=== PATIENT | male | born 1970 | race Caucasian/White ===

== ENCOUNTER → 2016-11-20 | Outpatient (CLI) | payer BC ==
--- NOTE | 2016-11-20 17:54 | CT ---
EXAMINATION TYPE: CT abdomen pelvis w con DATE OF EXAM: 11/20/2016 5:45 PM COMPARISON: 06/11/2014 HISTORY: Left sidedto Mid trauma on 11/16/16 CT DLP: 1839.3 mGycm Automated exposure control for dose reduction was used. TECHNIQUE: Helical acquisition of images was performed from the lung bases through the pelvis. CONTRAST: Performed with Oral Contrast and with IV Contrast, patient injected with 100 mL of Omnipaque 300. FINDINGS: Lung bases are clear. There is no pleural effusion. Liver spleen pancreas gallbladder appear normal. Bile ducts are not dilated. There is no adrenal mass. Kidneys show satisfactory contrast opacificatio n. There is no hydronephrosis. There is a 2 cm cortical cyst in the lower pole right kidney. There is a 4 mm calcification in the lower pole left kidney. There is no retroperitoneal adenopathy. There is no ascites. There is an umbilical hernia that contains fat. I see no intestinal wall thickening. There are no dilated loops. There are some spondylotic changes i n the lumbar spine. I see no compression fracture. IMPRESSION: UMBILICAL HERNIA. NONOBSTRUCTING LEFT RENAL CALCULUS. THERE IS CLEARING OF THE LEFT-SIDED HYDRONEPHRO SIS COMPARED TO OLD EXAM. NO SIGN OF TRAUMATIC INJURY.
== END | disposition home or self-care (01) ==
LOC: RADCTMAIN 15:51
PROVIDERS: ATTEND Physician Assistant Medical
DX: N20.0 Calculus of kidney (principal); K42.9 Umbilical hernia without obstruction or gangrene; N13.30 Unspecified hydronephrosis; S39.81XA Other specified injuries of abdomen, initial encounter; W19.XXXA Unspecified fall, initial encounter
CPT/HCPCS: 74177; Q9967

== ENCOUNTER 2019-05-06 08:47 | Emergency (ER) | payer BC, OTHER ==
[2019-05-06 09:02] VITALS: BP 147/87; PULSE 60; RESP 18; TEMP 97.9
--- NOTE | 2019-05-06 09:56 | CT ---
EXAMINATION TYPE: CT facial bones wo con DATE OF EXAM: 05/06/2019 COMPARISON: None. HISTORY: Ran into garage door, Lt sided facial pain CT DLP: 792.4 mGycm Automated exposure control for dose reduction was used. TECHNIQUE: CT scan of the sinuses is performed without contrast, axial images are obtained, coronal r eformatted images are also reviewed. FINDINGS: Soft tissues about the face are unremarkable. Visualized portions of the cranium appear normal. The zygomatic arches are intact. The pterygoid plates are intact. The orbital margins and phillips of th e maxillary sinuses are intact. The mandible is unremarkable. No nasal fracture is seen. There is janay e mucoperiosteal thickening involving the maxillary sinuses. IMPRESSION: 1. NO ACUTE FACIAL FRACTURE. 2. MILD, CHRONIC MAXILLARY SINUS MUCOSAL DISEASE.
--- NOTE | 2019-05-06 10:22 | ED ---
Skin/Abscess/FB HPI - General Chief complaint: Skin/Abscess/Foreign Body Stated complaint: facial swelling Time Seen by Provider: 05/06/19 09:05 Source: patient, RN notes reviewed, old records reviewed Mode of arrival: ambulatory Limitations: no limitations - History of Present Illness Initial comments: Patient's a 48-year-old male, who presents emergency room today with left-sided facial swelling and pain. Patient reports that yesterday evening he is trying to put stuff away in his garage, and he at the left side of the face on garage door. Patient reports that he did not lose consciousness.Patient reports he went to bed last night and awoke with worsening redness pain and swelling over the left side. Patient states is mainly over his maxilla and cheek. He reports he has history of chronically poor dentition but denies any specific dental pain at this time. - Related Data Home Medications Medication Instructions Recorded Confirmed Ciprofloxacin HCl [Cipro] 500 mg PO Q12HR 12/03/15 12/03/15 Clindamycin HCl [Cleocin] 300 mg PO QID 12/03/15 12/03/15 Previous Rx's Medication Instructions Recorded Ibuprofen [Motrin] 800 mg PO Q6HR PRN #30 tab 06/11/14 Aspirin EC [Ecotrin Low Dose] 81 mg PO DAILY #1 tablet. 12/05/15 Doxycycline [Vibramycin] 100 mg PO BID #20 cap 05/06/19 Ibuprofen [Motrin] 600 mg PO Q8HR PRN #20 tab 05/06/19 Allergies Allergy/AdvReac Type Severity Reaction Status Date / Time codeine AdvReac Swelling Verified 05/06/19 09:46 Penicillins AdvReac Swelling Verified 05/06/19 09:46 Review of Systems ROS Statement: Those systems with pertinent positive or pertinent negative responses have been documented in the HPI. ROS Other: All systems not noted in ROS Statement are negative. Past Medical History Past Medical History: Asthma History of Any Multi-Drug Resistant Organisms: None Reported Past Surgical History: Orthopedic Surgery Additional Past Surgical History / Comment(s): knee surgery and ankle surgery Past Anesthesia/Blood Transfusion Reactions: No Reported Reaction Past Psychological History: No Psychological Hx Reported, Depression Smoking Status: Never smoker Past Alcohol Use History: None Reported Past Drug Use History: None Reported - Past Family History Brother(s) Family Medical History: Chest Pain / Angina, Myocardial Infarction ([place]) Additional Family Medical History / Comment(s): brother recently had a heart attack General Exam - General Exam Comments Initial Comments: Pleasant 48-year-old male. No significant distress. Limitations: no limitations General appearance: alert, in no apparent distress Head exam: Present: atraumatic, normocephalic, normal inspection Eye exam: Present: normal appearance, PERRL, EOMI, other. Absent: scleral icterus, conjunctival injection, periorbital swelling ENT exam: Present: normal exam, mucous membranes moist, TM's normal bilaterally, other (Chest tenderness over the left side of the maxilla, some erythema and swelling. No sign of nasal hematoma.) Neck exam: Present: normal inspection. Absent: tenderness, meningismus, lymphadenopathy Respiratory exam: Present: normal lung sounds bilaterally. Absent: respiratory distress, wheezes, rales, rhonchi, stridor Cardiovascular Exam: Present: regular rate, normal rhythm, normal heart sounds. Absent: systolic murmur, diastolic murmur, rubs, gallop, clicks GI/Abdominal exam: Present: soft, normal bowel sounds. Absent: distended, tenderness, guarding, rebound, rigid Extremities exam: Present: normal inspection, full ROM, normal capillary refill. Absent: tenderness, pedal edema, joint swelling, calf tenderness Back exam: Present: normal inspection Neurological exam: Present: alert, oriented X3, CN II-XII intact Course Vital Signs 05/06/19 08:57 Temperature 97.9 F Pulse Rate 60 Respiratory 18 Rate Blood Pressure 147/87 O2 Sat by Pulse 95 Oximetry Medical Decision Making - Medical Decision Making Patient's a 48-year-old male presents to return today with erythema over the left side of face, and swelling after he hit it on a garage or yesterday. He has a significant abrasions. Patient has some tenderness over the left maxilla. He has some history of chronic poor dentition. Due to the history of trauma to complete a computed tomography scan of the facial bones. He had no loss consciousness, and has no neurological deficits. Discussed the risk and benefit of CT. Patient Patient is agreeable, computed tomography scan of the facial bones was completed and shows no evidence of fracture. Evidence of chronic maxilla sinusitis. With the erythema, and concerns doesn't discomfort we will put the Patient on antibiotics to cover for any cellulitis her typical sinusitis. Patient is agreeable treatment plan will comply. Return parameters were discussed. - Radiology Data Radiology results: report reviewed Interpreted by me: CT of the facial bones shows no acute facial fracture. Mild chronic maxillary sinus mucosal disease. Disposition Clinical Impression: Facial contusion, Sinusitis Disposition: HOME SELF-CARE Condition: Good Instructions (If sedation given, give patient instructions): Sinusitis (ED) Additional Instructions: Advised to take the antibiotic as prescribed. Aunt had temperature medication such as Motrin Tylenol for pain. Apply cool compresses over the area of swelling and irritation. Return to the emergency department if any alarming signs or symptoms occur. Prescriptions: Ibuprofen [Motrin] 600 mg PO Q8HR PRN #20 tab PRN Reason: Pain Doxycycline [Vibramycin] 100 mg PO BID #20 cap Is patient prescribed a controlled substance at d/c from ED?: No Referrals: None,Stated [Primary Care Provider] - 1-2 days Leigh Ann Mcintyre MD [STAFF PHYSICIAN] - 1-2 days Anil Allen DO [Doctor of Osteopathic Medicine] - 1-2 days Time of Disposition: 10:19
== END 2019-05-06 11:15 | disposition home or self-care (01) ==
LOC: EC 08:47
DX: S00.83XA Contusion of other part of head, initial encounter (principal); J32.0 Chronic maxillary sinusitis; Z88.0 Allergy status to penicillin; Z88.5 Allergy status to narcotic agent; W22.8XXA Striking against or struck by other objects, initial encounter; Y93.89 Activity, other specified; Y92.015 Private garage of single-family (private) house as the place of occurrence of the external cause
CPT/HCPCS: 70486; 99284

== ENCOUNTER 2020-06-05 09:10 | Inpatient (IN) | payer BC ==
[2020-06-05] MEDS ORDERED: ALBUTEROL HFA INHALER INHALATION STA (09:55)
[2020-06-05 10:58] LABS: Basophils % (A) 0 %; Eosinophils % (A) 1 %; HCT 47.7 % (39.0-53.0); HGB 16.1 gm/dL (13.0-17.5); Lymphocytes # (A) 0.9 k/uL (1.0-4.8); Lymphocytes % (A) 19 %; MCH 29.7 pg (25.0-35.0); MCHC 33.8 g/dL (31.0-37.0); MCV 87.8 fL (80.0-100.0); Mean Platelet Volume 6.6; Monocytes # (A) 0.2 k/uL (0-1.0); Monocytes % (A) 4 %; Neutrophils # (A) 3.5 k/uL (1.3-7.7); Neutrophils % (A) 75 %; Platelet Count 153 k/uL (150-450); RBC 5.43 m/uL (4.30-5.90); RDW 13.1 % (11.5-15.5); WBC 4.6 k/uL (3.8-10.6)
--- NOTE | 2020-06-05 10:59 | XR ---
EXAMINATION TYPE: XR chest 1V portable DATE OF EXAM: 06/05/2020 HISTORY: Shortness of breath. COMPARISON: 12/03/2015 TECHNIQUE: Single view of the chest is submitted. FINDINGS: Demonstrated are scattered senescent parenchymal change. Right lower lobe infiltrate compatible with pneumonia. The heart is stable. Hilar and mediastinal structures are within normal limits. Degenerative changes are seen of the dorsal spine. IMPRESSION: 1. Right lower lobe infiltrate compatible with pneumonia.
[2020-06-05 11:10] LABS: ALT 36 U/L (4-49); AST 34 U/L (17-59); African American GFR (CKD) >90 (>60 ml/min/1.73 sqM); Albumin 4.3 g/dL (3.5-5.0); Alkaline Phosphatase 93 U/L (38-126); Anion Gap 6 mmol/L; Blood Urea Nitrogen 12 mg/dL (9-20); Calcium 8.8 mg/dL (8.4-10.2); Carbon Dioxide 26 mmol/L (22-30); Chloride 103 mmol/L (98-107); Glucose 100 mg/dL (74-99); LDH 290 U/L (313-618); Magnesium 1.9 mg/dL (1.6-2.3); Non-African American GFR(CKD) >90 (>60 ml/min/1.73 sqM); Potassium 3.9 mmol/L (3.5-5.1); Sodium 135 mmol/L (137-145); Total Bilirubin 0.6 mg/dL (0.2-1.3); Total Protein 7.9 g/dL (6.3-8.2)
[2020-06-05 11:16] LABS: D-Dimer 0.5 mg/L FEU (<0.60); INR 0.9 (<1.2); Partial Thromboplastin Time 27.8 sec (22.0-30.0); Prothrombin Time 9.6 sec (9.0-12.0)
[2020-06-05] MEDS ORDERED: AZITHROMYCIN 500 MG in SODIUM CHLORIDE 0.9% 250 ML IVPB STA (12:35)
--- NOTE | 2020-06-05 12:35 | ED ---
SOB HPI - General Chief Complaint: Shortness of Breath Stated Complaint: SOB Time Seen by Provider: 06/05/20 09:26 Source: patient Mode of arrival: ambulatory Limitations: no limitations - History of Present Illness Initial Comments: Patient is a 49-year-old male with past medical history of asthma who presents emergency Department with reported fever and shortness of breath. Patient states that his symptoms started yesterday. Patient is concerned as her on this time of year he reportedly comes down with pneumonia. Patient denies any sick contacts or similar symptoms. No exposure to Covid. Patient has had a productive cough associated shortness of breath. Also reports to chest pain which is pleuritic in nature. Denies history of DVT or PE. No lower extremity edema. No history of heart failure. Patient did have a fever this morning and took some Motrin. Denies previous cardiac history. No hemoptysis. No alleviating, precipitating or modifying factors - Related Data Home Medications Medication Instructions Recorded Confirmed FLUoxetine HCL [PROzac] 40 mg PO DAILY 05/06/19 06/09/20 atenoloL [Tenormin] 50 mg PO DAILY 05/06/19 06/09/20 Ipratropium-Albuterol Nebulize 3 ml INHALATION RT-QID PRN 06/09/20 06/09/20 [Duoneb 0.5 mg-3 mg/3 ml Soln] predniSONE See Taper PO DIRECTED 06/09/20 06/09/20 Previous Rx's Medication Instructions Recorded Levofloxacin [Levaquin] 750 mg PO DAILY tab 06/07/20 Allergies Allergy/AdvReac Type Severity Reaction Status Date / Time codeine Allergy Swelling Verified 06/09/20 11:40 Penicillins Allergy Swelling Verified 06/09/20 11:40 Review of Systems ROS Statement: Those systems with pertinent positive or pertinent negative responses have been documented in the HPI. ROS Other: All systems not noted in ROS Statement are negative. Past Medical History Past Medical History: Asthma History of Any Multi-Drug Resistant Organisms: None Reported Past Surgical History: Orthopedic Surgery Additional Past Surgical History / Comment(s): knee surgery and ankle surgery Past Anesthesia/Blood Transfusion Reactions: No Reported Reaction Past Psychological History: No Psychological Hx Reported, Depression Smoking Status: Never smoker Past Alcohol Use History: Rare Past Drug Use History: None Reported - Past Family History Brother(s) Family Medical History: Chest Pain / Angina, Myocardial Infarction ([place]) Additional Family Medical History / Comment(s): brother recently had a heart attack General Exam Limitations: no limitations General appearance: alert, in no apparent distress Eye exam: Present: normal appearance, PERRL, EOMI. Absent: scleral icterus, conjunctival injection, periorbital swelling Respiratory exam: Present: other (tachypnia, coarse breath sounds on the right, conversational dyspnea). Absent: respiratory distress Cardiovascular Exam: Present: regular rate, normal rhythm, normal heart sounds. Absent: systolic murmur, diastolic murmur, rubs, gallop, clicks GI/Abdominal exam: Present: soft, normal bowel sounds. Absent: distended, tenderness, guarding, rebound, rigid Neurological exam: Present: alert, oriented X3, CN II-XII intact Psychiatric exam: Present: normal affect, normal mood Course Vital Signs 06/05/20 06/05/20 06/05/20 09:15 10:34 11:00 Temperature 98.7 F Pulse Rate 72 69 Respiratory 18 18 Rate Blood Pressure 140/91 158/85 O2 Sat by Pulse 93 L 98 96 Oximetry 06/05/20 14:00 Temperature 98.5 F Pulse Rate 62 Respiratory 18 Rate Blood Pressure 136/82 O2 Sat by Pulse 97 Oximetry Medical Decision Making - Medical Decision Making Upon arrival the patient is placed into room 9. A thorough history and physical exam was performed. Patient is saturating 93% on room air. Peripheral is established. Laboratory studies were conducted. Patient is swabbed for Covid which is negative. Chest x-ray was performed which demonstrates a right lower lobe infiltrate. Images viewed by myself and pneumonia is quite extensive. I did order antibiotics. Albuterol inhaler is also ordered. I did discuss results with the patient. He did present tachypneic and upon reevaluation continues to remain slightly tachypneic. I did recommend hospital admission. Discuss case Dr. Huizar who did accept admission the patient. He did remain in stable condition awaiting a bed on the floor - Lab Data Result diagrams: 06/07/20 07:32 06/07/20 07:32 Lab Results 06/05/20 06/05/20 06/05/20 Range/Units 10:18 10:18 10:18 WBC 4.6 (3.8-10.6) k/uL RBC 5.43 (4.30-5.90) m/uL Hgb 16.1 (13.0-17.5) gm/dL Hct 47.7 (39.0-53.0) % MCV 87.8 (80.0-100.0) fL MCH 29.7 (25.0-35.0) pg MCHC 33.8 (31.0-37.0) g/dL RDW 13.1 (11.5-15.5) % Plt Count 153 (150-450) k/uL MPV 6.6 Neutrophils % 75 % Lymphocytes % 19 % Monocytes % 4 % Eosinophils % 1 % Basophils % 0 % Neutrophils # 3.5 (1.3-7.7) k/uL Lymphocytes # 0.9 L (1.0-4.8) k/uL Monocytes # 0.2 (0-1.0) k/uL Eosinophils # 0.0 (0-0.7) k/uL Basophils # 0.0 (0-0.2) k/uL PT 9.6 (9.0-12.0) sec INR 0.9 (<1.2) APTT 27.8 (22.0-30.0) sec D-Dimer 0.50 (<0.60) mg/L FEU Sodium 135 L (137-145) mmol/L Potassium 3.9 (3.5-5.1) mmol/L Chloride 103 (98-107) mmol/L Carbon Dioxide 26 (22-30) mmol/L Anion Gap 6 mmol/L BUN 12 (9-20) mg/dL Creatinine 0.80 (0.66-1.25) mg/dL Est GFR (CKD-EPI)AfAm >90 (>60 ml/min/1.73 sqM) Est GFR (CKD-EPI)NonAf >90 (>60 ml/min/1.73 sqM) Glucose 100 H (74-99) mg/dL Plasma Lactic Acid Lazaro (0.7-2.0) mmol/L Calcium 8.8 (8.4-10.2) mg/dL Magnesium 1.9 (1.6-2.3) mg/dL Total Bilirubin 0.6 (0.2-1.3) mg/dL AST 34 (17-59) U/L ALT 36 (4-49) U/L Alkaline Phosphatase 93 (38-126) U/L Lactate Dehydrogenase 290 L (313-618) U/L C-Reactive Protein 20.0 H (<10.0) mg/L Total Protein 7.9 (6.3-8.2) g/dL Albumin 4.3 (3.5-5.0) g/dL Procalcitonin (0.02-0.09) ng/mL Coronavirus (PCR) (Not Detectd) 06/05/20 06/05/20 06/05/20 Range/Units 10:18 10:18 10:18 WBC (3.8-10.6) k/uL RBC (4.30-5.90) m/uL Hgb (13.0-17.5) gm/dL Hct (39.0-53.0) % MCV (80.0-100.0) fL MCH (25.0-35.0) pg MCHC (31.0-37.0) g/dL RDW (11.5-15.5) % Plt Count (150-450) k/uL MPV Neutrophils % % Lymphocytes % % Monocytes % % Eosinophils % % Basophils % % Neutrophils # (1.3-7.7) k/uL Lymphocytes # (1.0-4.8) k/uL Monocytes # (0-1.0) k/uL Eosinophils # (0-0.7) k/uL Basophils # (0-0.2) k/uL PT (9.0-12.0) sec INR (<1.2) APTT (22.0-30.0) sec D-Dimer (<0.60) mg/L FEU Sodium (137-145) mmol/L Potassium (3.5-5.1) mmol/L Chloride (98-107) mmol/L Carbon Dioxide (22-30) mmol/L Anion Gap mmol/L BUN (9-20) mg/dL Creatinine (0.66-1.25) mg/dL Est GFR (CKD-EPI)AfAm (>60 ml/min/1.73 sqM) Est GFR (CKD-EPI)NonAf (>60 ml/min/1.73 sqM) Glucose (74-99) mg/dL Plasma Lactic Acid Lazaro 1.0 (0.7-2.0) mmol/L Calcium (8.4-10.2) mg/dL Magnesium (1.6-2.3) mg/dL Total Bilirubin (0.2-1.3) mg/dL AST (17-59) U/L ALT (4-49) U/L Alkaline Phosphatase (38-126) U/L Lactate Dehydrogenase (313-618) U/L C-Reactive Protein (<10.0) mg/L Total Protein (6.3-8.2) g/dL Albumin (3.5-5.0) g/dL Procalcitonin 0.09 (0.02-0.09) ng/mL Coronavirus (PCR) Not Detected (Not Detectd) - EKG Data EKG Comments: EKG demonstrates normal sinus rhythm with a ventricular rate of 67. HI interval is 180. QRS 114. QTC of 412. No acute ST segment elevations or depressions concerning for ischemic changes Disposition Clinical Impression: Chest pain, Shortness of breath, CAP (community acquired pneumonia), Asthma Disposition: ADMITTED IP TO THIS [facility] Condition: Stable Is patient prescribed a controlled substance at d/c from ED?: No Decision to Admit Reason: Admit from EC Decision Date: 06/05/20 Decision Time: 12:35
[2020-06-05] MEDS ORDERED: NALOXONE 0.4 MG/ML 1 ML VIAL IV PRN (12:36)
[2020-06-05] MEDS ORDERED: ACETAMINOPHEN TAB 325 MG TAB PO PRN (12:36)
[2020-06-05] MEDS ORDERED: cefTRIAXone IN SWFI 1,000 MG/10 ML SYRINGE IVP STA (12:36)
[2020-06-05] MEDS ORDERED: SODIUM CHLORIDE 0.9% 1,000 ML IV SCH (12:45)
[2020-06-05] MEDS ORDERED: SODIUM CHLORIDE 0.9% 1,000 ML IV STA (18:05)
--- NOTE | 2020-06-05 18:14 | P.HPIM ---
History of Present Illness H&P Date: 06/05/20 Dennis Beal, is a 49-year-old male patient of Dr. Underwood who presented to [facility] emergency room with a chief complaint of cough and shortness of breath, patient stated that he had fever, his symptoms started yesterday he was evaluated in the emergency room a rapid Covid test was done and was negative chest x-ray revealed evidence of right lower lobe infiltrate suggestive of pne umonia he was started on IV Rocephin and IV Zithromax and was admitted to medical floor. Patient has a history of asthma in the past, he stated that he never smoked he denies any history of COPD he denies any history of cardiac disease no history of coronary artery disease or congestive heart failure. On review of systems patient is alert and oriented 3 there is no fever or chills no headache or dizziness no chest pain he has significant shortness of breath he is not able to lay down he has occasional cough no nausea or vomiting no abdominal pain no diarrhea no blood in the stools no burning with urination no frequency or urgency and no hematuria. Past medical history is significant for asthma otherwise patient denies any significant past medical history he had an orthopedic surgery on his right lower extremity other surgical intervention Patient denies any history of smoking alcohol use or any illicit drug use. Past Medical History Past Medical History: Asthma History of Any Multi-Drug Resistant Organisms: None Reported Past Surgical History: Orthopedic Surgery Additional Past Surgical History / Comment(s): knee surgery and ankle surgery Past Anesthesia/Blood Transfusion Reactions: No Reported Reaction Past Psychological History: No Psychological Hx Reported, Depression Smoking Status: Never smoker Past Alcohol Use History: Rare Past Drug Use History: None Reported - Past Family History Brother(s) Family Medical History: Chest Pain / Angina, Myocardial Infarction ([place]) Additional Family Medical History / Comment(s): brother recently had a heart attack Medications and Allergies Home Medications Medication Instructions Recorded Confirmed Type FLUoxetine HCL [PROzac] 40 mg PO DAILY 05/06/19 06/05/20 History atenoloL [Tenormin] 50 mg PO DAILY 05/06/19 06/05/20 History Allergies Allergy/AdvReac Type Severity Reaction Status Date / Time codeine Allergy Swelling Verified 06/05/20 11:35 Penicillins Allergy Swelling Verified 06/05/20 11:35 Physical Exam Vitals: Vital Signs Temp Pulse Pulse Resp BP BP Pulse Ox 06/05/20 18:00 98.3 F 89 24 138/66 98 06/05/20 14:00 98.5 F 62 18 136/82 97 06/05/20 11:00 69 18 158/85 96 06/05/20 10:34 98 06/05/20 09:15 98.7 F 72 18 140/91 93 L Intake and Output 06/05/20 06/05/20 06/05/20 06:59 14:59 22:59 Other: Weight 114.305 kg On physical exam patient is alert and oriented 3 in no apparent distress HEENT head normocephalic and atraumatic Neck is supple no JVD no goiter no lymphadenopathy Chest exam reveals crackles in both lung bases right worse than left no wheezing Cardiac exam reveals regular heart sounds S1 and S2 no gallops no murmurs Abdomen is soft nontender no organomegaly with normal bowel sounds Extremity exam reveals no edema no cyanosis or clubbing Results CBC & Chem 7: 06/05/20 10:18 06/05/20 10:18 Labs: Abnormal Lab Results - Last 24 Hours (Table) 06/05/20 06/05/20 Range/Units 10:18 10:18 Lymphocytes # 0.9 L (1.0-4.8) k/uL Sodium 135 L (137-145) mmol/L Glucose 100 H (74-99) mg/dL Lactate Dehydrogenase 290 L (313-618) U/L C-Reactive Protein 20.0 H (<10.0) mg/L Thrombosis Risk Factor Assmnt - Choose All That Apply Any of the Below Risk Factors Present?: Yes Each Factor Represents 1 point: Age 41-60 years, Serious lung disease incl. pneumonia (< 1month) Other Risk Factors: No Other congenital or acquired thrombophilia - If yes, enter type in comment: No Thrombosis Risk Factor Assessment Total Risk Factor Score: 2 Thrombosis Risk Factor Assessment Level: Low Risk Assessment and Plan Plan: 1. Severe shortness of breath, likely related to pneumonia, patient has known history of asthma there is no wheezing at this time, however patient will be started on oral steroids and inhaled bronchodilators, will continue with IV antibiotic that was started in the emergency room Rocephin and Zithromax will obtain sputum for culture and Gram stain 2. Underlying history of asthma 3. For DVT prophylaxis we will use Lovenox for GI prophylaxis Will use Protonix 4. Rapid Covid 19 testing in the emergency room was negative, will obtain swab for PCR testing
[2020-06-05] MEDS: IPRATROPIUM-ALBUTEROL 3 ML NEB INHALATION SCH (19:18)
[2020-06-05] MEDS: dexAMETHasone 4 MG TAB PO SCH (21:00)
[2020-06-05] MEDS: IBUPROFEN 400 MG TAB PO PRN (21:04)
[2020-06-06 08:12] LABS: Basophils % (A) 1 %; Eosinophils % (A) 0 %; HCT 50.4 % (39.0-53.0); HGB 17.5 gm/dL (13.0-17.5); Lymphocytes # (A) 0.4 k/uL (1.0-4.8); Lymphocytes % (A) 9 %; MCH 30.6 pg (25.0-35.0); MCHC 34.8 g/dL (31.0-37.0); MCV 87.8 fL (80.0-100.0); Monocytes # (A) 0.1 k/uL (0-1.0); Monocytes % (A) 3 %; Neutrophils # (A) 3.7 k/uL (1.3-7.7); Neutrophils % (A) 87 %; Platelet Count 134 k/uL (150-450); RBC 5.73 m/uL (4.30-5.90); RDW 12.6 % (11.5-15.5); WBC 4.3 k/uL (3.8-10.6)
[2020-06-06] MEDS: IPRATROPIUM-ALBUTEROL 3 ML NEB INHALATION SCH ×4 (08:39→20:47)
[2020-06-06] MEDS: IBUPROFEN 400 MG TAB PO PRN ×2 (09:01→23:35)
[2020-06-06] MEDS: dexAMETHasone 4 MG TAB PO SCH (09:02)
[2020-06-06] MEDS: ENOXAPARIN 40 MG/0.4 ML SYRINGE SQ SCH (09:02)
--- NOTE | 2020-06-06 11:50 | P.PN ---
Subjective Progress Note Date: 06/06/20 Dennis Beal, is a 49-year-old male patient of Dr. Underwood who presented to [facility] emergency room with a chief complaint of cough and shortness of breath, patient stated that he had fever, his symptoms started yesterday he was evaluated in the emergency room a rapid Covid test was done and was negative chest x-ray revealed evidence of right lower lobe infiltrate suggestive of pneumonia he was started on IV Rocephin and IV Zithromax and was admitted to medical floor. Patient has a history of asthma in the past, he stated that he never smoked he denies any history of COPD he denies any history of cardiac disease no history of coronary artery disease or congestive heart failure. On review of systems patient is alert and oriented 3 there is no fever or chills no headache or dizziness no chest pain he has significant shortness of breath he is not able to lay down he has occasional cough no nausea or vomiting no abdominal pain no diarrhea no blood in the stools no burning with urination no frequency or urgency and no hematuria. Past medical history is significant for asthma otherwise patient denies any significant past medical history he had an orthopedic surgery on his right lower extremity other surgical intervention Patient denies any history of smoking alcohol use or any illicit drug use. On 06/06/2020 patient was seen and examined on the medical floor he is alert and oriented 3 in no distress he is still complaining of cough and shortness of breath, however he reports significant improvement since yesterday, otherwise he denies any complaints there is no fever or chills no headache or dizziness no chest pain no palpitation no nausea or vomiting no abdominal pain no diarrhea no blood in the stools no burning with urination no frequency or urgency and no h ematuria Objective - Vital Signs Vital signs: Vital Signs Temp 98.7 F 06/06/20 07:22 Pulse 92 06/06/20 08:52 Resp 17 06/06/20 07:22 BP 167/82 06/06/20 07:22 Pulse Ox 99 06/06/20 07:22 Intake & Output 06/05/20 06/06/20 06/06/20 18:59 06:59 18:59 Weight 114.305 kg Other: Voiding Method Toilet - Exam On physical exam patient is alert and oriented 3 in no apparent distress HEENT head normocephalic and atraumatic Neck is supple no JVD no goiter no lymphadenopathy Chest exam reveals crackles in both lung bases right worse than left no wheezing Cardiac exam reveals regular heart sounds S1 and S2 no gallops no murmurs Abdomen is soft nontender no organomegaly with normal bowel sounds Extremity exam reveals no edema no cyanosis or clubbing - Labs CBC & Chem 7: 06/06/20 07:16 06/05/20 10:18 Labs: Abnormal Lab Results - Last 24 Hours (Table) 06/06/20 Range/Units 07:16 Plt Count 134 L (150-450) k/uL Lymphocytes # 0.4 L (1.0-4.8) k/uL Assessment and Plan Plan: 1. Severe shortness of breath, likely related to pneumonia, patient has known history of asthma there is no wheezing at this time, however patient will be started on oral steroids and inhaled bronchodilators, will continue with IV antibiotic that was started in the emergency room Rocephin and Zithromax will obtain sputum for culture and Gram stain 2. Underlying history of asthma 3. For DVT prophylaxis we will use Lovenox for GI prophylaxis Will use Protonix 4. Rapid Covid 19 testing in the emergency room was negative, repeat testing was PCR was also negative 5. For DVT prophylaxis patient is on Lovenox for GI prophylaxis patient is on Protonix Awaiting repeat chest x-ray Awaiting sputum for culture and Gram stain Awaiting input from pulmonary
[2020-06-06 11:56] LABS: African American GFR (CKD) 100.6 (60.0-200.0); Albumin 4.6 g/dL (3.80-4.90); Albumin/Globulin Ratio 1.53 (1.60-3.17); Anion Gap 7.8 mmol/L (4.00-12.00); Calcium 9.2 mg/dL (8.7-10.3); Carbon Dioxide 27.2 mmol/L (21.6-31.8); Non-African American GFR(CKD) 86.8 (60.0-200.0); Potassium 4.7 mmol/L (3.5-5.5); Total Bilirubin 0.6 mg/dL (0.3-1.2); Total Protein 7.6 g/dL (6.2-8.2)
--- NOTE | 2020-06-06 12:41 | XR ---
EXAMINATION TYPE: XR chest 2V DATE OF EXAM: 06/06/2020 COMPARISON: Chest x-ray from yesterday. CT chest March 25, 2016 HISTORY: Shortness of breath. TECHNIQUE: Frontal and lateral views of the chest are obtained. FINDINGS: There is redemonstration of right basilar opacity more masslike or rounded on the current study less well seen on lateral view. Left lung remains clear. The cardiac silhouette size is stable and within normal limits. The osseous structures are intact. IMPRESSION: Slightly worsening right basilar acute infiltrate and/or atelectasis.
[2020-06-06] MEDS ORDERED: AZITHROMYCIN 500 MG in SODIUM CHLORIDE 0.9% 250 ML IVPB SCH (14:00)
[2020-06-06] MEDS: PANTOPRAZOLE 40 MG TABLET PO SCH (14:16)
[2020-06-06] MEDS ORDERED: RX INFO: IV CONTRAST WAS GIVEN 1 EACH MISC MISCELLANE PRN (15:17)
--- NOTE | 2020-06-06 15:17 | P.CNPUL ---
History of Present Illness Consult date: 06/06/20 Requesting physician: Placido Huizar Reason for consult: dyspnea, cough, abnormal CXR/CT Chief complaint: Shortness of breath, cough, congestion History of present illness: This is a very pleasant 49-year-old gentleman who follows with Dr. Underwood as his primary care provider, with a known history of mild intermittent chronic bronchial asthma, lifelong nonsmoker hypertension, depression. He presented here to the emergency room on 06/05/2020 with complaints of increasing shortness of breath, cough and congestion. He did have a fever at home. He did have night sweats, chills, nausea and dizziness. Chest x-ray reveals evidence of a right lower lobe infiltrate compatible with pneumonia. Blood cultures pending. White count 4.3. Hemoglobin 17.5. Sodium 136. Potassium 4.7. Creatinine 1.0. D-dimer 0.50. Troponins negative 2. Pro calcitonin 0.09. Coronavirus not detected. The patient is seen today in consultation on the regular medical floor. He is currently awake and alert in no acute distress. Chest x-ray does reveal slightly worsening right basilar acute infiltrate/atelectasis somewhat of a masslike a rounded consolidation. Left lung is clear. Currently maintaining good O2 saturations in the upper 90s on 4 L/m per nasal cannula. He is currently afebrile. Hemodynamically stable. He's been initiated on ceftriaxone and azithromycin. Bronchodilators, steroids. Review of Systems REVIEW OF SYSTEMS: CONSTITUTIONAL: Fever, chills, night sweats. Dizziness. Denies any recent significant weight loss or weight gain. EYES: Denies change in vision. EARS, NOSE, MOUTH, THROAT: Denies headaches, denies sore throat. CARDIOVASCULAR: Denies chest pain, palpitations or syncopal episodes. RESPIRATORY: Positive for shortness of breath, cough, congestion no hemoptysis. GASTROINTESTINAL: Positive for nausea. Denies change in appetite, denies ab dominal pain GENITOURINARY: Denies hematuria, denies infections. MUSKULOSKELETAL: Denies pain, denies swelling. INTEGUMENTARY: Denies rash, denies eczema. NEUROLOGICAL: Denies recent memory loss, no recent seizure activity. PSYCHIATRIC: Denies anxiety, denies depression. HEMATOLOGIC/LYMPHATIC: Denies anemia, denies enlarged lymph nodes. Past Medical History Past Medical History: Asthma History of Any Multi-Drug Resistant Organisms: None Reported Past Surgical History: Orthopedic Surgery Additional Past Surgical History / Comment(s): knee surgery and ankle surgery Past Anesthesia/Blood Transfusion Reactions: No Reported Reaction Past Psychological History: No Psychological Hx Reported, Depression Smoking Status: Never smoker Past Alcohol Use History: Rare Past Drug Use History: None Reported - Past Family History Brother(s) Family Medical History: Chest Pain / Angina, Myocardial Infarction ([place]) Additional Family Medical History / Comment(s): brother recently had a heart attack Medications and Allergies Home Medications Medication Instructions Recorded Confirmed Type FLUoxetine HCL [PROzac] 40 mg PO DAILY 05/06/19 06/05/20 History atenoloL [Tenormin] 50 mg PO DAILY 05/06/19 06/05/20 History Allergies Allergy/AdvReac Type Severity Reaction Status Date / Time codeine Allergy Swelling Verified 06/05/20 11:35 Penicillins Allergy Swelling Verified 06/05/20 11:35 Physical Exam Vitals: Vital Signs Temp Pulse Pulse Resp BP Pulse Ox 06/06/20 12:04 86 06/06/20 11:54 84 06/06/20 08:52 92 06/06/20 08:39 92 06/06/20 07:22 98.7 F 73 17 167/82 99 06/06/20 00:51 98.1 F 73 17 115/72 97 06/05/20 22:30 98.2 F 06/05/20 20:59 101.2 F H 84 17 127/86 97 06/05/20 19:27 90 20 06/05/20 19:18 89 22 06/05/20 18:00 98.3 F 89 24 138/66 98 Intake and Output 06/05/20 06/06/20 06/06/20 22:59 06:59 14:59 Other: Voiding Method Toilet GENERAL EXAM: Alert, active, pleasant 49-year-old gentleman, on 4 L nasal cannula, comfortable in no apparent distress. HEAD: Normocephalic. EYES: Normal reaction of pupils, equal size. NOSE: Clear with pink turbinates. THROAT: No erythema or exudates. NECK: No masses, no JVD. CHEST: No chest wall deformity. LUNGS: Equal air entry with scattered rhonchi in the right lung base. CVS: S1 and S2 normal with no audible murmur, regular rhythm. ABDOMEN: No hepatosplenomegaly, normal bowel sounds, no guarding or rigidity. SPINE: No scoliosis or deformity SKIN: No rashes CENTRAL NERVOUS SYSTEM: No focal deficits, tone is normal in all 4 extremities. EXTREMITIES: There is no peripheral edema. No clubbing, no cyanosis. Peripheral pulses are intact. Results - Laboratory Findings CBC and BMP: 06/06/20 07:16 06/06/20 07:16 PT/INR, D-dimer PT 9.6 sec (9.0-12.0) 06/05/20 10:18 INR 0.9 (<1.2) 06/05/20 10:18 D-Dimer 0.50 mg/L FEU (<0.60) 06/05/20 10:18 Abnormal lab findings: Abnormal Labs 06/05/20 06/05/20 06/06/20 10:18 10:18 07:16 Plt Count 134 L Lymphocytes # 0.9 L 0.4 L Sodium 135 L Glucose 100 H Lactate Dehydrogenase 290 L C-Reactive Protein 20.0 H Albumin/Globulin Ratio 06/06/20 07:16 Plt Count Lymphocytes # Sodium Glucose 139 H Lactate Dehydrogenase C-Reactive Protein Albumin/Globulin Ratio 1.53 L - Diagnostic Findings Chest x-ray: image reviewed Assessment and Plan Assessment: 1 Acute hypoxic respiratory failure secondary to an acute community-acquired right lower lobe pneumonia, masslike consolidation, mitchell virus not detected 2 History of mild intermittent chronic bronchial asthma 3 History of hypertension 4 History of depression Plan: The patient was seen and evaluated by Dr. Muller Chest x-ray and labs reviewed We'll continue with antibiotics, steroids and bronchodilators for now Obtain computed tomography scan of the chest with contrast May require bronchoscopy with BAL if no significant improvement We will continue to follow and make further recommendations based on his clinical status I, the cosigning physician, performed a history & physical examination of the patient. Lungs sounds few scattered rhonchi more so on the right lung. Maintaining good O2 saturations in the 90s on or liters per minute per nasal cannula. I discussed the assessment and plan of care with my nurse practiti camryn, Karen Wiseman. I attest to the above consultation as dictated by her. Time with Patient: Greater than 30
--- NOTE | 2020-06-06 16:25 | CT ---
EXAMINATION TYPE: CT chest w con DATE OF EXAM: 06/06/2020 COMPARISON: CTA chest March 25, 2016. Chest x-ray earlier today. HISTORY: SOB CT DLP: 781.6 mGycm. Automated Exposure Control for Dose Reduction was Utilized. TECHNIQUE: CT scan of the thorax is performed following with IV Contrast, patient injected with 100 mL of Isovue 300. FINDINGS: LUNGS: Exam suboptimal as patient unable to hold breath, this limits evaluation particularly for subc entimeter nodules. There is 1.1 x 1.0 cm groundglass nodule axial image 19 left mid lung anteriorly. There is 6 mm right basilar nodule axial image 28. Corresponding to x-ray there is dense consolidati on with air bronchograms involving the superior aspect of the right lower lobe and to lesser degree p osterior aspect of the more inferior right lower lobe. There is smaller focus of nodule or more likel y nodular consolidation right middle lobe periphery 1.2 x 1.1 cm axial image 33. Mild linear scarring medially in the left lower lobe. No pleural effusion or pneumothorax seen bilaterally. MEDIASTINUM: There are no greater than 1 cm hilar or mediastinal lymph nodes. No cardiomegaly or pe ricardial effusion is seen. OTHER: Liver is low dense consistent with diffuse fatty infiltration. Mild hepatomegaly is present. M ild splenomegaly at 13.9 cm long axis coronal image 76. Spine is straightened with mild to moderate m ultilevel spurring. IMPRESSION: Right lower lobe superior aspect pneumonic consolidation, more patchy involvement through out the right lower lobe and periphery of the right middle lobe. No obvious underlying mass or suspic ious adenopathy.
[2020-06-06] MEDS: methylPREDNISolone SOD SUCCI 40 MG/ML 1 ML VIAL IV SCH ×2 (17:18→23:34)
[2020-06-06] MEDS ORDERED: MELATONIN 5 MG TABLET PO SCH (21:00)
[2020-06-06] MEDS ORDERED: MELATONIN 3 MG TABLET PO SCH (21:00)
[2020-06-07 07:11] LABS: Glucose,Whole Blood 138 mg/dL (75-99)
[2020-06-07] MEDS: IBUPROFEN 400 MG TAB PO PRN ×2 (07:37→12:56)
[2020-06-07] MEDS: PANTOPRAZOLE 40 MG TABLET PO SCH (07:37)
[2020-06-07] MEDS: methylPREDNISolone SOD SUCCI 40 MG/ML 1 ML VIAL IV SCH (07:37)
[2020-06-07] MEDS: ENOXAPARIN 40 MG/0.4 ML SYRINGE SQ SCH (07:38)
[2020-06-07 07:56] VITALS: BP 126/62; RESP 16; TEMP 98.2
[2020-06-07 07:56] LABS: Basophils % (A) 0 %; Eosinophils % (A) 0 %; HCT 48.2 % (39.0-53.0); HGB 16.1 gm/dL (13.0-17.5); Lymphocytes # (A) 0.6 k/uL (1.0-4.8); Lymphocytes % (A) 6 %; MCH 29.6 pg (25.0-35.0); MCHC 33.4 g/dL (31.0-37.0); MCV 88.5 fL (80.0-100.0); Monocytes # (A) 0.2 k/uL (0-1.0); Monocytes % (A) 2 %; Neutrophils # (A) 9.3 k/uL (1.3-7.7); Neutrophils % (A) 91 %; Platelet Count 197 k/uL (150-450); RBC 5.45 m/uL (4.30-5.90); RDW 13.1 % (11.5-15.5); WBC 10.2 k/uL (3.8-10.6)
[2020-06-07] MEDS: IPRATROPIUM-ALBUTEROL 3 ML NEB INHALATION SCH ×2 (09:12→12:50)
--- NOTE | 2020-06-07 10:43 | CONS ---
CONSULTATION DATE OF SERVICE: 06/06/2020 REASON FOR CONSULTATION: Pneumonia. HISTORY OF PRESENT ILLNESS: The patient is a 49-year-old male with a past medical history significant for asthma, presenting to the ER with chief complaints of fever and shortness of breath. The patient's symptoms started the day before he presented to the hospital. The patient is complaining of shortness of breath with minimal exertion. Also has a cough which has been moderate in intensity with occasional sputum production. Denies hemoptysis. No pleuritic chest pain. No nausea, no vomiting. No chest pain. No diarrhea or any sick contacts. On arrival to the ER, the patient was afebrile. Subsequently, spiked a fever of 101.2 degrees Fahrenheit. The patient was mildly hypoxic requiring supplemental oxygen. The patient did have a normal white count with lymphopenia, elevated LDH, CRP of 20. Procalcitonin was normal. Naidu PCR came back negative. The patient did have a chest x-ray which showed right lower lobe infiltrate compatible with pneumonia. The patient did have a CT of the chest completed this afternoon with evidence of right lower lobe pneumonia. The patient has been admitted to the hospital, currently being treated with Rocephin, Zithromax, Solu-Medrol. Infectious Disease was consulted for further management of antibiotic therapy. REVIEW OF SYSTEMS: Positive points have been mentioned in HPI. Rest of the systems are negative. PAST MEDICAL HISTORY: Asthma. PAST SURGICAL HISTORY: Knee and ankle surgery. SOCIAL HISTORY: No history of smoking. Rarely drinks. No drug use. FAMILY HISTORY: No pertinent findings noticed. ALLERGIES: PENICILLIN, CODEINE. MEDICATIONS: The patient is currently on Protonix, Narcan, Solu-Medrol, Lovenox, Rocephin, Zithromax, DuoNeb and Tylenol. PHYSICAL EXAMINATION: VITAL SIGNS: Blood pressure 140/74 with a pulse of 68, temperature 98, he is 95% on 4 L nasal cannula. GENERAL DESCRIPTION: The patient is a middle-aged male up in the bed in no distress. No tachypnea or accessory muscles of respiration use. HEENT: Examination shows no pallor or scleral icterus. Oral mucous membranes are dry. NECK: Trachea central. No thyromegaly. LUNGS: Unlabored breathing with decreased breath sounds at the bases. No wheeze or crackles. HEART: S1, S2. Regular rate and rhythm. No added sounds. ABDOMEN: Soft, no tenderness. No guarding or rigidity. EXTREMITIES: No edema of the feet. SKIN: No rash or mass palpable. NEUROLOGIC: The patient is awake, alert, oriented. Mood and affect normal. LABS: Hemoglobin 17.4, white count 4.3, BUN 14 creatinine 1.0, LDH 290, CRP 20. Liver enzymes normal. Naidu PCR was negative. DIAGNOSTIC IMPRESSION: Patient admitted to the hospital with increased shortness of breath and cough with evidence of right lower lobe pneumonia, likely community-acquired in this patient that seems to have some features of COVID even though the PCR came back negative and the CT did not show any ground-glass opacity typical for COVID-19 infection. PLAN: 1. Patient to continue with Rocephin and Zithromax with the patient clinically responding. 2. We will follow up on his blood and sputum culture and adjust antibiotic further if needed. Thank you for this consultation. Will follow this patient along with you. MMODL / IJN: [id number] /
[2020-06-07 10:44] LABS: African American GFR (CKD) 100.6 (60.0-200.0); Albumin 4.5 g/dL (3.80-4.90); Albumin/Globulin Ratio 1.5 (1.60-3.17); Anion Gap 8.8 mmol/L (4.00-12.00); Carbon Dioxide 27.2 mmol/L (21.6-31.8); Non-African American GFR(CKD) 86.8 (60.0-200.0); Potassium 4.4 mmol/L (3.5-5.5); Total Bilirubin 0.5 mg/dL (0.2-1.2); Total Protein 7.5 g/dL (6.2-8.2)
[2020-06-07 11:55] LABS: Glucose,Whole Blood 145 mg/dL (75-99)
--- NOTE | 2020-06-07 12:25 | P.DS ---
Providers Date of admission: 06/05/20 12:36 Expected date of discharge: 06/07/20 Attending physician: Placido Huizar Consults: 06/05/20 18:02 Consult Physician Routine Consulting Provider: Ghazal Muller Consult Reason/Comments: pneumonia Do you want consulting provider notified?: Yes 06/05/20 18:03 Consult Physician Routine Consulting Provider: See Palma Consult Reason/Comments: pneumonia Do you want consulting provider notified?: Yes Primary care physician: Bina Underwood Hospital Course: Diagnosis on discharge: 1. Severe shortness of breath, likely related to pneumonia, asthma and COPD exacerbation, however patient will be started on oral steroids and inhaled bronchodilators, will continue with IV antibiotic that was started in the emergency room Rocephin and Zithromax will obtain sputum for culture and Gram stain 2. Underlying history of asthma 3. For DVT prophylaxis we will use Lovenox for GI prophylaxis Will use Protonix 4. Rapid Covid 19 testing in the emergency room was negative, repeat testing was PCR was also negative 5. For DVT prophylaxis patient is on Lovenox for GI prophylaxis patient is on Protonix Hospital course: Dennis Beal, is a 49-year-old male patient of Dr. Underwood who presented to [facility] emergency room with a chief complaint of cough and shortness of breath, patient stated that he had fever, his symptoms started yesterday he was evaluated in the emergency room a rapid Covid test was done and was negative chest x-ray revealed evidence of right lower lobe infiltrate suggestive of pneumonia he was started on IV Rocephin and IV Zithromax and was admitted to medical floor. Patient has a history of asthma in the past, he stated that he never smoked he denies any history of COPD he denies any history of cardiac disease no history of coronary artery disease or congestive heart failure. On review of systems patient is alert and oriented 3 there is no fever or chills no headache or dizziness no chest pain he has significant shortness of breath he is not able to lay down he has occasional cough no nausea or vomiting no abdominal pain no diarrhea no blood in the stools no burning with urination no frequency or urgency and no hematuria. Past medical history is significant for asthma otherwise patient denies any significant past medical history he had an orthopedic surgery on his right lower extremity other surgical intervention Patient denies any history of smoking alcohol use or any illicit drug use. On 06/06/2020 patient was seen and examined on the medical floor he is alert and oriented 3 in no distress he is still complaining of cough and shortness of breath, however he reports significant improvement since yesterday, otherwise he denies any complaints there is no fever or chills no headache or dizziness no chest pain no palpitation no nausea or vomiting no abdominal pain no diarrhea no blood in the stools no burning with urination no frequency or urgency and no hematuria On 06/07/2020 patient was seen and examined on the medical floor he is alert and oriented 3 in no apparent distress he states that he is having significant improvement in his cough and shortness of breath. He was evaluated by pulmonary and was cleared for discharge, his antibiotic were switched to Levaquin recommendation is to continue with Levaquin and with prednisone taper, patient was also given a prescription for a nebulizer and DuoNeb updrafts solution he will follow-up with pulmonary Dr. Renzo mauro within a week and he will follow-up with his primary care physician within one week Patient Condition at Discharge: Stable Plan - Discharge Summary Discharge Rx Participant: Yes New Discharge Prescriptions: New Ipratropium-Albuterol Nebulize [Duoneb 0.5 mg-3 mg/3 ml Soln] 3 ml INHALATION RT-QID ml Levofloxacin [Levaquin] 750 mg PO DAILY tab predniSONE 0 mg PO DIRECTED 12 Days #30 tab Continue FLUoxetine HCL [PROzac] 40 mg PO DAILY atenoloL [Tenormin] 50 mg PO DAILY Discharge Medication List FLUoxetine HCL [PROzac] 40 mg PO DAILY 05/06/19 [History] atenoloL [Tenormin] 50 mg PO DAILY 05/06/19 [History] Ipratropium-Albuterol Nebulize [Duoneb 0.5 mg-3 mg/3 ml Soln] 3 ml INHALATION RT-QID ml 06/07/20 [Rx] Levofloxacin [Levaquin] 750 mg PO DAILY tab 06/07/20 [Rx] predniSONE 0 mg PO DIRECTED 12 Days #30 tab 06/07/20 [Rx] Follow up Appointment(s)/Referral(s): Ghazal Muller MD [STAFF PHYSICIAN] - 1 Week Bina Underwood MD [Primary Care Provider] - 1-2 days
[2020-06-07 13:01] VITALS: PULSE 84
[2020-06-08] MEDS ORDERED: LEVOFLOXACIN 750 MG TAB PO SCH (09:00)
--- NOTE | 2020-06-10 10:53 | CDI ---
Documentation Clarification Form Date: 06/10/20 From: Leigh Ann Diaz Phone: If you have a question about this query, please contact [employer] User Experience Strategist at [phone] between 8am and 5pm. Admit Date: 06/05/20 Discharge Date:06/07/20 Patient Name: Dennis Beal Visit Number: [id number] ATTENTION: The Clinical Documentation Specialists (CDI) and [facility] Coding Staff appreciate your assistance in clarifying documentation. Please respond to the clarification below the line at the bottom and electronically sign. The CDI & [facility] Coding staff will review the response and follow-up if needed. Please note: Queries are made part of the Legal Health Record. If you have any questions, please contact the author of this message via ITS. Dear Dr. Huizar The diagnosis acute hypoxic respiratory failure was documented in the pulmonology consult note, but is not noted in subsequent documentation. History/Risk Factors: Pneumonia, mild intermittent asthma, COPD exacerbation Tobacco Use: Never smoker Home Oxygen: None Clinical Indicators: Hypoxia, shortness of breath, no accessory muscle use Vital signs: T. 98.7, P. 72, R. 18, BP 140/91 Pulse Ox.: 93% on room air on admit, 97% on 4 L/min per nasal cannula Lung/Breathing assessment: Equal air entry with scattered rhonchi in the right lung base Treatment: Breathing tx: Ventolin and Duoneb inhalation O2: 3 - 4 L/min per nasal cannula Please clarify if the acute respiratory failure was Present/active this admission Treated and resolved this admission Ruled out Other, please specify Clinically unable to determine present and active this admission MTDD
== END 2020-06-07 13:30 | disposition home or self-care (01) | DRG 193 ==
LOC: EC 09:10 → 4SSUR 12:36
PROVIDERS: ADMIT Internal Medicine; ATTEND Internal Medicine
DX: J18.9 Pneumonia, unspecified organism (principal); J96.01 Acute respiratory failure with hypoxia; J44.0 Chronic obstructive pulmonary disease with (acute) lower respiratory infection; J44.1 Chronic obstructive pulmonary disease with (acute) exacerbation; D72.810 Lymphocytopenia; I10 Essential (primary) hypertension; Z20.828 Contact with and (suspected) exposure to other viral communicable diseases; F32.9 Major depressive disorder, single episode, unspecified; J45.20 Mild intermittent asthma, uncomplicated; Z79.899 Other long term (current) drug therapy; Z88.5 Allergy status to narcotic agent; Z88.0 Allergy status to penicillin; Z82.49 Family history of ischemic heart disease and other diseases of the circulatory system
CPT/HCPCS: 36415; 71045; 71046; 71260; 80053; 83605; 83615; 83735; 84145; 84484; 85025; 85379; 85610; 85730; 86140; 87040; 87070; 87205; 87635; 93005; 94640; 96361; 96365; 96375; 99285

== ENCOUNTER 2020-06-09 10:53 | Inpatient (IN) | payer BC ==
[2020-06-09] MEDS ORDERED: ALBUTEROL HFA INHALER INHALATION STA (11:18)
[2020-06-09] MEDS ORDERED: SODIUM CHLORIDE 0.9% 1,000 ML IV STA (11:19)
[2020-06-09] MEDS ORDERED: SODIUM CHLORIDE 0.9% 500 ML 500 ML IV STA (11:19)
--- NOTE | 2020-06-09 11:29 | ED ---
SOB HPI - General Chief Complaint: Shortness of Breath Stated Complaint: +Covid Time Seen by Provider: 06/09/20 10:53 Source: patient, EMS, RN notes reviewed Mode of arrival: EMS Limitations: no limitations - History of Present Illness Initial Comments: This is a 49-year-old male with a recent admission to this facility for right lower lobe and probable right middle lobe pneumonia who was discharged 2 days ago and presented today to [facility] with complaints of shortness of breath and exertional dyspnea. He is found have a fever cough pneumonia on x- ray and he was Covid- 19-positive today. He was Covid negative during his last admission. Due to the presentation and his symptoms including hypoxemia noted on the examination he was transferred here for further evaluation and treatment. He was given IV Decadron as well as IV antibiotics prior to transfer. While he was in the other facility his blood pressure was noted to be in the 200s over 100s and he was given IV labetalol. No other complaints no other modifying factors MD Complaint: shortness of breath, cough - Related Data Home Medications Medication Instructions Recorded Confirmed FLUoxetine HCL [PROzac] 40 mg PO DAILY 05/06/19 06/09/20 atenoloL [Tenormin] 50 mg PO DAILY 05/06/19 06/09/20 Ipratropium-Albuterol Nebulize 3 ml INHALATION RT-QID PRN 06/09/20 06/09/20 [Duoneb 0.5 mg-3 mg/3 ml Soln] predniSONE See Taper PO DIRECTED 06/09/20 06/09/20 Previous Rx's Medication Instructions Recorded Levofloxacin [Levaquin] 750 mg PO DAILY tab 06/07/20 Allergies Allergy/AdvReac Type Severity Reaction Status Date / Time codeine Allergy Swelling Verified 06/09/20 11:40 Penicillins Allergy Swelling Verified 06/09/20 11:40 Review of Systems ROS Statement: Those systems with pertinent positive or pertinent negative responses have been documented in the HPI. ROS Other: All systems not noted in ROS Statement are negative. Past Medical History Past Medical History: Asthma, Pneumonia History of Any Multi-Drug Resistant Organisms: None Reported Past Surgical History: Orthopedic Surgery Additional Past Surgical History / Comment(s): knee surgery and ankle surgery Past Anesthesia/Blood Transfusion Reactions: No Reported Reaction Past Psychological History: No Psychological Hx Reported, Depression Smoking Status: Never smoker Past Alcohol Use History: Rare Past Drug Use History: None Reported - Past Family History Brother(s) Family Medical History: Chest Pain / Angina, Myocardial Infarction ([place]) Additional Family Medical History / Comment(s): brother recently had a heart attack General Exam - General Exam Comments Initial Comments: This is a well-developed well-nourished awake alert oriented 3 male Limitations: no limitations General appearance: alert, anxious (Demonstrates mild distress) Head exam: Present: atraumatic, normocephalic, normal inspection Eye exam: Present: normal appearance, PERRL, EOMI. Absent: scleral icterus, conjunctival injection, periorbital swelling ENT exam: Present: mucous membranes dry Neck exam: Present: normal inspection. Absent: tenderness, meningismus, lymphadenopathy Respiratory exam: Present: rhonchi (Bilateral nasal or rhonchi), decreased breath sounds. Absent: respiratory distress, wheezes, rales, stridor Cardiovascular Exam: Present: regular rate, normal rhythm, normal heart sounds. Absent: systolic murmur, diastolic murmur, rubs, gallop, clicks GI/Abdominal exam: Present: soft, normal bowel sounds. Absent: distended, tenderness, guarding, rebound, rigid Extremities exam: Present: normal inspection, full ROM, normal capillary refill. Absent: tenderness, pedal edema, joint swelling, calf tenderness Back exam: Present: normal inspection Neurological exam: Present: alert, oriented X3, CN II-XII intact Psychiatric exam: Present: normal affect, normal mood Skin exam: Present: warm, dry, intact, normal color. Absent: rash Course Vital Signs 06/09/20 06/09/20 10:57 11:10 Temperature 101.1 F H Pulse Rate 79 Respiratory 32 H 32 H Rate Blood Pressure 115/70 O2 Sat by Pulse 90 L Oximetry - Reevaluation(s) Reevaluation #1: 06/09/20 13:12 Patient continues to rest with saturations in the low 90s on the current oxygen regimen. I did discuss the case with Dr. Huizar patient will be admitted with consultation by Dr. Muller. Patient will start on the protocol for Covid 19 Medical Decision Making - Lab Data Lab Results 06/09/20 06/09/20 06/09/20 Range/Units 11:19 11:19 11:19 PT 10.5 (9.0-12.0) sec INR 1.0 (<1.2) APTT 31.0 H (22.0-30.0) sec D-Dimer 1.78 H (<0.60) mg/L FEU Plasma Lactic Acid Lazaro 1.1 (0.7-2.0) mmol/L Magnesium 2.0 (1.6-2.3) mg/dL Lactate Dehydrogenase 1128 H (313-618) U/L C-Reactive Protein 213.8 H (<10.0) mg/L - EKG Data -: EKG Interpreted by Me EKG shows normal: sinus rhythm EKG Comments: Sinus rhythm 85. Interval 154 QRS 1 day QT since QTC 366/[address]-T wave changes - Radiology Data Radiology results: report reviewed (I did review the imaging and report no evidence of PE though was a poor study additionally there is infiltrate seen bilaterally this does appear to be worse than the previous imaging done prior to the patient's discharge.), image reviewed Disposition Clinical Impression: COVID-19, Bilateral pneumonia, Hyponatremia, Febrile illness, acute, Viral syndrome, Shortness of breath, Elevated d-dimer Disposition: ADMITTED IP TO THIS HOSP Condition: Fair Referrals: Bina Underwood MD [Primary Care Provider] - 1-2 days
[2020-06-09] MEDS ORDERED: fentaNYL (PF) 50 MCG/ML 2 ML AMP IVP STA (12:00)
--- NOTE | 2020-06-09 12:11 | CT ---
EXAMINATION TYPE: CT angio chest DATE OF EXAM: 06/09/2020 11:56 AM COMPARISON: Chest CT 3 days ago. Outside chest x-ray earlier today. HISTORY: increasing difficulty breathing CT DLP: 721.2 mGycm Automated exposure control for dose reduction was used. CONTRAST: CTA scan of the thorax is performed with IV Contrast, patient injected with 100 mL of Isovue 370, pul monary embolism protocol. MIP images are created and reviewed. FINDINGS: LUNGS: Exam suboptimal as patient unable to hold breath. There are scattered areas of groundglass opa city with more dense areas of consolidation in the mid to lower lungs bilaterally right greater than left. No pleural effusion or pneumothorax seen. MEDIASTINUM: There is suboptimal study with heterogeneity and near equal contrast in right and left h eart systems. There is no central pulmonary embolism. Smaller segmental and subsegmental PE is not e ntirely excluded on this study though is not distinctly identified. Prominent bilateral hilar lymph n odes. Mild cardiomegaly. No pericardial effusion is seen. OTHER: Visualized liver low densities consistent with diffuse fatty infiltration. IMPRESSION: Worsening right mid to lower lung opacities and consolidation and new left midlung opacit ies and consolidation consistent with covid -19 progression. Suboptimal study without central pulmona ry embolism.
[2020-06-09 12:18] LABS: C Reactive Protein 213.8 mg/L (<10.0)
[2020-06-09 12:34] LABS: Prothrombin Time 10.5 sec (9.0-12.0)
[2020-06-09 12:43] LABS: D-Dimer 1.78 mg/L FEU (<0.60)
[2020-06-09] MEDS ORDERED: dexAMETHasone 2 MG TAB PO ONE (13:00)
[2020-06-09] MEDS ORDERED: ZINC SULFATE 220 MG CAP PO ONE (13:00)
[2020-06-09] MEDS ORDERED: ASCORBIC ACID 500 MG TAB PO ONE (13:00)
[2020-06-09] MEDS ORDERED: CHOLECALCIFEROL 1,000 UNIT TAB PO ONE (13:00)
[2020-06-09] MEDS: ENOXAPARIN 40 MG/0.4 ML SYRINGE SQ SCH (13:14)
[2020-06-09] MEDS ORDERED: PNEUMONIA PROTOCOL UTILIZED 1 EACH MISC PO PRN (13:20)
[2020-06-09] MEDS: ALBUTEROL HFA INHALER INHALATION SCH ×2 (15:51→20:51)
[2020-06-09] MEDS ORDERED: fentaNYL (PF) 50 MCG/ML 2 ML AMP IVP PRN (16:25)
[2020-06-09] MEDS: ONDANSETRON 4 MG/2 ML VIAL IVP PRN (16:56)
[2020-06-09] MEDS: MORPHINE SULFATE 2 MG/ML SYRINGE IVP PRN ×2 (16:57→21:31)
--- NOTE | 2020-06-09 16:58 | US ---
EXAMINATION TYPE: US venous doppler duplex LE LT DATE OF EXAM: 06/09/2020 4:36 PM COMPARISON: NONE CLINICAL HISTORY: r/o dvt. left leg pain SIDE PERFORMED: Left TECHNIQUE: The lower extremity deep venous system is examined utilizing real time linear array sonog tracie with graded compression, doppler sonography and color-flow sonography. VESSELS IMAGED: Common Femoral Vein Deep Femoral Vein Greater Saphenous Vein * Femoral Vein Popliteal Vein Small Saphenous Vein * Proximal Calf Veins (* superficial vessels) Rouleaux flow noted throughout. All vessels are compressible and demonstrate flow. Left Leg: Negative for DVT IMPRESSION: No evidence of deep vein thrombosis in the left leg.
[2020-06-09 19:23] LABS: Ferritin 1948.5 ng/mL (22.0-322.0)
[2020-06-10] MEDS: MORPHINE SULFATE 2 MG/ML SYRINGE IVP PRN ×5 (00:39→20:12)
[2020-06-10 01:42] LABS: ABG HCO3 26 mmol/L (21-25); ABG Oxygen Saturation 98.2 % (94-97); ABG PCO2 37 mmHg (35-45); ABG PH 7.45 (7.35-7.45); ABG PO2 125 mmHg (83-108); ABG TCO2 27 mmol/L (19-24); Allen Test Performed? Yes
[2020-06-10] MEDS: ALBUTEROL HFA INHALER INHALATION SCH ×6 (01:50→21:19)
--- NOTE | 2020-06-10 01:52 | XR ---
EXAM: XR Chest, 1 View CLINICAL HISTORY: ITS.REASON XR Reason: SOB TECHNIQUE: Frontal view of the chest. COMPARISON: CTA chest from yesterday FINDINGS: Lungs: Large amount of airspace opacities in both lungs with lower lung zone predominance, similar on the prior study. Pleural space: Unremarkable. No pneumothorax. Heart: Unremarkable. No cardiomegaly. Mediastinum: Unremarkable. Bones/joints: Unremarkable. IMPRESSION: Persistent bilateral pneumonia, similar on the prior study
[2020-06-10] MEDS ORDERED: LORazepam 2 MG/ML INJ IV STA (02:22)
[2020-06-10 05:38] LABS: ABG Base Excess 2.7 mmol/L; ABG HCO3 26 mmol/L (21-25); ABG Oxygen Saturation 94.2 % (94-97); ABG PCO2 37 mmHg (35-45); ABG PH 7.47 (7.35-7.45); ABG PO2 71 mmHg (83-108); ABG TCO2 28 mmol/L (19-24); Allen Test Performed? Yes
[2020-06-10] MEDS: LORazepam 0.5 MG TAB PO PRN ×3 (06:04→20:12)
[2020-06-10] MEDS: FLUoxetine HCL 20 MG CAP PO SCH (08:42)
[2020-06-10] MEDS: dexAMETHasone 2 MG TAB PO SCH (08:42)
[2020-06-10] MEDS: ZINC SULFATE 220 MG CAP PO SCH (08:42)
[2020-06-10] MEDS: atenoloL 50 MG TAB PO SCH (08:42)
[2020-06-10] MEDS: ENOXAPARIN 40 MG/0.4 ML SYRINGE SQ SCH (08:43)
[2020-06-10] MEDS: CHOLECALCIFEROL 1,000 UNIT TAB PO SCH (08:43)
[2020-06-10] MEDS: ASCORBIC ACID 500 MG TAB PO SCH (08:43)
[2020-06-10] MEDS: ACETAMINOPHEN TAB 325 MG TAB PO PRN ×2 (10:34→23:34)
[2020-06-10 11:30] LABS: Basophils # (A) 0.1 k/uL (0-0.2); Basophils % (A) 1 %; Eosinophils # (A) 0.1 k/uL (0-0.7); Eosinophils % (A) 1 %; HCT 46.7 % (39.0-53.0); HGB 16.4 gm/dL (13.0-17.5); Lymphocytes # (A) 0.2 k/uL (1.0-4.8); Lymphocytes % (A) 2 %; MCV 85.5 fL (80.0-100.0); Mean Platelet Volume 6.9; Monocytes # (A) 0.2 k/uL (0-1.0); Monocytes % (A) 2 %; Neutrophils # (A) 10.1 k/uL (1.3-7.7); Neutrophils % (A) 93 %; Platelet Count 220 k/uL (150-450); RBC 5.46 m/uL (4.30-5.90); RDW 12.5 % (11.5-15.5); WBC 10.9 k/uL (3.8-10.6)
[2020-06-10 11:39] LABS: ALT 88 U/L (4-49); AST 110 U/L (17-59); African American GFR (CKD) >90 (>60 ml/min/1.73 sqM); Albumin 3.8 g/dL (3.5-5.0); Alkaline Phosphatase 72 U/L (38-126); Anion Gap 9 mmol/L; Blood Urea Nitrogen 20 mg/dL (9-20); Calcium 8.3 mg/dL (8.4-10.2); Carbon Dioxide 26 mmol/L (22-30); Chloride 93 mmol/L (98-107); Glucose 143 mg/dL (74-99); Non-African American GFR(CKD) >90 (>60 ml/min/1.73 sqM); Potassium 4.6 mmol/L (3.5-5.1); Sodium 128 mmol/L (137-145); Total Protein 7.2 g/dL (6.3-8.2)
[2020-06-10] MEDS ORDERED: REMDESIVIR 200 MG in SODIUM CHLORIDE 0.9% 250 ML IVPB ONE (14:00)
--- NOTE | 2020-06-10 22:48 | CONS ---
CONSULTATION PULMONARY/CRITICAL CARE CONSULTATION: DATE OF SERVICE: June 10, 2020. REASON FOR CONSULTATION: Shortness of breath. HISTORY OF PRESENT ILLNESS: A 49-year-old male with who had a recent admission to this facility for right lower lobe pneumonia and probable right middle lobe pneumonia. He was discharged a couple days ago. He re-presented back to [facility] with complaints of increasing shortness of breath and exertional dyspnea. He also had fever and cough. The patient was tested for COVID-19 and was positive. He was apparently Covid negative during his last admission. Because of his COVID-19 pneumonia status, and worsening hypoxemic respiratory failure, he was transferred to [facility]. The patient was started on IV Decadron prior to being transferred as well as IV antibiotics. In addition, he had elevated blood pressure at the other institution, and IV labetalol was used. Currently, he is resting comfortably. CURRENT MEDICATIONS: Include Prozac, Tenormin, DuoNeb and prednisone. He was also on Levaquin. ALLERGIES: CODEINE and PENICILLIN. MEDICAL HISTORY: Pneumonia and chronic bronchial asthma. SURGICAL HISTORY: Includes knee surgery, ankle surgery. SOCIAL HISTORY: Negative for tobacco use. Denies any illicit drug use. He drinks rarely. FAMILY HISTORY: Positive for a brother with an angina, myocardial infarction. REVIEW OF SYSTEMS: CONSTITUTIONAL weakness and fever. NEUROLOGIC negative. HEENT negative. CARDIOVASCULAR negative. PULMONARY shortness of breath, cough. GI negative. negative. RHEUMATOLOGIC negative. IMMUNOLOGIC negative. ENDOCRINOLOGIC negative. DERMATOLOGIC negative. PHYSICAL EXAMINATION: VITAL SIGNS: Current vital signs are reviewed. His temperature is 98.8, previous temperature is 101.2, heart rate 69, respiratory rate 36. Blood pressure is 116/71 with mean 86 and saturations on BiPAP of 96%. GENERAL: Appears mildly tachypneic and dyspneic. HEENT: Examination is grossly unremarkable. BiPAP mask in place. NECK: Supple. Full range of motion. No adenopathy. Neck veins are flat. CARDIOVASCULAR: Examination reveals regular rhythm and rate. Heart rate mid 70s. S1, S2 normal. No murmur. Heart sounds are distant. LUNGS: Reveal diffuse coarse rhonchi. No wheezes. There are a few scattered crackles. ABDOMEN: Soft. Bowel sounds are heard. EXTREMITIES are intact. No cyanosis, clubbing, or edema. SKIN: Without rash. NEUROLOGIC: Examination is nonfocal. LABS: Reviewed. White count 10.9, hemoglobin 16.4, hematocrit 46.7, platelet count 325,000. Blood gases on June 10 show a pO2 of 71, pCO2 of 37, and pH is 7.47. Sodium 128, potassium 4.6, chloride 93, CO2 26. Anion gap is 9. BUN and creatinine were 20 and 0.78. Glucose 143, AST 110, ALT 88. Microbiology is negative. Blood cultures are negative. CT scan shows bilateral mostly lower lobe right greater than left, diffuse pulmonary infiltrates with typical ground-glass appearance. A venous Doppler study was negative for DVT. Chest x-ray shows bilateral right greater than left lower lobe primarily infiltrate. Current medications reviewed. The patient is currently on Tylenol, albuterol inhaler. MMODL / IJN: [id number] /
[2020-06-11] MEDS: ALBUTEROL HFA INHALER INHALATION SCH ×6 (00:50→21:00)
[2020-06-11] MEDS: MORPHINE SULFATE 2 MG/ML SYRINGE IVP PRN ×4 (04:41→20:56)
[2020-06-11] MEDS: LORazepam 0.5 MG TAB PO PRN ×4 (04:42→23:54)
--- NOTE | 2020-06-11 07:25 | CONS ---
CONSULTATION ADDENDUM: ASSESSMENT: 1. COVID-19 pneumonitis with resultant hypoxemic respiratory failure. 2. Recent admission to the hospital for right lower lobe and right middle lobe pneumonia, community acquired. 3. History of pneumonia. 4. History of chronic bronchial asthma. 5. History of essential hypertension. PLAN: Currently, the patient is on the BiPAP. He is getting FiO2 of 100%. Saturations are 93%. The patient appears to be feeling a bit better. His laboratory data were reviewed. His white count was 10.9. His hemoglobin, hematocrit and platelet count were all normal. Sodium was a bit low at 128. The rest of the labs look okay. He had a couple of blood gases. His most recent blood gas done yesterday shows a pO2 of 71, pCO2 of 37, and a pH of 7.47. C-reactive protein was 213.8 and LDH was 1128. His current medications are reviewed and include Tylenol, Ventolin inhaler, vitamin C, Tenormin, vitamin D3, Decadron, Lovenox, Prozac, Ativan p.r.n., morphine sulfate p.r.n., Zofran, remdesivir, and zinc. We will continue to follow. Prognosis is guarded. No additional recommendations are made. The patient will need 5 days of remdesivir. MMODL / IJN: [id number] /
[2020-06-11] MEDS: ENOXAPARIN 40 MG/0.4 ML SYRINGE SQ SCH (09:21)
[2020-06-11] MEDS: dexAMETHasone 2 MG TAB PO SCH (09:21)
[2020-06-11] MEDS: atenoloL 50 MG TAB PO SCH (09:21)
[2020-06-11] MEDS: CHOLECALCIFEROL 1,000 UNIT TAB PO SCH (09:21)
[2020-06-11] MEDS: ZINC SULFATE 220 MG CAP PO SCH (09:21)
[2020-06-11] MEDS: ASCORBIC ACID 500 MG TAB PO SCH (09:21)
[2020-06-11] MEDS: FLUoxetine HCL 20 MG CAP PO SCH (09:21)
[2020-06-11] MEDS: ACETAMINOPHEN TAB 325 MG TAB PO PRN (09:37)
[2020-06-11] MEDS: methylPREDNISolone SOD SUCCI 125 MG/2 ML VIAL IV SCH ×3 (15:07→23:54)
[2020-06-11] MEDS: REMDESIVIR 100 MG in SODIUM CHLORIDE 0.9% 250 ML IVPB SCH (15:21)
--- NOTE | 2020-06-11 17:20 | P.HPIM ---
History of Present Illness H&P Date: 06/10/20 Dennis Beal, is a 49 year-old male, who presented to ER with of cough and shortness of breath, Covid 19 test was positive in ER . Patient was evaluated in the emergency room vital examination on presentation to emergency room revealed a temperature of 101.1 pulse 79 respiration 32 blood pressure 115/70 pulse ox 90% on BiPAP his white blood count on presentation was 10.9 C-reactive protein was elevated at 1128 patient was admitted to telemetry floor he was started on IV Decadron pulmonary consultation was requested. Patient was recently admitted with pneumonia at that time Covid 19 test was ne gative. He was treated with IV antibiotic he improved and he was discharged home. His past medical history is significant for history of kidney stones, history of previous episodes of pneumonia, history of asthma and COPD, and history of depression, history of hypertension. On review of system patient is alert and oriented 3 he is complaining of cough and shortness of breath with any activity otherwise he denies any complaints there is no fever or chills no headache or dizziness no chest pain no nausea or vomiting no abdominal pain no diarrhea no blood in the stools no burning with urination no frequency or urgency and no hematuria Past Medical History Past Medical History: Asthma, Pneumonia History of Any Multi-Drug Resistant Organisms: None Reported Past Surgical History: Orthopedic Surgery Additional Past Surgical History / Comment(s): knee surgery and ankle surgery Past Anesthesia/Blood Transfusion Reactions: No Reported Reaction Past Psychological History: No Psychological Hx Reported, Depression Smoking Status: Never smoker Past Alcohol Use History: Rare Past Drug Use History: None Reported - Past Family History Brother(s) Family Medical History: Chest Pain / Angina, Myocardial Infarction ([place]) Additional Family Medical History / Comment(s): brother recently had a heart attack Medications and Allergies Home Medications Medication Instructions Recorded Confirmed Type FLUoxetine HCL [PROzac] 40 mg PO DAILY 05/06/19 06/09/20 History atenoloL [Tenormin] 50 mg PO DAILY 05/06/19 06/09/20 History Levofloxacin [Levaquin] 750 mg PO DAILY tab 06/07/20 06/09/20 Rx Ipratropium-Albuterol Nebulize 3 ml INHALATION RT-QID PRN 06/09/20 06/09/20 History [Duoneb 0.5 mg-3 mg/3 ml Soln] predniSONE See Taper PO DIRECTED 06/09/20 06/09/20 History Allergies Allergy/AdvReac Type Severity Reaction Status Date / Time codeine Allergy Swelling Verified 06/09/20 11:40 Penicillins Allergy Swelling Verified 06/09/20 11:40 Physical Exam Vitals: Vital Signs Temp Pulse Pulse Resp BP BP Pulse Ox 06/10/20 08:30 101.2 F H 87 36 H 139/72 92 L 06/10/20 06:07 43 H 92 L 06/10/20 05:19 52 H 84 L 06/10/20 05:14 50 H 86 L 06/10/20 03:44 98.2 F 85 41 H 163/82 98 06/10/20 02:30 98.9 F 38 H 98 06/10/20 02:00 42 H 06/10/20 00:00 99.2 F 79 27 H 155/88 91 L 06/09/20 22:00 103 F H 76 24 140/81 94 L 06/09/20 21:45 81 20 130/72 93 L 06/09/20 21:00 93 L 06/09/20 20:00 84 24 131/74 93 L 06/09/20 16:00 98.7 F 76 26 H 125/75 94 L 06/09/20 14:30 76 26 H 131/87 93 L 06/09/20 14:00 74 35 H 128/81 95 06/09/20 13:30 70 35 H 121/76 94 L Intake and Output 06/09/20 06/10/20 06/10/20 22:59 06:59 14:59 Output Total 510 Balance -510 Output: Urine 510 Other: Voiding Method Urinal Urinal # Voids 1 Weight 116.619 kg 114.3 kg In general patient is alert and oriented 3 in no apparent distress HEENT head normocephalic and atraumatic Neck is supple no JVD no goiter no lymphadenopathy Chest exam reveals fine crackles in both lung holden no wheezing Cardiac exam reveals regular heart sounds S1 and S2 no gallops no murmurs Abdomen is soft nontender no organomegaly with normal bowel sounds Extremity exam reveals minimal edema no cyanosis or clubbing Neurological examination reveals no gross focal neurological deficit Results CBC & Chem 7: 06/10/20 11:13 06/10/20 11:13 Labs: Abnormal Lab Results - Last 24 Hours (Table) 06/09/20 06/10/20 06/10/20 Range/Units 11:19 01:40 05:37 WBC (3.8-10.6) k/uL Neutrophils # (1.3-7.7) k/uL Lymphocytes # (1.0-4.8) k/uL ABG pH 7.47 H (7.35-7.45) ABG pO2 125 H 71 L (83-108) mmHg ABG HCO3 26 H 26 H (21-25) mmol/L ABG Total CO2 27 H 28 H (19-24) mmol/L ABG O2 Saturation 98.2 H (94-97) % Sodium (137-145) mmol/L Chloride (98-107) mmol/L Glucose (74-99) mg/dL Calcium (8.4-10.2) mg/dL Ferritin 1948.5 H (22.0-322.0) ng/mL AST (17-59) U/L ALT (4-49) U/L 06/10/20 06/10/20 Range/Units 11:13 11:13 WBC 10.9 H (3.8-10.6) k/uL Neutrophils # 10.1 H (1.3-7.7) k/uL Lymphocytes # 0.2 L (1.0-4.8) k/uL ABG pH (7.35-7.45) ABG pO2 (83-108) mmHg ABG HCO3 (21-25) mmol/L ABG Total CO2 (19-24) mmol/L ABG O2 Saturation (94-97) % Sodium 128 L (137-145) mmol/L Chloride 93 L (98-107) mmol/L Glucose 143 H (74-99) mg/dL Calcium 8.3 L (8.4-10.2) mg/dL Ferritin (22.0-322.0) ng/mL AST 110 H (17-59) U/L ALT 88 H (4-49) U/L Thrombosis Risk Factor Assmnt - Choose All That Apply Any of the Below Risk Factors Present?: Yes Each Factor Represents 1 point: Age 41-60 years, Obesity (BMI >25), Serious lung disease incl. pneumonia (< 1month) Thrombosis Risk Factor Assessment Total Risk Factor Score: 3 Thrombosis Risk Factor Assessment Level: Moderate Risk Assessment and Plan Plan: 1. COVID-19, Bilateral pneumonia, started on IV Decadron and IV Remdesevir 2. Hyponatremia, on IV normal saline 3. Elevated d-dimer, started on SQ Lovenox 4. underlying history of depression At this time patient is admitted to telemetry floor he was started on IV Decadron pulmonary consultation was requested Will follow closely
--- NOTE | 2020-06-11 17:22 | P.PN ---
Subjective Progress Note Date: 06/11/20 Dennis Beal, is a 49 year-old male, who presented to ER with of cough and shortness of breath, Covid 19 test was positive in ER . Patient was evaluated in the emergency room vital examination on presentation to emergency room revealed a temperature of 101.1 pulse 79 respiration 32 blood pressure 115/70 pulse ox 90% on BiPAP his white blood count on presentation was 10.9 C-reactive protein was elevated at 1128 patient was admitted to telemetry floor he was started on IV Decadron pulmonary consultation was requested. Patient was recently admitted with pneumonia at that time Covid 19 test was negative. He was treated with IV antibiotic he improved and he was discharged home. His past medical history is significant for history of kidney stones, history of previous episodes of pneumonia, history of asthma and COPD, and history of depression, history of hypertension. On review of system patient is alert and oriented 3 he is complaining of cough and shortness of breath with any activity otherwise he denies any complaints there is no fever or chills no headache or dizziness no chest pain no nausea or vomiting no abdominal pain no diarrhea no blood in the stools no burning with urination no frequency or urgency and no hematuria On 06/11/2020 patient was seen and examined on the medical floor he is alert and oriented 3 he is still complaining of shortness of breath he still maintained on BiPAP otherwise he denies any complaints he is maintained on IV Decadron and IV Remdesevir Objective - Vital Signs Vital signs: Vital Signs Temp 98.2 F 06/11/20 15:00 Pulse 63 06/11/20 15:00 Resp 44 H 06/11/20 15:00 BP 113/72 06/11/20 15:00 Pulse Ox 94 L 06/11/20 15:00 Intake & Output 06/10/20 06/11/20 06/11/20 18:59 06:59 18:59 Intake Total 0 939 0 Output Total 600 900 650 Balance -600 39 -650 Weight 120.4 kg Intake: Intake, IV Titration 250 Amount Remdesivir (Eua) 100 mg 250 In Sodium Chloride 0.9% 250 ml @ 250 mls/hr IVPB DAILY@1400 [facility] Rx#: [id number] Oral 480 0 Blood Product 0 209 Ffp Pher Conval Covid19 0 209 Acda 3 Unit [id number] Output: Urine 600 900 650 Other: Voiding Method Urinal Urinal Urinal # Voids 0 # Bowel Movements 0 - Exam In general patient is alert and oriented 3 in no apparent distress HEENT head normocephalic and atraumatic Neck is supple no JVD no goiter no lymphadenopathy Chest exam reveals fine crackles in both lung holden no wheezing Cardiac exam reveals regular heart sounds S1 and S2 no gallops no murmurs Abdomen is soft nontender no organomegaly with normal bowel sounds Extremity exam reveals minimal edema no cyanosis or clubbing Neurological examination reveals no gross focal neurological deficit - Labs CBC & Chem 7: 06/10/20 11:13 06/10/20 11:13 Labs: Microbiology - Last 24 Hours (Table) 06/09/20 12:09 Blood Culture - Preliminary Blood No Growth after 48 hours Assessment and Plan Plan: 1. COVID-19, Bilateral pneumonia, started on IV Decadron and IV Remdesevir 2. Hyponatremia, on IV normal saline 3. Elevated d-dimer, started on SQ Lovenox 4. underlying history of depression At this time patient is admitted to telemetry floor he was started on IV Decadron pulmonary consultation was requested Medication reviewed continue current care will follow in a.m.
--- NOTE | 2020-06-11 18:07 | PN ---
PROGRESS NOTE PULMONARY/CRITICAL CARE PROGRESS NOTE: DATE OF SERVICE: 06/11/2020 49-year-old male with a history of COVID-19 pneumonitis and hypoxemic respiratory failure. The patient had a recent admission to the hospital for pneumonia involving the right lower lobe and right middle lobe. He does have a history of asthma and essential hypertension. The patient feels like he is improved. He was using BiPAP today at 14/7 and 100%. His saturations yesterday which were in the mid to high 80s are now in the low to mid 90s. He clinically feels better. Less short of breath. PHYSICAL EXAMINATION: VITAL SIGNS: Current vital signs are reviewed. Temperature 98.3, heart rate 56, respiratory rate 42, blood pressure 109/64, mean 79 and saturations are 94% on BiPAP at 100%. Appears in no acute distress. Mildly tachypneic. No conversational dyspnea. BiPAP mask in place. HEENT: Examination is grossly unremarkable. NECK: Supple. Full range of motion. No adenopathy. Neck veins are flat. CARDIOVASCULAR: Examination reveals regular rhythm and rate. Heart rate 69. S1, S2 normal. LUNGS: Reveal scattered rhonchi. No wheezes or crackles. Breath sounds equal. ABDOMEN: Soft. Bowel sounds are heard. EXTREMITIES are intact. No cyanosis, clubbing, or edema. LABS: Reviewed. Nothing new from today as yet. Microbiology is negative. No recent chest x-ray to report. MEDICATIONS: Reviewed. The patient is currently on Tylenol, albuterol inhaler, vitamin C, atenolol, vitamin D3, Lovenox, Prozac, Ativan, Solu-Medrol, morphine, Zofran, Remdesivir and zinc. We DC'd the Decadron today and added higher dose corticosteroids on him. ASSESSMENT: 1. COVID-19 pneumonitis with moderate to severe hypoxemic respiratory failure, requiring BiPAP therapy. 2. Recent admission to the hospital for right lower lobe and right middle lobe pneumonia, community acquired. 3. History of pneumonia. 4. History of chronic bronchial asthma. 5. History of essential hypertension. PLAN: Currently, the patient appears to be clinically better. Still on BiPAP, though. That is a bit of a concern. His saturations are much higher. He is much less short of breath. We will continue to follow. Today, we DC'd the Decadron in favor of IV Solu- Medrol. No additional recommendations are made. The rest of the medications are appropriate. MMODL / IJN: [id number] /
[2020-06-12] MEDS: ALBUTEROL HFA INHALER INHALATION SCH ×7 (00:47→21:05)
[2020-06-12] MEDS: MORPHINE SULFATE 2 MG/ML SYRINGE IVP PRN ×5 (01:08→23:29)
[2020-06-12] MEDS: methylPREDNISolone SOD SUCCI 125 MG/2 ML VIAL IV SCH ×3 (05:13→16:41)
[2020-06-12] MEDS: LORazepam 0.5 MG TAB PO PRN ×3 (06:28→20:18)
[2020-06-12] MEDS: ZINC SULFATE 220 MG CAP PO SCH (08:46)
[2020-06-12] MEDS: CHOLECALCIFEROL 1,000 UNIT TAB PO SCH (08:46)
[2020-06-12] MEDS: atenoloL 50 MG TAB PO SCH (08:46)
[2020-06-12] MEDS: FLUoxetine HCL 20 MG CAP PO SCH (08:46)
[2020-06-12] MEDS: ASCORBIC ACID 500 MG TAB PO SCH (08:47)
[2020-06-12] MEDS: ENOXAPARIN 40 MG/0.4 ML SYRINGE SQ SCH (08:47)
--- NOTE | 2020-06-12 14:31 | P.PN ---
Subjective Progress Note Date: 06/12/20 Principal diagnosis: COVID 19 pneumonitis 49-year-old male patient who was admitted to the hospital 06/09/2020 with the diagnoses of COVID 19 pneumonitis and acute hypoxemic respiratory failure. He came into the hospital for evaluation of worsening shortness of breath, and his pulse ox was a non-80s, he is currently on a BiPAP support, with pressures of 14/7 and FiO2 of 100%, his oxygenation slightly improved, his pulse ox is 92- 94%, hemodynamically he is stable, 1 a low-grade fever last night, he still has significant shortness of breath with any exertion and with conversation, at rest, tachypneic, but states his breathing may be slightly improved, we'll switch his steroids to high-dose IV Solu-Medrol 60 mg every 6 hours, he was started on Remdesivir today is day 3 of treatment, on anticoagulation in the form of Lovenox 40 mg daily Objective - Vital Signs Vital signs: Vital Signs Temp 97.9 F 06/12/20 03:55 Pulse 116 H 06/12/20 12:00 Resp 41 H 06/12/20 12:00 BP 128/59 06/12/20 12:00 Pulse Ox 92 L 06/12/20 12:00 Intake & Output 06/11/20 06/12/20 06/12/20 18:59 06:59 18:59 Intake Total 0 786 Output Total 650 1300 450 Balance -650 -1300 336 Weight 120 kg Intake: Intake, IV Titration 250 Amount Remdesivir (Eua) 100 mg 250 In Sodium Chloride 0.9% 250 ml @ 250 mls/hr IVPB DAILY@1400 [facility] Rx#: [id number] Oral 0 536 Output: Urine 650 1300 450 Other: Voiding Method Urinal Urinal # Voids 0 # Bowel Movements 0 0 - Exam GENERAL EXAM: Alert, very pleasant 49-year-old white male, on BiPAP with pressures of 14/7 and FiO2 of 100% comfortable in no apparent distress. HEAD: Normocephalic/atraumatic. EYES: Normal reaction of pupils, equal size. Conjunctiva pink, sclera white. NOSE: Clear with pink turbinates. THROAT: No erythema or exudates. NECK: No masses, no JVD, no thyroid enlargement, no adenopathy. CHEST: No chest wall deformity. Symmetrical expansion. LUNGS: Equal air entry with no crackles, wheeze, rhonchi or dullness. CVS: Regular rate and rhythm, normal S1 and S2, no gallops, no murmurs, no rubs ABDOMEN: Soft, nontender. No hepatosplenomegaly, normal bowel sounds, no guarding or rigidity. EXTREMITIES: No clubbing, no edema, no cyanosis, 2+ pulses and upper and lower extremities. MUSCULOSKELETAL: Muscle strength and tone normal. SPINE: No scoliosis or deformity SKIN: No rashes CENTRAL NERVOUS SYSTEM: Alert and oriented -3. No focal deficits, tone is normal in all 4 extremities. PSYCHIATRIC: Alert and oriented -3. Appropriate affect. Intact judgment and insight. - Labs CBC & Chem 7: 06/10/20 11:13 06/10/20 11:13 Labs: Microbiology - Last 24 Hours (Table) 06/09/20 12:09 Blood Culture - Preliminary Blood No Growth after 72 hours 06/11/20 15:58 Gram Stain - Preliminary Sputum Sputum Culture - Preliminary Assessment and Plan Plan: Assessment: #1. Acute hypoxemic respiratory failure related to COVID 19 pneumonitis, started on Remdesivir on 06/10/2020, and patient transfused with 1 unit of convalescent plasma on 06/10/2020 #2. Recent admission to the hospital with acute community-acquired right lower lung pneumonia #3. Hyponatremia, likely hypovolemic, continues on IV normal saline #4. Elevated d-dimer, on prophylactic dose of Lovenox #5. History of mild intermittent chronic bronchial asthma #6. History of hypertension #7. History of depression Plan: Continue current medical treatment, patient is on day 3 Remdesivir, continue high-dose IV steroids, we will obtain blood work today, inflammatory markers today, follow-up chest x-ray in the morning, we'll continue to follow I performed a history & physical examination of the patient and discussed their management with my nurse practitioner, Flor Andrade. I reviewed the nurse practitioner's note and agree with the documented findings and plan of care. Lung sounds are positive for diminished breath sounds. The findings and the impression was discussed with the patient. I attest to the documentation by the nurse practitioner. Time with Patient: Less than 30
[2020-06-12 15:29] LABS: ALT 171 U/L (4-49); AST 186 U/L (17-59); African American GFR (CKD) >90 (>60 ml/min/1.73 sqM); Albumin 3.5 g/dL (3.5-5.0); Alkaline Phosphatase 106 U/L (38-126); Anion Gap 7 mmol/L; Blood Urea Nitrogen 25 mg/dL (9-20); Calcium 8.8 mg/dL (8.4-10.2); Carbon Dioxide 32 mmol/L (22-30); Chloride 95 mmol/L (98-107); Glucose 192 mg/dL (74-99); Non-African American GFR(CKD) >90 (>60 ml/min/1.73 sqM); Potassium 4.7 mmol/L (3.5-5.1); Sodium 134 mmol/L (137-145); Total Protein 6.9 g/dL (6.3-8.2)
[2020-06-12 15:43] LABS: Basophils # (A) 0.1 k/uL (0-0.2); Basophils % (A) 0 %; Eosinophils % (A) 0 %; HCT 47.8 % (39.0-53.0); HGB 15.9 gm/dL (13.0-17.5); Lymphocytes # (A) 0.5 k/uL (1.0-4.8); Lymphocytes % (A) 3 %; MCH 29.2 pg (25.0-35.0); MCHC 33.3 g/dL (31.0-37.0); MCV 87.5 fL (80.0-100.0); Mean Platelet Volume 7.3; Monocytes # (A) 0.5 k/uL (0-1.0); Monocytes % (A) 3 %; Neutrophils # (A) 14.9 k/uL (1.3-7.7); Neutrophils % (A) 93 %; Platelet Count 294 k/uL (150-450); RBC 5.46 m/uL (4.30-5.90); RDW 13.1 % (11.5-15.5); WBC 16.1 k/uL (3.8-10.6)
[2020-06-12] MEDS: REMDESIVIR 100 MG in SODIUM CHLORIDE 0.9% 250 ML IVPB SCH (16:41)
--- NOTE | 2020-06-12 18:46 | P.PN ---
Subjective Progress Note Date: 06/12/20 Dennis Beal, is a 49 year-old male, who presented to ER with of cough and shortness of breath, Covid 19 test was positive in ER . Patient was evaluated in the emergency room vital examination on presentation to emergency room revealed a temperature of 101.1 pulse 79 respiration 32 blood pressure 115/70 pulse ox 90% on BiPAP his white blood count on presentation was 10.9 C-reactive protein was elevated at 1128 patient was admitted to telemetry floor he was started on IV Decadron pulmonary consultation was requested. Patient was recently admitted with pneumonia at that time Covid 19 test was negative. He was treated with IV antibiotic he improved and he was discharged home. His past medical history is significant for history of kidney stones, history of previous episodes of pneumonia, history of asthma and COPD, and history of depression, history of hypertension. On review of system patient is alert and oriented 3 he is complaining of cough and shortness of breath with any activity otherwise he denies any complaints there is no fever or chills no headache or dizziness no chest pain no nausea or vomiting no abdominal pain no diarrhea no blood in the stools no burning with urination no frequency or urgency and no hematuria On 06/11/2020 patient was seen and examined on the medical floor he is alert and oriented 3 he is still complaining of shortness of breath he still maintained on BiPAP otherwise he denies any complaints he is maintained on IV Decadron and IV Remdesevir On 06/12/2020 patient was seen and examined on the medical floor he is alert and oriented 3 in no apparent distress he is still complaining of shortness of breath and cough he is maintained on high flow oxygen, he is still maintained on IV Decadron and IV REMDESEVIR, otherwise he denies any complaints there is no chest pain no dizziness no nausea or vomiting no abdominal pain no diarrhea and no blood in the stools no burning with urination no frequency or urgency and no hematuria Objective - Vital Signs Vital signs: Vital Signs Temp 97.9 F 06/12/20 03:55 Pulse 54 L 06/12/20 16:00 Resp 40 H 06/12/20 16:00 BP 123/62 06/12/20 16:00 Pulse Ox 96 06/12/20 16:00 Intake & Output 12/01/20 12/02/20 12/02/20 18:59 06:59 18:59 Intake Total 0 786 Output Total 650 1300 450 Balance -650 -1300 336 Weight 120 kg Intake: Intake, IV Titration 250 Amount Remdesivir 100 mg In 250 Sodium Chloride 0.9% 250 ml @ 250 mls/hr IVPB DAILY@1400 [facility] Rx#: [id number] Oral 0 536 Output: Urine 650 1300 450 Other: Voiding Method Urinal Urinal # Voids 0 2 # Bowel Movements 0 0 1 - Exam In general patient is alert and oriented 3 in no apparent distress HEENT head normocephalic and atraumatic Neck is supple no JVD no goiter no lymphadenopathy Chest exam reveals fine crackles in both lung holden no wheezing Cardiac exam reveals regular heart sounds S1 and S2 no gallops no murmurs Abdomen is soft nontender no organomegaly with normal bowel sounds Extremity exam reveals minimal edema no cyanosis or clubbing Neurological examination reveals no gross focal neurological deficit - Labs CBC & Chem 7: 06/12/20 14:44 06/12/20 14:44 Labs: Abnormal Lab Results - Last 24 Hours (Table) 06/12/20 06/12/20 Range/Units 14:44 14:44 WBC 16.1 H (3.8-10.6) k/uL Neutrophils # 14.9 H (1.3-7.7) k/uL Lymphocytes # 0.5 L (1.0-4.8) k/uL Sodium 134 L (137-145) mmol/L Chloride 95 L (98-107) mmol/L Carbon Dioxide 32 H (22-30) mmol/L BUN 25 H (9-20) mg/dL Glucose 192 H (74-99) mg/dL AST 186 H (17-59) U/L ALT 171 H (4-49) U/L Microbiology - Last 24 Hours (Table) 06/09/20 12:09 Blood Culture - Preliminary Blood No Growth after 72 hours 06/11/20 15:58 Gram Stain - Preliminary Sputum Sputum Culture - Preliminary Assessment and Plan Plan: 1. COVID-19, Bilateral pneumonia, started on IV Decadron and IV Remdesevir 2. Hyponatremia, on IV normal saline 3. Elevated d-dimer, started on SQ Lovenox 4. underlying history of depression At this time patient is admitted to telemetry floor he was started on IV Decadron pulmonary consultation was requested Medication reviewed continue current care will follow in a.m.
[2020-06-13] MEDS: ALBUTEROL HFA INHALER INHALATION SCH ×6 (00:29→20:19)
[2020-06-13] MEDS: methylPREDNISolone SOD SUCCI 125 MG/2 ML VIAL IV SCH ×4 (01:46→17:45)
[2020-06-13] MEDS: LORazepam 0.5 MG TAB PO PRN ×2 (01:46→08:41)
[2020-06-13] MEDS: MORPHINE SULFATE 2 MG/ML SYRINGE IVP PRN ×3 (02:38→08:42)
[2020-06-13] MEDS: ACETAMINOPHEN TAB 325 MG TAB PO PRN (04:51)
[2020-06-13] MEDS ORDERED: LORazepam 2 MG/ML INJ IV STA (05:08)
[2020-06-13] MEDS: CHOLECALCIFEROL 1,000 UNIT TAB PO SCH (08:41)
[2020-06-13] MEDS: FLUoxetine HCL 20 MG CAP PO SCH (08:41)
[2020-06-13] MEDS: atenoloL 50 MG TAB PO SCH (08:41)
[2020-06-13] MEDS: ASCORBIC ACID 500 MG TAB PO SCH (08:41)
[2020-06-13] MEDS: ZINC SULFATE 220 MG CAP PO SCH (08:41)
[2020-06-13] MEDS: ENOXAPARIN 40 MG/0.4 ML SYRINGE SQ SCH (08:42)
--- NOTE | 2020-06-13 09:48 | XR ---
EXAMINATION TYPE: XR chest 1V portable DATE OF EXAM: 06/13/2020 Comparison: 06/10/2020 Clinical History: 49-year-old male COVID 19 Findings: Heart upper limits of normal in size. Patchy and confluent airspace opacities bilaterally greatest in the periphery of the mid and lower lungs. No pleural effusion. There may be minimal improvement from prior. Impression: Minimal improvement in the bilateral air space disease with a peripheral and mid and lower lung predo minance.
[2020-06-13 11:01] LABS: Basophils # (A) 0.1 k/uL (0-0.2); Basophils % (A) 1 %; Eosinophils % (A) 0 %; HCT 46.5 % (39.0-53.0); HGB 15.3 gm/dL (13.0-17.5); Lymphocytes # (A) 0.2 k/uL (1.0-4.8); Lymphocytes % (A) 2 %; MCH 28.8 pg (25.0-35.0); MCHC 32.8 g/dL (31.0-37.0); MCV 87.9 fL (80.0-100.0); Mean Platelet Volume 7.4; Monocytes # (A) 0.3 k/uL (0-1.0); Monocytes % (A) 2 %; Neutrophils # (A) 14.7 k/uL (1.3-7.7); Neutrophils % (A) 94 %; Platelet Count 189 k/uL (150-450); RBC 5.29 m/uL (4.30-5.90); RDW 13.1 % (11.5-15.5); WBC 15.6 k/uL (3.8-10.6)
[2020-06-13 11:23] LABS: ALT 215 U/L (4-49); AST 160 U/L (17-59); African American GFR (CKD) >90 (>60 ml/min/1.73 sqM); Albumin 3.3 g/dL (3.5-5.0); Alkaline Phosphatase 123 U/L (38-126); Anion Gap 5 mmol/L; Blood Urea Nitrogen 25 mg/dL (9-20); Calcium 8.2 mg/dL (8.4-10.2); Carbon Dioxide 31 mmol/L (22-30); Chloride 99 mmol/L (98-107); Glucose 176 mg/dL (74-99); Non-African American GFR(CKD) >90 (>60 ml/min/1.73 sqM); Potassium 4.6 mmol/L (3.5-5.1); Sodium 135 mmol/L (137-145); Total Bilirubin 1.4 mg/dL (0.2-1.3); Total Protein 6.5 g/dL (6.3-8.2)
[2020-06-13 11:39] LABS: LDH 2610 U/L (313-618)
[2020-06-13 12:00] LABS: C Reactive Protein 58.3 mg/L (<10.0)
[2020-06-13 12:05] LABS: Glucose,Whole Blood 164 mg/dL (75-99)
[2020-06-13] MEDS: INSULIN ASPART (NovoLOG) 100 UNIT/ML VIAL SQ SCH ×2 (12:23→17:45)
[2020-06-13 12:24] LABS: ABG Base Excess 5.6 mmol/L; ABG HCO3 29 mmol/L (21-25); ABG Oxygen Saturation 86.7 % (94-97); ABG PCO2 37 mmHg (35-45); ABG TCO2 30 mmol/L (19-24); Allen Test Performed? Yes
[2020-06-13] MEDS: REMDESIVIR 100 MG in SODIUM CHLORIDE 0.9% 250 ML IVPB SCH (12:25)
[2020-06-13 12:26] LABS: ABG PO2 52 mmHg (83-108)
[2020-06-13] MEDS ORDERED: propofoL 100 ML IV ONE ×2 (12:40→14:38)
[2020-06-13] MEDS ORDERED: NOREPINEPHRIN 4 MG-0.9% NS PMX 4 MG/250 ML ML IV ONE (12:43)
[2020-06-13 13:19] LABS: ABG Base Excess 0.9 mmol/L; ABG HCO3 30 mmol/L (21-25); ABG Oxygen Saturation 23.3 % (94-97); ABG TCO2 32 mmol/L (19-24)
[2020-06-13 13:23] LABS: Allen Test Performed? no
[2020-06-13] MEDS ORDERED: CISATRACURIUM 2 MG/ML 5 ML VIAL IV ONE (13:24)
[2020-06-13] MEDS ORDERED: ENOXAPARIN 120 MG/0.8 ML SYRINGE SQ STA (13:27)
[2020-06-13] MEDS ORDERED: HEPARIN SODIUM,PORCINE 5,000 UNIT/ML 1 ML VIAL IV PRN (13:28)
--- NOTE | 2020-06-13 13:33 | XR ---
EXAMINATION TYPE: XR chest 1V DATE OF EXAM: 06/13/2020 COMPARISON: Prior chest x-ray 06/13/2020 HISTORY: Status post intubation TECHNIQUE: Single frontal view of the chest is obtained. FINDINGS: There is been interval placement of an endotracheal tube, NG tube are overlying the approp riate positions. Bilateral airspace disease appears somewhat more dense as compared to prior exam. No evident pneumothorax or pleural effusion. Heart is stable. IMPRESSION: Interval intubation, correlate for pneumonia
[2020-06-13] MEDS ORDERED: HEPARIN SODIUM,PORCINE 10,000 UNIT/ML 1 ML VIAL IV ONE (13:45)
[2020-06-13] MEDS: CISATRACURIUM 200 MG in SODIUM CHLORIDE 0.9% 180 ML IV SCH (13:52)
[2020-06-13] MEDS: HEPARIN SOD,PORK IN 0.45% NACL 25,000 UNIT in 0.45% NACL 1 250ML.BAG IV SCH (13:52)
[2020-06-13] MEDS: CLEVIDIPINE BUTYRATE 25 MG in EMPTY BAG 1 BAG IV SCH ×2 (13:53→23:02)
--- NOTE | 2020-06-13 13:58 | XR ---
EXAMINATION TYPE: XR chest 1V portable DATE OF EXAM: 06/13/2020 COMPARISON: Prior chest x-ray 06/13/2020 and earlier time HISTORY: Status post central venous catheter placement TECHNIQUE: Single frontal view of the chest is obtained. FINDINGS: There is been interval placement of a left subclavian central venous catheter, distal tip is overlying the cavoatrial junction. No evident pneumothorax or significant interval change. IMPRESSION: No evident complication status post central venous catheter placement.
[2020-06-13 14:02] LABS: Creatine Kinase MB 1.8 ng/mL (0.0-2.4); Troponin I <0.012 ng/mL (0.000-0.034)
[2020-06-13 14:16] LABS: Basophils # (A) 0.2 k/uL (0-0.2); Basophils % (A) 1 %; Eosinophils % (A) 0 %; HCT 47.5 % (39.0-53.0); HGB 16.1 gm/dL (13.0-17.5); Lymphocytes % (A) 5 %; Mean Platelet Volume 7.2; Monocytes # (A) 0.5 k/uL (0-1.0); Monocytes % (A) 2 %; Neutrophils # (A) 20.5 k/uL (1.3-7.7); Neutrophils % (A) 90 %; Platelet Count 199 k/uL (150-450); RBC 5.22 m/uL (4.30-5.90); RDW 12.9 % (11.5-15.5); WBC 22.7 k/uL (3.8-10.6)
[2020-06-13 14:17] LABS: INR 1.1 (<1.2); Partial Thromboplastin Time 22.5 sec (22.0-30.0); Prothrombin Time 11.4 sec (9.0-12.0)
--- NOTE | 2020-06-13 14:20 | PN ---
PROGRESS NOTE ADDENDUM: CRITICAL CARE TIME: Greater than 30 minutes. MMTREYL / KYRAN: [id number] /
[2020-06-13 14:26] LABS: ABG Base Excess -0.1 mmol/L; ABG HCO3 29 mmol/L (21-25); ABG Oxygen Saturation 92.4 % (94-97); ABG PO2 87 mmHg (83-108); ABG TCO2 31 mmol/L (19-24)
[2020-06-13 14:29] LABS: ABG PCO2 79 mmHg (35-45); ABG PH 7.16 (7.35-7.45); Allen Test Performed? no
--- NOTE | 2020-06-13 14:44 | PN ---
PROGRESS NOTE PULMONARY/CRITICAL CARE PROGRESS NOTE: DATE OF SERVICE: 06/13/2020 This is a 49-year-old male who was admitted to the hospital on June 09. He came in with a diagnosis of COVID-19 pneumonitis and acute hypoxemic respiratory failure. While here in the hospital, his saturations continued to decline and over the last day or so, he had been on BiPAP at 14/7 for IPAP and EPAP settings and FiO2 of 100%. Earlier on in the week, he felt like he was improving. Today when we saw him, he was quite a bit more short of breath. We decided to move him to the ICU. Subsequent to that, a blood gas was done which showed relatively lower PO2 on 100% and he was quite tachypneic and dyspneic and hence decision was made to intubate him. CUSHION COVER INSPECTOR was called. He was intubated. The CUSHION COVER INSPECTOR was also kind enough to put an Art line in the patient at that time. Afterwards, we were called to say that the patient's saturations were only in the 20s. His head was blue and we ran over to the ICU to assist the nurses and other medical personnel. We went ahead and quickly put a left subclavian triple-lumen catheter in. In addition, I bumped the PEEP up from 10 up to 20 and we increased the rate from 20 up to 26. A repeat gas will be done shortly. We also started the patient on propofol, gave him 15 of Nimbex and started the Nimbex drip at 2 mcg/kg per minute with train of 4 monitoring. In addition, we gave him 120 mg of Lovenox and then we started a heparin drip without bolus. The patient will be prone. Will get a blood gas before that. A chest x-ray showed adequate placement of his left subclavian triple- lumen catheter. Current vital signs include a temperature which 97.5, a heart rate which is 100, respiratory rate which is 40, blood pressure 153/80 mean 104, saturations are quite low. They are in the 70s, that is on 100% and 20 of PEEP. Appears in no acute distress. Currently sedated. Paralyzed. HEENT: Examination is grossly unremarkable. There is an orally placed endotracheal tube and NG tube. NECK: Supple. CARDIOVASCULAR: Examination reveals tachycardia. S1, S2 normal. Heart sounds are distant. LUNGS: Reveal diffuse coarse rhonchi. ABDOMEN: Soft, but obese. EXTREMITIES: Intact. No cyanosis, clubbing, or edema. SKIN: Without rash. NEUROLOGIC: Examination cannot be adequately assessed. LABS: Reviewed. White count 15.6, hemoglobin 15.3, hematocrit 46.5, platelet count 189,000. Blood gases initially showed a pO2 of 52, pCO2 of 37, pH of 7.5. After intubation, PO2 was 25. The pCO2 was 81 and a pH of 7.17. That was on 100% 10 of PEEP, 450 tidal volume at a rate of 20 . The PEEP was increased to 20 and the rate was increased up to 26 breaths per minute. Sodium 135, potassium 4.6, chloride 99, CO2 is 31, anion gap is 5, BUN and creatinine were 25 and 0.61, calcium 8.2. Bilirubin 1.4, AST 160, ALT 215, LDH 2610, albumin 3.3. Microbiology is currently negative. Chest x-ray shows a properly placed left subclavian triple-lumen catheter. The patient's x-ray shows diffuse bilateral infiltrates. Endotracheal tube is about 4 cm above the tracheal anthony. CURRENT MEDICATIONS: Reviewed. Unnecessary medications will be discontinued. ASSESSMENT: 1. COVID-19 pneumonitis with profound hypoxemic respiratory failure, both acute on chronic, as well as hypercapnic respiratory failure, requiring intubation and mechanical ventilation on June 13, 2020. 2. Recent admission to the hospital for acute community-acquired right lower lobe pneumonia. 3. Hyponatremia. 4. Elevated D-dimer, rule out hypercoagulable state. 5. History of mild intermittent chronic bronchial asthma. 6. History of hypertension. 7. History of depression. PLAN: Medications are reviewed. No additional recommendations are made. The patient had a line placed. The patient will be given Lovenox 120 mg subcu. Will give the patient IV heparin. The patient will eventually need a CT angiogram. Will see if we cannot prone the patient for 16 hours today. The patient was given Nimbex 15 mg IV push. Started on a drip at 2 mcg/kg per minute with train of 4 monitoring. We will make sure we start tube feeds. Additional recommendations and suggestions are forthcoming. Prognosis is guarded. MMODL / IJN: [id number] / MTDD
[2020-06-13] MEDS ORDERED: SODIUM CHLORIDE 0.9% 1,000 ML IV ONE ×4 (14:53→14:56)
[2020-06-13 17:19] LABS: Glucose,Whole Blood 248 mg/dL (75-99)
[2020-06-13 17:38] LABS: ABG Base Excess -0.5 mmol/L; ABG HCO3 27 mmol/L (21-25); ABG Oxygen Saturation 98.1 % (94-97); ABG PCO2 68 mmHg (35-45); ABG PH 7.21 (7.35-7.45); ABG PO2 124 mmHg (83-108); ABG TCO2 30 mmol/L (19-24)
[2020-06-13 17:39] LABS: Allen Test Performed? no
--- NOTE | 2020-06-13 18:34 | P.PN ---
Subjective Progress Note Date: 06/13/20 Dennis Beal, is a 49 year-old male, who presented to ER with of cough and shortness of breath, Covid 19 test was positive in ER . Patient was evaluated in the emergency room vital examination on presentation to emergency room revealed a temperature of 101.1 pulse 79 respiration 32 blood pressure 115/70 pulse ox 90% on BiPAP his white blood count on presentation was 10.9 C-reactive protein was elevated at 1128 patient was admitted to telemetry floor he was started on IV Decadron pulmonary consultation was requested. Patient was recently admitted with pneumonia at that time Covid 19 test was negative. He was treated with IV antibiotic he improved and he was discharged home. His past medical history is significant for history of kidney stones, history of previous episodes of pneumonia, history of asthma and COPD, and history of depression, history of hypertension. On review of system patient is alert and oriented 3 he is complaining of cough and shortness of breath with any activity otherwise he denies any complaints there is no fever or chills no headache or dizziness no chest pain no nausea or vomiting no abdominal pain no diarrhea no blood in the stools no burning with urination no frequency or urgency and no hematuria On 06/11/2020 patient was seen and examined on the medical floor he is alert and oriented 3 he is still complaining of shortness of breath he still maintained on BiPAP otherwise he denies any complaints he is maintained on IV Decadron and IV Remdesevir On 06/12/2020 patient was seen and examined on the medical floor he is alert and oriented 3 in no apparent distress he is still complaining of shortness of breath and cough he is maintained on high flow oxygen, he is still maintained on IV Decadron and IV REMDESEVIR, otherwise he denies any complaints there is no chest pain no dizziness no nausea or vomiting no abdominal pain no diarrhea and no blood in the stools no burning with urination no frequency or urgency and no hematuria On 06/13/2020 patient was seen and examined in the ICU, last night he developed tachycardia, tachypnea, and worsening shortness of breath. He was transferred to intensive care unit he was intubated sedated started on mechanical ventilation, currently patient was seen and examined in the ICU he is in the prone position maintained on mechanical ventilation Objective - Vital Signs Vital signs: Vital Signs Temp 97.4 F L 06/13/20 04:00 Pulse 53 L 06/13/20 04:00 Resp 46 H 06/13/20 04:00 BP 156/81 06/13/20 04:00 Pulse Ox 92 L 06/13/20 04:00 Intake & Output 06/12/20 06/13/20 06/13/20 18:59 06:59 18:59 Intake Total 786 Output Total 450 680 Balance 336 -680 Weight 120 kg Intake: Intake, IV Titration 250 Amount Remdesivir 100 mg In 250 Sodium Chloride 0.9% 250 ml @ 250 mls/hr IVPB DAILY@1400 [facility] Rx#: [id number] Oral 536 Output: Urine 450 680 Other: Voiding Method Urinal # Voids 2 # Bowel Movements 1 - Exam In general patient is intubated sedated maintained on mechanical ventilation he is in the prone position HEENT head normocephalic and atraumatic Neck is supple no JVD no goiter no lymphadenopathy Chest exam reveals fine crackles in both lung holden no wheezing Cardiac exam reveals regular heart sounds S1 and S2 no gallops no murmurs Abdomen is soft nontender no organomegaly with normal bowel sounds Extremity exam reveals minimal edema no cyanosis or clubbing Neurological examination reveals no gross focal neurological deficit - Labs CBC & Chem 7: 06/13/20 13:55 06/13/20 09:46 Labs: Abnormal Lab Results - Last 24 Hours (Table) 06/12/20 06/12/20 Range/Units 14:44 14:44 WBC 16.1 H (3.8-10.6) k/uL Neutrophils # 14.9 H (1.3-7.7) k/uL Lymphocytes # 0.5 L (1.0-4.8) k/uL Sodium 134 L (137-145) mmol/L Chloride 95 L (98-107) mmol/L Carbon Dioxide 32 H (22-30) mmol/L BUN 25 H (9-20) mg/dL Glucose 192 H (74-99) mg/dL AST 186 H (17-59) U/L ALT 171 H (4-49) U/L Microbiology - Last 24 Hours (Table) 06/09/20 12:09 Blood Culture - Preliminary Blood No Growth after 72 hours 06/11/20 15:58 Gram Stain - Preliminary Sputum Sputum Culture - Preliminary Assessment and Plan Plan: 1. COVID-19, Bilateral pneumonia, started on IV Decadron and IV Remdesevir 2. Acute on chronic hypoxic and hypercapnic respiratory failure requiring mechanical ventilation 3. Hyponatremia, on IV normal saline 4. Elevated d-dimer, started on SQ Lovenox 5. underlying history of depression 6. Underlying history of asthma At this time patient is in ICU, pulmonary critical care following
[2020-06-13 19:10] LABS: Basophils # (A) 0.2 k/uL (0-0.2); Basophils % (A) 1 %; Eosinophils % (A) 0 %; HCT 45.1 % (39.0-53.0); HGB 14.9 gm/dL (13.0-17.5); Lymphocytes # (A) 0.3 k/uL (1.0-4.8); Lymphocytes % (A) 1 %; MCH 29.9 pg (25.0-35.0); MCV 90.7 fL (80.0-100.0); Monocytes # (A) 0.6 k/uL (0-1.0); Monocytes % (A) 3 %; Neutrophils % (A) 94 %; Platelet Count 182 k/uL (150-450); RBC 4.97 m/uL (4.30-5.90); WBC 22.5 k/uL (3.8-10.6)
[2020-06-13] MEDS: SODIUM CHLORIDE 0.9% 1,000 ML IV SCH (20:00)
[2020-06-13 22:08] LABS: Appearance,Urine Clear (Clear); Bilirubin,Urine Negative (Negative); Blood,Urine Large (Negative); Color,Urine Yellow; Glucose,Urine (UA) Negative (Negative); Ketones,Urine Negative (Negative); Leukocyte Esterase,Urine Negative (Negative); Mucus,Urine Rare /hpf; Nitrite,Urine Negative (Negative); Protein,Urine Trace (Negative); RBC,Urine >182 /hpf (0-5); Specific Gravity,Urine 1.023 (1.001-1.035); Urobilinogen,Urine <2.0 mg/dL (<2.0); WBC,Urine 4 /hpf (0-5)
[2020-06-13] MEDS ORDERED: CLEVIDIPINE BUTYRATE 25 MG/50 ML VIAL IV ONE (22:56)
[2020-06-13] MEDS: CHLORHEXIDINE GLUCONATE 15 ML CUP MUCOUS MEM SCH (23:02)
--- NOTE | 2020-06-14 00:59 | PCN ---
PROCEDURE NOTE PROCEDURE: Left subclavian triple-lumen catheter. OPERATORS: Dr. Mcconnell, Dr. Wiseman and Flor Andrade. PREOPERATIVE DIAGNOSIS: Administration of fluids and pressors. POSTOPERATIVE DIAGNOSIS: Administration of fluids and pressors. TRIPLE LUMEN CATHETER PLACEMENT: Indication: Hemodynamic monitoring/Intravenous access. A time-out was completed verifying correct patient, procedure, site, positioning, and implant(s) or special equipment if applicable. The patient was placed in a dependent position appropriate for triple lumen catheter placement based on the vein to be cannulated. The patient's left shoulder was prepped and draped in sterile fashion. 1% Lidocaine was used to anesthetize the surrounding skin area. A triple lumen 9F Cordis catheter was introduced into the left subclavian vein using Seldinger technique. The catheter was threaded smoothly over the guide wire and appropriate blood return was obtained. Each lumen of the catheter was evacuated of air and flushed with sterile saline. The catheter was then sutured in place to the skin and a sterile dressing applied. Perfusion to the extremity distal to the point of catheter insertion was checked and found to be adequate. There was no immediate complication. There was good blood return from all 3 ports. The catheter was sutured in place. The tip of catheter was seen in the area of the superior vena cava right atrial junction. Chest x-ray was ordered. A sterile dressing was applied by the nurse. There was no immediate complication. There was good blood return from all 3 ports. There was no major complication with the procedure. MMODL / IJN: [id number] /
[2020-06-14 01:14] LABS: Glucose,Whole Blood 162 mg/dL (75-99)
[2020-06-14] MEDS: methylPREDNISolone SOD SUCCI 125 MG/2 ML VIAL IV SCH ×5 (01:21→23:37)
[2020-06-14] MEDS: INSULIN ASPART (NovoLOG) 100 UNIT/ML VIAL SQ SCH ×5 (01:22→23:38)
[2020-06-14] MEDS: ALBUTEROL HFA INHALER INHALATION SCH ×7 (01:41→23:22)
--- NOTE | 2020-06-14 01:50 | XR ---
EXAM: XR Chest, 1 View CLINICAL HISTORY: Tube placement TECHNIQUE: Frontal view of the chest. COMPARISON: 06/13/20 1339 FINDINGS: Lungs: Diffuse bilateral alveolar and interstitial opacities. Pleural space: Query small bilateral pleural effusions. No pneumothorax. Heart: No significant abnormality. No cardiomegaly. Mediastinum: No significant abnormality. Bones/joints: No acute osseous abnormality. Tubes, lines and devices: Endotracheal tube terminates approximately 5. 6 cm above the anthony. Esophagogastric tube traverses the diaphragm and extends off the field of view. Left central venous catheter tip projects over the superior vena cava. IMPRESSION: 1. Endotracheal tube terminates approximately 5.6 cm above the anthony. No pneumothorax. 2. Esophagogastric tube traverses the diaphragm and extends off the field of view. 3. Left central venous catheter tip projects over the superior vena cava.
[2020-06-14] MEDS ORDERED: CLEVIDIPINE BUTYRATE 25 MG/50 ML VIAL IV ONE (03:40)
[2020-06-14] MEDS: HEPARIN SOD,PORK IN 0.45% NACL 25,000 UNIT in 0.45% NACL 1 250ML.BAG IV SCH ×2 (03:42→16:48)
[2020-06-14] MEDS: SODIUM CHLORIDE 0.9% 1,000 ML IV SCH ×3 (04:00→22:02)
[2020-06-14 05:09] LABS: ABG Base Excess 4.8 mmol/L; ABG HCO3 32 mmol/L (21-25); ABG Oxygen Saturation 97.7 % (94-97); ABG PH 7.23 (7.35-7.45); ABG PO2 102 mmHg (83-108); ABG TCO2 35 mmol/L (19-24); Allen Test Performed? Yes
[2020-06-14] MEDS: CISATRACURIUM 200 MG in SODIUM CHLORIDE 0.9% 180 ML IV SCH ×2 (05:27→16:24)
[2020-06-14 05:39] LABS: Glucose,Whole Blood 166 mg/dL (75-99)
[2020-06-14 05:44] LABS: ABG PCO2 78 mmHg (35-45)
[2020-06-14 05:57] LABS: Basophils # (A) 0.3 k/uL (0-0.2); Basophils % (A) 1 %; Eosinophils # (A) 0.1 k/uL (0-0.7); Eosinophils % (A) 0 %; HGB 15.5 gm/dL (13.0-17.5); Lymphocytes # (A) 0.3 k/uL (1.0-4.8); Lymphocytes % (A) 1 %; MCH 28.8 pg (25.0-35.0); MCHC 31.6 g/dL (31.0-37.0); MCV 91.4 fL (80.0-100.0); Mean Platelet Volume 6.9; Monocytes # (A) 0.5 k/uL (0-1.0); Monocytes % (A) 2 %; Neutrophils % (A) 94 %; Platelet Count 230 k/uL (150-450); RBC 5.36 m/uL (4.30-5.90); RDW 13.3 % (11.5-15.5); WBC 22.5 k/uL (3.8-10.6)
[2020-06-14 08:00] LABS: ALT 214 U/L (4-49); AST 113 U/L (17-59); African American GFR (CKD) >90 (>60 ml/min/1.73 sqM); Albumin 2.9 g/dL (3.5-5.0); Alkaline Phosphatase 155 U/L (38-126); Anion Gap 4 mmol/L; Blood Urea Nitrogen 21 mg/dL (9-20); Calcium 7.5 mg/dL (8.4-10.2); Carbon Dioxide 32 mmol/L (22-30); Chloride 102 mmol/L (98-107); Glucose 189 mg/dL (74-99); Non-African American GFR(CKD) >90 (>60 ml/min/1.73 sqM); Potassium 5.3 mmol/L (3.5-5.1); Sodium 138 mmol/L (137-145); Total Bilirubin 1.4 mg/dL (0.2-1.3); Total Protein 6.1 g/dL (6.3-8.2)
[2020-06-14 08:15] LABS: C Reactive Protein 160.6 mg/L (<10.0); LDH 2733 U/L (313-618)
[2020-06-14] MEDS: CHOLECALCIFEROL 1,000 UNIT TAB PO SCH (08:22)
[2020-06-14] MEDS: ASCORBIC ACID 500 MG TAB PO SCH (08:22)
[2020-06-14] MEDS: CHLORHEXIDINE GLUCONATE 15 ML CUP MUCOUS MEM SCH ×2 (08:22→20:49)
[2020-06-14] MEDS: ZINC SULFATE 220 MG CAP PO SCH (08:22)
[2020-06-14] MEDS: CLEVIDIPINE BUTYRATE 25 MG in EMPTY BAG 1 BAG IV SCH ×4 (08:22→23:36)
[2020-06-14] MEDS: FLUoxetine HCL 20 MG CAP PO SCH (08:22)
[2020-06-14] MEDS: atenoloL 50 MG TAB PO SCH (08:26)
--- NOTE | 2020-06-14 10:00 | P.PN ---
Subjective Progress Note Date: 06/14/20 Principal diagnosis: Acute hypoxic respiratory failure secondary to CoVID 19 pneumonia The patient is seen today 06/14/2020 in follow-up in the intensive care unit. He was admitted with CoVID 19 pneumonitis with acute hypoxemic respiratory failure. Yesterday when we had rounded on him he was on BiPAP 14/7 FiO2 of 100%. He continued to deteriorate and subsequently required intubation and mechanical ventilatory support in the intensive care unit. Presently, he is intubated, sedated and paralyzed. He is on assist control at a rate of 34, tidal volume 450, FiO2 80% and a PEEP of 20. Morning blood gases revealed a pO2 of 102, pCO2 78, pH 7.23. He is sedated on propofol at 75 mcg/kg/m. Paralyzed with Nimbex at 2 mcg/kg/m. Heparin drip at 13 units per kilogram per hour. He has a 0.9 normal saline at 120 ML's per hour. He is also on clevidipine at 4 mg per hour. This will be day #5 of Remdesivir. He has received convalescent plasma. He remains on IV Solu-Medrol and bronchodilators. Chest x-ray continues to show diffuse bilateral alveolar and interstitial opacities. Blood cultures reveal no growth. Sputum culture revealed no growth. He is currently afebrile. White count 22.5. Hemoglobin 15.5. Lymphocytes 0.3. D-dimer greater than 34. Sodium 138. Potassium 5.3. Creatinine 0.63. Glucose 189. AST 113. ALT 214. LDH 2733. C-reactive protein 160. Objective - Vital Signs Vital signs: Vital Signs Temp 98.1 F 06/14/20 08:00 Pulse 91 06/14/20 09:00 Resp 33 H 06/14/20 09:00 BP 177/95 06/13/20 13:00 Pulse Ox 97 06/14/20 09:00 Intake & Output 06/13/20 06/14/20 06/14/20 18:59 06:59 18:59 Intake Total 5010 2224.194 641.1 Output Total 975 2275 285 Balance 4035 -50.806 356.1 Weight 118.2 kg Intake: IV 4370 1534 369 Remdesivir 100 mg In 250 Sodium Chloride 0.9% 250 ml @ 250 mls/hr IVPB DAILY@1400 [facility] Rx#: [id number] Sodium Chloride 0.9% 1, 1320 360 000 ml @ 120 mls/hr IV . Q8H20M [facility] Rx#:[id number] Sodium Chloride 0.9% 1, 4120 120 000 ml @ 999 mls/hr IV . Q1H1M [facility] Rx#:[id number] pressure bag 94 9 Intake, IV Titration 100 690.194 212.1 Amount Cisatracurium 200 mg In 160.86 Sodium Chloride 0.9% 180 ml @ 1 MCG/KG/MIN 7.2 mls /hr IV .Q24H [facility] Rx#: [id number] Clevidipine Butyrate 25 69.234 9.2 mg In Empty Bag 1 bag @ 1 MG/HR 2 mls/hr IV .Q24H [facility] Rx#:[id number] Heparin Sod,Pork in 0.45% 237.72 102.9 NaCl 25,000 unit In 0.45 % NaCl 1 250ml.bag @ 18 UNITS/KG/HR 21.6 mls/hr IV .[id number] [facility] Rx#: [id number] propofoL 1,000 mg In 100 222.38 100 Empty Bag 1 bag @ Titrate IV .Q0M [facility] Rx#: [id number] Oral 540 Other 60 Output: Gastric Drainage 700 Urine 975 1575 285 Other: Voiding Method Indwelling Catheter Indwelling Catheter # Bowel Movements 1 ABP, PAP, CO, CI - Last Documented Arterial Blood Pressure 119/64 - Exam GENERAL EXAM: Intubated, sedated, paralyzed 49-year-old gentleman currently on mechanical ventilator with FiO2 80%. HEAD: Normocephalic. EYES: Sluggish reaction of pupils, equal size. NOSE: Clear with pink turbinates. THROAT: Oral endotracheal and gastric tube secured in place. No erythema or exudates. NECK: No masses, no JVD. CHEST: No chest wall deformity. LUNGS: Equal air entry with bilateral scattered rhonchi. CVS: S1 and S2 normal with no audible murmur, regular rhythm. ABDOMEN: No hepatosplenomegaly, normal bowel sounds, no guarding or rigidity. SPINE: No scoliosis or deformity SKIN: No rashes CENTRAL NERVOUS SYSTEM: Sedated, paralyzed. Tone is normal in all 4 extremities. EXTREMITIES: There is trace peripheral edema. No clubbing, no cyanosis. Peripheral pulses are intact. - Labs CBC & Chem 7: 06/14/20 05:05 06/14/20 05:05 Labs: Abnormal Lab Results - Last 24 Hours (Table) 06/13/20 06/13/20 06/13/20 Range/Units 09:46 09:46 09:46 WBC 15.6 H (3.8-10.6) k/uL Neutrophils # 14.7 H (1.3-7.7) k/uL Lymphocytes # 0.2 L (1.0-4.8) k/uL Basophils # (0-0.2) k/uL APTT (22.0-30.0) sec D-Dimer >34.10 H (<0.60) mg/L FEU ABG pH (7.35-7.45) ABG pCO2 (35-45) mmHg ABG pO2 (83-108) mmHg ABG HCO3 (21-25) mmol/L ABG Total CO2 (19-24) mmol/L ABG O2 Saturation (94-97) % ABG Lactic Acid (0.5-1.6) mmol/L Sodium 135 L (137-145) mmol/L Potassium (3.5-5.1) mmol/L Carbon Dioxide 31 H (22-30) mmol/L BUN 25 H (9-20) mg/dL Creatinine 0.61 L (0.66-1.25) mg/dL Glucose 176 H (74-99) mg/dL POC Glucose (mg/dL) (75-99) mg/dL Calcium 8.2 L (8.4-10.2) mg/dL Total Bilirubin 1.4 H (0.2-1.3) mg/dL AST 160 H (17-59) U/L ALT 215 H (4-49) U/L Alkaline Phosphatase (38-126) U/L Lactate Dehydrogenase 2610 H (313-618) U/L Troponin I (0.000-0.034) ng/mL C-Reactive Protein 58.3 H (<10.0) mg/L Total Protein (6.3-8.2) g/dL Albumin 3.3 L (3.5-5.0) g/dL Urine Protein (Negative) Urine Blood (Negative) Urine RBC (0-5) /hpf Urine Mucus (None) /hpf 06/13/20 06/13/20 06/13/20 Range/Units 12:03 12:22 13:15 WBC (3.8-10.6) k/uL Neutrophils # (1.3-7.7) k/uL Lymphocytes # (1.0-4.8) k/uL Basophils # (0-0.2) k/uL APTT (22.0-30.0) sec D-Dimer >34.10 H (<0.60) mg/L FEU ABG pH 7.50 H (7.35-7.45) ABG pCO2 (35-45) mmHg ABG pO2 52 L* (83-108) mmHg ABG HCO3 29 H (21-25) mmol/L ABG Total CO2 30 H (19-24) mmol/L ABG O2 Saturation 86.7 L (94-97) % ABG Lactic Acid (0.5-1.6) mmol/L Sodium (137-145) mmol/L Potassium (3.5-5.1) mmol/L Carbon Dioxide (22-30) mmol/L BUN (9-20) mg/dL Creatinine (0.66-1.25) mg/dL Glucose (74-99) mg/dL POC Glucose (mg/dL) 164 H (75-99) mg/dL Calcium (8.4-10.2) mg/dL Total Bilirubin (0.2-1.3) mg/dL AST (17-59) U/L ALT (4-49) U/L Alkaline Phosphatase (38-126) U/L Lactate Dehydrogenase (313-618) U/L Troponin I (0.000-0.034) ng/mL C-Reactive Protein (<10.0) mg/L Total Protein (6.3-8.2) g/dL Albumin (3.5-5.0) g/dL Urine Protein (Negative) Urine Blood (Negative) Urine RBC (0-5) /hpf Urine Mucus (None) /hpf 06/13/20 06/13/20 06/13/20 Range/Units 13:15 13:17 13:55 WBC 22.7 H (3.8-10.6) k/uL Neutrophils # 20.5 H (1.3-7.7) k/uL Lymphocytes # (1.0-4.8) k/uL Basophils # (0-0.2) k/uL APTT (22.0-30.0) sec D-Dimer (<0.60) mg/L FEU ABG pH 7.17 L* (7.35-7.45) ABG pCO2 81 H* (35-45) mmHg ABG pO2 25 L* (83-108) mmHg ABG HCO3 30 H (21-25) mmol/L ABG Total CO2 32 H (19-24) mmol/L ABG O2 Saturation 23.3 L (94-97) % ABG Lactic Acid 6.1 H* (0.5-1.6) mmol/L Sodium (137-145) mmol/L Potassium (3.5-5.1) mmol/L Carbon Dioxide (22-30) mmol/L BUN (9-20) mg/dL Creatinine (0.66-1.25) mg/dL Glucose (74-99) mg/dL POC Glucose (mg/dL) (75-99) mg/dL Calcium (8.4-10.2) mg/dL Total Bilirubin (0.2-1.3) mg/dL AST (17-59) U/L ALT (4-49) U/L Alkaline Phosphatase (38-126) U/L Lactate Dehydrogenase (313-618) U/L Troponin I (0.000-0.034) ng/mL C-Reactive Protein (<10.0) mg/L Total Protein (6.3-8.2) g/dL Albumin (3.5-5.0) g/dL Urine Protein (Negative) Urine Blood (Negative) Urine RBC (0-5) /hpf Urine Mucus (None) /hpf 06/13/20 06/13/20 06/13/20 Range/Units 14:25 17:18 17:36 WBC (3.8-10.6) k/uL Neutrophils # (1.3-7.7) k/uL Lymphocytes # (1.0-4.8) k/uL Basophils # (0-0.2) k/uL APTT (22.0-30.0) sec D-Dimer (<0.60) mg/L FEU ABG pH 7.16 L* 7.21 L (7.35-7.45) ABG pCO2 79 H* 68 H (35-45) mmHg ABG pO2 124 H (83-108) mmHg ABG HCO3 29 H 27 H (21-25) mmol/L ABG Total CO2 31 H 30 H (19-24) mmol/L ABG O2 Saturation 92.4 L 98.1 H (94-97) % ABG Lactic Acid (0.5-1.6) mmol/L Sodium (137-145) mmol/L Potassium (3.5-5.1) mmol/L Carbon Dioxide (22-30) mmol/L BUN (9-20) mg/dL Creatinine (0.66-1.25) mg/dL Glucose (74-99) mg/dL POC Glucose (mg/dL) 248 H (75-99) mg/dL Calcium (8.4-10.2) mg/dL Total Bilirubin (0.2-1.3) mg/dL AST (17-59) U/L ALT (4-49) U/L Alkaline Phosphatase (38-126) U/L Lactate Dehydrogenase (313-618) U/L Troponin I (0.000-0.034) ng/mL C-Reactive Protein (<10.0) mg/L Total Protein (6.3-8.2) g/dL Albumin (3.5-5.0) g/dL Urine Protein (Negative) Urine Blood (Negative) Urine RBC (0-5) /hpf Urine Mucus (None) /hpf 06/13/20 06/13/20 06/13/20 Range/Units 17:38 18:45 21:15 WBC 22.5 H (3.8-10.6) k/uL Neutrophils # 21.0 H (1.3-7.7) k/uL Lymphocytes # 0.3 L (1.0-4.8) k/uL Basophils # (0-0.2) k/uL APTT 60.7 H 110.1 H* (22.0-30.0) sec D-Dimer (<0.60) mg/L FEU ABG pH (7.35-7.45) ABG pCO2 (35-45) mmHg ABG pO2 (83-108) mmHg ABG HCO3 (21-25) mmol/L ABG Total CO2 (19-24) mmol/L ABG O2 Saturation (94-97) % ABG Lactic Acid (0.5-1.6) mmol/L Sodium (137-145) mmol/L Potassium (3.5-5.1) mmol/L Carbon Dioxide (22-30) mmol/L BUN (9-20) mg/dL Creatinine (0.66-1.25) mg/dL Glucose (74-99) mg/dL POC Glucose (mg/dL) (75-99) mg/dL Calcium (8.4-10.2) mg/dL Total Bilirubin (0.2-1.3) mg/dL AST (17-59) U/L ALT (4-49) U/L Alkaline Phosphatase (38-126) U/L Lactate Dehydrogenase (313-618) U/L Troponin I (0.000-0.034) ng/mL C-Reactive Protein (<10.0) mg/L Total Protein (6.3-8.2) g/dL Albumin (3.5-5.0) g/dL Urine Protein (Negative) Urine Blood (Negative) Urine RBC (0-5) /hpf Urine Mucus (None) /hpf 06/13/20 06/13/20 06/14/20 Range/Units 21:15 21:15 01:12 WBC (3.8-10.6) k/uL Neutrophils # (1.3-7.7) k/uL Lymphocytes # (1.0-4.8) k/uL Basophils # (0-0.2) k/uL APTT (22.0-30.0) sec D-Dimer (<0.60) mg/L FEU ABG pH (7.35-7.45) ABG pCO2 (35-45) mmHg ABG pO2 (83-108) mmHg ABG HCO3 (21-25) mmol/L ABG Total CO2 (19-24) mmol/L ABG O2 Saturation (94-97) % ABG Lactic Acid (0.5-1.6) mmol/L Sodium (137-145) mmol/L Potassium (3.5-5.1) mmol/L Carbon Dioxide (22-30) mmol/L BUN (9-20) mg/dL Creatinine (0.66-1.25) mg/dL Glucose (74-99) mg/dL POC Glucose (mg/dL) 162 H (75-99) mg/dL Calcium (8.4-10.2) mg/dL Total Bilirubin (0.2-1.3) mg/dL AST (17-59) U/L ALT (4-49) U/L Alkaline Phosphatase (38-126) U/L Lactate Dehydrogenase (313-618) U/L Troponin I 0.633 H* (0.000-0.034) ng/mL C-Reactive Protein (<10.0) mg/L Total Protein (6.3-8.2) g/dL Albumin (3.5-5.0) g/dL Urine Protein Trace H (Negative) Urine Blood Large H (Negative) Urine RBC >182 H (0-5) /hpf Urine Mucus Rare H (None) /hpf 06/14/20 06/14/20 06/14/20 Range/Units 05:05 05:05 05:05 WBC 22.5 H (3.8-10.6) k/uL Neutrophils # 21.0 H (1.3-7.7) k/uL Lymphocytes # 0.3 L (1.0-4.8) k/uL Basophils # 0.3 H (0-0.2) k/uL APTT (22.0-30.0) sec D-Dimer (<0.60) mg/L FEU ABG pH 7.23 L (7.35-7.45) ABG pCO2 78 H* (35-45) mmHg ABG pO2 (83-108) mmHg ABG HCO3 32 H (21-25) mmol/L ABG Total CO2 35 H (19-24) mmol/L ABG O2 Saturation 97.7 H (94-97) % ABG Lactic Acid (0.5-1.6) mmol/L Sodium (137-145) mmol/L Potassium 5.3 H (3.5-5.1) mmol/L Carbon Dioxide 32 H (22-30) mmol/L BUN 21 H (9-20) mg/dL Creatinine 0.63 L (0.66-1.25) mg/dL Glucose 189 H (74-99) mg/dL POC Glucose (mg/dL) (75-99) mg/dL Calcium 7.5 L (8.4-10.2) mg/dL Total Bilirubin 1.4 H (0.2-1.3) mg/dL AST 113 H (17-59) U/L ALT 214 H (4-49) U/L Alkaline Phosphatase 155 H (38-126) U/L Lactate Dehydrogenase 2733 H (313-618) U/L Troponin I (0.000-0.034) ng/mL C-Reactive Protein 160.6 H (<10.0) mg/L Total Protein 6.1 L (6.3-8.2) g/dL Albumin 2.9 L (3.5-5.0) g/dL Urine Protein (Negative) Urine Blood (Negative) Urine RBC (0-5) /hpf Urine Mucus (None) /hpf 06/14/20 06/14/20 06/14/20 Range/Units 05:05 05:38 08:30 WBC (3.8-10.6) k/uL Neutrophils # (1.3-7.7) k/uL Lymphocytes # (1.0-4.8) k/uL Basophils # (0-0.2) k/uL APTT 80.4 H (22.0-30.0) sec D-Dimer >34.10 H (<0.60) mg/L FEU ABG pH (7.35-7.45) ABG pCO2 (35-45) mmHg ABG pO2 (83-108) mmHg ABG HCO3 (21-25) mmol/L ABG Total CO2 (19-24) mmol/L ABG O2 Saturation (94-97) % ABG Lactic Acid (0.5-1.6) mmol/L Sodium (137-145) mmol/L Potassium (3.5-5.1) mmol/L Carbon Dioxide (22-30) mmol/L BUN (9-20) mg/dL Creatinine (0.66-1.25) mg/dL Glucose (74-99) mg/dL POC Glucose (mg/dL) 166 H (75-99) mg/dL Calcium (8.4-10.2) mg/dL Total Bilirubin (0.2-1.3) mg/dL AST (17-59) U/L ALT (4-49) U/L Alkaline Phosphatase (38-126) U/L Lactate Dehydrogenase (313-618) U/L Troponin I (0.000-0.034) ng/mL C-Reactive Protein (<10.0) mg/L Total Protein (6.3-8.2) g/dL Albumin (3.5-5.0) g/dL Urine Protein (Negative) Urine Blood (Negative) Urine RBC (0-5) /hpf Urine Mucus (None) /hpf Microbiology - Last 24 Hours (Table) 06/13/20 21:10 Gram Stain - Preliminary Sputum Sputum Culture - Preliminary 06/09/20 12:09 Blood Culture - Preliminary Blood No Growth after 96 hours 06/11/20 15:58 Gram Stain - Final Sputum Sputum Culture - Final Assessment and Plan Assessment: 1 Acute hypoxemic respiratory failure secondary to cope 19 pneumonia, treated with Remdesivir and convalescent plasma. Requiring intubation and mechanical ventilatory support on 06/13/2020. 2 Recent admission to the hospital with acute community-acquired right lower lobe pneumonia. 3 Elevated d-dimer, currently on a heparin drip 4 Elevated elevated inflammatory markers secondary to above 5 History of mild intermittent chronic bronchial asthma 6 History of hypertension 7 History of depression Plan: The patient was seen and evaluated by Dr. Mcconnell Chest x-ray, ABGs and labs reviewed We'll decrease the FiO2 from 80 to 70% Initiate tube feedings This is day #5 of Remdesivir He did receive convalescent plasma Continue IV Solu-Medrol Remains on a heparin drip Repeat chest x-ray, labs and ABGs in a.m. We will continue to follow and make further recommendations based on his clinical status Critical care time 38 minutes I, the cosigning physician, performed a history & physical examination of the patient. Lungs sounds with bilateral scattered rhonchi. Maintaining good O2 saturations in the 90s on a mechanical ventilator with an FiO2 of 70% and PEEP of 20. I discussed the assessment and plan of care with my nurse practitioner, Karen Wiseman. I attest to the above note as dictated by her.
[2020-06-14 10:23] LABS: Hemoglobin A1C 6.6 % (4.0-6.0)
[2020-06-14 12:02] LABS: Ferritin 3901.6 ng/mL (22.0-322.0)
[2020-06-14 12:15] LABS: Glucose,Whole Blood 162 mg/dL (75-99)
[2020-06-14] MEDS: REMDESIVIR 100 MG in SODIUM CHLORIDE 0.9% 250 ML IVPB SCH (13:48)
--- NOTE | 2020-06-14 15:00 | P.PN ---
Subjective Progress Note Date: 06/14/20 Dennis Beal, is a 49 year-old male, who presented to ER with of cough and shortness of breath, Covid 19 test was positive in ER . Patient was evaluated in the emergency room vital examination on presentation to emergency room revealed a temperature of 101.1 pulse 79 respiration 32 blood pressure 115/70 pulse ox 90% on BiPAP his white blood count on presentation was 10.9 C-reactive protein was elevated at 1128 patient was admitted to telemetry floor he was started on IV Decadron pulmonary consultation was requested. Patient was recently admitted with pneumonia at that time Covid 19 test was negative. He was treated with IV antibiotic he improved and he was discharged home. His past medical history is significant for history of kidney stones, history of previous episodes of pneumonia, history of asthma and COPD, and history of depression, history of hypertension. On review of system patient is alert and oriented 3 he is complaining of cough and shortness of breath with any activity otherwise he denies any complaints there is no fever or chills no headache or dizziness no chest pain no nausea or vomiting no abdominal pain no diarrhea no blood in the stools no burning with urination no frequency or urgency and no hematuria On 06/11/2020 patient was seen and examined on the medical floor he is alert and oriented 3 he is still complaining of shortness of breath he still maintained on BiPAP otherwise he denies any complaints he is maintained on IV Decadron and IV Remdesevir On 06/12/2020 patient was seen and examined on the medical floor he is alert and oriented 3 in no apparent distress he is still complaining of shortness of breath and cough he is maintained on high flow oxygen, he is still maintained on IV Decadron and IV REMDESEVIR, otherwise he denies any complaints there is no chest pain no dizziness no nausea or vomiting no abdominal pain no diarrhea and no blood in the stools no burning with urination no frequency or urgency and no hematuria On 06/13/2020 patient was seen and examined in the ICU, last night he developed tachycardia, tachypnea, and worsening shortness of breath. He was transferred to intensive care unit he was intubated sedated started on mechanical ventilation, currently patient was seen and examined in the ICU he is in the prone position maintained on mechanical ventilation. On 06/14/2020 patient was seen and examined in the ICU, he is intubated sedated maintained on mechanical ventilation, patient is maintained on IV heparin per pr otocol, he is receiving IV Solu-Medrol, he received Remdesevir, today is day #5, he also received convalesent plasma. His temperature is 98.1 pulse 97 respiration 24 blood pressure 133/68 white blood count 22.5 hemoglobin 15.5 platelet count 2:30 d-dimer more than 34 pH 7.23 pCO2 78 CO2 102 Objective - Vital Signs Vital signs: Vital Signs Temp 98.1 F 06/14/20 08:00 Pulse 91 06/14/20 09:00 Resp 33 H 06/14/20 09:00 BP 177/95 06/13/20 13:00 Pulse Ox 97 06/14/20 09:00 Intake & Output 06/13/20 06/14/20 06/14/20 18:59 06:59 18:59 Intake Total 5010 2224.194 641.1 Output Total 975 2275 285 Balance 4035 -50.806 356.1 Weight 118.2 kg Intake: IV 4370 1534 369 Remdesivir 100 mg In 250 Sodium Chloride 0.9% 250 ml @ 250 mls/hr IVPB DAILY@[facility] Rx#: [id number] Sodium Chloride 0.9% 1, 1320 360 000 ml @ 120 mls/hr IV . Q8H20M [facility] Rx#:[id number] Sodium Chloride 0.9% 1, 4120 120 000 ml @ 999 mls/hr IV . Q1H1M [facility] Rx#:[id number] pressure bag 94 9 Intake, IV Titration 100 690.194 212.1 Amount Cisatracurium 200 mg In 160.86 Sodium Chloride 0.9% 180 ml @ 1 MCG/KG/MIN 7.2 mls /hr IV .Q24H [facility] Rx#: [id number] Clevidipine Butyrate 25 69.234 9.2 mg In Empty Bag 1 bag @ 1 MG/HR 2 mls/hr IV .Q24H [facility] Rx#:[id number] Heparin Sod,Pork in 0.45% 237.72 102.9 NaCl 25,000 unit In 0.45 % NaCl 1 250ml.bag @ 18 UNITS/KG/HR 21.6 mls/hr IV .[id number] [facility] Rx#: [id number] propofoL 1,000 mg In 100 222.38 100 Empty Bag 1 bag @ Titrate IV .Q0M [facility] Rx#: [id number] Oral 540 Other 60 Output: Gastric Drainage 700 Urine 975 1575 285 Other: Voiding Method Indwelling Catheter Indwelling Catheter # Bowel Movements 1 ABP, PAP, CO, CI - Last Documented Arterial Blood Pressure 119/64 - Exam In general patient is intubated sedated maintained on mechanical ventilation he is in the prone position HEENT head normocephalic and atraumatic Neck is supple no JVD no goiter no lymphadenopathy Chest exam reveals fine crackles in both lung holden no wheezing Cardiac exam reveals regular heart sounds S1 and S2 no gallops no murmurs Abdomen is soft nontender no organomegaly with normal bowel sounds Extremity exam reveals minimal edema no cyanosis or clubbing Neurological examination reveals no gross focal neurological deficit - Labs CBC & Chem 7: 06/14/20 05:05 06/14/20 05:05 Labs: Abnormal Lab Results - Last 24 Hours (Table) 06/13/20 06/13/20 06/13/20 Range/Units 09:46 09:46 09:46 WBC 15.6 H (3.8-10.6) k/uL Neutrophils # 14.7 H (1.3-7.7) k/uL Lymphocytes # 0.2 L (1.0-4.8) k/uL Basophils # (0-0.2) k/uL APTT (22.0-30.0) sec D-Dimer >34.10 H (<0.60) mg/L FEU ABG pH (7.35-7.45) ABG pCO2 (35-45) mmHg ABG pO2 (83-108) mmHg ABG HCO3 (21-25) mmol/L ABG Total CO2 (19-24) mmol/L ABG O2 Saturation (94-97) % ABG Lactic Acid (0.5-1.6) mmol/L Sodium 135 L (137-145) mmol/L Potassium (3.5-5.1) mmol/L Carbon Dioxide 31 H (22-30) mmol/L BUN 25 H (9-20) mg/dL Creatinine 0.61 L (0.66-1.25) mg/dL Glucose 176 H (74-99) mg/dL POC Glucose (mg/dL) (75-99) mg/dL Hemoglobin A1c (4.0-6.0) % Calcium 8.2 L (8.4-10.2) mg/dL Total Bilirubin 1.4 H (0.2-1.3) mg/dL AST 160 H (17-59) U/L ALT 215 H (4-49) U/L Alkaline Phosphatase (38-126) U/L Lactate Dehydrogenase 2610 H (313-618) U/L Troponin I (0.000-0.034) ng/mL C-Reactive Protein 58.3 H (<10.0) mg/L Total Protein (6.3-8.2) g/dL Albumin 3.3 L (3.5-5.0) g/dL Urine Protein (Negative) Urine Blood (Negative) Urine RBC (0-5) /hpf Urine Mucus (None) /hpf 06/13/20 06/13/20 06/13/20 Range/Units 12:03 12:22 13:15 WBC (3.8-10.6) k/uL Neutrophils # (1.3-7.7) k/uL Lymphocytes # (1.0-4.8) k/uL Basophils # (0-0.2) k/uL APTT (22.0-30.0) sec D-Dimer >34.10 H (<0.60) mg/L FEU ABG pH 7.50 H (7.35-7.45) ABG pCO2 (35-45) mmHg ABG pO2 52 L* (83-108) mmHg ABG HCO3 29 H (21-25) mmol/L ABG Total CO2 30 H (19-24) mmol/L ABG O2 Saturation 86.7 L (94-97) % ABG Lactic Acid (0.5-1.6) mmol/L Sodium (137-145) mmol/L Potassium (3.5-5.1) mmol/L Carbon Dioxide (22-30) mmol/L BUN (9-20) mg/dL Creatinine (0.66-1.25) mg/dL Glucose (74-99) mg/dL POC Glucose (mg/dL) 164 H (75-99) mg/dL Hemoglobin A1c (4.0-6.0) % Calcium (8.4-10.2) mg/dL Total Bilirubin (0.2-1.3) mg/dL AST (17-59) U/L ALT (4-49) U/L Alkaline Phosphatase (38-126) U/L Lactate Dehydrogenase (313-618) U/L Troponin I (0.000-0.034) ng/mL C-Reactive Protein (<10.0) mg/L Total Protein (6.3-8.2) g/dL Albumin (3.5-5.0) g/dL Urine Protein (Negative) Urine Blood (Negative) Urine RBC (0-5) /hpf Urine Mucus (None) /hpf 06/13/20 06/13/20 06/13/20 Range/Units 13:15 13:17 13:55 WBC 22.7 H (3.8-10.6) k/uL Neutrophils # 20.5 H (1.3-7.7) k/uL Lymphocytes # (1.0-4.8) k/uL Basophils # (0-0.2) k/uL APTT (22.0-30.0) sec D-Dimer (<0.60) mg/L FEU ABG pH 7.17 L* (7.35-7.45) ABG pCO2 81 H* (35-45) mmHg ABG pO2 25 L* (83-108) mmHg ABG HCO3 30 H (21-25) mmol/L ABG Total CO2 32 H (19-24) mmol/L ABG O2 Saturation 23.3 L (94-97) % ABG Lactic Acid 6.1 H* (0.5-1.6) mmol/L Sodium (137-145) mmol/L Potassium (3.5-5.1) mmol/L Carbon Dioxide (22-30) mmol/L BUN (9-20) mg/dL Creatinine (0.66-1.25) mg/dL Glucose (74-99) mg/dL POC Glucose (mg/dL) (75-99) mg/dL Hemoglobin A1c (4.0-6.0) % Calcium (8.4-10.2) mg/dL Total Bilirubin (0.2-1.3) mg/dL AST (17-59) U/L ALT (4-49) U/L Alkaline Phosphatase (38-126) U/L Lactate Dehydrogenase (313-618) U/L Troponin I (0.000-0.034) ng/mL C-Reactive Protein (<10.0) mg/L Total Protein (6.3-8.2) g/dL Albumin (3.5-5.0) g/dL Urine Protein (Negative) Urine Blood (Negative) Urine RBC (0-5) /hpf Urine Mucus (None) /hpf 06/13/20 06/13/20 06/13/20 Range/Units 14:25 17:18 17:36 WBC (3.8-10.6) k/uL Neutrophils # (1.3-7.7) k/uL Lymphocytes # (1.0-4.8) k/uL Basophils # (0-0.2) k/uL APTT (22.0-30.0) sec D-Dimer (<0.60) mg/L FEU ABG pH 7.16 L* 7.21 L (7.35-7.45) ABG pCO2 79 H* 68 H (35-45) mmHg ABG pO2 124 H (83-108) mmHg ABG HCO3 29 H 27 H (21-25) mmol/L ABG Total CO2 31 H 30 H (19-24) mmol/L ABG O2 Saturation 92.4 L 98.1 H (94-97) % ABG Lactic Acid (0.5-1.6) mmol/L Sodium (137-145) mmol/L Potassium (3.5-5.1) mmol/L Carbon Dioxide (22-30) mmol/L BUN (9-20) mg/dL Creatinine (0.66-1.25) mg/dL Glucose (74-99) mg/dL POC Glucose (mg/dL) 248 H (75-99) mg/dL Hemoglobin A1c (4.0-6.0) % Calcium (8.4-10.2) mg/dL Total Bilirubin (0.2-1.3) mg/dL AST (17-59) U/L ALT (4-49) U/L Alkaline Phosphatase (38-126) U/L Lactate Dehydrogenase (313-618) U/L Troponin I (0.000-0.034) ng/mL C-Reactive Protein (<10.0) mg/L Total Protein (6.3-8.2) g/dL Albumin (3.5-5.0) g/dL Urine Protein (Negative) Urine Blood (Negative) Urine RBC (0-5) /hpf Urine Mucus (None) /hpf 06/13/20 06/13/20 06/13/20 Range/Units 17:38 18:45 21:15 WBC 22.5 H (3.8-10.6) k/uL Neutrophils # 21.0 H (1.3-7.7) k/uL Lymphocytes # 0.3 L (1.0-4.8) k/uL Basophils # (0-0.2) k/uL APTT 60.7 H 110.1 H* (22.0-30.0) sec D-Dimer (<0.60) mg/L FEU ABG pH (7.35-7.45) ABG pCO2 (35-45) mmHg ABG pO2 (83-108) mmHg ABG HCO3 (21-25) mmol/L ABG Total CO2 (19-24) mmol/L ABG O2 Saturation (94-97) % ABG Lactic Acid (0.5-1.6) mmol/L Sodium (137-145) mmol/L Potassium (3.5-5.1) mmol/L Carbon Dioxide (22-30) mmol/L BUN (9-20) mg/dL Creatinine (0.66-1.25) mg/dL Glucose (74-99) mg/dL POC Glucose (mg/dL) (75-99) mg/dL Hemoglobin A1c (4.0-6.0) % Calcium (8.4-10.2) mg/dL Total Bilirubin (0.2-1.3) mg/dL AST (17-59) U/L ALT (4-49) U/L Alkaline Phosphatase (38-126) U/L Lactate Dehydrogenase (313-618) U/L Troponin I (0.000-0.034) ng/mL C-Reactive Protein (<10.0) mg/L Total Protein (6.3-8.2) g/dL Albumin (3.5-5.0) g/dL Urine Protein (Negative) Urine Blood (Negative) Urine RBC (0-5) /hpf Urine Mucus (None) /hpf 06/13/20 06/13/20 06/14/20 Range/Units 21:15 21:15 01:12 WBC (3.8-10.6) k/uL Neutrophils # (1.3-7.7) k/uL Lymphocytes # (1.0-4.8) k/uL Basophils # (0-0.2) k/uL APTT (22.0-30.0) sec D-Dimer (<0.60) mg/L FEU ABG pH (7.35-7.45) ABG pCO2 (35-45) mmHg ABG pO2 (83-108) mmHg ABG HCO3 (21-25) mmol/L ABG Total CO2 (19-24) mmol/L ABG O2 Saturation (94-97) % ABG Lactic Acid (0.5-1.6) mmol/L Sodium (137-145) mmol/L Potassium (3.5-5.1) mmol/L Carbon Dioxide (22-30) mmol/L BUN (9-20) mg/dL Creatinine (0.66-1.25) mg/dL Glucose (74-99) mg/dL POC Glucose (mg/dL) 162 H (75-99) mg/dL Hemoglobin A1c (4.0-6.0) % Calcium (8.4-10.2) mg/dL Total Bilirubin (0.2-1.3) mg/dL AST (17-59) U/L ALT (4-49) U/L Alkaline Phosphatase (38-126) U/L Lactate Dehydrogenase (313-618) U/L Troponin I 0.633 H* (0.000-0.034) ng/mL C-Reactive Protein (<10.0) mg/L Total Protein (6.3-8.2) g/dL Albumin (3.5-5.0) g/dL Urine Protein Trace H (Negative) Urine Blood Large H (Negative) Urine RBC >182 H (0-5) /hpf Urine Mucus Rare H (None) /hpf 06/14/20 06/14/20 06/14/20 Range/Units 05:05 05:05 05:05 WBC 22.5 H (3.8-10.6) k/uL Neutrophils # 21.0 H (1.3-7.7) k/uL Lymphocytes # 0.3 L (1.0-4.8) k/uL Basophils # 0.3 H (0-0.2) k/uL APTT (22.0-30.0) sec D-Dimer (<0.60) mg/L FEU ABG pH (7.35-7.45) ABG pCO2 (35-45) mmHg ABG pO2 (83-108) mmHg ABG HCO3 (21-25) mmol/L ABG Total CO2 (19-24) mmol/L ABG O2 Saturation (94-97) % ABG Lactic Acid (0.5-1.6) mmol/L Sodium (137-145) mmol/L Potassium 5.3 H (3.5-5.1) mmol/L Carbon Dioxide 32 H (22-30) mmol/L BUN 21 H (9-20) mg/dL Creatinine 0.63 L (0.66-1.25) mg/dL Glucose 189 H (74-99) mg/dL POC Glucose (mg/dL) (75-99) mg/dL Hemoglobin A1c 6.6 H (4.0-6.0) % Calcium 7.5 L (8.4-10.2) mg/dL Total Bilirubin 1.4 H (0.2-1.3) mg/dL AST 113 H (17-59) U/L ALT 214 H (4-49) U/L Alkaline Phosphatase 155 H (38-126) U/L Lactate Dehydrogenase 2733 H (313-618) U/L Troponin I (0.000-0.034) ng/mL C-Reactive Protein 160.6 H (<10.0) mg/L Total Protein 6.1 L (6.3-8.2) g/dL Albumin 2.9 L (3.5-5.0) g/dL Urine Protein (Negative) Urine Blood (Negative) Urine RBC (0-5) /hpf Urine Mucus (None) /hpf 06/14/20 06/14/20 06/14/20 Range/Units 05:05 05:05 05:38 WBC (3.8-10.6) k/uL Neutrophils # (1.3-7.7) k/uL Lymphocytes # (1.0-4.8) k/uL Basophils # (0-0.2) k/uL APTT (22.0-30.0) sec D-Dimer >34.10 H (<0.60) mg/L FEU ABG pH 7.23 L (7.35-7.45) ABG pCO2 78 H* (35-45) mmHg ABG pO2 (83-108) mmHg ABG HCO3 32 H (21-25) mmol/L ABG Total CO2 35 H (19-24) mmol/L ABG O2 Saturation 97.7 H (94-97) % ABG Lactic Acid (0.5-1.6) mmol/L Sodium (137-145) mmol/L Potassium (3.5-5.1) mmol/L Carbon Dioxide (22-30) mmol/L BUN (9-20) mg/dL Creatinine (0.66-1.25) mg/dL Glucose (74-99) mg/dL POC Glucose (mg/dL) 166 H (75-99) mg/dL Hemoglobin A1c (4.0-6.0) % Calcium (8.4-10.2) mg/dL Total Bilirubin (0.2-1.3) mg/dL AST (17-59) U/L ALT (4-49) U/L Alkaline Phosphatase (38-126) U/L Lactate Dehydrogenase (313-618) U/L Troponin I (0.000-0.034) ng/mL C-Reactive Protein (<10.0) mg/L Total Protein (6.3-8.2) g/dL Albumin (3.5-5.0) g/dL Urine Protein (Negative) Urine Blood (Negative) Urine RBC (0-5) /hpf Urine Mucus (None) /hpf 06/14/20 Range/Units 08:30 WBC (3.8-10.6) k/uL Neutrophils # (1.3-7.7) k/uL Lymphocytes # (1.0-4.8) k/uL Basophils # (0-0.2) k/uL APTT 80.4 H (22.0-30.0) sec D-Dimer (<0.60) mg/L FEU ABG pH (7.35-7.45) ABG pCO2 (35-45) mmHg ABG pO2 (83-108) mmHg ABG HCO3 (21-25) mmol/L ABG Total CO2 (19-24) mmol/L ABG O2 Saturation (94-97) % ABG Lactic Acid (0.5-1.6) mmol/L Sodium (137-145) mmol/L Potassium (3.5-5.1) mmol/L Carbon Dioxide (22-30) mmol/L BUN (9-20) mg/dL Creatinine (0.66-1.25) mg/dL Glucose (74-99) mg/dL POC Glucose (mg/dL) (75-99) mg/dL Hemoglobin A1c (4.0-6.0) % Calcium (8.4-10.2) mg/dL Total Bilirubin (0.2-1.3) mg/dL AST (17-59) U/L ALT (4-49) U/L Alkaline Phosphatase (38-126) U/L Lactate Dehydrogenase (313-618) U/L Troponin I (0.000-0.034) ng/mL C-Reactive Protein (<10.0) mg/L Total Protein (6.3-8.2) g/dL Albumin (3.5-5.0) g/dL Urine Protein (Negative) Urine Blood (Negative) Urine RBC (0-5) /hpf Urine Mucus (None) /hpf Microbiology - Last 24 Hours (Table) 06/13/20 21:10 Gram Stain - Preliminary Sputum Sputum Culture - Preliminary 06/09/20 12:09 Blood Culture - Preliminary Blood No Growth after 96 hours 06/11/20 15:58 Gram Stain - Final Sputum Sputum Culture - Final Assessment and Plan Plan: 1. COVID-19, Bilateral pneumonia, started on IV Decadron and IV Remdesevir 2. Acute on chronic hypoxic and hypercapnic respiratory failure requiring mecha nical ventilation 3. Hyponatremia, on IV normal saline 4. Elevated d-dimer, started on SQ Lovenox 5. underlying history of depression 6. Underlying history of asthma At this time patient is in ICU, pulmonary critical care following
[2020-06-14 16:54] LABS: Glucose,Whole Blood 175 mg/dL (75-99)
[2020-06-14 23:32] LABS: Glucose,Whole Blood 244 mg/dL (75-99)
[2020-06-15] MEDS: HEPARIN SOD,PORK IN 0.45% NACL 25,000 UNIT in 0.45% NACL 1 250ML.BAG IV SCH (01:19)
[2020-06-15] MEDS: CLEVIDIPINE BUTYRATE 25 MG in EMPTY BAG 1 BAG IV SCH ×3 (02:20→07:59)
[2020-06-15] MEDS: ALBUTEROL HFA INHALER INHALATION SCH ×5 (03:03→19:46)
[2020-06-15 04:38] LABS: HCT 48.1 % (39.0-53.0); Hypochromasia Moderate; MCH 29.6 pg (25.0-35.0); MCHC 31.3 g/dL (31.0-37.0); MCV 94.6 fL (80.0-100.0); Mean Platelet Volume 7.1; Platelet Count 276 k/uL (150-450); RBC 5.08 m/uL (4.30-5.90); RDW 13.3 % (11.5-15.5); WBC 25.9 k/uL (3.8-10.6)
[2020-06-15 05:04] LABS: ABG Base Excess 4.6 mmol/L; ABG HCO3 32 mmol/L (21-25); ABG Oxygen Saturation 94.7 % (94-97); ABG PH 7.22 (7.35-7.45); ABG PO2 83 mmHg (83-108); ABG TCO2 35 mmol/L (19-24)
[2020-06-15 05:24] LABS: Allen Test Performed? no
[2020-06-15 05:39] LABS: Band Neutrophils % 6 %; Lymphocytes # (M) 0.78 k/uL (1.0-4.8); Monocytes # (M) 0.78 k/uL (0-1.0); Neutrophils % (M) 88 %; Nucleated Red Blood Cells 0 /100 WBC (0-0); Total Cells Counted 100
[2020-06-15 05:40] LABS: African American GFR (CKD) >90 (>60 ml/min/1.73 sqM); Albumin 2.8 g/dL (3.5-5.0); Anion Gap 4 mmol/L; Calcium 7.8 mg/dL (8.4-10.2); Carbon Dioxide 32 mmol/L (22-30); Chloride 105 mmol/L (98-107); Creatine Kinase 259 U/L (55-170); Glucose 294 mg/dL (74-99); Non-African American GFR(CKD) >90 (>60 ml/min/1.73 sqM); Sodium 141 mmol/L (137-145); Total Bilirubin 1.5 mg/dL (0.2-1.3); Total Protein 6.1 g/dL (6.3-8.2)
[2020-06-15 05:55] LABS: Glucose,Whole Blood 267 mg/dL (75-99)
[2020-06-15 06:06] LABS: ALT 191 U/L (4-49); AST 112 U/L (17-59); Alkaline Phosphatase 139 U/L (38-126); Blood Urea Nitrogen 35 mg/dL (9-20); C Reactive Protein 139.9 mg/L (<10.0); Potassium 5.8 mmol/L (3.5-5.1)
[2020-06-15] MEDS: methylPREDNISolone SOD SUCCI 125 MG/2 ML VIAL IV SCH ×4 (06:15→23:51)
[2020-06-15] MEDS: INSULIN ASPART (NovoLOG) 100 UNIT/ML VIAL SQ SCH ×3 (06:16→17:53)
--- NOTE | 2020-06-15 07:26 | XR ---
EXAMINATION TYPE: XR chest 1V portable DATE OF EXAM: 06/15/2020, 0642 hours Comparison: 06/15/2020, earlier today Clinical History: 49-year-old male Subcutaneous air Findings: ET and NG tubes satisfactory. Left subclavian CVC tip at the mid SVC level. Redemonstrated is subcuta neous emphysema along the right lower neck and also to a lesser extent in the left supraclavicular fo ssa, unchanged from prior. No pneumothorax seen. Heart normal to upper limits of normal in size. Diffuse interstitial opacities are present throughout . Impression: 1. Stable subcutaneous emphysema along the right greater than left lower neck. No pneumothorax seen. 2. Interstitial infiltrates persist bilaterally.
--- NOTE | 2020-06-15 07:35 | XR ---
EXAMINATION TYPE: XR chest 1V portable DATE OF EXAM: 06/15/2020 Comparison: 06/14/2020 Clinical History: 49-year-old male Tube placement Findings: ET and NG tubes are satisfactory. Left subclavian CVC tip at the mid SVC level. Heart upper limits of normal in size. Diffuse interstitial opacities remain with significant improvement in the bilateral airspace disease. No sizable effusion seen. Some cutaneous emphysema at the base of the neck on both sides, not seen previously. No appreciable pneumothorax. Impression: 1. Improving exam. Diffuse interstitial infiltrates remain but the previous diffuse bilateral airspac e disease has markedly improved. 2. New subcutaneous emphysema at the base of the neck.
[2020-06-15] MEDS: CHLORHEXIDINE GLUCONATE 15 ML CUP MUCOUS MEM SCH ×2 (08:27→19:52)
[2020-06-15] MEDS: ASCORBIC ACID 500 MG TAB PO SCH (08:27)
[2020-06-15] MEDS: atenoloL 50 MG TAB PO SCH (08:27)
[2020-06-15] MEDS: FLUoxetine HCL 20 MG CAP PO SCH (08:27)
[2020-06-15] MEDS: SODIUM CHLORIDE 0.9% 1,000 ML IV SCH ×3 (08:27→22:10)
[2020-06-15] MEDS: CHOLECALCIFEROL 1,000 UNIT TAB PO SCH (08:27)
[2020-06-15] MEDS: ZINC SULFATE 220 MG CAP PO SCH (08:27)
[2020-06-15] MEDS: CISATRACURIUM 200 MG in SODIUM CHLORIDE 0.9% 180 ML IV SCH (08:32)
[2020-06-15] MEDS: PANTOPRAZOLE 40 MG/10 ML VIAL IVP SCH (09:32)
[2020-06-15 10:13] LABS: Ferritin 4183.2 ng/mL (22.0-322.0)
--- NOTE | 2020-06-15 10:38 | PN ---
PROGRESS NOTE PULMONARY/CRITICAL PROGRESS NOTE: DATE OF SERVICE: June 15, 2020. Critical care time 34 minutes. This is a 49-year-old gentleman who was admitted to the hospital back on June 09. He was admitted with a diagnosis of acute hypoxemic respiratory failure secondary to COVID-19 pneumonia. The patient received Remdesivir and convalescent plasma but despite that, continued to demonstrate worsening oxygenation and eventually required intubation and mechanical ventilation on June 13. The patient had a previous admission to the hospital recently for acute community-acquired pneumonia. Currently, he is on the mechanical ventilator, volume assist-control mode, rate 34, tidal volume 450, FiO2 of 70%, PEEP of 20. Blood gases show pO2 of 83, pCO2 of 80, and a pH of 7.22. The patient is currently on Nimbex at 1.5 mcg/kg per minute with train of 4 monitoring, propofol at 75 mics per minute, Cleviprex at 4 mg an hour, 0.9 at 120/mL an hour and Vital high-protein at 10, which is goal. The patient was discovered to have some subcutaneous emphysema right around the neck area, particularly on the right and left side, right greater than left. Also, he apparently had some hematoma around the left central line site. We are going to add some Protonix for GI prophylaxis. We did DC the heparin. We are not going to prone him today. Tomorrow we will start some Lovenox. Other than that, the patient has been reasonably stable. He does have a history of hypertension, depression, and intermittent chronic bronchial asthma. PHYSICAL EXAMINATION: VITAL SIGNS: Current vital signs are reviewed. Temperature is 100.4, heart rate 95, respiratory rate 34, blood pressure 148/82, mean 104 saturations are mid 90s. GENERAL: Appears in no acute distress. Currently sedated and paralyzed. HEENT: Examination is grossly unremarkable. There is an orally placed endotracheal tube and NG tube. NECK: Supple. There is a left-sided hematoma in the left neck area. No adenopathy or thyromegaly. There is a left triple-lumen catheter in place. CARDIOVASCULAR: Examination reveals regular rhythm and rate. Heart rate 95 beats per minute. S1, S2 normal. Heart sounds are distant. LUNGS: Reveal diffuse coarse rhonchi. Breath sounds equal. ABDOMEN: Soft. Bowel sounds are noted. EXTREMITIES are intact. No edema. SKIN: Without rash. NEUROLOGIC: Neurologic examination cannot be adequately assessed as the patient is sedated and paralyzed. LABS: Reviewed. White count 25.9, hemoglobin 15, hematocrit 48.1, platelet count 276,000. D- dimer 11.69. Blood gases have been noted. Sodium 141, potassium 5.8, chloride 105, CO2 32, anion gap is 4. BUN and creatinine were 35 and 0.76. Calcium 7.8, bilirubin total bilirubin is 1.5, AST 112, ALT 191, alkaline phosphatase 139, CK 259. C-reactive protein 139.9, albumin 2.8. Microbiology including blood and sputum sampling has been negative thus far. Chest x-ray from the shows improving bilateral infiltrates. Some subcutaneous emphysema noted at the base of the neck. No pneumothorax. CURRENT MEDICATIONS: Reviewed. The patient is currently on Tylenol, albuterol inhaler, vitamin C, atenolol, chlorhexidine, vitamin D3, Nimbex, Cleviprex, Prozac, insulin, Solu-Medrol, morphine sulfate, Zofran, Protonix, propofol and zinc. ASSESSMENT: 1. Acute and severe hypoxemic respiratory failure secondary to COVID-19 pneumonia/pneumonitis, requiring intubation and mechanical ventilation on June 13, 2020 status post 5 days Remdesivir and convalescent plasma. 2. Recent admission to the hospital for acute community-acquired pneumonia, right lower lobe. 3. History of mild intermittent chronic bronchial asthma. 4. History of hypertension. 5. History of depression. PLAN: The IV heparin was discontinued because of the left neck hematoma. We will not prone the patient today. We added Protonix for GI prophylaxis. Tomorrow we will start some Lovenox. The vent settings and gases are reasonable. The patient remains on Nimbex, propofol, Cleviprex, and tube feeds. No additional recommendations are made. Chest x- ray showed neck subcutaneous emphysema but no pneumothorax. We will continue to watch that area closely. Overall prognosis remains guarded. Critical care time 34 minutes. MMODL / IJN: [id number] /
[2020-06-15 11:44] LABS: Glucose,Whole Blood 237 mg/dL (75-99)
--- NOTE | 2020-06-15 12:24 | P.PN ---
Subjective Progress Note Date: 06/15/20 Dennis Beal, is a 49 year-old male, who presented to ER with of cough and shortness of breath, Covid 19 test was positive in ER . Patient was evaluated in the emergency room vital examination on presentation to emergency room revealed a temperature of 101.1 pulse 79 respiration 32 blood pressure 115/70 pulse ox 90% on BiPAP his white blood count on presentation was 10.9 C-reactive protein was elevated at 1128 patient was admitted to telemetry floor he was started on IV Decadron pulmonary consultation was requested. Patient was recently admitted with pneumonia at that time Covid 19 test was negative. He was treated with IV antibiotic he improved and he was discharged home. His past medical history is significant for history of kidney stones, history of previous episodes of pneumonia, history of asthma and COPD, and history of depression, history of hypertension. On review of system patient is alert and oriented 3 he is complaining of cough and shortness of breath with any activity otherwise he denies any complaints there is no fever or chills no headache or dizziness no chest pain no nausea or vomiting no abdominal pain no diarrhea no blood in the stools no burning with urination no frequency or urgency and no hematuria On 06/11/2020 patient was seen and examined on the medical floor he is alert and oriented 3 he is still complaining of shortness of breath he still maintained on BiPAP otherwise he denies any complaints he is maintained on IV Decadron and IV Remdesevir On 06/12/2020 patient was seen and examined on the medical floor he is alert and oriented 3 in no apparent distress he is still complaining of shortness of breath and cough he is maintained on high flow oxygen, he is still maintained on IV Decadron and IV REMDESEVIR, otherwise he denies any complaints there is no chest pain no dizziness no nausea or vomiting no abdominal pain no diarrhea and no blood in the stools no burning with urination no frequency or urgency and no hematuria On 06/13/2020 patient was seen and examined in the ICU, last night he developed tachycardia, tachypnea, and worsening shortness of breath. He was transferred to intensive care unit he was intubated sedated started on mechanical ventilation, currently patient was seen and examined in the ICU he is in the prone position maintained on mechanical ventilation. On 06/14/2020 patient was seen and examined in the ICU, he is intubated sedated maintained on mechanical ventilation, patient is maintained on IV heparin per pr otocol, he is receiving IV Solu-Medrol, he received Remdesevir, today is day #5, he also received convalesent plasma. His temperature is 98.1 pulse 97 respiration 24 blood pressure 133/68 white blood count 22.5 hemoglobin 15.5 platelet count 2:30 d-dimer more than 34 pH 7.23 pCO2 78 CO2 102 On 06/15/2020 patient was seen and examined in the ICU, he is intubated sedated maintained on mechanical ventilation, patient is maintained on IV heparin per protocol, he is receiving IV Solu-Medrol, he received Remdesevir, today is day #5, he also received convalesent plasma. His temperature is 98.1 pulse 88 respiration 24 blood pressure 120/75 white blood count 25.9 hemoglobin 15.5 platelet count 276 d-dimer 11.69 pH 7.22 pCO2 80 PO2 83 Objective - Vital Signs Vital signs: Vital Signs Temp 100.4 F H 06/15/20 08:00 Pulse 87 06/15/20 11:00 Resp 34 H 06/15/20 11:00 BP 119/78 06/15/20 11:00 Pulse Ox 95 06/15/20 11:00 Intake & Output 06/14/20 06/15/20 06/15/20 18:59 06:59 18:59 Intake Total 2778.800 2640.034 1212.940 Output Total 990 1265 415 Balance 7435.220 1264.034 797.940 Weight 118.2 kg 115 kg Intake: IV 1726 1476 615 Remdesivir 100 mg In 250 Sodium Chloride 0.9% 250 ml @ 250 mls/hr IVPB DAILY@1400 [facility] Rx#: [id number] Sodium Chloride 0.9% 1, 1440 1440 600 000 ml @ 120 mls/hr IV . Q8H20M [facility] Rx#:[id number] pressure bag 36 36 15 Intake, IV Titration 922.800 954.034 457.940 Amount Cisatracurium 200 mg In 154.8 73.2 119.34 Sodium Chloride 0.9% 180 ml @ 1 MCG/KG/MIN 7.2 mls /hr IV .Q24H [facility] Rx#: [id number] Clevidipine Butyrate 25 50.000 199.334 38.600 mg In Empty Bag 1 bag @ 1 MG/HR 2 mls/hr IV .Q24H [facility] Rx#:[id number] Heparin Sod,Pork in 0.45% 218.00 181.5 NaCl 25,000 unit In 0.45 % NaCl 1 250ml.bag @ 18 UNITS/KG/HR 21.6 mls/hr IV .[id number] [facility] Rx#: [id number] propofoL 1,000 mg In 500 500 300 Empty Bag 1 bag @ Titrate IV .Q0M [facility] Rx#: [id number] Tube Feeding 40 120 50 Other 90 90 90 Output: Gastric Drainage 100 Urine 890 1265 415 Other: Voiding Method Indwelling Catheter Indwelling Catheter Indwelling Catheter ABP, PAP, CO, CI - Last Documented Arterial Blood Pressure 118/69 - Exam In general patient is intubated sedated maintained on mechanical ventilation he is in the prone position HEENT head normocephalic and atraumatic Neck is supple no JVD no goiter no lymphadenopathy Chest exam reveals fine crackles in both lung holden no wheezing Cardiac exam reveals regular heart sounds S1 and S2 no gallops no murmurs Abdomen is soft nontender no organomegaly with normal bowel sounds Extremity exam reveals minimal edema no cyanosis or clubbing Neurological examination reveals no gross focal neurological deficit - Labs CBC & Chem 7: 06/15/20 04:15 06/15/20 04:15 Labs: Abnormal Lab Results - Last 24 Hours (Table) 06/14/20 06/14/20 06/14/20 Range/Units 15:30 16:52 22:36 WBC (3.8-10.6) k/uL Neutrophils # (Manual) (1.3-7.7) k/uL Lymphocytes # (Manual) (1.0-4.8) k/uL APTT 82.6 H 57.8 H (22.0-30.0) sec D-Dimer (<0.60) mg/L FEU ABG pH (7.35-7.45) ABG pCO2 (35-45) mmHg ABG HCO3 (21-25) mmol/L ABG Total CO2 (19-24) mmol/L Potassium (3.5-5.1) mmol/L Carbon Dioxide (22-30) mmol/L BUN (9-20) mg/dL Glucose (74-99) mg/dL POC Glucose (mg/dL) 175 H (75-99) mg/dL Calcium (8.4-10.2) mg/dL Ferritin (22.0-322.0) ng/mL Total Bilirubin (0.2-1.3) mg/dL AST (17-59) U/L ALT (4-49) U/L Alkaline Phosphatase (38-126) U/L Creatine Kinase (55-170) U/L C-Reactive Protein (<10.0) mg/L Total Protein (6.3-8.2) g/dL Albumin (3.5-5.0) g/dL 06/14/20 06/15/20 06/15/20 Range/Units 23:31 04:15 04:15 WBC 25.9 H (3.8-10.6) k/uL Neutrophils # (Manual) 24.30 H (1.3-7.7) k/uL Lymphocytes # (Manual) 0.78 L (1.0-4.8) k/uL APTT (22.0-30.0) sec D-Dimer (<0.60) mg/L FEU ABG pH (7.35-7.45) ABG pCO2 (35-45) mmHg ABG HCO3 (21-25) mmol/L ABG Total CO2 (19-24) mmol/L Potassium 5.8 H (3.5-5.1) mmol/L Carbon Dioxide 32 H (22-30) mmol/L BUN 35 H (9-20) mg/dL Glucose 294 H (74-99) mg/dL POC Glucose (mg/dL) 244 H (75-99) mg/dL Calcium 7.8 L (8.4-10.2) mg/dL Ferritin 4183.2 H (22.0-322.0) ng/mL Total Bilirubin 1.5 H (0.2-1.3) mg/dL AST 112 H (17-59) U/L ALT 191 H (4-49) U/L Alkaline Phosphatase 139 H (38-126) U/L Creatine Kinase 259 H (55-170) U/L C-Reactive Protein 139.9 H (<10.0) mg/L Total Protein 6.1 L (6.3-8.2) g/dL Albumin 2.8 L (3.5-5.0) g/dL 06/15/20 06/15/20 06/15/20 Range/Units 04:15 05:03 05:54 WBC (3.8-10.6) k/uL Neutrophils # (Manual) (1.3-7.7) k/uL Lymphocytes # (Manual) (1.0-4.8) k/uL APTT (22.0-30.0) sec D-Dimer 11.69 H (<0.60) mg/L FEU ABG pH 7.22 L (7.35-7.45) ABG pCO2 80 H* (35-45) mmHg ABG HCO3 32 H (21-25) mmol/L ABG Total CO2 35 H (19-24) mmol/L Potassium (3.5-5.1) mmol/L Carbon Dioxide (22-30) mmol/L BUN (9-20) mg/dL Glucose (74-99) mg/dL POC Glucose (mg/dL) 267 H (75-99) mg/dL Calcium (8.4-10.2) mg/dL Ferritin (22.0-322.0) ng/mL Total Bilirubin (0.2-1.3) mg/dL AST (17-59) U/L ALT (4-49) U/L Alkaline Phosphatase (38-126) U/L Creatine Kinase (55-170) U/L C-Reactive Protein (<10.0) mg/L Total Protein (6.3-8.2) g/dL Albumin (3.5-5.0) g/dL 06/15/20 Range/Units 11:43 WBC (3.8-10.6) k/uL Neutrophils # (Manual) (1.3-7.7) k/uL Lymphocytes # (Manual) (1.0-4.8) k/uL APTT (22.0-30.0) sec D-Dimer (<0.60) mg/L FEU ABG pH (7.35-7.45) ABG pCO2 (35-45) mmHg ABG HCO3 (21-25) mmol/L ABG Total CO2 (19-24) mmol/L Potassium (3.5-5.1) mmol/L Carbon Dioxide (22-30) mmol/L BUN (9-20) mg/dL Glucose (74-99) mg/dL POC Glucose (mg/dL) 237 H (75-99) mg/dL Calcium (8.4-10.2) mg/dL Ferritin (22.0-322.0) ng/mL Total Bilirubin (0.2-1.3) mg/dL AST (17-59) U/L ALT (4-49) U/L Alkaline Phosphatase (38-126) U/L Creatine Kinase (55-170) U/L C-Reactive Protein (<10.0) mg/L Total Protein (6.3-8.2) g/dL Albumin (3.5-5.0) g/dL Microbiology - Last 24 Hours (Table) 06/14/20 03:20 Blood Culture - Preliminary Blood No Growth after 24 hours 06/09/20 12:09 Blood Culture - Preliminary Blood No Growth after 120 hours 06/13/20 21:10 Gram Stain - Preliminary Sputum Sputum Culture - Preliminary Assessment and Plan Plan: 1. COVID-19, Bilateral pneumonia, started on IV Decadron and IV Remdesevir 2. Acute on chronic hypoxic and hypercapnic respiratory failure requiring mechanical ventilation 3. Hyponatremia, on IV normal saline 4. Elevated d-dimer, started on SQ Lovenox 5. underlying history of depression 6. Underlying history of asthma At this time patient is in ICU, pulmonary critical care following
[2020-06-15 17:43] LABS: Glucose,Whole Blood 220 mg/dL (75-99)
[2020-06-15] MEDS: ACETAMINOPHEN TAB 325 MG TAB PO PRN (20:05)
[2020-06-15] MEDS: MORPHINE SULFATE 2 MG/ML SYRINGE IVP PRN ×2 (20:25→22:46)
[2020-06-15 23:58] LABS: Glucose,Whole Blood 212 mg/dL (75-99)
[2020-06-16] MEDS: ALBUTEROL HFA INHALER INHALATION SCH ×6 (00:23→19:23)
[2020-06-16] MEDS: CISATRACURIUM 200 MG in SODIUM CHLORIDE 0.9% 180 ML IV SCH ×2 (00:32→12:19)
[2020-06-16] MEDS: MORPHINE SULFATE 2 MG/ML SYRINGE IVP PRN ×3 (02:20→21:55)
[2020-06-16 04:36] LABS: ABG HCO3 36 mmol/L (21-25); ABG Oxygen Saturation 99.1 % (94-97); ABG PCO2 67 mmHg (35-45); ABG PH 7.34 (7.35-7.45); ABG PO2 235 mmHg (83-108); ABG TCO2 38 mmol/L (19-24); Allen Test Performed? Yes
[2020-06-16 05:04] LABS: Glucose,Whole Blood 227 mg/dL (75-99)
[2020-06-16 05:16] LABS: HCT 40.4 % (39.0-53.0); HGB 12.5 gm/dL (13.0-17.5); Hypochromasia Moderate; MCH 29.3 pg (25.0-35.0); MCHC 30.8 g/dL (31.0-37.0); Mean Platelet Volume 7.2; Platelet Count 225 k/uL (150-450); RBC 4.26 m/uL (4.30-5.90); RDW 13.4 % (11.5-15.5); WBC 13.9 k/uL (3.8-10.6)
[2020-06-16] MEDS: methylPREDNISolone SOD SUCCI 125 MG/2 ML VIAL IV SCH ×4 (05:16→23:43)
[2020-06-16] MEDS: INSULIN ASPART (NovoLOG) 100 UNIT/ML VIAL SQ SCH ×5 (05:16→23:43)
[2020-06-16 05:48] LABS: Band Neutrophils % 2 %; Lymphocytes # (M) 0.83 k/uL (1.0-4.8); Monocytes # (M) 0.14 k/uL (0-1.0); Myelocytes # (M) 0.42 k/uL (0); Myelocytes % 3 %; Neutrophils % (M) 88 %; Nucleated Red Blood Cells 0 /100 WBC (0-0); Total Cells Counted 200
[2020-06-16 05:51] LABS: ALT 151 U/L (4-49); AST 68 U/L (17-59); African American GFR (CKD) >90 (>60 ml/min/1.73 sqM); Albumin 2.4 g/dL (3.5-5.0); Alkaline Phosphatase 96 U/L (38-126); Anion Gap -4 mmol/L; Blood Urea Nitrogen 35 mg/dL (9-20); C Reactive Protein 53.9 mg/L (<10.0); Calcium 7.7 mg/dL (8.4-10.2); Carbon Dioxide 38 mmol/L (22-30); Chloride 110 mmol/L (98-107); Creatine Kinase 215 U/L (55-170); Glucose 254 mg/dL (74-99); Non-African American GFR(CKD) >90 (>60 ml/min/1.73 sqM); Potassium 5.8 mmol/L (3.5-5.1); Sodium 144 mmol/L (137-145); Total Bilirubin 0.9 mg/dL (0.2-1.3); Total Protein 5.3 g/dL (6.3-8.2)
[2020-06-16] MEDS: SODIUM CHLORIDE 0.9% 1,000 ML IV SCH ×3 (05:55→22:21)
[2020-06-16] MEDS: CHLORHEXIDINE GLUCONATE 15 ML CUP MUCOUS MEM SCH ×2 (08:22→20:05)
[2020-06-16] MEDS: PANTOPRAZOLE 40 MG/10 ML VIAL IVP SCH (08:22)
[2020-06-16] MEDS: atenoloL 50 MG TAB PO SCH ×2 (08:23→20:08)
[2020-06-16] MEDS: ASCORBIC ACID 500 MG TAB PO SCH (08:23)
[2020-06-16] MEDS: FLUoxetine HCL 20 MG CAP PO SCH (08:23)
[2020-06-16] MEDS: CHOLECALCIFEROL 1,000 UNIT TAB PO SCH (08:23)
[2020-06-16] MEDS: ZINC SULFATE 220 MG CAP PO SCH (08:23)
--- NOTE | 2020-06-16 08:52 | XR ---
EXAMINATION TYPE: XR chest 1V portable DATE OF EXAM: 06/16/2020 Comparison: 06/15/2020 Clinical History: 49-year-old male Tube placement Findings: ET and NG tubes are satisfactory. Heart normal size. Mild diffuse interstitial opacity shows a simila r appearance. Left CVC tip in the mid SVC. Impression: Similar mild diffuse interstitial density.
[2020-06-16] MEDS ORDERED: atenoloL 50 MG TAB PO SCH (09:00)
[2020-06-16 10:02] LABS: ABG PCO2 80 mmHg (35-45)
[2020-06-16 11:27] LABS: Glucose,Whole Blood 249 mg/dL (75-99)
[2020-06-16 12:29] LABS: ABG PCO2 81 mmHg (35-45); ABG PH 7.17 (7.35-7.45); ABG PO2 25 mmHg (83-108)
[2020-06-16 12:39] LABS: Ferritin 2506.4 ng/mL (22.0-322.0)
--- NOTE | 2020-06-16 15:06 | P.PN ---
Subjective Progress Note Date: 06/16/20 Dennis Beal, is a 49 year-old male, who presented to ER with of cough and shortness of breath, Covid 19 test was positive in ER . Patient was evaluated in the emergency room vital examination on presentation to emergency room revealed a temperature of 101.1 pulse 79 respiration 32 blood pressure 115/70 pulse ox 90% on BiPAP his white blood count on presentation was 10.9 C-reactive protein was elevated at 1128 patient was admitted to telemetry floor he was started on IV Decadron pulmonary consultation was requested. Patient was recently admitted with pneumonia at that time Covid 19 test was negative. He was treated with IV antibiotic he improved and he was discharged home. His past medical history is significant for history of kidney stones, history of previous episodes of pneumonia, history of asthma and COPD, and history of depression, history of hypertension. On review of system patient is alert and oriented 3 he is complaining of cough and shortness of breath with any activity otherwise he denies any complaints there is no fever or chills no headache or dizziness no chest pain no nausea or vomiting no abdominal pain no diarrhea no blood in the stools no burning with urination no frequency or urgency and no hematuria On 06/11/2020 patient was seen and examined on the medical floor he is alert and oriented 3 he is still complaining of shortness of breath he still maintained on BiPAP otherwise he denies any complaints he is maintained on IV Decadron and IV Remdesevir On 06/12/2020 patient was seen and examined on the medical floor he is alert and oriented 3 in no apparent distress he is still complaining of shortness of breath and cough he is maintained on high flow oxygen, he is still maintained on IV Decadron and IV REMDESEVIR, otherwise he denies any complaints there is no chest pain no dizziness no nausea or vomiting no abdominal pain no diarrhea and no blood in the stools no burning with urination no frequency or urgency and no hematuria On 06/13/2020 patient was seen and examined in the ICU, last night he developed tachycardia, tachypnea, and worsening shortness of breath. He was transferred to intensive care unit he was intubated sedated started on mechanical ventilation, currently patient was seen and examined in the ICU he is in the prone position maintained on mechanical ventilation. On 06/14/2020 patient was seen and examined in the ICU, he is intubated sedated maintained on mechanical ventilation, patient is maintained on IV heparin per pr otocol, he is receiving IV Solu-Medrol, he received Remdesevir, today is day #5, he also received convalesent plasma. His temperature is 98.1 pulse 97 respiration 24 blood pressure 133/68 white blood count 22.5 hemoglobin 15.5 platelet count 2:30 d-dimer more than 34 pH 7.23 pCO2 78 CO2 102 On 06/15/2020 patient was seen and examined in the ICU, he is intubated sedated maintained on mechanical ventilation, patient is maintained on IV heparin per protocol, he is receiving IV Solu-Medrol, he received Remdesevir, today is day #5, he also received convalesent plasma. His temperature is 98.1 pulse 88 respiration 24 blood pressure 120/75 white blood count 25.9 hemoglobin 15.5 platelet count 276 d-dimer 11.69 pH 7.22 pCO2 80 PO2 83 On 06/16/2020 patient was seen and examined in the ICU he is intubated sedated maintained on mechanical ventilation ABG is improving, plan today is to decrease PEEP from 20-15 and to decrease FiO2 to 50% otherwise continue with current management Objective - Vital Signs Vital signs: Vital Signs Temp 100.4 F H 06/16/20 12:00 Pulse 87 06/16/20 14:00 Resp 34 H 06/16/20 14:00 BP 137/75 06/16/20 08:00 Pulse Ox 94 L 06/16/20 14:00 Intake & Output 06/15/20 06/16/20 06/16/20 18:59 06:59 18:59 Intake Total 2585.380 2406.98 1740.792 Output Total 1195 1350 815 Balance 3524.063 4281.98 925.792 Weight 118.6 kg 118.6 kg Intake: IV 1476 1476 984 Sodium Chloride 0.9% 1, 1440 1440 960 000 ml @ 120 mls/hr IV . Q8H20M [facility] Rx#:[id number] pressure bag 36 36 24 Intake, IV Titration 839.380 690.98 556.792 Amount Cisatracurium 200 mg In 216.18 101.28 169.68 Sodium Chloride 0.9% 180 ml @ 1 MCG/KG/MIN 7.2 mls /hr IV .Q24H [facility] Rx#: [id number] Clevidipine Butyrate 25 40.400 mg In Empty Bag 1 bag @ 1 MG/HR 2 mls/hr IV .Q24H [facility] Rx#:[id number] propofoL 1,000 mg In 582.8 589.7 387.112 Empty Bag 1 bag @ Titrate IV .Q0M [facility] Rx#: [id number] Tube Feeding 120 120 80 Other 150 120 120 Output: Urine 1195 1350 815 Other: Voiding Method Indwelling Catheter Indwelling Catheter Indwelling Catheter ABP, PAP, CO, CI - Last Documented Arterial Blood Pressure 125/60 - Exam In general patient is intubated sedated maintained on mechanical ventilation he is in the prone position HEENT head normocephalic and atraumatic Neck is supple no JVD no goiter no lymphadenopathy Chest exam reveals fine crackles in both lung holden no wheezing Cardiac exam reveals regular heart sounds S1 and S2 no gallops no murmurs Abdomen is soft nontender no organomegaly with normal bowel sounds Extremity exam reveals minimal edema no cyanosis or clubbing Neurological examination reveals no gross focal neurological deficit - Labs CBC & Chem 7: 06/16/20 05:00 06/16/20 05:00 Labs: Abnormal Lab Results - Last 24 Hours (Table) 06/13/20 06/15/20 06/15/20 Range/Units 13:17 05:03 17:41 WBC (3.8-10.6) k/uL RBC (4.30-5.90) m/uL Hgb (13.0-17.5) gm/dL MCHC (31.0-37.0) g/dL Neutrophils # (Manual) (1.3-7.7) k/uL Lymphocytes # (Manual) (1.0-4.8) k/uL Myelocytes # (Manual) (0) k/uL ABG pH 7.17 L* (7.35-7.45) ABG pCO2 81 H* 80 H* (35-45) mmHg ABG pO2 25 L* (83-108) mmHg ABG HCO3 (21-25) mmol/L ABG Total CO2 (19-24) mmol/L ABG O2 Saturation (94-97) % Potassium (3.5-5.1) mmol/L Chloride (98-107) mmol/L Carbon Dioxide (22-30) mmol/L BUN (9-20) mg/dL Glucose (74-99) mg/dL POC Glucose (mg/dL) 220 H (75-99) mg/dL Calcium (8.4-10.2) mg/dL Ferritin (22.0-322.0) ng/mL AST (17-59) U/L ALT (4-49) U/L Creatine Kinase (55-170) U/L C-Reactive Protein (<10.0) mg/L Total Protein (6.3-8.2) g/dL Albumin (3.5-5.0) g/dL 06/15/20 06/16/20 06/16/20 Range/Units 23:58 04:30 05:00 WBC 13.9 H (3.8-10.6) k/uL RBC 4.26 L (4.30-5.90) m/uL Hgb 12.5 L (13.0-17.5) gm/dL MCHC 30.8 L (31.0-37.0) g/dL Neutrophils # (Manual) 12.50 H (1.3-7.7) k/uL Lymphocytes # (Manual) 0.83 L (1.0-4.8) k/uL Myelocytes # (Manual) 0.42 H (0) k/uL ABG pH 7.34 L (7.35-7.45) ABG pCO2 67 H (35-45) mmHg ABG pO2 235 H (83-108) mmHg ABG HCO3 36 H (21-25) mmol/L ABG Total CO2 38 H (19-24) mmol/L ABG O2 Saturation 99.1 H (94-97) % Potassium (3.5-5.1) mmol/L Chloride (98-107) mmol/L Carbon Dioxide (22-30) mmol/L BUN (9-20) mg/dL Glucose (74-99) mg/dL POC Glucose (mg/dL) 212 H (75-99) mg/dL Calcium (8.4-10.2) mg/dL Ferritin (22.0-322.0) ng/mL AST (17-59) U/L ALT (4-49) U/L Creatine Kinase (55-170) U/L C-Reactive Protein (<10.0) mg/L Total Protein (6.3-8.2) g/dL Albumin (3.5-5.0) g/dL 06/16/20 06/16/20 06/16/20 Range/Units 05:00 05:02 11:26 WBC (3.8-10.6) k/uL RBC (4.30-5.90) m/uL Hgb (13.0-17.5) gm/dL MCHC (31.0-37.0) g/dL Neutrophils # (Manual) (1.3-7.7) k/uL Lymphocytes # (Manual) (1.0-4.8) k/uL Myelocytes # (Manual) (0) k/uL ABG pH (7.35-7.45) ABG pCO2 (35-45) mmHg ABG pO2 (83-108) mmHg ABG HCO3 (21-25) mmol/L ABG Total CO2 (19-24) mmol/L ABG O2 Saturation (94-97) % Potassium 5.8 H (3.5-5.1) mmol/L Chloride 110 H (98-107) mmol/L Carbon Dioxide 38 H (22-30) mmol/L BUN 35 H (9-20) mg/dL Glucose 254 H (74-99) mg/dL POC Glucose (mg/dL) 227 H 249 H (75-99) mg/dL Calcium 7.7 L (8.4-10.2) mg/dL Ferritin 2506.4 H (22.0-322.0) ng/mL AST 68 H (17-59) U/L ALT 151 H (4-49) U/L Creatine Kinase 215 H (55-170) U/L C-Reactive Protein 53.9 H (<10.0) mg/L Total Protein 5.3 L (6.3-8.2) g/dL Albumin 2.4 L (3.5-5.0) g/dL Microbiology - Last 24 Hours (Table) 06/13/20 21:10 Gram Stain - Final Sputum Sputum Culture - Final 06/14/20 03:20 Blood Culture - Preliminary Blood No Growth after 48 hours 06/09/20 12:09 Blood Culture - Final Blood No Growth after 144 hours Assessment and Plan Plan: 1. COVID-19, Bilateral pneumonia, started on IV Decadron and IV Remdesevir 2. Acute on chronic hypoxic and hypercapnic respiratory failure requiring mechanical ventilation 3. Hyponatremia, on IV normal saline 4. Elevated d-dimer, started on SQ Lovenox 5. underlying history of depression 6. Underlying history of asthma At this time patient is in ICU, pulmonary critical care following
--- NOTE | 2020-06-16 15:09 | PN ---
PROGRESS NOTE PULMONARY/CRITICAL CARE PROGRESS NOTE: DATE OF SERVICE: June 16, 2020 Critical care time 32 minutes. A 49-year-old gentleman who was admitted to the hospital back on June 09. He was admitted with a diagnosis of acute hypoxemic respiratory failure secondary to COVID-19 pneumonia. The patient did receive Remdesivir and convalescent plasma but despite that, continued to demonstrate worsening oxygenation and eventually required intubation and mechanical ventilation on June 13, 2020. The patient had a previous admission to the hospital recently for acute community-acquired pneumonia. Currently, he remains on the ventilator. His settings include the volume assist-control mode rate of 34, tidal volume 450, FiO2 60% to be turned down to 50%, and a PEEP of 20. Blood gases on 70% show pO2 of 235, a pCO2 of 67, and a pH of 7.34. The patient remains on Nimbex at 2 mcg/kg per minute, propofol at 75 mics/kg per minute, saline at 120/mL an hour and Vital high-protein at 10 mL an hour which is goal. Later today, if his saturations remained excellent, will drop the PEEP from 20 to 15. Currently, he is on 50%. His hematoma is no longer bleeding. His central line is relatively new. His art line also is new. The patient will not be prone today. PHYSICAL EXAMINATION: VITAL SIGNS: Current vital signs are reviewed. Temperature is 100 degrees, heart rate 86, respiratory rate 34, blood pressure 123/59, and saturations are 95%. Appears in no acute distress. Currently sedated and paralyzed. HEENT: Examination is grossly unremarkable. There is an orally placed endotracheal tube and NG tube. NECK: Supple, full range of motion. No adenopathy. Neck veins are flat. CARDIOVASCULAR: Examination reveals a regular rhythm rate. Heart rate 86 beats per minute. Heart sounds are distant. S1, S2 normal. LUNGS: Reveal coarse bilateral rhonchi. No wheezes or crackles. ABDOMEN: Soft. Bowel sounds are noted. EXTREMITIES are intact. No edema. SKIN: Without rash. NEUROLOGIC: Examination cannot be adequately assessed. LABS: Reviewed. White count 13.9, hemoglobin 12.5, hematocrit 40.4, platelet count 225,000. Blood gases have been noted. Sodium 144, potassium 5.8, chloride 110, CO2 38, BUN and creatinine were 35 and 0.78. AST 68, ALT 151, CK 215, albumin 2.4. Microbiology is all negative including blood and sputum. CURRENT MEDICATIONS: Reviewed. The patient is on Tylenol, albuterol inhaler, vitamin C, atenolol, chlorhexidine, vitamin D3, Nimbex, Cleviprex p.r.n., Prozac, insulin, Solu-Medrol, morphine sulfate, Zofran Protonix, propofol and zinc. Chest x-ray from today shows diffuse interstitial infiltrates. ASSESSMENT: 1. Acute and severe hypoxemic respiratory failure secondary to COVID-19 pneumonia/pneumonitis, requiring intubation and mechanical ventilation on June 13, 2020, status post 5 days Remdesivir and convalescent plasma. 2. Recent admission to the hospital for acute community-acquired pneumonia, right lower lobe, resolved. 3. History of mild intermittent chronic bronchial asthma. 4. History of essential hypertension. 5. History of depression. PLAN: The patient's FiO2 was brought down to 50%. Later today, we will drop the PEEP from 20 to 15. The patient remains on Nimbex and propofol. Nimbex can eventually be weaned off. The patient is getting nourished with Vital high-protein at goal which is 10 mL an hour. Additional recommendations and suggestions are forthcoming. Tenormin is increased to twice a day for better blood pressure control. We will continue to follow. Prognosis is guarded. Chest x-ray is unchanged. Critical care time 32 minutes. KEEGAN / JAMES: [id number] /
[2020-06-16 18:03] LABS: Glucose,Whole Blood 210 mg/dL (75-99)
[2020-06-16] MEDS: INSULIN DETEMIR (LEVEMIR) 100 UNIT/ML SYR SQ SCH (20:05)
[2020-06-16 23:41] LABS: Glucose,Whole Blood 216 mg/dL (75-99)
[2020-06-16] MEDS: ACETAMINOPHEN TAB 325 MG TAB PO PRN (23:43)
[2020-06-17] MEDS: ALBUTEROL HFA INHALER INHALATION SCH ×7 (00:17→23:13)
[2020-06-17] MEDS: CISATRACURIUM 200 MG in SODIUM CHLORIDE 0.9% 180 ML IV SCH (00:32)
[2020-06-17] MEDS: MORPHINE SULFATE 2 MG/ML SYRINGE IVP PRN ×3 (00:35→14:14)
[2020-06-17] MEDS: SODIUM CHLORIDE 0.9% 1,000 ML IV SCH ×3 (04:48→23:58)
[2020-06-17] MEDS: ACETAMINOPHEN TAB 325 MG TAB PO PRN ×2 (04:48→12:29)
[2020-06-17] MEDS: methylPREDNISolone SOD SUCCI 125 MG/2 ML VIAL IV SCH ×4 (05:17→23:54)
[2020-06-17 05:26] LABS: Glucose,Whole Blood 239 mg/dL (75-99)
[2020-06-17 05:28] LABS: ABG Base Excess 13.1 mmol/L; ABG HCO3 37 mmol/L (21-25); ABG Oxygen Saturation 96.8 % (94-97); ABG PCO2 55 mmHg (35-45); ABG PH 7.44 (7.35-7.45); ABG PO2 80 mmHg (83-108); ABG TCO2 39 mmol/L (19-24)
[2020-06-17] MEDS: INSULIN ASPART (NovoLOG) 100 UNIT/ML VIAL SQ SCH ×3 (05:28→17:08)
[2020-06-17 05:30] LABS: Allen Test Performed? no
[2020-06-17 05:49] LABS: HCT 34.5 % (39.0-53.0); HGB 10.7 gm/dL (13.0-17.5); Hypochromasia Slight; MCH 28.9 pg (25.0-35.0); MCHC 30.9 g/dL (31.0-37.0); MCV 93.6 fL (80.0-100.0); Mean Platelet Volume 7.7; Platelet Count 194 k/uL (150-450); RBC 3.68 m/uL (4.30-5.90); RDW 13.5 % (11.5-15.5); WBC 11.7 k/uL (3.8-10.6)
[2020-06-17 05:53] LABS: ALT 214 U/L (4-49); AST 176 U/L (17-59); African American GFR (CKD) >90 (>60 ml/min/1.73 sqM); Albumin 2.3 g/dL (3.5-5.0); Alkaline Phosphatase 73 U/L (38-126); Anion Gap -4 mmol/L; Blood Urea Nitrogen 41 mg/dL (9-20); C Reactive Protein 25.8 mg/L (<10.0); Calcium 7.5 mg/dL (8.4-10.2); Carbon Dioxide 39 mmol/L (22-30); Chloride 113 mmol/L (98-107); Creatine Kinase 93 U/L (55-170); Glucose 240 mg/dL (74-99); Non-African American GFR(CKD) >90 (>60 ml/min/1.73 sqM); Potassium 5.1 mmol/L (3.5-5.1); Sodium 148 mmol/L (137-145); Total Bilirubin 1.3 mg/dL (0.2-1.3)
[2020-06-17 06:12] LABS: Band Neutrophils % 6 %; Lymphocytes # (M) 0.12 k/uL (1.0-4.8); Metamyelocytes # (M) 0.59 k/uL (0); Metamyelocytes % 5 %; Monocytes # (M) 0.35 k/uL (0-1.0); Neutrophils % (M) 85 %; Nucleated Red Blood Cells 0 /100 WBC (0-0); Total Cells Counted 100
--- NOTE | 2020-06-17 06:48 | XR ---
EXAMINATION TYPE: XR chest 1V portable DATE OF EXAM: 06/17/2020 CLINICAL HISTORY: Difficulty breathing progress study. Covid pneumonia. TECHNIQUE: Single AP portable semiupright view of the chest is obtained. COMPARISON: Chest x-ray from one day earlier and older studies. CTA chest June 09, 2020. FINDINGS: Stable endotracheal and orogastric tubes. Stable left subclavian central venous catheter. Cardiac silhouette size is stable and within normal limits. Worsening bilateral lower lung opacities. No pleural effusion or pneumothorax seen bilaterally. IMPRESSION: Worsening bilateral lower lung edema and/or infiltrates, right greater than left.
[2020-06-17] MEDS: PANTOPRAZOLE 40 MG/10 ML VIAL IVP SCH (08:02)
[2020-06-17] MEDS: CHLORHEXIDINE GLUCONATE 15 ML CUP MUCOUS MEM SCH ×2 (08:02→20:14)
[2020-06-17] MEDS: ASCORBIC ACID 500 MG TAB PO SCH (08:03)
[2020-06-17] MEDS: CHOLECALCIFEROL 1,000 UNIT TAB PO SCH (08:03)
[2020-06-17] MEDS: FLUoxetine HCL 20 MG CAP PO SCH (08:03)
[2020-06-17] MEDS: ZINC SULFATE 220 MG CAP PO SCH (08:03)
[2020-06-17] MEDS: atenoloL 50 MG TAB PO SCH ×2 (08:03→20:14)
--- NOTE | 2020-06-17 08:20 | P.PN ---
Subjective Progress Note Date: 06/17/20 49-year-old male patient admitted on 06/09/2024 acute hypoxic respiratory failure secondary to COVID 19 pneumonia. The patient was treated with a combination ofsteroids and Remdesivir and convalescent plasma and despite that the patient developed worsening in a patient requiring intubation mechanical celestine tilation on 06/13/2020. The patient remains intubated on a mechanical ventilator. The patient is currently on assist control mode rate of 34 with a tidal volume of 450 and FiO2 of 50% with a PEEP of 15. Patient is currently sedated and paralyzed. Propofol is running at 75 g per KG per minute and the patient is also on Nimbex at 3 mcg/kg per minute. The patient on IV fluids with normal saline today to 120 mL an hour. The patient is receiving enteral feeding for nutritional support with vital high protein at the rate is 21cc an hour. The patient was being prone to episodically for oxygenation related issues and the patient's PEEP has been cut down to 15. The patient is currently on Cl eviprex for blood pressure control at more milligram an hour. He is on Levemir insulin 8 units along with a sliding scale coverage. Patient is currently off IV heparin as the patient developed a hematoma the triple-lumen insertion site.no signs of any acute bleeding and hemoglobin is stable for now. There was some drop in hemoglobin to 10.7 from 12.5. The chest x-ray from today showing infiltration of the lung bases right base more than the left. ET tube is in a good location. The patient has an NG tube which is in the stomach and no other acute abnormalities have been noted. The blood gases from today showed a pH of 7.44 with a pCO2 of 55 and pO2 of 80. The sodium level is up to 148 and a serum bicarb is 39. The patient is currently receiving IV fluids0.9 at 1 20 mL an hour.I noted that the patient's hematoma over the left subclavian triple-lumen catheter is soft and has not progressed. Patient d-dimer was quite elevated and a rather put him back on anticoagulation with half a dose of Lovenox half a milligram per KG twice a day. Monitor the hematoma and the hemoglobin for now. Objective - Vital Signs Vital signs: Vital Signs Temp 100.9 F H 06/17/20 06:30 Pulse 75 12/07/20 07:00 Resp 34 H 06/17/20 07:00 BP 124/64 06/17/20 04:00 Pulse Ox 92 L 06/17/20 07:00 Intake & Output 06/16/20 06/17/20 06/17/20 18:59 06:59 18:59 Intake Total 2620.357 2597.662 144 Output Total 1240 1210 75 Balance 3111.217 6522.662 69 Weight 118.6 kg 119 kg Intake: IV 1476 1476 123 Sodium Chloride 0.9% 1, 1440 1440 120 000 ml @ 120 mls/hr IV . Q8H20M [facility] Rx#:[id number] pressure bag 36 36 3 Intake, IV Titration 830.357 770.662 Amount Cisatracurium 200 mg In 258.72 186.9 Sodium Chloride 0.9% 180 ml @ 1 MCG/KG/MIN 7.2 mls /hr IV .Q24H [facility] Rx#: [id number] propofoL 1,000 mg In 571.637 583.762 Empty Bag 1 bag @ Titrate IV .Q0M [facility] Rx#: [id number] Tube Feeding 164 252 21 Other 150 99 Output: Urine 1240 1210 75 Other: Voiding Method Indwelling Catheter Indwelling Catheter ABP, PAP, CO, CI - Last Documented Arterial Blood Pressure 134/49 - Exam GENERAL EXAM: Intubated, sedated, paralyzed 49-year-old gentleman currently on m [employer]anical ventilator with FiO2 80%. HEAD: Normocephalic. EYES: Sluggish reaction of pupils, equal size. NOSE: Clear with pink turbinates. THROAT: Oral endotracheal and gastric tube secured in place. No erythema or exudates. NECK: No masses, no JVD. CHEST: No chest wall deformity. LUNGS: Equal air entry with bilateral scattered rhonchi. CVS: S1 and S2 normal with no audible murmur, regular rhythm. ABDOMEN: No hepatosplenomegaly, normal bowel sounds, no guarding or rigidity. SPINE: No scoliosis or deformity SKIN: No rashes CENTRAL NERVOUS SYSTEM: Sedated, paralyzed. Tone is normal in all 4 ext remities. EXTREMITIES: There is trace peripheral edema. No clubbing, no cyanosis. Peripheral pulses are intact. - Labs CBC & Chem 7: 06/17/20 05:25 06/17/20 05:25 Labs: Abnormal Lab Results - Last 24 Hours (Table) 06/13/20 06/15/20 06/16/20 Range/Units 13:17 05:03 05:00 WBC (3.8-10.6) k/uL RBC (4.30-5.90) m/uL Hgb (13.0-17.5) gm/dL Hct (39.0-53.0) % MCHC (31.0-37.0) g/dL Neutrophils # (Manual) (1.3-7.7) k/uL Lymphocytes # (Manual) (1.0-4.8) k/uL Metamyelocytes # (Man) (0) k/uL Fibrinogen (200-500) mg/dL D-Dimer (<0.60) mg/L FEU ABG pH 7.17 L* (7.35-7.45) ABG pCO2 81 H* 80 H* (35-45) mmHg ABG pO2 25 L* (83-108) mmHg ABG HCO3 (21-25) mmol/L ABG Total CO2 (19-24) mmol/L Sodium (137-145) mmol/L Chloride (98-107) mmol/L Carbon Dioxide (22-30) mmol/L BUN (9-20) mg/dL Glucose (74-99) mg/dL POC Glucose (mg/dL) (75-99) mg/dL Calcium (8.4-10.2) mg/dL Ferritin 2506.4 H (22.0-322.0) ng/mL AST (17-59) U/L ALT (4-49) U/L C-Reactive Protein (<10.0) mg/L Total Protein (6.3-8.2) g/dL Albumin (3.5-5.0) g/dL 06/16/20 06/16/20 06/16/20 Range/Units 11:26 18:01 23:40 WBC (3.8-10.6) k/uL RBC (4.30-5.90) m/uL Hgb (13.0-17.5) gm/dL Hct (39.0-53.0) % MCHC (31.0-37.0) g/dL Neutrophils # (Manual) (1.3-7.7) k/uL Lymphocytes # (Manual) (1.0-4.8) k/uL Metamyelocytes # (Man) (0) k/uL Fibrinogen (200-500) mg/dL D-Dimer (<0.60) mg/L FEU ABG pH (7.35-7.45) ABG pCO2 (35-45) mmHg ABG pO2 (83-108) mmHg ABG HCO3 (21-25) mmol/L ABG Total CO2 (19-24) mmol/L Sodium (137-145) mmol/L Chloride (98-107) mmol/L Carbon Dioxide (22-30) mmol/L BUN (9-20) mg/dL Glucose (74-99) mg/dL POC Glucose (mg/dL) 249 H 210 H 216 H (75-99) mg/dL Calcium (8.4-10.2) mg/dL Ferritin (22.0-322.0) ng/mL AST (17-59) U/L ALT (4-49) U/L C-Reactive Protein (<10.0) mg/L Total Protein (6.3-8.2) g/dL Albumin (3.5-5.0) g/dL 06/17/20 06/17/20 06/17/20 Range/Units 05:23 05:24 05:25 WBC (3.8-10.6) k/uL RBC (4.30-5.90) m/uL Hgb (13.0-17.5) gm/dL Hct (39.0-53.0) % MCHC (31.0-37.0) g/dL Neutrophils # (Manual) (1.3-7.7) k/uL Lymphocytes # (Manual) (1.0-4.8) k/uL Metamyelocytes # (Man) (0) k/uL Fibrinogen (200-500) mg/dL D-Dimer (<0.60) mg/L FEU ABG pH (7.35-7.45) ABG pCO2 55 H (35-45) mmHg ABG pO2 80 L (83-108) mmHg ABG HCO3 37 H (21-25) mmol/L ABG Total CO2 39 H (19-24) mmol/L Sodium 148 H (137-145) mmol/L Chloride 113 H (98-107) mmol/L Carbon Dioxide 39 H (22-30) mmol/L BUN 41 H (9-20) mg/dL Glucose 240 H (74-99) mg/dL POC Glucose (mg/dL) 239 H (75-99) mg/dL Calcium 7.5 L (8.4-10.2) mg/dL Ferritin (22.0-322.0) ng/mL AST 176 H (17-59) U/L ALT 214 H (4-49) U/L C-Reactive Protein 25.8 H (<10.0) mg/L Total Protein 5.0 L (6.3-8.2) g/dL Albumin 2.3 L (3.5-5.0) g/dL 06/17/20 06/17/20 Range/Units 05:25 05:25 WBC 11.7 H (3.8-10.6) k/uL RBC 3.68 L (4.30-5.90) m/uL Hgb 10.7 L (13.0-17.5) gm/dL Hct 34.5 L (39.0-53.0) % MCHC 30.9 L (31.0-37.0) g/dL Neutrophils # (Manual) 10.60 H (1.3-7.7) k/uL Lymphocytes # (Manual) 0.12 L (1.0-4.8) k/uL Metamyelocytes # (Man) 0.59 H (0) k/uL Fibrinogen 134 L (200-500) mg/dL D-Dimer 28.00 H (<0.60) mg/L FEU ABG pH (7.35-7.45) ABG pCO2 (35-45) mmHg ABG pO2 (83-108) mmHg ABG HCO3 (21-25) mmol/L ABG Total CO2 (19-24) mmol/L Sodium (137-145) mmol/L Chloride (98-107) mmol/L Carbon Dioxide (22-30) mmol/L BUN (9-20) mg/dL Glucose (74-99) mg/dL POC Glucose (mg/dL) (75-99) mg/dL Calcium (8.4-10.2) mg/dL Ferritin (22.0-322.0) ng/mL AST (17-59) U/L ALT (4-49) U/L C-Reactive Protein (<10.0) mg/L Total Protein (6.3-8.2) g/dL Albumin (3.5-5.0) g/dL Microbiology - Last 24 Hours (Table) 06/14/20 03:20 Blood Culture - Preliminary Blood No Growth after 72 hours 06/13/20 21:10 Gram Stain - Final Sputum Sputum Culture - Final Assessment and Plan Plan: 1 Acute hypoxemic respiratory failure secondary to COVID 19 pneumonia, treated with Remdesivir and convalescent plasma. Requiring intubation and mechanical ventilatory support on 06/13/2020. Patient remains sedated and paralyzed patient requires high PEEP for oxygenation. Chest x-ray was noted. Blood gases was noted.the peak airway pressure is 29. Static pressures around 27. It's likely the patient's severe hypoxemia is most likely related to a clotting issue rather than extensive pneumonia. The patient needs to go back on anticoagulation. 2 Recent admission to the hospital with acute community-acquired right lower lobe pneumonia. 3 Elevated d-dimer, currently on a heparin drip 4 Elevated elevated inflammatory markers secondary to above including an elevated d-dimer of 11 5 History of mild intermittent chronic bronchial asthma 6 History of hypertension 7 History of depression 8. Mild transaminitis secondary to above 9 soft hematoma of the left subclavian triple-lumen catheter Plan: Continue tube feedings He did receive convalescent plasma and 5 day course of Remdesivir Continue IV Solu-Medrol restart Lovenox 60 mg every 12 hours Monitor the hematoma and hemoglobin Neuropathy down to 13 and possibly down to 12 and the patient is able to tolerate May need to give a paralytic holiday ventilator status. Keep the sedation for now Repeat chest x-ray, labs and ABGs in a.m. We will continue to follow and make further recommendations based on his clinical status. Critically care evaluation, more than 30 minutes. Time with Patient: Greater than 30
[2020-06-17] MEDS: ENOXAPARIN 60 MG/0.6 ML SYRINGE SQ SCH ×2 (08:47→20:15)
[2020-06-17 09:39] LABS: ABG Base Excess 12.8 mmol/L; ABG HCO3 37 mmol/L (21-25); ABG Oxygen Saturation 94.6 % (94-97); ABG PCO2 52 mmHg (35-45); ABG PH 7.46 (7.35-7.45); ABG PO2 67 mmHg (83-108); ABG TCO2 38 mmol/L (19-24); Allen Test Performed? Yes
[2020-06-17 10:53] LABS: Ferritin 2999.7 ng/mL (22.0-322.0)
[2020-06-17 12:26] LABS: Glucose,Whole Blood 216 mg/dL (75-99)
[2020-06-17 15:50] LABS: ABG Base Excess 13.1 mmol/L; ABG HCO3 37 mmol/L (21-25); ABG Oxygen Saturation 89.6 % (94-97); ABG PCO2 54 mmHg (35-45); ABG PH 7.45 (7.35-7.45); ABG TCO2 39 mmol/L (19-24); Allen Test Performed? Yes
[2020-06-17 15:53] LABS: ABG PO2 56 mmHg (83-108)
[2020-06-17 17:07] LABS: Glucose,Whole Blood 211 mg/dL (75-99)
--- NOTE | 2020-06-17 17:14 | P.PN ---
Subjective Progress Note Date: 06/17/20 Dennis Beal, is a 49 year-old male, who presented to ER with of cough and shortness of breath, Covid 19 test was positive in ER . Patient was evaluated in the emergency room vital examination on presentation to emergency room revealed a temperature of 101.1 pulse 79 respiration 32 blood pressure 115/70 pulse ox 90% on BiPAP his white blood count on presentation was 10.9 C-reactive protein was elevated at 1128 patient was admitted to telemetry floor he was started on IV Decadron pulmonary consultation was requested. Patient was recently admitted with pneumonia at that time Covid 19 test was negative. He was treated with IV antibiotic he improved and he was discharged home. His past medical history is significant for history of kidney stones, history of previous episodes of pneumonia, history of asthma and COPD, and history of depression, history of hypertension. On review of system patient is alert and oriented 3 he is complaining of cough and shortness of breath with any activity otherwise he denies any complaints there is no fever or chills no headache or dizziness no chest pain no nausea or vomiting no abdominal pain no diarrhea no blood in the stools no burning with urination no frequency or urgency and no hematuria On 06/11/2020 patient was seen and examined on the medical floor he is alert and oriented 3 he is still complaining of shortness of breath he still maintained on BiPAP otherwise he denies any complaints he is maintained on IV Decadron and IV Remdesevir On 06/12/2020 patient was seen and examined on the medical floor he is alert and oriented 3 in no apparent distress he is still complaining of shortness of breath and cough he is maintained on high flow oxygen, he is still maintained on IV Decadron and IV REMDESEVIR, otherwise he denies any complaints there is no chest pain no dizziness no nausea or vomiting no abdominal pain no diarrhea and no blood in the stools no burning with urination no frequency or urgency and no hematuria On 06/13/2020 patient was seen and examined in the ICU, last night he developed tachycardia, tachypnea, and worsening shortness of breath. He was transferred to intensive care unit he was intubated sedated started on mechanical ventilation, currently patient was seen and examined in the ICU he is in the prone position maintained on mechanical ventilation. On 06/14/2020 patient was seen and examined in the ICU, he is intubated sedated maintained on mechanical ventilation, patient is maintained on IV heparin per pr otocol, he is receiving IV Solu-Medrol, he received Remdesevir, today is day #5, he also received convalesent plasma. His temperature is 98.1 pulse 97 respiration 24 blood pressure 133/68 white blood count 22.5 hemoglobin 15.5 platelet count 2:30 d-dimer more than 34 pH 7.23 pCO2 78 CO2 102 On 06/15/2020 patient was seen and examined in the ICU, he is intubated sedated maintained on mechanical ventilation, patient is maintained on IV heparin per protocol, he is receiving IV Solu-Medrol, he received Remdesevir, today is day #5, he also received convalesent plasma. His temperature is 98.1 pulse 88 respiration 24 blood pressure 120/75 white blood count 25.9 hemoglobin 15.5 platelet count 276 d-dimer 11.69 pH 7.22 pCO2 80 PO2 83 On 06/16/2020 patient was seen and examined in the ICU he is intubated sedated maintained on mechanical ventilation ABG is improving, plan today is to decrease PEEP from 20-15 and to decrease FiO2 to 50% otherwise continue with current management On 06/17/2020 patient was seen and examined in the ICU he is still intubated sedated maintained on mechanical ventilation, oxygen requirements are decreasing, PEEP is decreased today from 15-12 patient is not on any IV pressure support at this time Objective - Vital Signs Vital signs: Vital Signs Temp 100.9 F H 06/17/20 06:30 Pulse 75 06/17/20 07:00 Resp 34 H 06/17/20 07:00 BP 124/64 06/17/20 04:00 Pulse Ox 92 L 06/17/20 07:00 Intake & Output 06/16/20 06/17/20 06/17/20 18:59 06:59 18:59 Intake Total 2620.357 2597.662 144 Output Total 1240 1210 75 Balance 1407.132 5198.662 69 Weight 118.6 kg 119 kg Intake: IV 1476 1476 123 Sodium Chloride 0.9% 1, 1440 1440 120 000 ml @ 120 mls/hr IV . Q8H20M [facility] Rx#:[id number] pressure bag 36 36 3 Intake, IV Titration 830.357 770.662 Amount Cisatracurium 200 mg In 258.72 186.9 Sodium Chloride 0.9% 180 ml @ 1 MCG/KG/MIN 7.2 mls /hr IV .Q24H [facility] Rx#: [id number] propofoL 1,000 mg In 571.637 583.762 Empty Bag 1 bag @ Titrate IV .Q0M [facility] Rx#: [id number] Tube Feeding 164 252 21 Other 150 99 Output: Urine 1240 1210 75 Other: Voiding Method Indwelling Catheter Indwelling Catheter ABP, PAP, CO, CI - Last Documented Arterial Blood Pressure 134/49 - Exam In general patient is intubated sedated maintained on mechanical ventilation he is in the prone position HEENT head normocephalic and atraumatic Neck is supple no JVD no goiter no lymphadenopathy Chest exam reveals fine crackles in both lung holden no wheezing Cardiac exam reveals regular heart sounds S1 and S2 no gallops no murmurs Abdomen is soft nontender no organomegaly with normal bowel sounds Extremity exam reveals minimal edema no cyanosis or clubbing Neurological examination reveals no gross focal neurological deficit - Labs CBC & Chem 7: 06/17/20 05:25 06/17/20 05:25 Labs: Abnormal Lab Results - Last 24 Hours (Table) 06/13/20 06/15/20 06/16/20 Range/Units 13:17 05:03 05:00 WBC (3.8-10.6) k/uL RBC (4.30-5.90) m/uL Hgb (13.0-17.5) gm/dL Hct (39.0-53.0) % MCHC (31.0-37.0) g/dL Neutrophils # (Manual) (1.3-7.7) k/uL Lymphocytes # (Manual) (1.0-4.8) k/uL Metamyelocytes # (Man) (0) k/uL Fibrinogen (200-500) mg/dL D-Dimer (<0.60) mg/L FEU ABG pH 7.17 L* (7.35-7.45) ABG pCO2 81 H* 80 H* (35-45) mmHg ABG pO2 25 L* (83-108) mmHg ABG HCO3 (21-25) mmol/L ABG Total CO2 (19-24) mmol/L Sodium (137-145) mmol/L Chloride (98-107) mmol/L Carbon Dioxide (22-30) mmol/L BUN (9-20) mg/dL Glucose (74-99) mg/dL POC Glucose (mg/dL) (75-99) mg/dL Calcium (8.4-10.2) mg/dL Ferritin 2506.4 H (22.0-322.0) ng/mL AST (17-59) U/L ALT (4-49) U/L C-Reactive Protein (<10.0) mg/L Total Protein (6.3-8.2) g/dL Albumin (3.5-5.0) g/dL 06/16/20 06/16/20 06/16/20 Range/Units 11:26 18:01 23:40 WBC (3.8-10.6) k/uL RBC (4.30-5.90) m/uL Hgb (13.0-17.5) gm/dL Hct (39.0-53.0) % MCHC (31.0-37.0) g/dL Neutrophils # (Manual) (1.3-7.7) k/uL Lymphocytes # (Manual) (1.0-4.8) k/uL Metamyelocytes # (Man) (0) k/uL Fibrinogen (200-500) mg/dL D-Dimer (<0.60) mg/L FEU ABG pH (7.35-7.45) ABG pCO2 (35-45) mmHg ABG pO2 (83-108) mmHg ABG HCO3 (21-25) mmol/L ABG Total CO2 (19-24) mmol/L Sodium (137-145) mmol/L Chloride (98-107) mmol/L Carbon Dioxide (22-30) mmol/L BUN (9-20) mg/dL Glucose (74-99) mg/dL POC Glucose (mg/dL) 249 H 210 H 216 H (75-99) mg/dL Calcium (8.4-10.2) mg/dL Ferritin (22.0-322.0) ng/mL AST (17-59) U/L ALT (4-49) U/L C-Reactive Protein (<10.0) mg/L Total Protein (6.3-8.2) g/dL Albumin (3.5-5.0) g/dL 06/17/20 06/17/20 06/17/20 Range/Units 05:23 05:24 05:25 WBC (3.8-10.6) k/uL RBC (4.30-5.90) m/uL Hgb (13.0-17.5) gm/dL Hct (39.0-53.0) % MCHC (31.0-37.0) g/dL Neutrophils # (Manual) (1.3-7.7) k/uL Lymphocytes # (Manual) (1.0-4.8) k/uL Metamyelocytes # (Man) (0) k/uL Fibrinogen (200-500) mg/dL D-Dimer (<0.60) mg/L FEU ABG pH (7.35-7.45) ABG pCO2 55 H (35-45) mmHg ABG pO2 80 L (83-108) mmHg ABG HCO3 37 H (21-25) mmol/L ABG Total CO2 39 H (19-24) mmol/L Sodium 148 H (137-145) mmol/L Chloride 113 H (98-107) mmol/L Carbon Dioxide 39 H (22-30) mmol/L BUN 41 H (9-20) mg/dL Glucose 240 H (74-99) mg/dL POC Glucose (mg/dL) 239 H (75-99) mg/dL Calcium 7.5 L (8.4-10.2) mg/dL Ferritin (22.0-322.0) ng/mL AST 176 H (17-59) U/L ALT 214 H (4-49) U/L C-Reactive Protein 25.8 H (<10.0) mg/L Total Protein 5.0 L (6.3-8.2) g/dL Albumin 2.3 L (3.5-5.0) g/dL 06/17/20 06/17/20 Range/Units 05:25 05:25 WBC 11.7 H (3.8-10.6) k/uL RBC 3.68 L (4.30-5.90) m/uL Hgb 10.7 L (13.0-17.5) gm/dL Hct 34.5 L (39.0-53.0) % MCHC 30.9 L (31.0-37.0) g/dL Neutrophils # (Manual) 10.60 H (1.3-7.7) k/uL Lymphocytes # (Manual) 0.12 L (1.0-4.8) k/uL Metamyelocytes # (Man) 0.59 H (0) k/uL Fibrinogen 134 L (200-500) mg/dL D-Dimer 28.00 H (<0.60) mg/L FEU ABG pH (7.35-7.45) ABG pCO2 (35-45) mmHg ABG pO2 (83-108) mmHg ABG HCO3 (21-25) mmol/L ABG Total CO2 (19-24) mmol/L Sodium (137-145) mmol/L Chloride (98-107) mmol/L Carbon Dioxide (22-30) mmol/L BUN (9-20) mg/dL Glucose (74-99) mg/dL POC Glucose (mg/dL) (75-99) mg/dL Calcium (8.4-10.2) mg/dL Ferritin (22.0-322.0) ng/mL AST (17-59) U/L ALT (4-49) U/L C-Reactive Protein (<10.0) mg/L Total Protein (6.3-8.2) g/dL Albumin (3.5-5.0) g/dL Microbiology - Last 24 Hours (Table) 06/14/20 03:20 Blood Culture - Preliminary Blood No Growth after 72 hours 06/13/20 21:10 Gram Stain - Final Sputum Sputum Culture - Final Assessment and Plan Plan: 1. COVID-19, Bilateral pneumonia, started on IV Decadron and IV Remdesevir 2. Acute on chronic hypoxic and hypercapnic respiratory failure requiring mechanical ventilation 3. Hyponatremia, on IV normal saline 4. Elevated d-dimer, started on SQ Lovenox 5. underlying history of depression 6. Underlying history of asthma At this time patient is in ICU, pulmonary critical care following
[2020-06-17] MEDS: fentaNYL (PF) 1,000 MCG in SODIUM CHLORIDE 0.9% 80 ML IV SCH (18:19)
[2020-06-17] MEDS: INSULIN DETEMIR (LEVEMIR) 100 UNIT/ML SYR SQ SCH (20:37)
[2020-06-17] MEDS ORDERED: propofoL 100 ML IV ONE (20:57)
[2020-06-17 23:43] LABS: Glucose,Whole Blood 227 mg/dL (75-99)
[2020-06-18] MEDS: INSULIN ASPART (NovoLOG) 100 UNIT/ML VIAL SQ SCH ×4 (00:02→18:24)
[2020-06-18] MEDS: fentaNYL (PF) 1,000 MCG in SODIUM CHLORIDE 0.9% 80 ML IV SCH ×3 (01:53→18:25)
[2020-06-18] MEDS: ALBUTEROL HFA INHALER INHALATION SCH ×5 (02:57→19:37)
[2020-06-18 05:15] LABS: ABG Base Excess 12.9 mmol/L; ABG HCO3 37 mmol/L (21-25); ABG Oxygen Saturation 90.6 % (94-97); ABG PCO2 53 mmHg (35-45); ABG PH 7.45 (7.35-7.45); ABG TCO2 39 mmol/L (19-24)
[2020-06-18] MEDS: methylPREDNISolone SOD SUCCI 125 MG/2 ML VIAL IV SCH ×4 (05:36→23:16)
[2020-06-18 05:37] LABS: Allen Test Performed? no
[2020-06-18 05:44] LABS: Glucose,Whole Blood 227 mg/dL (75-99)
[2020-06-18 06:02] LABS: HCT 33.2 % (39.0-53.0); HGB 10.8 gm/dL (13.0-17.5); Hypochromasia Slight; MCH 30.4 pg (25.0-35.0); MCHC 32.4 g/dL (31.0-37.0); MCV 93.8 fL (80.0-100.0); Mean Platelet Volume 7.5; Platelet Count 175 k/uL (150-450); RBC 3.54 m/uL (4.30-5.90); RDW 13.4 % (11.5-15.5); WBC 11.9 k/uL (3.8-10.6)
[2020-06-18 06:38] LABS: ALT 455 U/L (4-49); AST 308 U/L (17-59); African American GFR (CKD) >90 (>60 ml/min/1.73 sqM); Albumin 2.4 g/dL (3.5-5.0); Alkaline Phosphatase 69 U/L (38-126); Anion Gap -2 mmol/L; Blood Urea Nitrogen 33 mg/dL (9-20); C Reactive Protein 15.1 mg/L (<10.0); Calcium 7.3 mg/dL (8.4-10.2); Carbon Dioxide 39 mmol/L (22-30); Chloride 113 mmol/L (98-107); Creatine Kinase 61 U/L (55-170); Glucose 223 mg/dL (74-99); Non-African American GFR(CKD) >90 (>60 ml/min/1.73 sqM); Potassium 4.8 mmol/L (3.5-5.1); Sodium 150 mmol/L (137-145); Total Bilirubin 1.6 mg/dL (0.2-1.3); Total Protein 5.1 g/dL (6.3-8.2)
[2020-06-18 07:07] LABS: Band Neutrophils % 2 %; Lymphocytes # (M) 0.83 k/uL (1.0-4.8); Monocytes # (M) 0.48 k/uL (0-1.0); Myelocytes # (M) 0.24 k/uL (0); Myelocytes % 2 %; Neutrophils % (M) 86 %; Nucleated Red Blood Cells 0 /100 WBC (0-0); Total Cells Counted 200
[2020-06-18] MEDS: ASCORBIC ACID 500 MG TAB PO SCH (08:13)
[2020-06-18] MEDS: ACETAMINOPHEN TAB 325 MG TAB PO PRN ×3 (08:13→20:15)
[2020-06-18] MEDS: FLUoxetine HCL 20 MG CAP PO SCH (08:13)
[2020-06-18] MEDS: CHLORHEXIDINE GLUCONATE 15 ML CUP MUCOUS MEM SCH ×2 (08:14→19:51)
[2020-06-18] MEDS: CHOLECALCIFEROL 1,000 UNIT TAB PO SCH (08:14)
[2020-06-18] MEDS: PANTOPRAZOLE 40 MG/10 ML VIAL IVP SCH (08:14)
[2020-06-18] MEDS: atenoloL 50 MG TAB PO SCH ×2 (08:14→19:52)
[2020-06-18] MEDS: ZINC SULFATE 220 MG CAP PO SCH (08:14)
[2020-06-18] MEDS: ENOXAPARIN 60 MG/0.6 ML SYRINGE SQ SCH ×2 (08:14→19:52)
--- NOTE | 2020-06-18 09:02 | P.PN ---
Subjective 49-year-old male patient admitted on 06/09/2024 acute hypoxic respiratory failure secondary to COVID 19 pneumonia. The patient was treated with a c ombination ofsteroids and Remdesivir and convalescent plasma and despite that the patient developed worsening in a patient requiring intubation mechanical ventilation on 06/13/2020. The patient remains intubated on a mechanical ventilator. The patient is currently on assist control mode rate of 34 with a tidal volume of 450 and FiO2 of 50% with a PEEP of 15. Patient is currently sedated and paralyzed. Propofol is running at 75 g per KG per minute and the patient is also on Nimbex at 3 mcg/kg per minute. The patient on IV fluids with normal saline today to 120 mL an hour. The patient is receiving enteral feeding for nutritional support with vital high protein at the rate is 21cc an hour. The patient was being prone to episodically for oxygenation related issues and the patient's PEEP has been cut down to 15. The patient is currently on Cleviprex for blood pressure control at more milligram an hour. He is on Levemir insulin 8 units along with a sliding scale coverage. Patient is currently off IV heparin as the patient developed a hematoma the triple-lumen insertion site.no signs of any acute bleeding and hemoglobin is stable for now. There was some drop in hemoglobin to 10.7 from 12.5. The chest x-ray from today showing infiltration of the lung bases right base more than the left. ET tube is in a good location. The patient has an NG tube which is in the stomach and no other acute abnormalities have been noted. The blood gases from today showed a pH of 7.44 with a pCO2 of 55 and pO2 of 80. The sodium level is up to 148 and a serum bicarb is 39. The patient is currently receiving IV fluids0.9 at 1 20 mL an hour.I noted that the patient's hematoma over the left subclavian triple- lumen catheter is soft and has not progressed. Patient d-dimer was quite elev ated and a rather put him back on anticoagulation with half a dose of Lovenox half a milligram per KG twice a day. Monitor the hematoma and the hemoglobin for now. On today's evaluation of 06/18/2020, the patient remains sedated and paralyzed. Propofol is running at75 mcg/kg per minute and Nimbex is running at 3 mcg/kg per minute. The patient remains on a mechanical ventilator. I had to add sentinel as the patient was becoming hypertensive and I thought there was a component of pain ongoing with his symptoms. Meanwhile, the patient is an assist-control mode with a tidal volume of 450 with a rate of 34 and repeat currently is at 15 with a FiO2 of 50%. I attempted to The PEEP Yesterday and It Failed As the Patient Became more hypoxic. The patient for now based on a mechanical venti lator. Chest x-ray from today showing a new consolidation and effusion in the right lower lung area. A superinfection is to be considered at this point in time. The patient had an elevated d-dimer. He remains on a Lovenox that was started yesterday. I'm still monitoring the hematoma in his left triple-lumen catheter site and there is no interval worsening of the patient's hemoglobin is stable at 10.8. The patient currently is on Lovenox at a dose of 60 mg every 12 hours. No fever. He is receiving enteral feeding for nutritional support. Blood pressure is controlled and the patient is not taking any drips for now. He is receiving enteral feeding for nutritional support. He is in the form of vital high protein at the rate of 21 mL an hour.his sodium level is up to 150 and the patient is taking 0.9 at the rate of 1 20 mL an hour. Objective - Vital Signs Vital signs: Vital Signs Temp 100.6 F H 06/18/20 04:00 Pulse 64 06/18/20 06:30 Resp 34 H 06/18/20 06:30 BP 127/62 06/18/20 06:30 Pulse Ox 90 L 06/18/20 06:30 Intake & Output 06/17/20 06/18/20 06/18/20 18:59 06:59 18:59 Intake Total 2100.11 1996.401 100 Output Total 1475 1785 Balance 625.11 211.401 100 Weight 119.2 kg Intake: IV 1476 1476 Sodium Chloride 0.9% 1, 1440 1440 000 ml @ 120 mls/hr IV . Q8H20M [facility] Rx#:[id number] pressure bag 36 36 Intake, IV Titration 282.11 478.401 100 Amount fentaNYL (PF) 1,000 mcg 90.043 In Sodium Chloride 0.9% 80 ml @ Per Protocol IV . Q0M [facility] Rx#:[id number] propofoL 1,000 mg In 282.11 388.358 100 Empty Bag 1 bag @ Titrate IV .Q0M [facility] Rx#: [id number] Tube Feeding 252 42 Other 90 Output: Urine 1475 1785 Other: Voiding Method Indwelling Catheter Indwelling Catheter # Bowel Movements 0 ABP, PAP, CO, CI - Last Documented Arterial Blood Pressure 141/68 - Exam GENERAL EXAM: Intubated, sedated, paralyzed 49-year-old gentleman currently on mechanical ventilator HEAD: Normocephalic. EYES: Sluggish reaction of pupils, equal size. NOSE: Clear with pink turbinates. THROAT: Oral endotracheal and gastric tube secured in place. No erythema or exudates. NECK: No masses, no JVD. CHEST: No chest wall deformity. LUNGS: Equal air entry with bilateral scattered rhonchi. CVS: S1 and S2 normal with no audible murmur, regular rhythm. ABDOMEN: No hepatosplenomegaly, normal bowel sounds, no guarding or rigidity. SPINE: No scoliosis or deformity SKIN: No rashes CENTRAL NERVOUS SYSTEM: Sedated, paralyzed. Tone is normal in all 4 extremities. EXTREMITIES: There is trace peripheral edema. No clubbing, no cyanosis. Jory pheral pulses are intact. - Labs CBC & Chem 7: 06/18/20 05:30 06/18/20 06:00 Labs: Abnormal Lab Results - Last 24 Hours (Table) 06/17/20 06/17/20 06/17/20 Range/Units 05:25 09:39 12:24 WBC (3.8-10.6) k/uL RBC (4.30-5.90) m/uL Hgb (13.0-17.5) gm/dL Hct (39.0-53.0) % Neutrophils # (Manual) (1.3-7.7) k/uL Lymphocytes # (Manual) (1.0-4.8) k/uL Myelocytes # (Manual) (0) k/uL ABG pH 7.46 H (7.35-7.45) ABG pCO2 52 H (35-45) mmHg ABG pO2 67 L (83-108) mmHg ABG HCO3 37 H (21-25) mmol/L ABG Total CO2 38 H (19-24) mmol/L ABG O2 Saturation (94-97) % Sodium (137-145) mmol/L Chloride (98-107) mmol/L Carbon Dioxide (22-30) mmol/L BUN (9-20) mg/dL Glucose (74-99) mg/dL POC Glucose (mg/dL) 216 H (75-99) mg/dL Calcium (8.4-10.2) mg/dL Ferritin 2999.7 H (22.0-322.0) ng/mL Total Bilirubin (0.2-1.3) mg/dL AST (17-59) U/L ALT (4-49) U/L C-Reactive Protein (<10.0) mg/L Total Protein (6.3-8.2) g/dL Albumin (3.5-5.0) g/dL 06/17/20 06/17/20 06/17/20 Range/Units 15:44 17:02 23:40 WBC (3.8-10.6) k/uL RBC (4.30-5.90) m/uL Hgb (13.0-17.5) gm/dL Hct (39.0-53.0) % Neutrophils # (Manual) (1.3-7.7) k/uL Lymphocytes # (Manual) (1.0-4.8) k/uL Myelocytes # (Manual) (0) k/uL ABG pH (7.35-7.45) ABG pCO2 54 H (35-45) mmHg ABG pO2 56 L* (83-108) mmHg ABG HCO3 37 H (21-25) mmol/L ABG Total CO2 39 H (19-24) mmol/L ABG O2 Saturation 89.6 L (94-97) % Sodium (137-145) mmol/L Chloride (98-107) mmol/L Carbon Dioxide (22-30) mmol/L BUN (9-20) mg/dL Glucose (74-99) mg/dL POC Glucose (mg/dL) 211 H 227 H (75-99) mg/dL Calcium (8.4-10.2) mg/dL Ferritin (22.0-322.0) ng/mL Total Bilirubin (0.2-1.3) mg/dL AST (17-59) U/L ALT (4-49) U/L C-Reactive Protein (<10.0) mg/L Total Protein (6.3-8.2) g/dL Albumin (3.5-5.0) g/dL 06/18/20 06/18/20 06/18/20 Range/Units 05:14 05:30 05:41 WBC 11.9 H (3.8-10.6) k/uL RBC 3.54 L (4.30-5.90) m/uL Hgb 10.8 L (13.0-17.5) gm/dL Hct 33.2 L (39.0-53.0) % Neutrophils # (Manual) 10.40 H (1.3-7.7) k/uL Lymphocytes # (Manual) 0.83 L (1.0-4.8) k/uL Myelocytes # (Manual) 0.24 H (0) k/uL ABG pH (7.35-7.45) ABG pCO2 53 H (35-45) mmHg ABG pO2 58 L* (83-108) mmHg ABG HCO3 37 H (21-25) mmol/L ABG Total CO2 39 H (19-24) mmol/L ABG O2 Saturation 90.6 L (94-97) % Sodium (137-145) mmol/L Chloride (98-107) mmol/L Carbon Dioxide (22-30) mmol/L BUN (9-20) mg/dL Glucose (74-99) mg/dL POC Glucose (mg/dL) 227 H (75-99) mg/dL Calcium (8.4-10.2) mg/dL Ferritin (22.0-322.0) ng/mL Total Bilirubin (0.2-1.3) mg/dL AST (17-59) U/L ALT (4-49) U/L C-Reactive Protein (<10.0) mg/L Total Protein (6.3-8.2) g/dL Albumin (3.5-5.0) g/dL 06/18/20 Range/Units 06:00 WBC (3.8-10.6) k/uL RBC (4.30-5.90) m/uL Hgb (13.0-17.5) gm/dL Hct (39.0-53.0) % Neutrophils # (Manual) (1.3-7.7) k/uL Lymphocytes # (Manual) (1.0-4.8) k/uL Myelocytes # (Manual) (0) k/uL ABG pH (7.35-7.45) ABG pCO2 (35-45) mmHg ABG pO2 (83-108) mmHg ABG HCO3 (21-25) mmol/L ABG Total CO2 (19-24) mmol/L ABG O2 Saturation (94-97) % Sodium 150 H (137-145) mmol/L Chloride 113 H (98-107) mmol/L Carbon Dioxide 39 H (22-30) mmol/L BUN 33 H (9-20) mg/dL Glucose 223 H (74-99) mg/dL POC Glucose (mg/dL) (75-99) mg/dL Calcium 7.3 L (8.4-10.2) mg/dL Ferritin (22.0-322.0) ng/mL Total Bilirubin 1.6 H (0.2-1.3) mg/dL AST 308 H (17-59) U/L ALT 455 H (4-49) U/L C-Reactive Protein 15.1 H (<10.0) mg/L Total Protein 5.1 L (6.3-8.2) g/dL Albumin 2.4 L (3.5-5.0) g/dL Microbiology - Last 24 Hours (Table) 06/14/20 03:20 Blood Culture - Preliminary Blood No Growth after 96 hours Assessment and Plan Plan: 1 Acute hypoxemic respiratory failure secondary to COVID 19 pneumonia, treated with Remdesivir and convalescent plasma. Requiring intubation and mechanical ventilatory support on 06/13/2020. Patient remains sedated and paralyzed patient requires high PEEP for oxygenation. Chest x-ray was noted. Blood gases was noted.the peak airway pressure is 29. Static pressures around 27. It's likely the patient's severe hypoxemia is most likely related to a clotting issue rather than extensive pneumonia. The patient needs to go back on anticoagulation.patient is essentially on the same ventilator settings. Ever patient has been unchanged compared to yesterday. Chest x-ray showing a new infiltration/effusion the right lung base. Consider respiratory infection. 2 Recent admission to the hospital with acute community-acquired right lower lobe pneumonia. 3 Elevated d-dimer, currently on a heparin drip 4 Elevated elevated inflammatory markers secondary to above including an elevated d-dimer of 11 5 History of mild intermittent chronic bronchial asthma 6 History of hypertension 7 History of depression 8. Mild transaminitis secondary to above 9 soft hematoma of the left subclavian triple-lumen catheter, unchanged 10 hyperchloremic hypernatremia currently on normal saline infusion Plan: sputum Gram stain and culture Check pro calcitonin level Add IV cefepime 2 g every 12 hours Continue tube feedings discontinued IV fluids He did receive convalescent plasma and 5 day course of Remdesivir Continue IV Solu-Medrol restart Lovenox 60 mg every 12 hours Monitor the hematoma and hemoglobin May need to give a paralytic holiday ventilator status. Keep the sedation for now Repeat chest x-ray, labs and ABGs in a.m. fentanyl was added to his regimen and fentanyl is running at1 g and propofol is on 75 g. I think should be able to give the patient a paralytic holiday today and stop it if he is able to maintain oxygenation well. We will continue to follow and make further recommendations based on his clinical status. Critically care evaluation, more than 30 minutes. Time with Patient: Greater than 30
[2020-06-18] MEDS: CISATRACURIUM 200 MG in SODIUM CHLORIDE 0.9% 180 ML IV SCH (09:20)
--- NOTE | 2020-06-18 11:03 | XR ---
EXAMINATION TYPE: XR chest 1V portable DATE OF EXAM: 06/18/2020 COMPARISON: 06/17/2020 INDICATION: Tube placement difficulty breathing TECHNIQUE: Single frontal view of the chest is obtained. FINDINGS: The heart size is normal. The pulmonary vasculature is normal. There is increasing right lower lobe infiltrate. There is silhouetting the right diaphragm. Mild infi ltrate is at the left base. Endotracheal tube tip is above the anthony. Left central venous catheter tip is in the superior vena c spencer region. Nasogastric tube transverses the thorax. IMPRESSION: 1. Worsening right lower lobe infiltrate. 2. Lines and catheters discussed above
[2020-06-18] MEDS ORDERED: CEFEPIME 2 GM in SODIUM CHLORIDE 0.9% 100 ML IVPB ONE (11:30)
[2020-06-18 11:53] LABS: Glucose,Whole Blood 215 mg/dL (75-99)
[2020-06-18] MEDS: SODIUM CHLORIDE 0.9% 1,000 ML IV SCH ×2 (11:55→17:24)
[2020-06-18] MEDS: CLEVIDIPINE BUTYRATE 25 MG in EMPTY BAG 1 BAG IV SCH (11:55)
[2020-06-18 12:31] LABS: Ferritin 5412.7 ng/mL (22.0-322.0)
[2020-06-18 16:37] LABS: LD Isoenzymes 1 13 % (19-38); LD Isoenzymes 2 28 % (30-43); LD Isoenzymes 3 21 % (16-26); LD Isoenzymes 4 14 % (3-12); LD Isoenzymes 5 24 % (3-14); Lactacte Dehydrogenase(LD) ISO 353 U/L (120-250)
[2020-06-18 16:37] LABS: LD Isoenzymes 1 13 % (19-38); LD Isoenzymes 2 25 % (30-43); LD Isoenzymes 3 20 % (16-26); LD Isoenzymes 4 14 % (3-12); LD Isoenzymes 5 28 % (3-14); Lactacte Dehydrogenase(LD) ISO 713 U/L (120-250)
[2020-06-18] MEDS: FUROSEMIDE 10 MG/ML 4 ML VIAL IV SCH (17:26)
[2020-06-18 17:33] LABS: Glucose,Whole Blood 219 mg/dL (75-99)
--- NOTE | 2020-06-18 17:56 | P.PN ---
Subjective Progress Note Date: 06/18/20 Dennis Beal, is a 49 year-old male, who presented to ER with of cough and shortness of breath, Covid 19 test was positive in ER . Patient was evaluated in the emergency room vital examination on presentation to emergency room revealed a temperature of 101.1 pulse 79 respiration 32 blood pressure 115/70 pulse ox 90% on BiPAP his white blood count on presentation was 10.9 C-reactive protein was elevated at 1128 patient was admitted to telemetry floor he was started on IV Decadron pulmonary consultation was requested. Patient was recently admitted with pneumonia at that time Covid 19 test was negative. He was treated with IV antibiotic he improved and he was discharged home. His past medical history is significant for history of kidney stones, history of previous episodes of pneumonia, history of asthma and COPD, and history of depression, history of hypertension. On review of system patient is alert and oriented 3 he is complaining of cough and shortness of breath with any activity otherwise he denies any complaints there is no fever or chills no headache or dizziness no chest pain no nausea or vomiting no abdominal pain no diarrhea no blood in the stools no burning with urination no frequency or urgency and no hematuria On 06/11/2020 patient was seen and examined on the medical floor he is alert and oriented 3 he is still complaining of shortness of breath he still maintained on BiPAP otherwise he denies any complaints he is maintained on IV Decadron and IV Remdesevir On 06/12/2020 patient was seen and examined on the medical floor he is alert and oriented 3 in no apparent distress he is still complaining of shortness of breath and cough he is maintained on high flow oxygen, he is still maintained on IV Decadron and IV REMDESEVIR, otherwise he denies any complaints there is no chest pain no dizziness no nausea or vomiting no abdominal pain no diarrhea and no blood in the stools no burning with urination no frequency or urgency and no hematuria On 06/13/2020 patient was seen and examined in the ICU, last night he developed tachycardia, tachypnea, and worsening shortness of breath. He was transferred to intensive care unit he was intubated sedated started on mechanical ventilation, currently patient was seen and examined in the ICU he is in the prone position maintained on mechanical ventilation. On 06/14/2020 patient was seen and examined in the ICU, he is intubated sedated maintained on mechanical ventilation, patient is maintained on IV heparin per pr otocol, he is receiving IV Solu-Medrol, he received Remdesevir, today is day #5, he also received convalesent plasma. His temperature is 98.1 pulse 97 respiration 24 blood pressure 133/68 white blood count 22.5 hemoglobin 15.5 platelet count 2:30 d-dimer more than 34 pH 7.23 pCO2 78 CO2 102 On 06/15/2020 patient was seen and examined in the ICU, he is intubated sedated maintained on mechanical ventilation, patient is maintained on IV heparin per protocol, he is receiving IV Solu-Medrol, he received Remdesevir, today is day #5, he also received convalesent plasma. His temperature is 98.1 pulse 88 respiration 24 blood pressure 120/75 white blood count 25.9 hemoglobin 15.5 platelet count 276 d-dimer 11.69 pH 7.22 pCO2 80 PO2 83 On 06/16/2020 patient was seen and examined in the ICU he is intubated sedated maintained on mechanical ventilation ABG is improving, plan today is to decrease PEEP from 20-15 and to decrease FiO2 to 50% otherwise continue with current management On 06/17/2020 patient was seen and examined in the ICU he is still intubated sedated maintained on mechanical ventilation, oxygen requirements are decreasing, PEEP is decreased today from 15-12 patient is not on any IV pressure support at this time On 06/18/2020 patient was seen and examined in the ICU he is intubated sedated maintained on mechanical ventilation, he is off Nimbex at this time he is still on assist control tidal volume 450 rate 34 PEEP of 15 chest x-ray reveals a new consolidation in the right lower lung area d-dimer is elevated and patient is maintained on Lovenox Objective - Vital Signs Vital signs: Vital Signs Temp 101.7 F H 06/18/20 16:00 Pulse 59 L 06/18/20 17:00 Resp 34 H 06/18/20 17:00 BP 126/67 06/18/20 17:00 Pulse Ox 93 L 06/18/20 17:00 Intake & Output 06/17/20 06/18/20 06/18/20 18:59 06:59 18:59 Intake Total 2100.11 5425.272 7624.9 Output Total 1475 1785 1265 Balance 625.11 211.401 382.9 Weight 119.2 kg Intake: IV 1476 1476 330 Sodium Chloride 0.9% 1, 1440 1440 300 000 ml @ 20 mls/hr IV . Q24H [facility] Rx#:[id number] pressure bag 36 36 30 Intake, IV Titration 282.11 478.401 957.9 Amount Cefepime 2 gm In Sodium 100 Chloride 0.9% 100 ml @ 200 mls/hr IVPB ONCE ONE Rx#:[id number] Cisatracurium 200 mg In 137.9 Sodium Chloride 0.9% 180 ml @ 1 MCG/KG/MIN 7.2 mls /hr IV .Q24H [facility] Rx#: [id number] Sodium Chloride 0.9% 1, 120 000 ml @ 20 mls/hr IV . Q24H [facility] Rx#:[id number] fentaNYL (PF) 1,000 mcg 90.043 100 In Sodium Chloride 0.9% 80 ml @ Per Protocol IV . Q0M [facility] Rx#:[id number] propofoL 1,000 mg In 282.11 388.358 500 Empty Bag 1 bag @ Titrate IV .Q0M [facility] Rx#: [id number] Tube Feeding 252 42 210 Other 90 150 Output: Urine 1475 1785 1265 Other: Voiding Method Indwelling Catheter Indwelling Catheter Indwelling Catheter # Bowel Movements 0 ABP, PAP, CO, CI - Last Documented Arterial Blood Pressure 113/61 - Exam In general patient is intubated sedated maintained on mechanical ventilation he is in the prone position HEENT head normocephalic and atraumatic Neck is supple no JVD no goiter no lymphadenopathy Chest exam reveals fine crackles in both lung holden no wheezing Cardiac exam reveals regular heart sounds S1 and S2 no gallops no murmurs Abdomen is soft nontender no organomegaly with normal bowel sounds Extremity exam reveals minimal edema no cyanosis or clubbing Neurological examination reveals no gross focal neurological deficit - Labs CBC & Chem 7: 06/18/20 05:30 06/18/20 06:00 Labs: Abnormal Lab Results - Last 24 Hours (Table) 06/15/20 06/16/20 06/17/20 Range/Units 04:15 05:00 23:40 WBC (3.8-10.6) k/uL RBC (4.30-5.90) m/uL Hgb (13.0-17.5) gm/dL Hct (39.0-53.0) % Neutrophils # (Manual) (1.3-7.7) k/uL Lymphocytes # (Manual) (1.0-4.8) k/uL Myelocytes # (Manual) (0) k/uL ABG pCO2 (35-45) mmHg ABG pO2 (83-108) mmHg ABG HCO3 (21-25) mmol/L ABG Total CO2 (19-24) mmol/L ABG O2 Saturation (94-97) % Sodium (137-145) mmol/L Chloride (98-107) mmol/L Carbon Dioxide (22-30) mmol/L BUN (9-20) mg/dL Glucose (74-99) mg/dL POC Glucose (mg/dL) 227 H (75-99) mg/dL Calcium (8.4-10.2) mg/dL Ferritin (22.0-322.0) ng/mL Total Bilirubin (0.2-1.3) mg/dL AST (17-59) U/L ALT (4-49) U/L LD Isoenzymes 713 H 353 H (120-250) U/L LD 1 13 L 13 L (19-38) % LD 2 25 L 28 L (30-43) % LD 4 14 H 14 H (3-12) % LD 5 28 H 24 H (3-14) % C-Reactive Protein (<10.0) mg/L Total Protein (6.3-8.2) g/dL Albumin (3.5-5.0) g/dL 06/18/20 06/18/20 06/18/20 Range/Units 05:14 05:30 05:41 WBC 11.9 H (3.8-10.6) k/uL RBC 3.54 L (4.30-5.90) m/uL Hgb 10.8 L (13.0-17.5) gm/dL Hct 33.2 L (39.0-53.0) % Neutrophils # (Manual) 10.40 H (1.3-7.7) k/uL Lymphocytes # (Manual) 0.83 L (1.0-4.8) k/uL Myelocytes # (Manual) 0.24 H (0) k/uL ABG pCO2 53 H (35-45) mmHg ABG pO2 58 L* (83-108) mmHg ABG HCO3 37 H (21-25) mmol/L ABG Total CO2 39 H (19-24) mmol/L ABG O2 Saturation 90.6 L (94-97) % Sodium (137-145) mmol/L Chloride (98-107) mmol/L Carbon Dioxide (22-30) mmol/L BUN (9-20) mg/dL Glucose (74-99) mg/dL POC Glucose (mg/dL) 227 H (75-99) mg/dL Calcium (8.4-10.2) mg/dL Ferritin (22.0-322.0) ng/mL Total Bilirubin (0.2-1.3) mg/dL AST (17-59) U/L ALT (4-49) U/L LD Isoenzymes (120-250) U/L LD 1 (19-38) % LD 2 (30-43) % LD 4 (3-12) % LD 5 (3-14) % C-Reactive Protein (<10.0) mg/L Total Protein (6.3-8.2) g/dL Albumin (3.5-5.0) g/dL 06/18/20 06/18/20 06/18/20 Range/Units 06:00 11:51 17:32 WBC (3.8-10.6) k/uL RBC (4.30-5.90) m/uL Hgb (13.0-17.5) gm/dL Hct (39.0-53.0) % Neutrophils # (Manual) (1.3-7.7) k/uL Lymphocytes # (Manual) (1.0-4.8) k/uL Myelocytes # (Manual) (0) k/uL ABG pCO2 (35-45) mmHg ABG pO2 (83-108) mmHg ABG HCO3 (21-25) mmol/L ABG Total CO2 (19-24) mmol/L ABG O2 Saturation (94-97) % Sodium 150 H (137-145) mmol/L Chloride 113 H (98-107) mmol/L Carbon Dioxide 39 H (22-30) mmol/L BUN 33 H (9-20) mg/dL Glucose 223 H (74-99) mg/dL POC Glucose (mg/dL) 215 H 219 H (75-99) mg/dL Calcium 7.3 L (8.4-10.2) mg/dL Ferritin 5412.7 H (22.0-322.0) ng/mL Total Bilirubin 1.6 H (0.2-1.3) mg/dL AST 308 H (17-59) U/L ALT 455 H (4-49) U/L LD Isoenzymes (120-250) U/L LD 1 (19-38) % LD 2 (30-43) % LD 4 (3-12) % LD 5 (3-14) % C-Reactive Protein 15.1 H (<10.0) mg/L Total Protein 5.1 L (6.3-8.2) g/dL Albumin 2.4 L (3.5-5.0) g/dL Microbiology - Last 24 Hours (Table) 06/14/20 03:20 Blood Culture - Preliminary Blood No Growth after 96 hours Assessment and Plan Plan: 1. COVID-19, Bilateral pneumonia, started on IV Decadron and IV Remdesevir 2. Acute on chronic hypoxic and hypercapnic respiratory failure requiring mechanical ventilation 3. Hyponatremia, on IV normal saline 4. Elevated d-dimer, started on SQ Lovenox 5. underlying history of depression 6. Underlying history of asthma At this time patient is in ICU, pulmonary critical care following
[2020-06-18] MEDS: CEFEPIME 2 GM in SODIUM CHLORIDE 0.9% 100 ML IVPB SCH (19:55)
[2020-06-18] MEDS: INSULIN DETEMIR (LEVEMIR) 100 UNIT/ML SYR SQ SCH (20:28)
[2020-06-19 00:01] LABS: Glucose,Whole Blood 196 mg/dL (75-99)
[2020-06-19] MEDS: INSULIN ASPART (NovoLOG) 100 UNIT/ML VIAL SQ SCH ×4 (00:10→17:18)
[2020-06-19] MEDS: ALBUTEROL HFA INHALER INHALATION SCH ×7 (00:57→23:48)
[2020-06-19] MEDS: fentaNYL (PF) 1,000 MCG in SODIUM CHLORIDE 0.9% 80 ML IV SCH ×3 (02:46→13:57)
[2020-06-19] MEDS: ACETAMINOPHEN TAB 325 MG TAB PO PRN (04:00)
[2020-06-19 05:03] LABS: Glucose,Whole Blood 207 mg/dL (75-99)
[2020-06-19] MEDS: methylPREDNISolone SOD SUCCI 125 MG/2 ML VIAL IV SCH ×3 (05:08→17:17)
[2020-06-19 05:39] LABS: ABG Base Excess 13.4 mmol/L; ABG HCO3 37 mmol/L (21-25); ABG Oxygen Saturation 97.1 % (94-97); ABG PCO2 48 mmHg (35-45); ABG PH 7.49 (7.35-7.45); ABG PO2 84 mmHg (83-108); ABG TCO2 38 mmol/L (19-24)
[2020-06-19 05:41] LABS: HCT 32.2 % (39.0-53.0); HGB 10.7 gm/dL (13.0-17.5); MCH 30.8 pg (25.0-35.0); MCHC 33.2 g/dL (31.0-37.0); MCV 92.6 fL (80.0-100.0); Mean Platelet Volume 7.4; Platelet Count 179 k/uL (150-450); RBC 3.47 m/uL (4.30-5.90); RDW 13.2 % (11.5-15.5); WBC 12.4 k/uL (3.8-10.6)
[2020-06-19 05:54] LABS: ALT 549 U/L (4-49); AST 297 U/L (17-59); African American GFR (CKD) >90 (>60 ml/min/1.73 sqM); Albumin 2.4 g/dL (3.5-5.0); Alkaline Phosphatase 61 U/L (38-126); Anion Gap -2 mmol/L; Blood Urea Nitrogen 33 mg/dL (9-20); C Reactive Protein 12.9 mg/L (<10.0); Calcium 7.6 mg/dL (8.4-10.2); Carbon Dioxide 39 mmol/L (22-30); Chloride 109 mmol/L (98-107); Creatine Kinase 60 U/L (55-170); Glucose 206 mg/dL (74-99); Non-African American GFR(CKD) >90 (>60 ml/min/1.73 sqM); Potassium 4.4 mmol/L (3.5-5.1); Sodium 146 mmol/L (137-145); Total Bilirubin 2.7 mg/dL (0.2-1.3); Total Protein 5.3 g/dL (6.3-8.2)
--- NOTE | 2020-06-19 07:42 | XR ---
EXAMINATION TYPE: XR chest 1V portable DATE OF EXAM: 06/19/2020 COMPARISON: Prior chest x-ray 06/18/2020 HISTORY: Intubated TECHNIQUE: Single frontal view of the chest is obtained. FINDINGS: Endotracheal tube and orogastric tube, left greater than central venous catheter are stabl e. There is no evident pneumothorax or pleural effusion. Patchy bibasilar density is noted. There may be some slight improvement in aeration a candidate for differences in technique. Cardiac mediastinal silhouette, pulmonary vascularity and jose miguel are stable. IMPRESSION: Correlate for pneumonia, edema, there may be some slight interval improvement in aeratio n.
[2020-06-19] MEDS: ASCORBIC ACID 500 MG TAB PO SCH (08:08)
[2020-06-19] MEDS: ZINC SULFATE 220 MG CAP PO SCH (08:08)
[2020-06-19] MEDS: FLUoxetine HCL 20 MG CAP PO SCH (08:08)
[2020-06-19] MEDS: CHOLECALCIFEROL 1,000 UNIT TAB PO SCH (08:08)
[2020-06-19] MEDS: CEFEPIME 2 GM in SODIUM CHLORIDE 0.9% 100 ML IVPB SCH ×2 (08:09→20:00)
[2020-06-19] MEDS: FUROSEMIDE 10 MG/ML 4 ML VIAL IV SCH (08:09)
[2020-06-19] MEDS: PANTOPRAZOLE 40 MG/10 ML VIAL IVP SCH (08:09)
[2020-06-19] MEDS: ENOXAPARIN 60 MG/0.6 ML SYRINGE SQ SCH ×2 (08:09→20:23)
[2020-06-19] MEDS: CHLORHEXIDINE GLUCONATE 15 ML CUP MUCOUS MEM SCH ×2 (08:09→19:59)
--- NOTE | 2020-06-19 08:34 | P.PN ---
Subjective Progress Note Date: 06/19/20 49-year-old male patient admitted on 06/09/2024 acute hypoxic respiratory failure secondary to COVID 19 pneumonia. The patient was treated with a combination ofsteroids and Remdesivir and convalescent plasma and despite that the patient developed worsening in a patient requiring intubation mechanical celestine tilation on 06/13/2020. The patient remains intubated on a mechanical ventilator. The patient is currently on assist control mode rate of 34 with a tidal volume of 450 and FiO2 of 50% with a PEEP of 15. Patient is currently sedated and paralyzed. Propofol is running at 75 g per KG per minute and the patient is also on Nimbex at 3 mcg/kg per minute. The patient on IV fluids with normal saline today to 120 mL an hour. The patient is receiving enteral feeding for nutritional support with vital high protein at the rate is 21cc an hour. The patient was being prone to episodically for oxygenation related issues and the patient's PEEP has been cut down to 15. The patient is currently on Cl eviprex for blood pressure control at more milligram an hour. He is on Levemir insulin 8 units along with a sliding scale coverage. Patient is currently off IV heparin as the patient developed a hematoma the triple-lumen insertion site.no signs of any acute bleeding and hemoglobin is stable for now. There was some drop in hemoglobin to 10.7 from 12.5. The chest x-ray from today showing infiltration of the lung bases right base more than the left. ET tube is in a good location. The patient has an NG tube which is in the stomach and no other acute abnormalities have been noted. The blood gases from today showed a pH of 7.44 with a pCO2 of 55 and pO2 of 80. The sodium level is up to 148 and a serum bicarb is 39. The patient is currently receiving IV fluids0.9 at 1 20 mL an hour.I noted that the patient's hematoma over the left subclavian triple-lumen catheter is soft and has not progressed. Patient d-dimer was quite elevated and a rather put him back on anticoagulation with half a dose of Lovenox half a milligram per KG twice a day. Monitor the hematoma and the hemoglobin for now. On today's evaluation of 06/18/2020, the patient remains sedated and paralyzed. Propofol is running at75 mcg/kg per minute and Nimbex is running at 3 mcg/kg per minute. The patient remains on a mechanical ventilator. I had to add sentinel as the patient was becoming hypertensive and I thought there was a component of pain ongoing with his symptoms. Meanwhile, the patient is an assist-control mode with a tidal volume of 450 with a rate of 34 and repeat currently is at 15 with a FiO2 of 50%. I attempted to The PEEP Yesterday and It Failed As the Patient Became more hypoxic. The patient for now based on a mechanical ventilator. Chest x-ray from today showing a new consolidation and effusion in the right lower lung area. A superinfection is to be considered at this point in time. The patient had an elevated d-dimer. He remains on a Lovenox that was started yesterday. I'm still monitoring the hematoma in his left triple- lumen catheter site and there is no interval worsening of the patient's hemoglobin is stable at 10.8. The patient currently is on Lovenox at a dose of 60 mg every 12 hours. No fever. He is receiving enteral feeding for nutritional support. Blood pressure is controlled and the patient is not taking any drips for now. He is receiving enteral feeding for nutritional support. He is in the form of vital high protein at the rate of 21 mL an hour.his sodium level is up to 150 and the patient is taking 0.9 at the rate of 1 20 mL an hour. on 2019 the patient is off paralytics and he is sedated with propofol at 55 g. the patient is also on fentanyl at 1 g per KG per minute.he is well sedated for now. Is very much interested the mechanical ventilator. We were successful in removing the paralytic up this patient. The patient is still on a mechanical ventilator. Active issue forepisodes of fever that his been having with a temperature of 102. We did a fever workup on him yesterday. We will check a pro-calcitonin. Came back at 0.16. The patient also had a sputum culture that is still pending. He was started on IV cefepime. He was given a dose of Lasix with a negative fluid balance of 1.2 L over the past 24 hours. The patient currently is on a mechanical ventilator. This morning he is an assist-control at the rate of 34 with a tidal volume of 450 and FiO2 of 50% with a PEEP of 15. The blood gases from today showed a pH of 7.49 with a pCO2 of 48 and pO2 of 84. His chest x-ray showing some improvement of the right lower lobe consolidation. His right hemidiaphragm is rather visualized. His white cell count is at 12.4 receiving enteral feeding for nutritional support in the form of vital high protein. His daughter 21 hour. She is IV fluid maintenance is at 20 mL an hour. Objective - Vital Signs Vital signs: Vital Signs Temp 100 F H 06/19/20 08:00 Pulse 58 L 06/19/20 08:00 Resp 35 H 06/19/20 08:00 BP 159/86 06/19/20 08:00 Pulse Ox 95 06/19/20 08:00 Intake & Output 06/18/20 06/19/20 06/19/20 18:59 06:59 18:59 Intake Total 1697.012 8286.269 174 Output Total 2465 1975 150 Balance -569.753 -679.731 24 Weight 122.5 kg Intake: IV 353 299 23 Sodium Chloride 0.9% 1, 320 260 20 000 ml @ 20 mls/hr IV . Q24H [facility] Rx#:[id number] pressure bag 33 39 3 Intake, IV Titration 1161.247 582.269 100 Amount Cefepime 2 gm In Sodium 100 Chloride 0.9% 100 ml @ 200 mls/hr IVPB ONCE ONE Rx#:[id number] Cefepime 2 gm In Sodium 100 Chloride 0.9% 100 ml @ 25 mls/hr IVPB Q12HR [facility] Rx #:[id number] Cisatracurium 200 mg In 137.9 Sodium Chloride 0.9% 180 ml @ 1 MCG/KG/MIN 7.2 mls /hr IV .Q24H [facility] Rx#: [id number] Sodium Chloride 0.9% 1, 120 000 ml @ 20 mls/hr IV . Q24H [facility] Rx#:[id number] fentaNYL (PF) 1,000 mcg 194.407 99.365 In Sodium Chloride 0.9% 80 ml @ Per Protocol IV . Q0M [facility] Rx#:[id number] propofoL 1,000 mg In 608.94 382.904 100 Empty Bag 1 bag @ Titrate IV .Q0M [facility] Rx#: [id number] Tube Feeding 231 294 21 Other 150 120 30 Output: Urine 2465 1975 150 Other: Voiding Method Indwelling Catheter Indwelling Catheter # Bowel Movements 0 ABP, PAP, CO, CI - Last Documented Arterial Blood Pressure 147/81 - Exam GENERAL EXAM: Intubated, sedated, paralyzed 49-year-old gentleman currently on mechanical ventilator HEAD: Normocephalic. EYES: Sluggish reaction of pupils, equal size. NOSE: Clear with pink turbinates. THROAT: Oral endotracheal and gastric tube secured in place. No erythema or exudates. NECK: No masses, no JVD. CHEST: No chest wall deformity. LUNGS: Equal air entry with bilateral scattered rhonchi. CVS: S1 and S2 normal with no audible murmur, regular rhythm. ABDOMEN: No hepatosplenomegaly, normal bowel sounds, no guarding or rigidity. SPINE: No scoliosis or deformity SKIN: No rashes CENTRAL NERVOUS SYSTEM: Sedated, paralyzed. Tone is normal in all 4 extremities. EXTREMITIES: There is trace peripheral edema. No clubbing, no cyanosis. Peripheral pulses are intact. - Labs CBC & Chem 7: 06/19/20 05:00 06/19/20 05:00 Labs: Abnormal Lab Results - Last 24 Hours (Table) 06/15/20 06/16/20 06/18/20 Range/Units 04:15 05:00 06:00 WBC (3.8-10.6) k/uL RBC (4.30-5.90) m/uL Hgb (13.0-17.5) gm/dL Hct (39.0-53.0) % ABG pH (7.35-7.45) ABG pCO2 (35-45) mmHg ABG HCO3 (21-25) mmol/L ABG Total CO2 (19-24) mmol/L ABG O2 Saturation (94-97) % Sodium (137-145) mmol/L Chloride (98-107) mmol/L Carbon Dioxide (22-30) mmol/L BUN (9-20) mg/dL Glucose (74-99) mg/dL POC Glucose (mg/dL) (75-99) mg/dL Calcium (8.4-10.2) mg/dL Ferritin 5412.7 H (22.0-322.0) ng/mL Total Bilirubin (0.2-1.3) mg/dL AST (17-59) U/L ALT (4-49) U/L LD Isoenzymes 713 H 353 H (120-250) U/L LD 1 13 L 13 L (19-38) % LD 2 25 L 28 L (30-43) % LD 4 14 H 14 H (3-12) % LD 5 28 H 24 H (3-14) % C-Reactive Protein (<10.0) mg/L Total Protein (6.3-8.2) g/dL Albumin (3.5-5.0) g/dL Procalcitonin (0.02-0.09) ng/mL 06/18/20 06/18/20 06/18/20 Range/Units 11:51 13:30 17:32 WBC (3.8-10.6) k/uL RBC (4.30-5.90) m/uL Hgb (13.0-17.5) gm/dL Hct (39.0-53.0) % ABG pH (7.35-7.45) ABG pCO2 (35-45) mmHg ABG HCO3 (21-25) mmol/L ABG Total CO2 (19-24) mmol/L ABG O2 Saturation (94-97) % Sodium (137-145) mmol/L Chloride (98-107) mmol/L Carbon Dioxide (22-30) mmol/L BUN (9-20) mg/dL Glucose (74-99) mg/dL POC Glucose (mg/dL) 215 H 219 H (75-99) mg/dL Calcium (8.4-10.2) mg/dL Ferritin (22.0-322.0) ng/mL Total Bilirubin (0.2-1.3) mg/dL AST (17-59) U/L ALT (4-49) U/L LD Isoenzymes (120-250) U/L LD 1 (19-38) % LD 2 (30-43) % LD 4 (3-12) % LD 5 (3-14) % C-Reactive Protein (<10.0) mg/L Total Protein (6.3-8.2) g/dL Albumin (3.5-5.0) g/dL Procalcitonin 0.16 H (0.02-0.09) ng/mL 06/19/20 06/19/20 06/19/20 Range/Units 00:00 05:00 05:00 WBC 12.4 H (3.8-10.6) k/uL RBC 3.47 L (4.30-5.90) m/uL Hgb 10.7 L (13.0-17.5) gm/dL Hct 32.2 L (39.0-53.0) % ABG pH (7.35-7.45) ABG pCO2 (35-45) mmHg ABG HCO3 (21-25) mmol/L ABG Total CO2 (19-24) mmol/L ABG O2 Saturation (94-97) % Sodium 146 H (137-145) mmol/L Chloride 109 H (98-107) mmol/L Carbon Dioxide 39 H (22-30) mmol/L BUN 33 H (9-20) mg/dL Glucose 206 H (74-99) mg/dL POC Glucose (mg/dL) 196 H (75-99) mg/dL Calcium 7.6 L (8.4-10.2) mg/dL Ferritin (22.0-322.0) ng/mL Total Bilirubin 2.7 H (0.2-1.3) mg/dL AST 297 H (17-59) U/L ALT 549 H (4-49) U/L LD Isoenzymes (120-250) U/L LD 1 (19-38) % LD 2 (30-43) % LD 4 (3-12) % LD 5 (3-14) % C-Reactive Protein 12.9 H (<10.0) mg/L Total Protein 5.3 L (6.3-8.2) g/dL Albumin 2.4 L (3.5-5.0) g/dL Procalcitonin (0.02-0.09) ng/mL 06/19/20 06/19/20 Range/Units 05:02 05:33 WBC (3.8-10.6) k/uL RBC (4.30-5.90) m/uL Hgb (13.0-17.5) gm/dL Hct (39.0-53.0) % ABG pH 7.49 H (7.35-7.45) ABG pCO2 48 H (35-45) mmHg ABG HCO3 37 H (21-25) mmol/L ABG Total CO2 38 H (19-24) mmol/L ABG O2 Saturation 97.1 H (94-97) % Sodium (137-145) mmol/L Chloride (98-107) mmol/L Carbon Dioxide (22-30) mmol/L BUN (9-20) mg/dL Glucose (74-99) mg/dL POC Glucose (mg/dL) 207 H (75-99) mg/dL Calcium (8.4-10.2) mg/dL Ferritin (22.0-322.0) ng/mL Total Bilirubin (0.2-1.3) mg/dL AST (17-59) U/L ALT (4-49) U/L LD Isoenzymes (120-250) U/L LD 1 (19-38) % LD 2 (30-43) % LD 4 (3-12) % LD 5 (3-14) % C-Reactive Protein (<10.0) mg/L Total Protein (6.3-8.2) g/dL Albumin (3.5-5.0) g/dL Procalcitonin (0.02-0.09) ng/mL Microbiology - Last 24 Hours (Table) 06/14/20 03:20 Blood Culture - Preliminary Blood No Growth after 120 hours 06/18/20 15:10 Gram Stain - Preliminary Sputum Sputum Culture - Preliminary Assessment and Plan Plan: 1 Acute hypoxemic respiratory failure secondary to COVID 19 pneumonia, treated with Remdesivir and convalescent plasma. Requiring intubation and mechanical ventilatory support on 06/13/2020. Patient remains sedated and paralyzed patient requires high PEEP for oxygenation. Chest x-ray was noted. was a concern of the right lower lobe pneumonia.I started the patient on cefepime. The patient's chest x-ray is looking better on today's evaluation. Oxygenation is also stable. Chest x-ray was noted. Blood gases was noted. 2 Recent admission to the hospital with acute community-acquired right lower lobe pneumonia. 3 Elevated d-dimer, currently on Lovenox at a dose of 60 mg subcu twice a day 4 Elevated elevated inflammatory markers secondary to above including an elevated d-dimer of 11, the CRP is improving 5 History of mild intermittent chronic bronchial asthma 6 History of hypertension 7 History of depression 8 Mild transaminitis secondary to above 9 soft hematoma of the left subclavian triple-lumen catheter, unchanged 10 hyperchloremic hypernatremia currently on normal saline infusion Plan: continue vent support and attempt toWean down the PEEP down to 13 if the patient is able to tolerate. sputum Gram stain and culture negative for now, still pending Check pro calcitonin level, not much elevated IV cefepime 2 g every 12 hours Continue tube feedings discontinued IV fluids He did receive convalescent plasma and completed Remdesivir Continue IV Solu-Medrol restart Lovenox 60 mg every 12 hours Monitor the hematoma and hemoglobin is stable at 10.7 and hematoma is also stable May need to give a paralytic holiday ventilator status. Keep the sedation for now Repeat chest x-ray, labs and ABGs in a.m. fentanyl running at 1 g and propofol is on 55 g. I think should be able to give the patient a paralytic holiday today and stop it if he is able to maintain oxygenation well. We will continue to follow and make further recommendations based on his clinical status. Critically care evaluation, more than 30 minutes. Time with Patient: Greater than 30
[2020-06-19] MEDS: atenoloL 50 MG TAB PO SCH (08:43)
[2020-06-19 09:53] LABS: Band Neutrophils % 1 %; Lymphocytes # (M) 0.12 k/uL (1.0-4.8); Metamyelocytes # (M) 0.37 k/uL (0); Metamyelocytes % 3 %; Monocytes # (M) 0.37 k/uL (0-1.0); Myelocytes # (M) 0.37 k/uL (0); Myelocytes % 3 %; Neutrophils % (M) 90 %; Nucleated Red Blood Cells 0 /100 WBC (0-0); Promyelocytes # (M) 0.12 k/uL (0); Promyelocytes % 1 %; Total Cells Counted 200
[2020-06-19 09:54] LABS: Anisocytosis (M) Present; Poikilocytosis (M) Present; Toxic Granulation Present
[2020-06-19 12:11] LABS: Glucose,Whole Blood 226 mg/dL (75-99)
[2020-06-19] MEDS: CLEVIDIPINE BUTYRATE 25 MG in EMPTY BAG 1 BAG IV SCH (12:55)
[2020-06-19] MEDS: SODIUM CHLORIDE 0.9% 1,000 ML IV SCH (15:56)
[2020-06-19 17:08] LABS: Glucose,Whole Blood 213 mg/dL (75-99)
--- NOTE | 2020-06-19 17:19 | P.PN ---
Subjective Progress Note Date: 06/19/20 Dennis Beal, is a 49 year-old male, who presented to ER with of cough and shortness of breath, Covid 19 test was positive in ER . Patient was evaluated in the emergency room vital examination on presentation to emergency room revealed a temperature of 101.1 pulse 79 respiration 32 blood pressure 115/70 pulse ox 90% on BiPAP his white blood count on presentation was 10.9 C-reactive protein was elevated at 1128 patient was admitted to telemetry floor he was started on IV Decadron pulmonary consultation was requested. Patient was recently admitted with pneumonia at that time Covid 19 test was negative. He was treated with IV antibiotic he improved and he was discharged home. His past medical history is significant for history of kidney stones, history of previous episodes of pneumonia, history of asthma and COPD, and history of depression, history of hypertension. On review of system patient is alert and oriented 3 he is complaining of cough and shortness of breath with any activity otherwise he denies any complaints there is no fever or chills no headache or dizziness no chest pain no nausea or vomiting no abdominal pain no diarrhea no blood in the stools no burning with urination no frequency or urgency and no hematuria On 06/11/2020 patient was seen and examined on the medical floor he is alert and oriented 3 he is still complaining of shortness of breath he still maintained on BiPAP otherwise he denies any complaints he is maintained on IV Decadron and IV Remdesevir On 06/12/2020 patient was seen and examined on the medical floor he is alert and oriented 3 in no apparent distress he is still complaining of shortness of breath and cough he is maintained on high flow oxygen, he is still maintained on IV Decadron and IV REMDESEVIR, otherwise he denies any complaints there is no chest pain no dizziness no nausea or vomiting no abdominal pain no diarrhea and no blood in the stools no burning with urination no frequency or urgency and no hematuria On 06/13/2020 patient was seen and examined in the ICU, last night he developed tachycardia, tachypnea, and worsening shortness of breath. He was transferred to intensive care unit he was intubated sedated started on mechanical ventilation, currently patient was seen and examined in the ICU he is in the prone position maintained on mechanical ventilation. On 06/14/2020 patient was seen and examined in the ICU, he is intubated sedated maintained on mechanical ventilation, patient is maintained on IV heparin per pr otocol, he is receiving IV Solu-Medrol, he received Remdesevir, today is day #5, he also received convalesent plasma. His temperature is 98.1 pulse 97 respiration 24 blood pressure 133/68 white blood count 22.5 hemoglobin 15.5 platelet count 2:30 d-dimer more than 34 pH 7.23 pCO2 78 CO2 102 On 06/15/2020 patient was seen and examined in the ICU, he is intubated sedated maintained on mechanical ventilation, patient is maintained on IV heparin per protocol, he is receiving IV Solu-Medrol, he received Remdesevir, today is day #5, he also received convalesent plasma. His temperature is 98.1 pulse 88 respiration 24 blood pressure 120/75 white blood count 25.9 hemoglobin 15.5 platelet count 276 d-dimer 11.69 pH 7.22 pCO2 80 PO2 83 On 06/16/2020 patient was seen and examined in the ICU he is intubated sedated maintained on mechanical ventilation ABG is improving, plan today is to decrease PEEP from 20-15 and to decrease FiO2 to 50% otherwise continue with current management On 06/17/2020 patient was seen and examined in the ICU he is still intubated sedated maintained on mechanical ventilation, oxygen requirements are decreasing, PEEP is decreased today from 15-12 patient is not on any IV pressure support at this time On 06/18/2020 patient was seen and examined in the ICU he is intubated sedated maintained on mechanical ventilation, he is off Nimbex at this time he is still on assist control tidal volume 450 rate 34 PEEP of 15 chest x-ray reveals a new consolidation in the right lower lung area d-dimer is elevated and patient is maintained on Lovenox. On 06/19/2020 patient was seen and examined in the ICU he is intubated sedated maintained on mechanical ventilation, he is still on assist control tidal volume 450 rate 34 PEEP of 15 chest x-ray reveals a new consolidation in the right lower lung area ABG showed a pH of 7.49 with a pCO2 of 48 and pO2 of 84. d- dimer is elevated and patient is maintained on Lovenox Objective - Vital Signs Vital signs: Vital Signs Temp 100 F H 06/19/20 08:00 Pulse 58 L 06/19/20 08:00 Resp 35 H 06/19/20 08:00 BP 159/86 06/19/20 08:00 Pulse Ox 95 06/19/20 08:00 Intake & Output 06/18/20 06/19/20 06/19/20 18:59 06:59 18:59 Intake Total 2449.773 6075.269 244.805 Output Total 2465 1975 150 Balance -569.753 -679.731 94.805 Weight 122.5 kg Intake: IV 353 299 23 Sodium Chloride 0.9% 1, 320 260 20 000 ml @ 20 mls/hr IV . Q24H [facility] Rx#:[id number] pressure bag 33 39 3 Intake, IV Titration 1161.247 582.269 170.805 Amount Cefepime 2 gm In Sodium 100 Chloride 0.9% 100 ml @ 200 mls/hr IVPB ONCE ONE Rx#:[id number] Cefepime 2 gm In Sodium 100 Chloride 0.9% 100 ml @ 25 mls/hr IVPB Q12HR [facility] Rx #:[id number] Cisatracurium 200 mg In 137.9 Sodium Chloride 0.9% 180 ml @ 1 MCG/KG/MIN 7.2 mls /hr IV .Q24H [facility] Rx#: [id number] Sodium Chloride 0.9% 1, 120 000 ml @ 20 mls/hr IV . Q24H [facility] Rx#:[id number] fentaNYL (PF) 1,000 mcg 194.407 99.365 70.805 In Sodium Chloride 0.9% 80 ml @ Per Protocol IV . Q0M [facility] Rx#:[id number] propofoL 1,000 mg In 608.94 382.904 100 Empty Bag 1 bag @ Titrate IV .Q0M [facility] Rx#: [id number] Tube Feeding 231 294 21 Other 150 120 30 Output: Urine 2465 1975 150 Other: Voiding Method Indwelling Catheter Indwelling Catheter # Bowel Movements 0 ABP, PAP, CO, CI - Last Documented Arterial Blood Pressure 147/81 - Exam In general patient is intubated sedated maintained on mechanical ventilation he is in the prone position HEENT head normocephalic and atraumatic Neck is supple no JVD no goiter no lymphadenopathy Chest exam reveals fine crackles in both lung holden no wheezing Cardiac exam reveals regular heart sounds S1 and S2 no gallops no murmurs Abdomen is soft nontender no organomegaly with normal bowel sounds Extremity exam reveals minimal edema no cyanosis or clubbing Neurological examination reveals no gross focal neurological deficit - Labs CBC & Chem 7: 06/19/20 05:00 06/19/20 05:00 Labs: Abnormal Lab Results - Last 24 Hours (Table) 06/15/20 06/16/20 06/18/20 Range/Units 04:15 05:00 06:00 WBC (3.8-10.6) k/uL RBC (4.30-5.90) m/uL Hgb (13.0-17.5) gm/dL Hct (39.0-53.0) % Neutrophils # (Manual) (1.3-7.7) k/uL Lymphocytes # (Manual) (1.0-4.8) k/uL Metamyelocytes # (Man) (0) k/uL Myelocytes # (Manual) (0) k/uL Promyelocytes # (Man) (0) k/uL ABG pH (7.35-7.45) ABG pCO2 (35-45) mmHg ABG HCO3 (21-25) mmol/L ABG Total CO2 (19-24) mmol/L ABG O2 Saturation (94-97) % Sodium (137-145) mmol/L Chloride (98-107) mmol/L Carbon Dioxide (22-30) mmol/L BUN (9-20) mg/dL Glucose (74-99) mg/dL POC Glucose (mg/dL) (75-99) mg/dL Calcium (8.4-10.2) mg/dL Ferritin 5412.7 H (22.0-322.0) ng/mL Total Bilirubin (0.2-1.3) mg/dL AST (17-59) U/L ALT (4-49) U/L LD Isoenzymes 713 H 353 H (120-250) U/L LD 1 13 L 13 L (19-38) % LD 2 25 L 28 L (30-43) % LD 4 14 H 14 H (3-12) % LD 5 28 H 24 H (3-14) % C-Reactive Protein (<10.0) mg/L Total Protein (6.3-8.2) g/dL Albumin (3.5-5.0) g/dL Procalcitonin (0.02-0.09) ng/mL 06/18/20 06/18/20 06/18/20 Range/Units 11:51 13:30 17:32 WBC (3.8-10.6) k/uL RBC (4.30-5.90) m/uL Hgb (13.0-17.5) gm/dL Hct (39.0-53.0) % Neutrophils # (Manual) (1.3-7.7) k/uL Lymphocytes # (Manual) (1.0-4.8) k/uL Metamyelocytes # (Man) (0) k/uL Myelocytes # (Manual) (0) k/uL Promyelocytes # (Man) (0) k/uL ABG pH (7.35-7.45) ABG pCO2 (35-45) mmHg ABG HCO3 (21-25) mmol/L ABG Total CO2 (19-24) mmol/L ABG O2 Saturation (94-97) % Sodium (137-145) mmol/L Chloride (98-107) mmol/L Carbon Dioxide (22-30) mmol/L BUN (9-20) mg/dL Glucose (74-99) mg/dL POC Glucose (mg/dL) 215 H 219 H (75-99) mg/dL Calcium (8.4-10.2) mg/dL Ferritin (22.0-322.0) ng/mL Total Bilirubin (0.2-1.3) mg/dL AST (17-59) U/L ALT (4-49) U/L LD Isoenzymes (120-250) U/L LD 1 (19-38) % LD 2 (30-43) % LD 4 (3-12) % LD 5 (3-14) % C-Reactive Protein (<10.0) mg/L Total Protein (6.3-8.2) g/dL Albumin (3.5-5.0) g/dL Procalcitonin 0.16 H (0.02-0.09) ng/mL 06/19/20 06/19/20 06/19/20 Range/Units 00:00 05:00 05:00 WBC 12.4 H (3.8-10.6) k/uL RBC 3.47 L (4.30-5.90) m/uL Hgb 10.7 L (13.0-17.5) gm/dL Hct 32.2 L (39.0-53.0) % Neutrophils # (Manual) 11.20 H (1.3-7.7) k/uL Lymphocytes # (Manual) 0.12 L (1.0-4.8) k/uL Metamyelocytes # (Man) 0.37 H (0) k/uL Myelocytes # (Manual) 0.37 H (0) k/uL Promyelocytes # (Man) 0.12 H (0) k/uL ABG pH (7.35-7.45) ABG pCO2 (35-45) mmHg ABG HCO3 (21-25) mmol/L ABG Total CO2 (19-24) mmol/L ABG O2 Saturation (94-97) % Sodium 146 H (137-145) mmol/L Chloride 109 H (98-107) mmol/L Carbon Dioxide 39 H (22-30) mmol/L BUN 33 H (9-20) mg/dL Glucose 206 H (74-99) mg/dL POC Glucose (mg/dL) 196 H (75-99) mg/dL Calcium 7.6 L (8.4-10.2) mg/dL Ferritin (22.0-322.0) ng/mL Total Bilirubin 2.7 H (0.2-1.3) mg/dL AST 297 H (17-59) U/L ALT 549 H (4-49) U/L LD Isoenzymes (120-250) U/L LD 1 (19-38) % LD 2 (30-43) % LD 4 (3-12) % LD 5 (3-14) % C-Reactive Protein 12.9 H (<10.0) mg/L Total Protein 5.3 L (6.3-8.2) g/dL Albumin 2.4 L (3.5-5.0) g/dL Procalcitonin (0.02-0.09) ng/mL 06/19/20 06/19/20 Range/Units 05:02 05:33 WBC (3.8-10.6) k/uL RBC (4.30-5.90) m/uL Hgb (13.0-17.5) gm/dL Hct (39.0-53.0) % Neutrophils # (Manual) (1.3-7.7) k/uL Lymphocytes # (Manual) (1.0-4.8) k/uL Metamyelocytes # (Man) (0) k/uL Myelocytes # (Manual) (0) k/uL Promyelocytes # (Man) (0) k/uL ABG pH 7.49 H (7.35-7.45) ABG pCO2 48 H (35-45) mmHg ABG HCO3 37 H (21-25) mmol/L ABG Total CO2 38 H (19-24) mmol/L ABG O2 Saturation 97.1 H (94-97) % Sodium (137-145) mmol/L Chloride (98-107) mmol/L Carbon Dioxide (22-30) mmol/L BUN (9-20) mg/dL Glucose (74-99) mg/dL POC Glucose (mg/dL) 207 H (75-99) mg/dL Calcium (8.4-10.2) mg/dL Ferritin (22.0-322.0) ng/mL Total Bilirubin (0.2-1.3) mg/dL AST (17-59) U/L ALT (4-49) U/L LD Isoenzymes (120-250) U/L LD 1 (19-38) % LD 2 (30-43) % LD 4 (3-12) % LD 5 (3-14) % C-Reactive Protein (<10.0) mg/L Total Protein (6.3-8.2) g/dL Albumin (3.5-5.0) g/dL Procalcitonin (0.02-0.09) ng/mL Microbiology - Last 24 Hours (Table) 06/14/20 03:20 Blood Culture - Preliminary Blood No Growth after 120 hours 06/18/20 15:10 Gram Stain - Preliminary Sputum Sputum Culture - Preliminary Assessment and Plan Plan: 1. COVID-19, Bilateral pneumonia, started on IV Decadron and IV Remdesevir 2. Acute on chronic hypoxic and hypercapnic respiratory failure requiring mechanical ventilation 3. Hyponatremia, on IV normal saline 4. Elevated d-dimer, started on SQ Lovenox 5. underlying history of depression 6. Underlying history of asthma At this time patient is in ICU, pulmonary critical care following
[2020-06-19] MEDS: fentaNYL (PF) 2,500 MCG in SODIUM CHLORIDE 0.9% 200 ML IV SCH (18:17)
[2020-06-19] MEDS: INSULIN DETEMIR (LEVEMIR) 100 UNIT/ML SYR SQ SCH (20:00)
[2020-06-20] MEDS: methylPREDNISolone SOD SUCCI 125 MG/2 ML VIAL IV SCH ×5 (00:05→23:53)
[2020-06-20 00:13] LABS: Glucose,Whole Blood 220 mg/dL (75-99)
[2020-06-20] MEDS: INSULIN ASPART (NovoLOG) 100 UNIT/ML VIAL SQ SCH ×5 (00:37→23:52)
[2020-06-20] MEDS: ALBUTEROL HFA INHALER INHALATION SCH ×5 (03:38→22:18)
[2020-06-20] MEDS: ACETAMINOPHEN TAB 325 MG TAB PO PRN (04:47)
[2020-06-20 05:11] LABS: Basophils % (A) 0 %; Eosinophils # (A) 0.1 k/uL (0-0.7); Eosinophils % (A) 0 %; HGB 10.4 gm/dL (13.0-17.5); Lymphocytes # (A) 0.4 k/uL (1.0-4.8); Lymphocytes % (A) 3 %; MCH 29.2 pg (25.0-35.0); MCHC 31.6 g/dL (31.0-37.0); MCV 92.3 fL (80.0-100.0); Mean Platelet Volume 8.4; Monocytes # (A) 0.3 k/uL (0-1.0); Monocytes % (A) 2 %; Neutrophils # (A) 13.3 k/uL (1.3-7.7); Neutrophils % (A) 94 %; Platelet Count 181 k/uL (150-450); RBC 3.57 m/uL (4.30-5.90); RDW 13.4 % (11.5-15.5); WBC 14.2 k/uL (3.8-10.6)
[2020-06-20 05:13] LABS: ABG Base Excess 12.3 mmol/L; ABG HCO3 36 mmol/L (21-25); ABG Oxygen Saturation 97.6 % (94-97); ABG PCO2 49 mmHg (35-45); ABG PH 7.48 (7.35-7.45); ABG PO2 92 mmHg (83-108); ABG TCO2 37 mmol/L (19-24); Allen Test Performed? Yes
[2020-06-20 05:45] LABS: ALT 558 U/L (4-49); AST 209 U/L (17-59); African American GFR (CKD) >90 (>60 ml/min/1.73 sqM); Albumin 2.6 g/dL (3.5-5.0); Alkaline Phosphatase 60 U/L (38-126); Anion Gap -1 mmol/L; Blood Urea Nitrogen 33 mg/dL (9-20); Calcium 7.7 mg/dL (8.4-10.2); Carbon Dioxide 38 mmol/L (22-30); Chloride 107 mmol/L (98-107); Glucose 220 mg/dL (74-99); Non-African American GFR(CKD) >90 (>60 ml/min/1.73 sqM); Potassium 4.6 mmol/L (3.5-5.1); Sodium 144 mmol/L (137-145); Total Bilirubin 2.4 mg/dL (0.2-1.3); Total Protein 5.4 g/dL (6.3-8.2)
[2020-06-20] MEDS: PANTOPRAZOLE 40 MG/10 ML VIAL IVP SCH (08:13)
[2020-06-20] MEDS: ZINC SULFATE 220 MG CAP PO SCH (08:13)
[2020-06-20] MEDS: CHLORHEXIDINE GLUCONATE 15 ML CUP MUCOUS MEM SCH ×2 (08:13→19:58)
[2020-06-20] MEDS: FLUoxetine HCL 20 MG CAP PO SCH (08:13)
[2020-06-20] MEDS: FUROSEMIDE 10 MG/ML 4 ML VIAL IV SCH (08:14)
[2020-06-20] MEDS: ENOXAPARIN 60 MG/0.6 ML SYRINGE SQ SCH ×2 (08:14→21:12)
[2020-06-20] MEDS: ASCORBIC ACID 500 MG TAB PO SCH (08:14)
[2020-06-20] MEDS: CEFEPIME 2 GM in SODIUM CHLORIDE 0.9% 100 ML IVPB SCH ×2 (08:14→19:58)
[2020-06-20] MEDS: CHOLECALCIFEROL 1,000 UNIT TAB PO SCH (08:14)
[2020-06-20] MEDS: CLEVIDIPINE BUTYRATE 25 MG in EMPTY BAG 1 BAG IV SCH ×2 (08:45→10:25)
--- NOTE | 2020-06-20 09:08 | P.PN ---
Subjective Progress Note Date: 06/20/20 49-year-old male patient admitted on 06/09/2024 acute hypoxic respiratory failure secondary to COVID 19 pneumonia. The patient was treated with a combination ofsteroids and Remdesivir and convalescent plasma and despite that the patient developed worsening in a patient requiring intubation mechanical celestine tilation on 06/13/2020. The patient remains intubated on a mechanical ventilator. The patient is currently on assist control mode rate of 34 with a tidal volume of 450 and FiO2 of 50% with a PEEP of 15. Patient is currently sedated and paralyzed. Propofol is running at 75 g per KG per minute and the patient is also on Nimbex at 3 mcg/kg per minute. The patient on IV fluids with normal saline today to 120 mL an hour. The patient is receiving enteral feeding for nutritional support with vital high protein at the rate is 21cc an hour. The patient was being prone to episodically for oxygenation related issues and the patient's PEEP has been cut down to 15. The patient is currently on Cl eviprex for blood pressure control at more milligram an hour. He is on Levemir insulin 8 units along with a sliding scale coverage. Patient is currently off IV heparin as the patient developed a hematoma the triple-lumen insertion site.no signs of any acute bleeding and hemoglobin is stable for now. There was some drop in hemoglobin to 10.7 from 12.5. The chest x-ray from today showing infiltration of the lung bases right base more than the left. ET tube is in a good location. The patient has an NG tube which is in the stomach and no other acute abnormalities have been noted. The blood gases from today showed a pH of 7.44 with a pCO2 of 55 and pO2 of 80. The sodium level is up to 148 and a serum bicarb is 39. The patient is currently receiving IV fluids0.9 at 1 20 mL an hour.I noted that the patient's hematoma over the left subclavian triple-lumen catheter is soft and has not progressed. Patient d-dimer was quite elevated and a rather put him back on anticoagulation with half a dose of Lovenox half a milligram per KG twice a day. Monitor the hematoma and the hemoglobin for now. On today's evaluation of 06/18/2020, the patient remains sedated and paralyzed. Propofol is running at75 mcg/kg per minute and Nimbex is running at 3 mcg/kg per minute. The patient remains on a mechanical ventilator. I had to add sentinel as the patient was becoming hypertensive and I thought there was a component of pain ongoing with his symptoms. Meanwhile, the patient is an assist-control mode with a tidal volume of 450 with a rate of 34 and repeat currently is at 15 with a FiO2 of 50%. I attempted to The PEEP Yesterday and It Failed As the Patient Became more hypoxic. The patient for now based on a mechanical ventilator. Chest x-ray from today showing a new consolidation and effusion in the right lower lung area. A superinfection is to be considered at this point in time. The patient had an elevated d-dimer. He remains on a Lovenox that was started yesterday. I'm still monitoring the hematoma in his left triple- lumen catheter site and there is no interval worsening of the patient's hemoglobin is stable at 10.8. The patient currently is on Lovenox at a dose of 60 mg every 12 hours. No fever. He is receiving enteral feeding for nutritional support. Blood pressure is controlled and the patient is not taking any drips for now. He is receiving enteral feeding for nutritional support. He is in the form of vital high protein at the rate of 21 mL an hour.his sodium level is up to 150 and the patient is taking 0.9 at the rate of 1 20 mL an hour. on 2019 the patient is off paralytics and he is sedated with propofol at 55 g. the patient is also on fentanyl at 1 g per KG per minute.he is well sedated for now. Is very much interested the mechanical ventilator. We were successful in removing the paralytic up this patient. The patient is still on a mechanical ventilator. Active issue forepisodes of fever that his been having with a temperature of 102. We did a fever workup on him yesterday. We will check a pro-calcitonin. Came back at 0.16. The patient also had a sputum culture that is still pending. He was started on IV cefepime. He was given a dose of Lasix with a negative fluid balance of 1.2 L over the past 24 hours. The patient currently is on a mechanical ventilator. This morning he is an assist-control at the rate of 34 with a tidal volume of 450 and FiO2 of 50% with a PEEP of 15. The blood gases from today showed a pH of 7.49 with a pCO2 of 48 and pO2 of 84. His chest x-ray showing some improvement of the right lower lobe consolidation. His right hemidiaphragm is rather visualized. His white cell count is at 12.4 receiving enteral feeding for nutritional support in the form of vital high protein. She is IV fluid maintenance is at 20 mL an hour. 06/20/2020, the patient is still off paralytics. He is on propofol and this was being gradually weaned off and currently is on 15 mcg/kg per minute. Fentanyl is running at 2 mcg/kg/h. He has an adequate level of sedation. He remains on a mechanical ventilator. He is on assist-control at the rate of 34 with a tidal volume of 450 and FiO2 of 50% with a PEEP of 13. Pulse ox on the monitor is on 97%. he has been riding the vent over lung yesterday. The patient was placed on a lower respiratory rate of 28 and I also do not to PEEP down to 11. Follow- up blood gases to follow. Chest x-ray was done on this morning. This is to follow. Inflammatory markers are also pending from today. Meanwhile, his blood pressure is going on especially when the patient is being weaned off sedation. The patient will is on clevidipine drip for pressure control. There was a concern for a right lower lobe pneumonia. IT WAS NONELEVATED. I STARTED THE PATIENT IV CEFEPIME. HE IS STILL SPIKING TEMPERATURE and his most recent temperature was 102. He was offered scoring blankets and he was also given Tylenol. In terms of treatment, he remains on Lovenox 60 mg every 12 hours and the patient's left subclavian hematoma remains unchanged. He is on IV Solu- Medrol. He is on Lasix 40 mg on a daily basis. The neck fluid balance over the past 24 hours has been -2.0 L. the patient continues to receive enteral feeding without any major difficulties. He is on vital high protein at the rate of 30 mL an hour. IV fluids out 20 mL an hour. Objective - Vital Signs Vital signs: Vital Signs Temp 100.5 F H 06/20/20 06:00 Pulse 57 L 06/20/20 06:00 Resp 34 H 06/20/20 06:00 BP 147/77 06/20/20 06:00 Pulse Ox 96 06/20/20 06:00 Intake & Output 06/19/20 06/19/20 06/20/20 06:59 18:59 06:59 Intake Total 7199.628 6789.389 1138 Output Total 1974 2699 1909 Balance -679.731 -1251.611 -772 Weight 122.5 kg 122.5 kg 121.4 kg Intake: IV 299 233 298 Sodium Chloride 0.9% 1, 260 200 260 000 ml @ 20 mls/hr IV . Q24H ERIN Rx#:[id number] pressure bag 39 33 38 Intake, IV Titration 582.269 771.389 300 Amount Cefepime 2 gm In Sodium 100 100 100 Chloride 0.9% 100 ml @ 25 mls/hr IVPB Q12HR ERIN Rx #:[id number] fentaNYL (PF) 1,000 mcg 99.365 259.955 In Sodium Chloride 0.9% 80 ml @ Per Protocol IV . Q0M ERIN Rx#:[id number] fentaNYL (PF) 2,500 mcg 11.434 In Sodium Chloride 0.9% 200 ml @ Per Protocol IV .Q0M ERIN Rx#:[id number] propofoL 1,000 mg In 382.904 400.000 200 Empty Bag 1 bag @ Titrate IV .Q0M ERIN Rx#: [id number] Tube Feeding 294 294 420 Other 120 150 120 Output: Urine 1974 2699 1909 Other: Voiding Method Indwelling Catheter Indwelling Catheter Indwelling Catheter # Bowel Movements 0 0 ABP, PAP, CO, CI - Last Documented Arterial Blood Pressure 156/70 - Exam GENERAL EXAM: Intubated, sedated, nonparalyzed 49-year-old gentleman currently on mechanical ventilator , the patient seems to be arousable HEAD: Normocephalic. EYES: Sluggish reaction of pupils, equal size. NOSE: Clear with pink turbinates. THROAT: Oral endotracheal and gastric tube secured in place. No erythema or exudates. NECK: No masses, no JVD.stable hematoma in the left subclavian area which is unchanged compared to yesterday. CHEST: No chest wall deformity. LUNGS: Equal air entry with bilateral scattered rhonchi. CVS: S1 and S2 normal with no audible murmur, regular rhythm. ABDOMEN: No hepatosplenomegaly, normal bowel sounds, no guarding or rigidity. SPINE: No scoliosis or deformity SKIN: No rashes CENTRAL NERVOUS SYSTEM: Sedated, not paralyzed. Tone is normal in all 4 extremities.the patient is seen to be arousable. He is opening his eyes spontaneously. He grimaces to painful stimulation. He'll occasionally withdraws. His symptoms with the mechanical ventilator. Neurologic exam is nonfocal. EXTREMITIES: There is trace peripheral edema. No clubbing, no cyanosis. Peripheral pulses are intact. - Labs CBC & Chem 7: 06/20/20 04:55 06/20/20 04:55 Labs: Abnormal Lab Results - Last 24 Hours (Table) 06/19/20 06/19/20 06/19/20 Range/Units 05:00 05:00 12:09 WBC (3.8-10.6) k/uL RBC (4.30-5.90) m/uL Hgb (13.0-17.5) gm/dL Hct (39.0-53.0) % Neutrophils # (1.3-7.7) k/uL Neutrophils # (Manual) 11.20 H (1.3-7.7) k/uL Lymphocytes # (1.0-4.8) k/uL Lymphocytes # (Manual) 0.12 L (1.0-4.8) k/uL Metamyelocytes # (Man) 0.37 H (0) k/uL Myelocytes # (Manual) 0.37 H (0) k/uL Promyelocytes # (Man) 0.12 H (0) k/uL ABG pH (7.35-7.45) ABG pCO2 (35-45) mmHg ABG HCO3 (21-25) mmol/L ABG Total CO2 (19-24) mmol/L ABG O2 Saturation (94-97) % Carbon Dioxide (22-30) mmol/L BUN (9-20) mg/dL Creatinine (0.66-1.25) mg/dL Glucose (74-99) mg/dL POC Glucose (mg/dL) 226 H (75-99) mg/dL Calcium (8.4-10.2) mg/dL Ferritin 6089.0 H (22.0-322.0) ng/mL Total Bilirubin (0.2-1.3) mg/dL AST (17-59) U/L ALT (4-49) U/L Total Protein (6.3-8.2) g/dL Albumin (3.5-5.0) g/dL 06/19/20 06/20/20 06/20/20 Range/Units 17:06 00:12 04:55 WBC 14.2 H (3.8-10.6) k/uL RBC 3.57 L (4.30-5.90) m/uL Hgb 10.4 L (13.0-17.5) gm/dL Hct 33.0 L (39.0-53.0) % Neutrophils # 13.3 H (1.3-7.7) k/uL Neutrophils # (Manual) (1.3-7.7) k/uL Lymphocytes # 0.4 L (1.0-4.8) k/uL Lymphocytes # (Manual) (1.0-4.8) k/uL Metamyelocytes # (Man) (0) k/uL Myelocytes # (Manual) (0) k/uL Promyelocytes # (Man) (0) k/uL ABG pH (7.35-7.45) ABG pCO2 (35-45) mmHg ABG HCO3 (21-25) mmol/L ABG Total CO2 (19-24) mmol/L ABG O2 Saturation (94-97) % Carbon Dioxide (22-30) mmol/L BUN (9-20) mg/dL Creatinine (0.66-1.25) mg/dL Glucose (74-99) mg/dL POC Glucose (mg/dL) 213 H 220 H (75-99) mg/dL Calcium (8.4-10.2) mg/dL Ferritin (22.0-322.0) ng/mL Total Bilirubin (0.2-1.3) mg/dL AST (17-59) U/L ALT (4-49) U/L Total Protein (6.3-8.2) g/dL Albumin (3.5-5.0) g/dL 06/20/20 06/20/20 Range/Units 04:55 05:06 WBC (3.8-10.6) k/uL RBC (4.30-5.90) m/uL Hgb (13.0-17.5) gm/dL Hct (39.0-53.0) % Neutrophils # (1.3-7.7) k/uL Neutrophils # (Manual) (1.3-7.7) k/uL Lymphocytes # (1.0-4.8) k/uL Lymphocytes # (Manual) (1.0-4.8) k/uL Metamyelocytes # (Man) (0) k/uL Myelocytes # (Manual) (0) k/uL Promyelocytes # (Man) (0) k/uL ABG pH 7.48 H (7.35-7.45) ABG pCO2 49 H (35-45) mmHg ABG HCO3 36 H (21-25) mmol/L ABG Total CO2 37 H (19-24) mmol/L ABG O2 Saturation 97.6 H (94-97) % Carbon Dioxide 38 H (22-30) mmol/L BUN 33 H (9-20) mg/dL Creatinine 0.58 L (0.66-1.25) mg/dL Glucose 220 H (74-99) mg/dL POC Glucose (mg/dL) (75-99) mg/dL Calcium 7.7 L (8.4-10.2) mg/dL Ferritin (22.0-322.0) ng/mL Total Bilirubin 2.4 H (0.2-1.3) mg/dL AST 209 H (17-59) U/L ALT 558 H (4-49) U/L Total Protein 5.4 L (6.3-8.2) g/dL Albumin 2.6 L (3.5-5.0) g/dL Microbiology - Last 24 Hours (Table) 06/14/20 03:20 Blood Culture - Final Blood No Growth after 144 hours Assessment and Plan Plan: 1 Acute hypoxemic respiratory failure secondary to COVID 19 pneumonia, treated and completed Remdesivir and convalescent plasma. Requiring intubation and mechanical ventilatory support on 06/13/2020. the patient is currently off para lytics. The patient is doing better on a mechanical ventilator. I'm gradually weaning down the PEEP. On today's evaluation, I dropped the PEEP down to 11. I reviewed the blood gas. The chest x-ray is to follow. There was a concern of a right lower lobe pneumonia. The patient was started on IV cefepime. Cultures are negative. the pro-calcitonin level is low. 2 Recent admission to the hospital with acute community-acquired right lower lobe pneumonia. 3 Elevated d-dimer, currently on Lovenox at a dose of 60 mg subcu twice a day 4 Elevated elevated inflammatory markers secondary to above including an elevated d-dimer of 11, the CRP is improving 5 History of mild intermittent chronic bronchial asthma 6 History of hypertension 7 History of depression 8 Mild transaminitis secondary to above 9 soft hematoma of the left subclavian triple-lumen catheter, unchanged Plan: continue vent support and drop the PEEP down to 11 and dropped a respiratory rate down to 28 and repeated blood gases in 1 hour. sputum Gram stain and culture negative and the patient remains on IV cefepime Check pro calcitonin level, not much elevated Continue tube feedings He did receive convalescent plasma and completed Remdesivir Continue IV Solu-Medrol restart Lovenox 60 mg every 12 hours Keep the sedation and wean off the propofol and utilizes fentanyl. Ultimately he may need Precedex instead of fentanyl. Continue enteral feeding for nutritional support Recheck inflammatory markers Continue daily Lasix We'll continue to follow Critically care evaluation, more than 30 minutes. Time with Patient: Greater than 30
[2020-06-20 10:01] LABS: ABG Base Excess 11.7 mmol/L; ABG HCO3 36 mmol/L (21-25); ABG Oxygen Saturation 98.8 % (94-97); ABG PCO2 50 mmHg (35-45); ABG PH 7.46 (7.35-7.45); ABG PO2 112 mmHg (83-108); ABG TCO2 37 mmol/L (19-24); Allen Test Performed? Yes
[2020-06-20 11:48] LABS: Glucose,Whole Blood 270 mg/dL (75-99)
[2020-06-20] MEDS: fentaNYL (PF) 2,500 MCG in SODIUM CHLORIDE 0.9% 200 ML IV SCH ×2 (14:23→23:48)
[2020-06-20 17:20] LABS: Glucose,Whole Blood 227 mg/dL (75-99)
[2020-06-20] MEDS: CISATRACURIUM 200 MG in SODIUM CHLORIDE 0.9% 180 ML IV SCH (18:20)
--- NOTE | 2020-06-20 19:32 | P.PN ---
Subjective Progress Note Date: 06/20/20 Dennis Beal, is a 49 year-old male, who presented to ER with of cough and shortness of breath, Covid 19 test was positive in ER . Patient was evaluated in the emergency room vital examination on presentation to emergency room revealed a temperature of 101.1 pulse 79 respiration 32 blood pressure 115/70 pulse ox 90% on BiPAP his white blood count on presentation was 10.9 C-reactive protein was elevated at 1128 patient was admitted to telemetry floor he was started on IV Decadron pulmonary consultation was requested. Patient was recently admitted with pneumonia at that time Covid 19 test was negative. He was treated with IV antibiotic he improved and he was discharged home. His past medical history is significant for history of kidney stones, history of previous episodes of pneumonia, history of asthma and COPD, and history of depression, history of hypertension. On review of system patient is alert and oriented 3 he is complaining of cough and shortness of breath with any activity otherwise he denies any complaints there is no fever or chills no headache or dizziness no chest pain no nausea or vomiting no abdominal pain no diarrhea no blood in the stools no burning with urination no frequency or urgency and no hematuria On 06/11/2020 patient was seen and examined on the medical floor he is alert and oriented 3 he is still complaining of shortness of breath he still maintained on BiPAP otherwise he denies any complaints he is maintained on IV Decadron and IV Remdesevir On 06/12/2020 patient was seen and examined on the medical floor he is alert and oriented 3 in no apparent distress he is still complaining of shortness of breath and cough he is maintained on high flow oxygen, he is still maintained on IV Decadron and IV REMDESEVIR, otherwise he denies any complaints there is no chest pain no dizziness no nausea or vomiting no abdominal pain no diarrhea and no blood in the stools no burning with urination no frequency or urgency and no hematuria On 06/13/2020 patient was seen and examined in the ICU, last night he developed tachycardia, tachypnea, and worsening shortness of breath. He was transferred to intensive care unit he was intubated sedated started on mechanical ventilation, currently patient was seen and examined in the ICU he is in the prone position maintained on mechanical ventilation. On 06/14/2020 patient was seen and examined in the ICU, he is intubated sedated maintained on mechanical ventilation, patient is maintained on IV heparin per pr otocol, he is receiving IV Solu-Medrol, he received Remdesevir, today is day #5, he also received convalesent plasma. His temperature is 98.1 pulse 97 respiration 24 blood pressure 133/68 white blood count 22.5 hemoglobin 15.5 platelet count 2:30 d-dimer more than 34 pH 7.23 pCO2 78 CO2 102 On 06/15/2020 patient was seen and examined in the ICU, he is intubated sedated maintained on mechanical ventilation, patient is maintained on IV heparin per protocol, he is receiving IV Solu-Medrol, he received Remdesevir, today is day #5, he also received convalesent plasma. His temperature is 98.1 pulse 88 respiration 24 blood pressure 120/75 white blood count 25.9 hemoglobin 15.5 platelet count 276 d-dimer 11.69 pH 7.22 pCO2 80 PO2 83 On 06/16/2020 patient was seen and examined in the ICU he is intubated sedated maintained on mechanical ventilation ABG is improving, plan today is to decrease PEEP from 20-15 and to decrease FiO2 to 50% otherwise continue with current management On 06/17/2020 patient was seen and examined in the ICU he is still intubated sedated maintained on mechanical ventilation, oxygen requirements are decreasing, PEEP is decreased today from 15-12 patient is not on any IV pressure support at this time On 06/18/2020 patient was seen and examined in the ICU he is intubated sedated maintained on mechanical ventilation, he is off Nimbex at this time he is still on assist control tidal volume 450 rate 34 PEEP of 15 chest x-ray reveals a new consolidation in the right lower lung area d-dimer is elevated and patient is maintained on Lovenox. On 06/19/2020 patient was seen and examined in the ICU he is intubated sedated maintained on mechanical ventilation, he is still on assist control tidal volume 450 rate 34 PEEP of 15 chest x-ray reveals a new consolidation in the right lower lung area ABG showed a pH of 7.49 with a pCO2 of 48 and pO2 of 84. d- dimer is elevated and patient is maintained on Lovenox. On 06/20/2020 patient was seen and examined in the ICU he is intubated sedated maintained on mechanical ventilation assist control rate of 34 FiO2 50% PEEP was dropped from 15-13 and patient is tolerating well his pulse ox is 97% he is off Nimbex and remains on propofol he is not on any pressure support he is still having episodes of high fever Objective - Vital Signs Vital signs: Vital Signs Temp 98.4 F 06/20/20 12:00 Pulse 48 L 06/20/20 12:00 Resp 28 H 06/20/20 12:00 BP 115/62 06/20/20 12:00 Pulse Ox 94 L 06/20/20 12:00 Intake & Output 06/19/20 06/20/20 06/20/20 18:59 06:59 18:59 Intake Total 0043.886 9598 576.090 Output Total 2700 1910 2250 Balance -1251.611 -772 -1673.910 Weight 122.5 kg 121.4 kg Intake: IV 233 298 105 Sodium Chloride 0.9% 1, 200 260 90 000 ml @ 20 mls/hr IV . Q24H ERIN Rx#:[id number] pressure bag 33 38 15 Intake, IV Titration 771.389 300 321.090 Amount Cefepime 2 gm In Sodium 100 100 100 Chloride 0.9% 100 ml @ 25 mls/hr IVPB Q12HR ERIN Rx #:[id number] Clevidipine Butyrate 25 27.867 mg In Empty Bag 1 bag @ 1 MG/HR 2 mls/hr IV .Q24H ERIN Rx#:[id number] fentaNYL (PF) 1,000 mcg 259.955 In Sodium Chloride 0.9% 80 ml @ Per Protocol IV . Q0M ERIN Rx#:[id number] fentaNYL (PF) 2,500 mcg 11.434 In Sodium Chloride 0.9% 200 ml @ Per Protocol IV .Q0M ERIN Rx#:[id number] propofoL 1,000 mg In 400.000 200 193.223 Empty Bag 1 bag @ Titrate IV .Q0M ERIN Rx#: [id number] Tube Feeding 294 420 150 Other 150 120 Output: Urine 2700 1910 2250 Other: Voiding Method Indwelling Catheter Indwelling Catheter Indwelling Catheter # Bowel Movements 0 0 ABP, PAP, CO, CI - Last Documented Arterial Blood Pressure 93/53 - Exam In general patient is intubated sedated maintained on mechanical ventilation he is in the prone position HEENT head normocephalic and atraumatic Neck is supple no JVD no goiter no lymphadenopathy Chest exam reveals fine crackles in both lung holden no wheezing Cardiac exam reveals regular heart sounds S1 and S2 no gallops no murmurs Abdomen is soft nontender no organomegaly with normal bowel sounds Extremity exam reveals minimal edema no cyanosis or clubbing Neurological examination reveals no gross focal neurological deficit - Labs CBC & Chem 7: 06/20/20 04:55 06/20/20 04:55 Labs: Abnormal Lab Results - Last 24 Hours (Table) 06/19/20 06/20/20 06/20/20 Range/Units 17:06 00:12 04:55 WBC 14.2 H (3.8-10.6) k/uL RBC 3.57 L (4.30-5.90) m/uL Hgb 10.4 L (13.0-17.5) gm/dL Hct 33.0 L (39.0-53.0) % Neutrophils # 13.3 H (1.3-7.7) k/uL Lymphocytes # 0.4 L (1.0-4.8) k/uL ABG pH (7.35-7.45) ABG pCO2 (35-45) mmHg ABG pO2 (83-108) mmHg ABG HCO3 (21-25) mmol/L ABG Total CO2 (19-24) mmol/L ABG O2 Saturation (94-97) % Carbon Dioxide (22-30) mmol/L BUN (9-20) mg/dL Creatinine (0.66-1.25) mg/dL Glucose (74-99) mg/dL POC Glucose (mg/dL) 213 H 220 H (75-99) mg/dL Calcium (8.4-10.2) mg/dL Total Bilirubin (0.2-1.3) mg/dL AST (17-59) U/L ALT (4-49) U/L Total Protein (6.3-8.2) g/dL Albumin (3.5-5.0) g/dL 06/20/20 06/20/20 06/20/20 Range/Units 04:55 05:06 09:59 WBC (3.8-10.6) k/uL RBC (4.30-5.90) m/uL Hgb (13.0-17.5) gm/dL Hct (39.0-53.0) % Neutrophils # (1.3-7.7) k/uL Lymphocytes # (1.0-4.8) k/uL ABG pH 7.48 H 7.46 H (7.35-7.45) ABG pCO2 49 H 50 H (35-45) mmHg ABG pO2 112 H (83-108) mmHg ABG HCO3 36 H 36 H (21-25) mmol/L ABG Total CO2 37 H 37 H (19-24) mmol/L ABG O2 Saturation 97.6 H 98.8 H (94-97) % Carbon Dioxide 38 H (22-30) mmol/L BUN 33 H (9-20) mg/dL Creatinine 0.58 L (0.66-1.25) mg/dL Glucose 220 H (74-99) mg/dL POC Glucose (mg/dL) (75-99) mg/dL Calcium 7.7 L (8.4-10.2) mg/dL Total Bilirubin 2.4 H (0.2-1.3) mg/dL AST 209 H (17-59) U/L ALT 558 H (4-49) U/L Total Protein 5.4 L (6.3-8.2) g/dL Albumin 2.6 L (3.5-5.0) g/dL 06/20/20 Range/Units 11:47 WBC (3.8-10.6) k/uL RBC (4.30-5.90) m/uL Hgb (13.0-17.5) gm/dL Hct (39.0-53.0) % Neutrophils # (1.3-7.7) k/uL Lymphocytes # (1.0-4.8) k/uL ABG pH (7.35-7.45) ABG pCO2 (35-45) mmHg ABG pO2 (83-108) mmHg ABG HCO3 (21-25) mmol/L ABG Total CO2 (19-24) mmol/L ABG O2 Saturation (94-97) % Carbon Dioxide (22-30) mmol/L BUN (9-20) mg/dL Creatinine (0.66-1.25) mg/dL Glucose (74-99) mg/dL POC Glucose (mg/dL) 270 H (75-99) mg/dL Calcium (8.4-10.2) mg/dL Total Bilirubin (0.2-1.3) mg/dL AST (17-59) U/L ALT (4-49) U/L Total Protein (6.3-8.2) g/dL Albumin (3.5-5.0) g/dL Microbiology - Last 24 Hours (Table) 06/18/20 15:10 Gram Stain - Preliminary Sputum Sputum Culture - Preliminary Gram Neg Bacilli 06/14/20 03:20 Blood Culture - Final Blood No Growth after 144 hours Assessment and Plan Plan: 1. COVID-19, Bilateral pneumonia, started on IV Decadron and IV Remdesevir 2. Acute on chronic hypoxic and hypercapnic respiratory failure requiring mechanical ventilation 3. Hyponatremia, on IV normal saline 4. Elevated d-dimer, started on SQ Lovenox 5. underlying history of depression 6. Underlying history of asthma At this time patient is in ICU, pulmonary critical care following
[2020-06-20] MEDS: SODIUM CHLORIDE 0.9% 1,000 ML IV SCH (20:03)
[2020-06-20] MEDS: INSULIN DETEMIR (LEVEMIR) 100 UNIT/ML SYR SQ SCH (20:06)
[2020-06-20 23:48] LABS: Glucose,Whole Blood 200 mg/dL (75-99)
[2020-06-21] MEDS: ALBUTEROL HFA INHALER INHALATION SCH ×7 (00:33→23:38)
[2020-06-21 05:36] LABS: ABG Base Excess 12.3 mmol/L; ABG HCO3 36 mmol/L (21-25); ABG Oxygen Saturation 98.2 % (94-97); ABG PCO2 52 mmHg (35-45); ABG PH 7.45 (7.35-7.45); ABG PO2 97 mmHg (83-108); ABG TCO2 38 mmol/L (19-24)
[2020-06-21] MEDS: methylPREDNISolone SOD SUCCI 125 MG/2 ML VIAL IV SCH ×3 (05:38→18:36)
[2020-06-21 05:51] LABS: Basophils # (A) 0.1 k/uL (0-0.2); Basophils % (A) 1 %; Eosinophils % (A) 0 %; HCT 32.9 % (39.0-53.0); HGB 10.9 gm/dL (13.0-17.5); Lymphocytes # (A) 0.2 k/uL (1.0-4.8); Lymphocytes % (A) 1 %; MCH 30.3 pg (25.0-35.0); MCV 91.8 fL (80.0-100.0); Monocytes # (A) 0.4 k/uL (0-1.0); Monocytes % (A) 2 %; Neutrophils % (A) 96 %; Platelet Count 165 k/uL (150-450); RBC 3.58 m/uL (4.30-5.90); WBC 16.7 k/uL (3.8-10.6)
[2020-06-21 05:59] LABS: ALT 425 U/L (4-49); AST 119 U/L (17-59); African American GFR (CKD) >90 (>60 ml/min/1.73 sqM); Albumin 2.6 g/dL (3.5-5.0); Alkaline Phosphatase 67 U/L (38-126); Anion Gap -2 mmol/L; Blood Urea Nitrogen 34 mg/dL (9-20); C Reactive Protein 11.6 mg/L (<10.0); Calcium 7.9 mg/dL (8.4-10.2); Carbon Dioxide 39 mmol/L (22-30); Chloride 105 mmol/L (98-107); Glucose 233 mg/dL (74-99); Non-African American GFR(CKD) >90 (>60 ml/min/1.73 sqM); Potassium 4.6 mmol/L (3.5-5.1); Sodium 142 mmol/L (137-145); Total Protein 5.4 g/dL (6.3-8.2)
[2020-06-21] MEDS: INSULIN ASPART (NovoLOG) 100 UNIT/ML VIAL SQ SCH ×3 (06:07→18:36)
--- NOTE | 2020-06-21 07:12 | XR ---
EXAMINATION TYPE: XR chest 1V portable DATE OF EXAM: 06/21/2020 COMPARISON: 06/19/2020 INDICATION: Covid TECHNIQUE: Single frontal view of the chest is obtained. FINDINGS: The heart size is normal. The pulmonary vasculature is normal. There is a right lower lobe infiltrate which is worsening. Endotracheal tube tip is above the anthony. Left central venous catheter tips in superior vena cava re gion. Nasogastric tube transverses the thorax. IMPRESSION: 1. Worsening right lower lobe infiltrate. Some mild diffuse infiltrate remains present as well. 2. Lines and catheters discussed above
[2020-06-21] MEDS: CEFEPIME 2 GM in SODIUM CHLORIDE 0.9% 100 ML IVPB SCH ×2 (08:05→20:08)
[2020-06-21] MEDS: FUROSEMIDE 10 MG/ML 4 ML VIAL IV SCH (08:05)
[2020-06-21] MEDS: ENOXAPARIN 60 MG/0.6 ML SYRINGE SQ SCH ×2 (08:05→20:29)
[2020-06-21] MEDS: PANTOPRAZOLE 40 MG/10 ML VIAL IVP SCH (08:05)
[2020-06-21] MEDS: CHLORHEXIDINE GLUCONATE 15 ML CUP MUCOUS MEM SCH ×2 (08:05→20:08)
[2020-06-21] MEDS: FLUoxetine HCL 20 MG CAP PO SCH (08:05)
[2020-06-21] MEDS: ASCORBIC ACID 500 MG TAB PO SCH (08:05)
[2020-06-21] MEDS: ZINC SULFATE 220 MG CAP PO SCH (08:06)
[2020-06-21] MEDS: CHOLECALCIFEROL 1,000 UNIT TAB PO SCH (08:06)
[2020-06-21] MEDS: fentaNYL (PF) 2,500 MCG in SODIUM CHLORIDE 0.9% 200 ML IV SCH ×2 (09:50→20:09)
--- NOTE | 2020-06-21 10:07 | P.PN ---
Subjective Progress Note Date: 06/21/20 49-year-old male patient admitted on 06/09/2024 acute hypoxic respiratory failure secondary to COVID 19 pneumonia. The patient was treated with a combination ofsteroids and Remdesivir and convalescent plasma and despite that the patient developed worsening in a patient requiring intubation mechanical celestine tilation on 06/13/2020. The patient remains intubated on a mechanical ventilator. The patient is currently on assist control mode rate of 34 with a tidal volume of 450 and FiO2 of 50% with a PEEP of 15. Patient is currently sedated and paralyzed. Propofol is running at 75 g per KG per minute and the patient is also on Nimbex at 3 mcg/kg per minute. The patient on IV fluids with normal saline today to 120 mL an hour. The patient is receiving enteral feeding for nutritional support with vital high protein at the rate is 21cc an hour. The patient was being prone to episodically for oxygenation related issues and the patient's PEEP has been cut down to 15. The patient is currently on Cl eviprex for blood pressure control at more milligram an hour. He is on Levemir insulin 8 units along with a sliding scale coverage. Patient is currently off IV heparin as the patient developed a hematoma the triple-lumen insertion site.no signs of any acute bleeding and hemoglobin is stable for now. There was some drop in hemoglobin to 10.7 from 12.5. The chest x-ray from today showing infiltration of the lung bases right base more than the left. ET tube is in a good location. The patient has an NG tube which is in the stomach and no other acute abnormalities have been noted. The blood gases from today showed a pH of 7.44 with a pCO2 of 55 and pO2 of 80. The sodium level is up to 148 and a serum bicarb is 39. The patient is currently receiving IV fluids0.9 at 1 20 mL an hour.I noted that the patient's hematoma over the left subclavian triple-lumen catheter is soft and has not progressed. Patient d-dimer was quite elevated and a rather put him back on anticoagulation with half a dose of Lovenox half a milligram per KG twice a day. Monitor the hematoma and the hemoglobin for now. On today's evaluation of 06/18/2020, the patient remains sedated and paralyzed. Propofol is running at75 mcg/kg per minute and Nimbex is running at 3 mcg/kg per minute. The patient remains on a mechanical ventilator. I had to add sentinel as the patient was becoming hypertensive and I thought there was a component of pain ongoing with his symptoms. Meanwhile, the patient is an assist-control mode with a tidal volume of 450 with a rate of 34 and repeat currently is at 15 with a FiO2 of 50%. I attempted to The PEEP Yesterday and It Failed As the Patient Became more hypoxic. The patient for now based on a mechanical ventilator. Chest x-ray from today showing a new consolidation and effusion in the right lower lung area. A superinfection is to be considered at this point in time. The patient had an elevated d-dimer. He remains on a Lovenox that was started yesterday. I'm still monitoring the hematoma in his left triple- lumen catheter site and there is no interval worsening of the patient's hemoglobin is stable at 10.8. The patient currently is on Lovenox at a dose of 60 mg every 12 hours. No fever. He is receiving enteral feeding for nutritional support. Blood pressure is controlled and the patient is not taking any drips for now. He is receiving enteral feeding for nutritional support. He is in the form of vital high protein at the rate of 21 mL an hour.his sodium level is up to 150 and the patient is taking 0.9 at the rate of 1 20 mL an hour. on 2019 the patient is off paralytics and he is sedated with propofol at 55 g. the patient is also on fentanyl at 1 g per KG per minute.he is well sedated for now. Is very much interested the mechanical ventilator. We were successful in removing the paralytic up this patient. The patient is still on a mechanical ventilator. Active issue forepisodes of fever that his been having with a temperature of 102. We did a fever workup on him yesterday. We will check a pro-calcitonin. Came back at 0.16. The patient also had a sputum culture that is still pending. He was started on IV cefepime. He was given a dose of Lasix with a negative fluid balance of 1.2 L over the past 24 hours. The patient currently is on a mechanical ventilator. This morning he is an assist-control at the rate of 34 with a tidal volume of 450 and FiO2 of 50% with a PEEP of 15. The blood gases from today showed a pH of 7.49 with a pCO2 of 48 and pO2 of 84. His chest x-ray showing some improvement of the right lower lobe consolidation. His right hemidiaphragm is rather visualized. His white cell count is at 12.4 receiving enteral feeding for nutritional support in the form of vital high protein. She is IV fluid maintenance is at 20 mL an hour. 06/20/2020, the patient is still off paralytics. He is on propofol and this was being gradually weaned off and currently is on 15 mcg/kg per minute. Fentanyl is running at 2 mcg/kg/h. He has an adequate level of sedation. He remains on a mechanical ventilator. He is on assist-control at the rate of 34 with a tidal volume of 450 and FiO2 of 50% with a PEEP of 13. Pulse ox on the monitor is on 97%. he has been riding the vent over lung yesterday. The patient was placed on a lower respiratory rate of 28 and I also do not to PEEP down to 11. Follow- up blood gases to follow. Chest x-ray was done on this morning. This is to follow. Inflammatory markers are also pending from today. Meanwhile, his blood pressure is going on especially when the patient is being weaned off sedation. The patient will is on clevidipine drip for pressure control. There was a concern for a right lower lobe pneumonia. IT WAS NONELEVATED. I STARTED THE PATIENT IV CEFEPIME. HE IS STILL SPIKING TEMPERATURE and his most recent temperature was 102. He was offered scoring blankets and he was also given Tylenol. In terms of treatment, he remains on Lovenox 60 mg every 12 hours and the patient's left subclavian hematoma remains unchanged. He is on IV Solu- Medrol. He is on Lasix 40 mg on a daily basis. The neck fluid balance over the past 24 hours has been -2.0 L. the patient continues to receive enteral feeding without any major difficulties. He is on vital high protein at the rate of 30 mL an hour. IV fluids out 20 mL an hour. On 06/21/2020, the patient is on propofol running at 50 g and fentanyl running at 2 mcg/kg/h. He is very much synchronous with the mechanical ventilator. He is well sedated and is calm and comfortable. He is on a mechanical ventilator. He is an assist-control at the rate of 28 with a tidal volume 450 and FiO2 of 50% with a PEEP of 9. His left chest from today showed a pH of 7.45 episodes of this is a pO2 of 97. The patient has a supplement that he fractured the right lower lobe consistent with possible right lower lobe pneumonia. Note that he has also coronavirus/Covid 19 pneumonia. His sputum culture is showing gram- negative bacillus. He is currently on IV cefepime. He is still spiking epi sodic temperature of a low grade 100.1. He is on IV fluids at 20 mL an hour. He has adequate urine output. He is receiving enteral feeding for nutritional support. He is also on IV Solu-Medrol 60 mg every 6 hours. Completed Remdesivir Objective - Vital Signs Vital signs: Vital Signs Temp 100.1 F H 06/21/20 08:00 Pulse 57 L 06/21/20 09:00 Resp 28 H 06/21/20 09:00 BP 107/55 06/21/20 09:00 Pulse Ox 96 06/21/20 09:00 Intake & Output 06/20/20 06/21/20 06/21/20 18:59 06:59 18:59 Intake Total 9414.719 3812.832 541.817 Output Total 2850 1180 915 Balance -1757.716 248.832 -373.183 Weight 116.8 kg Intake: IV 255 338 46 Sodium Chloride 0.9% 1, 210 260 40 000 ml @ 20 mls/hr IV . Q24H ERIN Rx#:[id number] pressure bag 45 78 6 Intake, IV Titration 507.284 610.832 345.817 Amount Cefepime 2 gm In Sodium 100 100 Chloride 0.9% 100 ml @ 25 mls/hr IVPB Q12HR ERIN Rx #:[id number] Clevidipine Butyrate 25 27.867 mg In Empty Bag 1 bag @ 1 MG/HR 2 mls/hr IV .Q24H ERIN Rx#:[id number] fentaNYL (PF) 2,500 mcg 230.708 245.817 In Sodium Chloride 0.9% 200 ml @ Per Protocol IV .Q0M ERIN Rx#:[id number] propofoL 1,000 mg In 379.417 380.124 Empty Bag 1 bag @ Titrate IV .Q0M ERIN Rx#: [id number] Tube Feeding 330 360 60 Other 120 90 Output: Urine 2850 1180 915 Other: Voiding Method Indwelling Catheter Indwelling Catheter Indwelling Catheter # Bowel Movements 0 ABP, PAP, CO, CI - Last Documented Arterial Blood Pressure 118/61 - Exam GENERAL EXAM: Intubated, sedated, nonparalyzed 49-year-old gentleman currently on mechanical ventilator , the patient seems to be arousable HEAD: Normocephalic. EYES: Sluggish reaction of pupils, equal size. NOSE: Clear with pink turbinates. THROAT: Oral endotracheal and gastric tube secured in place. No erythema or exudates. NECK: No masses, no JVD.stable hematoma in the left subclavian area which is unchanged compared to yesterday. CHEST: No chest wall deformity. LUNGS: Equal air entry with bilateral scattered rhonchi. CVS: S1 and S2 normal with no audible murmur, regular rhythm. ABDOMEN: No hepatosplenomegaly, normal bowel sounds, no guarding or rigidity. SPINE: No scoliosis or deformity SKIN: No rashes CENTRAL NERVOUS SYSTEM: Sedated, not paralyzed. Tone is normal in all 4 extremities.the patient is seen to be arousable. He is opening his eyes spontaneously. He grimaces to painful stimulation. He'll occasionally withdraws. His symptoms with the mechanical ventilator. Neurologic exam is nonfocal. EXTREMITIES: There is trace peripheral edema. No clubbing, no cyanosis. Peripheral pulses are intact. - Labs CBC & Chem 7: 06/21/20 05:00 06/21/20 05:00 Labs: Abnormal Lab Results - Last 24 Hours (Table) 06/20/20 06/20/20 06/20/20 Range/Units 09:59 11:47 17:18 WBC (3.8-10.6) k/uL RBC (4.30-5.90) m/uL Hgb (13.0-17.5) gm/dL Hct (39.0-53.0) % Neutrophils # (1.3-7.7) k/uL Lymphocytes # (1.0-4.8) k/uL D-Dimer (<0.60) mg/L FEU ABG pH 7.46 H (7.35-7.45) ABG pCO2 50 H (35-45) mmHg ABG pO2 112 H (83-108) mmHg ABG HCO3 36 H (21-25) mmol/L ABG Total CO2 37 H (19-24) mmol/L ABG O2 Saturation 98.8 H (94-97) % Carbon Dioxide (22-30) mmol/L BUN (9-20) mg/dL Creatinine (0.66-1.25) mg/dL Glucose (74-99) mg/dL POC Glucose (mg/dL) 270 H 227 H (75-99) mg/dL Calcium (8.4-10.2) mg/dL Total Bilirubin (0.2-1.3) mg/dL AST (17-59) U/L ALT (4-49) U/L CK-MB (CK-2) (0.0-2.4) ng/mL C-Reactive Protein (<10.0) mg/L Total Protein (6.3-8.2) g/dL Albumin (3.5-5.0) g/dL 06/20/20 06/21/20 06/21/20 Range/Units 23:43 05:00 05:00 WBC 16.7 H (3.8-10.6) k/uL RBC 3.58 L (4.30-5.90) m/uL Hgb 10.9 L (13.0-17.5) gm/dL Hct 32.9 L (39.0-53.0) % Neutrophils # 16.0 H (1.3-7.7) k/uL Lymphocytes # 0.2 L (1.0-4.8) k/uL D-Dimer (<0.60) mg/L FEU ABG pH (7.35-7.45) ABG pCO2 (35-45) mmHg ABG pO2 (83-108) mmHg ABG HCO3 (21-25) mmol/L ABG Total CO2 (19-24) mmol/L ABG O2 Saturation (94-97) % Carbon Dioxide 39 H (22-30) mmol/L BUN 34 H (9-20) mg/dL Creatinine 0.61 L (0.66-1.25) mg/dL Glucose 233 H (74-99) mg/dL POC Glucose (mg/dL) 200 H (75-99) mg/dL Calcium 7.9 L (8.4-10.2) mg/dL Total Bilirubin 2.0 H (0.2-1.3) mg/dL AST 119 H (17-59) U/L ALT 425 H (4-49) U/L CK-MB (CK-2) (0.0-2.4) ng/mL C-Reactive Protein 11.6 H (<10.0) mg/L Total Protein 5.4 L (6.3-8.2) g/dL Albumin 2.6 L (3.5-5.0) g/dL 06/21/20 06/21/20 06/21/20 Range/Units 05:00 05:00 05:31 WBC (3.8-10.6) k/uL RBC (4.30-5.90) m/uL Hgb (13.0-17.5) gm/dL Hct (39.0-53.0) % Neutrophils # (1.3-7.7) k/uL Lymphocytes # (1.0-4.8) k/uL D-Dimer 6.98 H (<0.60) mg/L FEU ABG pH (7.35-7.45) ABG pCO2 52 H (35-45) mmHg ABG pO2 (83-108) mmHg ABG HCO3 36 H (21-25) mmol/L ABG Total CO2 38 H (19-24) mmol/L ABG O2 Saturation 98.2 H (94-97) % Carbon Dioxide (22-30) mmol/L BUN (9-20) mg/dL Creatinine (0.66-1.25) mg/dL Glucose (74-99) mg/dL POC Glucose (mg/dL) (75-99) mg/dL Calcium (8.4-10.2) mg/dL Total Bilirubin (0.2-1.3) mg/dL AST (17-59) U/L ALT (4-49) U/L CK-MB (CK-2) 7.8 H (0.0-2.4) ng/mL C-Reactive Protein (<10.0) mg/L Total Protein (6.3-8.2) g/dL Albumin (3.5-5.0) g/dL Microbiology - Last 24 Hours (Table) 06/18/20 15:10 Gram Stain - Preliminary Sputum Sputum Culture - Preliminary Gram Neg Bacilli 06/14/20 03:20 Blood Culture - Final Blood No Growth after 144 hours Assessment and Plan Plan: 1 Acute hypoxemic respiratory failure secondary to COVID 19 pneumonia, treated and completed Remdesivir and convalescent plasma. Requiring intubation and mechanical ventilatory support on 06/13/2020. the patient is currently off paralytics. The patient is doing better on a mechanical ventilator. IIs a concern for right lower lobe pneumonia with gram-negative bacillus. The patient is currently on IV cefepime. Oxidation is improved and the patient is weaning off his PEEP. I'm hoping that should be able to cut it down further on today's evaluation this enlargement on his pulse ox in his oxygen saturation. 2 Recent admission to the hospital with acute community-acquired right lower lobe pneumonia. 3 Elevated d-dimer, currently on Lovenox at a dose of 60 mg subcu twice a day 4 Elevated elevated inflammatory markers secondary to above including an elevated d-dimer of 11, the CRP is improving 5 History of mild intermittent chronic bronchial asthma 6 History of hypertension 7 History of depression 8 Mild transaminitis secondary to above 9 soft hematoma of the left subclavian triple-lumen catheter, unchanged Plan: Drop the PEEP down to 7. Doppler respiratory rate down to 20 The Sedation Gradually Starting with the Propofol Continue enteral feeding for nutritional support Continue IV Solu-Medrol Continue enteral feeding for nutritional support Continue Lasix 40 mg IV on a daily basis Awaiting follow-up blood gases with the above-mentioned ventilator changes. If the blood his unfavorable, I'm going to start weaning off the sedation and check his weaning parameters and assess his candidacy for further weaning. We'll continue to follow. He did receive convalescent plasma and completed Remdesivir We'll continue to follow Critically care evaluation, more than 30 minutes. Time with Patient: Greater than 30
[2020-06-21 10:26] LABS: Ferritin 3558.5 ng/mL (22.0-322.0)
[2020-06-21 11:18] LABS: ABG Base Excess 12.9 mmol/L; ABG HCO3 38 mmol/L (21-25); ABG Oxygen Saturation 98.3 % (94-97); ABG PCO2 62 mmHg (35-45); ABG PH 7.39 (7.35-7.45); ABG PO2 104 mmHg (83-108); ABG TCO2 40 mmol/L (19-24); Allen Test Performed? Yes
[2020-06-21 11:46] LABS: Glucose,Whole Blood 230 mg/dL (75-99)
--- NOTE | 2020-06-21 14:05 | P.PN ---
Subjective Progress Note Date: 06/21/20 Dennis Beal, is a 49 year-old male, who presented to ER with of cough and shortness of breath, Covid 19 test was positive in ER . Patient was evaluated in the emergency room vital examination on presentation to emergency room revealed a temperature of 101.1 pulse 79 respiration 32 blood pressure 115/70 pulse ox 90% on BiPAP his white blood count on presentation was 10.9 C-reactive protein was elevated at 1128 patient was admitted to telemetry floor he was started on IV Decadron pulmonary consultation was requested. Patient was recently admitted with pneumonia at that time Covid 19 test was negative. He was treated with IV antibiotic he improved and he was discharged home. His past medical history is significant for history of kidney stones, history of previous episodes of pneumonia, history of asthma and COPD, and history of depression, history of hypertension. On review of system patient is alert and oriented 3 he is complaining of cough and shortness of breath with any activity otherwise he denies any complaints there is no fever or chills no headache or dizziness no chest pain no nausea or vomiting no abdominal pain no diarrhea no blood in the stools no burning with urination no frequency or urgency and no hematuria On 06/11/2020 patient was seen and examined on the medical floor he is alert and oriented 3 he is still complaining of shortness of breath he still maintained on BiPAP otherwise he denies any complaints he is maintained on IV Decadron and IV Remdesevir On 06/12/2020 patient was seen and examined on the medical floor he is alert and oriented 3 in no apparent distress he is still complaining of shortness of breath and cough he is maintained on high flow oxygen, he is still maintained on IV Decadron and IV REMDESEVIR, otherwise he denies any complaints there is no chest pain no dizziness no nausea or vomiting no abdominal pain no diarrhea and no blood in the stools no burning with urination no frequency or urgency and no hematuria On 06/13/2020 patient was seen and examined in the ICU, last night he developed tachycardia, tachypnea, and worsening shortness of breath. He was transferred to intensive care unit he was intubated sedated started on mechanical ventilation, currently patient was seen and examined in the ICU he is in the prone position maintained on mechanical ventilation. On 06/14/2020 patient was seen and examined in the ICU, he is intubated sedated maintained on mechanical ventilation, patient is maintained on IV heparin per pr otocol, he is receiving IV Solu-Medrol, he received Remdesevir, today is day #5, he also received convalesent plasma. His temperature is 98.1 pulse 97 respiration 24 blood pressure 133/68 white blood count 22.5 hemoglobin 15.5 platelet count 2:30 d-dimer more than 34 pH 7.23 pCO2 78 CO2 102 On 06/15/2020 patient was seen and examined in the ICU, he is intubated sedated maintained on mechanical ventilation, patient is maintained on IV heparin per protocol, he is receiving IV Solu-Medrol, he received Remdesevir, today is day #5, he also received convalesent plasma. His temperature is 98.1 pulse 88 respiration 24 blood pressure 120/75 white blood count 25.9 hemoglobin 15.5 platelet count 276 d-dimer 11.69 pH 7.22 pCO2 80 PO2 83 On 06/16/2020 patient was seen and examined in the ICU he is intubated sedated maintained on mechanical ventilation ABG is improving, plan today is to decrease PEEP from 20-15 and to decrease FiO2 to 50% otherwise continue with current management On 06/17/2020 patient was seen and examined in the ICU he is still intubated sedated maintained on mechanical ventilation, oxygen requirements are decreasing, PEEP is decreased today from 15-12 patient is not on any IV pressure support at this time On 06/18/2020 patient was seen and examined in the ICU he is intubated sedated maintained on mechanical ventilation, he is off Nimbex at this time he is still on assist control tidal volume 450 rate 34 PEEP of 15 chest x-ray reveals a new consolidation in the right lower lung area d-dimer is elevated and patient is maintained on Lovenox. On 06/19/2020 patient was seen and examined in the ICU he is intubated sedated maintained on mechanical ventilation, he is still on assist control tidal volume 450 rate 34 PEEP of 15 chest x-ray reveals a new consolidation in the right lower lung area ABG showed a pH of 7.49 with a pCO2 of 48 and pO2 of 84. d- dimer is elevated and patient is maintained on Lovenox. On 06/20/2020 patient was seen and examined in the ICU he is intubated sedated maintained on mechanical ventilation assist control rate of 34 FiO2 50% PEEP was dropped from 15-13 and patient is tolerating well his pulse ox is 97% he is off Nimbex and remains on propofol he is not on any pressure support he is still having episodes of high fever. On 06/21/2020 patient was seen and examined in the ICU he is intubated sedated maintained on mechanical ventilation, vital examination reveals a blood pressure of 118/61 pulse 57 respiration 28, temperature 100.1 pulse ox 96% he is maintained on assist control rate of 28 tidal 4 450 FiO2 50% and PEEP of 9 patient has Covid 19 pneumonia he completed a course of fremitus severe and received 1 unit of plasma, he is also maintained on IV antibiotic cefepime for superimposed bacterial pneumonia, he is also maintained on IV Solu-Medrol and subcu Lovenox Objective - Vital Signs Vital signs: Vital Signs Temp 100.1 F H 06/21/20 08:00 Pulse 60 06/21/20 10:00 Resp 28 H 06/21/20 10:00 BP 112/63 06/21/20 10:00 Pulse Ox 96 06/21/20 10:00 Intake & Output 06/20/20 06/21/20 06/21/20 18:59 06:59 18:59 Intake Total 3736.080 9914.832 594.817 Output Total 2850 1180 1390 Balance -1757.716 248.832 -795.183 Weight 116.8 kg Intake: IV 255 338 69 Sodium Chloride 0.9% 1, 210 260 60 000 ml @ 20 mls/hr IV . Q24H [facility] Rx#:[id number] pressure bag 45 78 9 Intake, IV Titration 507.284 610.832 345.817 Amount Cefepime 2 gm In Sodium 100 100 Chloride 0.9% 100 ml @ 25 mls/hr IVPB Q12HR [facility] Rx #:[id number] Clevidipine Butyrate 25 27.867 mg In Empty Bag 1 bag @ 1 MG/HR 2 mls/hr IV .Q24H [facility] Rx#:[id number] fentaNYL (PF) 2,500 mcg 230.708 245.817 In Sodium Chloride 0.9% 200 ml @ Per Protocol IV .Q0M [facility] Rx#:[id number] propofoL 1,000 mg In 379.417 380.124 Empty Bag 1 bag @ Titrate IV .Q0M [facility] Rx#: [id number] Tube Feeding 330 360 90 Other 120 90 Output: Urine 2850 1180 1390 Other: Voiding Method Indwelling Catheter Indwelling Catheter Indwelling Catheter # Bowel Movements 0 ABP, PAP, CO, CI - Last Documented Arterial Blood Pressure 96/53 - Exam In general patient is intubated sedated maintained on mechanical ventilation he is in the prone position HEENT head normocephalic and atraumatic Neck is supple no JVD no goiter no lymphadenopathy Chest exam reveals fine crackles in both lung holden no wheezing Cardiac exam reveals regular heart sounds S1 and S2 no gallops no murmurs Abdomen is soft nontender no organomegaly with normal bowel sounds Extremity exam reveals minimal edema no cyanosis or clubbing Neurological examination reveals no gross focal neurological deficit - Labs CBC & Chem 7: 06/21/20 05:00 06/21/20 05:00 Labs: Abnormal Lab Results - Last 24 Hours (Table) 06/20/20 06/20/20 06/20/20 Range/Units 11:47 17:18 23:43 WBC (3.8-10.6) k/uL RBC (4.30-5.90) m/uL Hgb (13.0-17.5) gm/dL Hct (39.0-53.0) % Neutrophils # (1.3-7.7) k/uL Lymphocytes # (1.0-4.8) k/uL D-Dimer (<0.60) mg/L FEU ABG pCO2 (35-45) mmHg ABG HCO3 (21-25) mmol/L ABG Total CO2 (19-24) mmol/L ABG O2 Saturation (94-97) % Carbon Dioxide (22-30) mmol/L BUN (9-20) mg/dL Creatinine (0.66-1.25) mg/dL Glucose (74-99) mg/dL POC Glucose (mg/dL) 270 H 227 H 200 H (75-99) mg/dL Calcium (8.4-10.2) mg/dL Ferritin (22.0-322.0) ng/mL Total Bilirubin (0.2-1.3) mg/dL AST (17-59) U/L ALT (4-49) U/L CK-MB (CK-2) (0.0-2.4) ng/mL C-Reactive Protein (<10.0) mg/L Total Protein (6.3-8.2) g/dL Albumin (3.5-5.0) g/dL 06/21/20 06/21/20 06/21/20 Range/Units 05:00 05:00 05:00 WBC 16.7 H (3.8-10.6) k/uL RBC 3.58 L (4.30-5.90) m/uL Hgb 10.9 L (13.0-17.5) gm/dL Hct 32.9 L (39.0-53.0) % Neutrophils # 16.0 H (1.3-7.7) k/uL Lymphocytes # 0.2 L (1.0-4.8) k/uL D-Dimer (<0.60) mg/L FEU ABG pCO2 (35-45) mmHg ABG HCO3 (21-25) mmol/L ABG Total CO2 (19-24) mmol/L ABG O2 Saturation (94-97) % Carbon Dioxide 39 H (22-30) mmol/L BUN 34 H (9-20) mg/dL Creatinine 0.61 L (0.66-1.25) mg/dL Glucose 233 H (74-99) mg/dL POC Glucose (mg/dL) (75-99) mg/dL Calcium 7.9 L (8.4-10.2) mg/dL Ferritin 3558.5 H (22.0-322.0) ng/mL Total Bilirubin 2.0 H (0.2-1.3) mg/dL AST 119 H (17-59) U/L ALT 425 H (4-49) U/L CK-MB (CK-2) 7.8 H (0.0-2.4) ng/mL C-Reactive Protein 11.6 H (<10.0) mg/L Total Protein 5.4 L (6.3-8.2) g/dL Albumin 2.6 L (3.5-5.0) g/dL 06/21/20 06/21/20 Range/Units 05:00 05:31 WBC (3.8-10.6) k/uL RBC (4.30-5.90) m/uL Hgb (13.0-17.5) gm/dL Hct (39.0-53.0) % Neutrophils # (1.3-7.7) k/uL Lymphocytes # (1.0-4.8) k/uL D-Dimer 6.98 H (<0.60) mg/L FEU ABG pCO2 52 H (35-45) mmHg ABG HCO3 36 H (21-25) mmol/L ABG Total CO2 38 H (19-24) mmol/L ABG O2 Saturation 98.2 H (94-97) % Carbon Dioxide (22-30) mmol/L BUN (9-20) mg/dL Creatinine (0.66-1.25) mg/dL Glucose (74-99) mg/dL POC Glucose (mg/dL) (75-99) mg/dL Calcium (8.4-10.2) mg/dL Ferritin (22.0-322.0) ng/mL Total Bilirubin (0.2-1.3) mg/dL AST (17-59) U/L ALT (4-49) U/L CK-MB (CK-2) (0.0-2.4) ng/mL C-Reactive Protein (<10.0) mg/L Total Protein (6.3-8.2) g/dL Albumin (3.5-5.0) g/dL Microbiology - Last 24 Hours (Table) 06/18/20 15:10 Gram Stain - Preliminary Sputum Sputum Culture - Preliminary Gram Neg Bacilli Assessment and Plan Plan: 1. COVID-19, Bilateral pneumonia, started on IV Decadron and IV Remdesevir 2. Acute on chronic hypoxic and hypercapnic respiratory failure requiring mechanical ventilation 3. Hyponatremia, on IV normal saline 4. Elevated d-dimer, started on SQ Lovenox 5. underlying history of depression 6. Underlying history of asthma At this time patient is in ICU, pulmonary critical care following
[2020-06-21] MEDS: CISATRACURIUM 200 MG in SODIUM CHLORIDE 0.9% 180 ML IV SCH (16:07)
[2020-06-21] MEDS: SODIUM CHLORIDE 0.9% 1,000 ML IV SCH (16:09)
[2020-06-21 16:37] LABS: LD Isoenzymes 1 8 % (19-38); LD Isoenzymes 2 22 % (30-43); LD Isoenzymes 3 18 % (16-26); LD Isoenzymes 4 12 % (3-12); LD Isoenzymes 5 40 % (3-14); Lactacte Dehydrogenase(LD) ISO 430 U/L (120-250)
[2020-06-21 16:37] LABS: LD Isoenzymes 1 8 % (19-38); LD Isoenzymes 2 17 % (30-43); LD Isoenzymes 3 16 % (16-26); LD Isoenzymes 4 13 % (3-12); LD Isoenzymes 5 46 % (3-14); Lactacte Dehydrogenase(LD) ISO 633 U/L (120-250)
[2020-06-21 16:37] LABS: LD Isoenzymes 1 7 % (19-38); LD Isoenzymes 2 17 % (30-43); LD Isoenzymes 3 17 % (16-26); LD Isoenzymes 4 13 % (3-12); LD Isoenzymes 5 46 % (3-14); Lactacte Dehydrogenase(LD) ISO 590 U/L (120-250)
[2020-06-21 17:46] LABS: Glucose,Whole Blood 194 mg/dL (75-99)
[2020-06-21] MEDS: INSULIN DETEMIR (LEVEMIR) 100 UNIT/ML SYR SQ SCH (20:08)
[2020-06-21] MEDS: ACETAMINOPHEN TAB 325 MG TAB PO PRN (20:29)
[2020-06-21 23:47] LABS: Glucose,Whole Blood 203 mg/dL (75-99)
[2020-06-22] MEDS: methylPREDNISolone SOD SUCCI 125 MG/2 ML VIAL IV SCH ×4 (00:03→18:18)
[2020-06-22] MEDS: INSULIN ASPART (NovoLOG) 100 UNIT/ML VIAL SQ SCH ×4 (00:03→18:09)
[2020-06-22] MEDS: ALBUTEROL HFA INHALER INHALATION SCH ×5 (03:57→19:24)
[2020-06-22 05:08] LABS: Basophils % (A) 0 %; Eosinophils % (A) 0 %; HCT 33.4 % (39.0-53.0); HGB 10.6 gm/dL (13.0-17.5); Lymphocytes # (A) 0.3 k/uL (1.0-4.8); Lymphocytes % (A) 2 %; MCH 29.4 pg (25.0-35.0); MCHC 31.7 g/dL (31.0-37.0); MCV 92.8 fL (80.0-100.0); Mean Platelet Volume 8.2; Monocytes # (A) 0.4 k/uL (0-1.0); Monocytes % (A) 3 %; Neutrophils # (A) 14.4 k/uL (1.3-7.7); Neutrophils % (A) 95 %; Platelet Count 170 k/uL (150-450); RDW 13.3 % (11.5-15.5); WBC 15.2 k/uL (3.8-10.6)
[2020-06-22] MEDS: fentaNYL (PF) 2,500 MCG in SODIUM CHLORIDE 0.9% 200 ML IV SCH (05:25)
[2020-06-22 05:26] LABS: ALT 347 U/L (4-49); AST 99 U/L (17-59); African American GFR (CKD) >90 (>60 ml/min/1.73 sqM); Albumin 2.6 g/dL (3.5-5.0); Alkaline Phosphatase 73 U/L (38-126); Anion Gap -2 mmol/L; Blood Urea Nitrogen 30 mg/dL (9-20); C Reactive Protein 8.5 mg/L (<10.0); Calcium 7.7 mg/dL (8.4-10.2); Carbon Dioxide 38 mmol/L (22-30); Chloride 103 mmol/L (98-107); Glucose 216 mg/dL (74-99); LDH 1163 U/L (313-618); Non-African American GFR(CKD) >90 (>60 ml/min/1.73 sqM); Potassium 4.5 mmol/L (3.5-5.1); Sodium 139 mmol/L (137-145); Total Bilirubin 1.7 mg/dL (0.2-1.3); Total Protein 5.4 g/dL (6.3-8.2)
[2020-06-22 05:28] LABS: ABG Base Excess 12.6 mmol/L; ABG HCO3 37 mmol/L (21-25); ABG Oxygen Saturation 95.7 % (94-97); ABG PCO2 55 mmHg (35-45); ABG PH 7.43 (7.35-7.45); ABG PO2 77 mmHg (83-108); ABG TCO2 39 mmol/L (19-24); Allen Test Performed? Yes
[2020-06-22] MEDS: ZINC SULFATE 220 MG CAP PO SCH (08:27)
[2020-06-22] MEDS: FUROSEMIDE 10 MG/ML 4 ML VIAL IV SCH ×2 (08:27→08:28)
[2020-06-22] MEDS: PANTOPRAZOLE 40 MG/10 ML VIAL IVP SCH (08:27)
[2020-06-22] MEDS: FLUoxetine HCL 20 MG CAP PO SCH (08:27)
[2020-06-22] MEDS: ASCORBIC ACID 500 MG TAB PO SCH (08:27)
[2020-06-22] MEDS: CHLORHEXIDINE GLUCONATE 15 ML CUP MUCOUS MEM SCH ×2 (08:27→19:37)
[2020-06-22] MEDS: ENOXAPARIN 60 MG/0.6 ML SYRINGE SQ SCH ×2 (08:27→19:51)
[2020-06-22] MEDS: CHOLECALCIFEROL 1,000 UNIT TAB PO SCH (08:28)
--- NOTE | 2020-06-22 08:33 | P.PN ---
Subjective Progress Note Date: 06/22/20 49-year-old male patient admitted on 06/09/2024 acute hypoxic respiratory failure secondary to COVID 19 pneumonia. The patient was treated with a combination ofsteroids and Remdesivir and convalescent plasma and despite that the patient developed worsening in a patient requiring intubation mechanical celestine tilation on 06/13/2020. The patient remains intubated on a mechanical ventilator. The patient is currently on assist control mode rate of 34 with a tidal volume of 450 and FiO2 of 50% with a PEEP of 15. Patient is currently sedated and paralyzed. Propofol is running at 75 g per KG per minute and the patient is also on Nimbex at 3 mcg/kg per minute. The patient on IV fluids with normal saline today to 120 mL an hour. The patient is receiving enteral feeding for nutritional support with vital high protein at the rate is 21cc an hour. The patient was being prone to episodically for oxygenation related issues and the patient's PEEP has been cut down to 15. The patient is currently on Cl eviprex for blood pressure control at more milligram an hour. He is on Levemir insulin 8 units along with a sliding scale coverage. Patient is currently off IV heparin as the patient developed a hematoma the triple-lumen insertion site.no signs of any acute bleeding and hemoglobin is stable for now. There was some drop in hemoglobin to 10.7 from 12.5. The chest x-ray from today showing infiltration of the lung bases right base more than the left. ET tube is in a good location. The patient has an NG tube which is in the stomach and no other acute abnormalities have been noted. The blood gases from today showed a pH of 7.44 with a pCO2 of 55 and pO2 of 80. The sodium level is up to 148 and a serum bicarb is 39. The patient is currently receiving IV fluids0.9 at 1 20 mL an hour.I noted that the patient's hematoma over the left subclavian triple-lumen catheter is soft and has not progressed. Patient d-dimer was quite elevated and a rather put him back on anticoagulation with half a dose of Lovenox half a milligram per KG twice a day. Monitor the hematoma and the hemoglobin for now. On today's evaluation of 06/18/2020, the patient remains sedated and paralyzed. Propofol is running at75 mcg/kg per minute and Nimbex is running at 3 mcg/kg per minute. The patient remains on a mechanical ventilator. I had to add sentinel as the patient was becoming hypertensive and I thought there was a component of pain ongoing with his symptoms. Meanwhile, the patient is an assist-control mode with a tidal volume of 450 with a rate of 34 and repeat currently is at 15 with a FiO2 of 50%. I attempted to The PEEP Yesterday and It Failed As the Patient Became more hypoxic. The patient for now based on a mechanical ventilator. Chest x-ray from today showing a new consolidation and effusion in the right lower lung area. A superinfection is to be considered at this point in time. The patient had an elevated d-dimer. He remains on a Lovenox that was started yesterday. I'm still monitoring the hematoma in his left triple- lumen catheter site and there is no interval worsening of the patient's hemoglobin is stable at 10.8. The patient currently is on Lovenox at a dose of 60 mg every 12 hours. No fever. He is receiving enteral feeding for nutritional support. Blood pressure is controlled and the patient is not taking any drips for now. He is receiving enteral feeding for nutritional support. He is in the form of vital high protein at the rate of 21 mL an hour.his sodium level is up to 150 and the patient is taking 0.9 at the rate of 1 20 mL an hour. on 2019 the patient is off paralytics and he is sedated with propofol at 55 g. the patient is also on fentanyl at 1 g per KG per minute.he is well sedated for now. Is very much interested the mechanical ventilator. We were successful in removing the paralytic up this patient. The patient is still on a mechanical ventilator. Active issue forepisodes of fever that his been having with a temperature of 102. We did a fever workup on him yesterday. We will check a pro-calcitonin. Came back at 0.16. The patient also had a sputum culture that is still pending. He was started on IV cefepime. He was given a dose of Lasix with a negative fluid balance of 1.2 L over the past 24 hours. The patient currently is on a mechanical ventilator. This morning he is an assist-control at the rate of 34 with a tidal volume of 450 and FiO2 of 50% with a PEEP of 15. The blood gases from today showed a pH of 7.49 with a pCO2 of 48 and pO2 of 84. His chest x-ray showing some improvement of the right lower lobe consolidation. His right hemidiaphragm is rather visualized. His white cell count is at 12.4 receiving enteral feeding for nutritional support in the form of vital high protein. She is IV fluid maintenance is at 20 mL an hour. 06/20/2020, the patient is still off paralytics. He is on propofol and this was being gradually weaned off and currently is on 15 mcg/kg per minute. Fentanyl is running at 2 mcg/kg/h. He has an adequate level of sedation. He remains on a mechanical ventilator. He is on assist-control at the rate of 34 with a tidal volume of 450 and FiO2 of 50% with a PEEP of 13. Pulse ox on the monitor is on 97%. he has been riding the vent over lung yesterday. The patient was placed on a lower respiratory rate of 28 and I also do not to PEEP down to 11. Follow- up blood gases to follow. Chest x-ray was done on this morning. This is to follow. Inflammatory markers are also pending from today. Meanwhile, his blood pressure is going on especially when the patient is being weaned off sedation. The patient will is on clevidipine drip for pressure control. There was a concern for a right lower lobe pneumonia. IT WAS NONELEVATED. I STARTED THE PATIENT IV CEFEPIME. HE IS STILL SPIKING TEMPERATURE and his most recent temperature was 102. He was offered scoring blankets and he was also given Tylenol. In terms of treatment, he remains on Lovenox 60 mg every 12 hours and the patient's left subclavian hematoma remains unchanged. He is on IV Solu- Medrol. He is on Lasix 40 mg on a daily basis. The neck fluid balance over the past 24 hours has been -2.0 L. the patient continues to receive enteral feeding without any major difficulties. He is on vital high protein at the rate of 30 mL an hour. IV fluids out 20 mL an hour. On 06/21/2020, the patient is on propofol running at 50 g and fentanyl running at 2 mcg/kg/h. He is very much synchronous with the mechanical ventilator. He is well sedated and is calm and comfortable. He is on a mechanical ventilator. He is an assist-control at the rate of 28 with a tidal volume 450 and FiO2 of 50% with a PEEP of 9. His left chest from today showed a pH of 7.45 episodes of this is a pO2 of 97. The patient has a supplement that he fractured the right lower lobe consistent with possible right lower lobe pneumonia. Note that he has also coronavirus/Covid 19 pneumonia. His sputum culture is showing gram- negative bacillus. He is currently on IV cefepime. He is still spiking epi sodic temperature of a low grade 100.1. He is on IV fluids at 20 mL an hour. He has adequate urine output. He is receiving enteral feeding for nutritional support. He is also on IV Solu-Medrol 60 mg every 6 hours. Completed Remdesivir On 2019 on seeing the patient for a follow-up. He is on some good progress. I was able to wean down the patient's PEEP and this morning the patient is still in a combination of propofol and fentanyl for sedation. Nevertheless, sinus mechanical ventilated is an assist-control mode rate of 40 with a tidal volume of 450 and FiO2 of 50% with a PEEP of 5. She is blood. This from today 7.43 with a pCO2 55 and a pO2 of 77. Chest x-ray is showing stable bilateral pulmonary infiltrates. The patient is hemodynamically stable. The patient is on no pressors. His or secretions of 15.2. He was attempted 0.6. His inflammatory markers shows a LDH of 1163. His C-reactive protein is down to 8.5. Otherwise, no other significant events. Is tolerating his enteral feeding for nutritional support. There was a concern of a right lower lobe pneumonia which has improved and the patient remains on IV cefepime. He is afebrile for now. Nevertheless, the patient spiked a temperature yesterday with a fever of 101. No other significant events overnight for now. He remains on IV Solu Medrol. He has completed Remdesivir Objective - Vital Signs Vital signs: Vital Signs Temp 98.8 F 06/22/20 04:00 Pulse 65 06/22/20 07:00 Resp 20 06/22/20 07:00 BP 132/73 06/21/20 13:00 Pulse Ox 92 L 06/22/20 07:00 Intake & Output 06/21/20 06/22/20 06/22/20 18:59 06:59 18:59 Intake Total 6304.137 6578.444 74.857 Output Total 2140 1480 75 Balance -686.677 -141.556 -0.143 Weight 116.8 kg 113.7 kg Intake: IV 253 276 23 Sodium Chloride 0.9% 1, 220 240 20 000 ml @ 20 mls/hr IV . Q24H ERIN Rx#:[id number] pressure bag 33 36 3 Intake, IV Titration 738.323 774.444 27.857 Amount Cefepime 2 gm In Sodium 100 Chloride 0.9% 100 ml @ 25 mls/hr IVPB Q12HR ERIN Rx #:[id number] fentaNYL (PF) 2,500 mcg 245.817 477.033 In Sodium Chloride 0.9% 200 ml @ Per Protocol IV .Q0M ERIN Rx#:[id number] propofoL 1,000 mg In 392.506 297.411 27.857 Empty Bag 1 bag @ Titrate IV .Q0M ERIN Rx#: [id number] Tube Feeding 312 288 24 Other 150 Output: Urine 2140 1480 75 Other: Voiding Method Indwelling Catheter Indwelling Catheter ABP, PAP, CO, CI - Last Documented Arterial Blood Pressure 142/76 - Exam GENERAL EXAM: Intubated, sedated, nonparalyzed 49-year-old gentleman currently on mechanical ventilator , the patient seems to be arousable HEAD: Normocephalic. EYES: Sluggish reaction of pupils, equal size. NOSE: Clear with pink turbinates. THROAT: Oral endotracheal and gastric tube secured in place. No erythema or exudates. NECK: No masses, no JVD.stable hematoma in the left subclavian area which is unchanged compared to yesterday. CHEST: No chest wall deformity. LUNGS: Equal air entry with bilateral scattered rhonchi. CVS: S1 and S2 normal with no audible murmur, regular rhythm. ABDOMEN: No hepatosplenomegaly, normal bowel sounds, no guarding or rigidity. SPINE: No scoliosis or deformity SKIN: No rashes CENTRAL NERVOUS SYSTEM: Sedated, not paralyzed. Tone is normal in all 4 extremities.the patient is seen to be arousable. He is opening his eyes spontaneously. He grimaces to painful stimulation. He'll occasionally withdraws. His symptoms with the mechanical ventilator. Neurologic exam is nonfocal. EXTREMITIES: There is trace peripheral edema. No clubbing, no cyanosis. Peripheral pulses are intact. - Labs CBC & Chem 7: 06/22/20 04:48 06/22/20 04:48 Labs: Abnormal Lab Results - Last 24 Hours (Table) 06/17/20 06/18/20 06/19/20 Range/Units 05:25 13:30 05:00 WBC (3.8-10.6) k/uL RBC (4.30-5.90) m/uL Hgb (13.0-17.5) gm/dL Hct (39.0-53.0) % Neutrophils # (1.3-7.7) k/uL Lymphocytes # (1.0-4.8) k/uL ABG pCO2 (35-45) mmHg ABG pO2 (83-108) mmHg ABG HCO3 (21-25) mmol/L ABG Total CO2 (19-24) mmol/L ABG O2 Saturation (94-97) % Carbon Dioxide (22-30) mmol/L BUN (9-20) mg/dL Creatinine (0.66-1.25) mg/dL Glucose (74-99) mg/dL POC Glucose (mg/dL) (75-99) mg/dL Calcium (8.4-10.2) mg/dL Ferritin (22.0-322.0) ng/mL Total Bilirubin (0.2-1.3) mg/dL AST (17-59) U/L ALT (4-49) U/L Lactate Dehydrogenase (313-618) U/L LD Isoenzymes 430 H 590 H 633 H (120-250) U/L LD 1 8 L 7 L 8 L (19-38) % LD 2 22 L 17 L 17 L (30-43) % LD 4 13 H 13 H (3-12) % LD 5 40 H 46 H 46 H (3-14) % CK-MB (CK-2) (0.0-2.4) ng/mL Total Protein (6.3-8.2) g/dL Albumin (3.5-5.0) g/dL 06/21/20 06/21/20 06/21/20 Range/Units 05:00 11:16 11:43 WBC (3.8-10.6) k/uL RBC (4.30-5.90) m/uL Hgb (13.0-17.5) gm/dL Hct (39.0-53.0) % Neutrophils # (1.3-7.7) k/uL Lymphocytes # (1.0-4.8) k/uL ABG pCO2 62 H (35-45) mmHg ABG pO2 (83-108) mmHg ABG HCO3 38 H (21-25) mmol/L ABG Total CO2 40 H (19-24) mmol/L ABG O2 Saturation 98.3 H (94-97) % Carbon Dioxide (22-30) mmol/L BUN (9-20) mg/dL Creatinine (0.66-1.25) mg/dL Glucose (74-99) mg/dL POC Glucose (mg/dL) 230 H (75-99) mg/dL Calcium (8.4-10.2) mg/dL Ferritin 3558.5 H (22.0-322.0) ng/mL Total Bilirubin (0.2-1.3) mg/dL AST (17-59) U/L ALT (4-49) U/L Lactate Dehydrogenase (313-618) U/L LD Isoenzymes (120-250) U/L LD 1 (19-38) % LD 2 (30-43) % LD 4 (3-12) % LD 5 (3-14) % CK-MB (CK-2) (0.0-2.4) ng/mL Total Protein (6.3-8.2) g/dL Albumin (3.5-5.0) g/dL 06/21/20 06/21/20 06/22/20 Range/Units 17:45 23:45 04:48 WBC 15.2 H (3.8-10.6) k/uL RBC 3.60 L (4.30-5.90) m/uL Hgb 10.6 L (13.0-17.5) gm/dL Hct 33.4 L (39.0-53.0) % Neutrophils # 14.4 H (1.3-7.7) k/uL Lymphocytes # 0.3 L (1.0-4.8) k/uL ABG pCO2 (35-45) mmHg ABG pO2 (83-108) mmHg ABG HCO3 (21-25) mmol/L ABG Total CO2 (19-24) mmol/L ABG O2 Saturation (94-97) % Carbon Dioxide (22-30) mmol/L BUN (9-20) mg/dL Creatinine (0.66-1.25) mg/dL Glucose (74-99) mg/dL POC Glucose (mg/dL) 194 H 203 H (75-99) mg/dL Calcium (8.4-10.2) mg/dL Ferritin (22.0-322.0) ng/mL Total Bilirubin (0.2-1.3) mg/dL AST (17-59) U/L ALT (4-49) U/L Lactate Dehydrogenase (313-618) U/L LD Isoenzymes (120-250) U/L LD 1 (19-38) % LD 2 (30-43) % LD 4 (3-12) % LD 5 (3-14) % CK-MB (CK-2) (0.0-2.4) ng/mL Total Protein (6.3-8.2) g/dL Albumin (3.5-5.0) g/dL 06/22/20 06/22/20 06/22/20 Range/Units 04:48 04:48 05:25 WBC (3.8-10.6) k/uL RBC (4.30-5.90) m/uL Hgb (13.0-17.5) gm/dL Hct (39.0-53.0) % Neutrophils # (1.3-7.7) k/uL Lymphocytes # (1.0-4.8) k/uL ABG pCO2 55 H (35-45) mmHg ABG pO2 77 L (83-108) mmHg ABG HCO3 37 H (21-25) mmol/L ABG Total CO2 39 H (19-24) mmol/L ABG O2 Saturation (94-97) % Carbon Dioxide 38 H (22-30) mmol/L BUN 30 H (9-20) mg/dL Creatinine 0.54 L (0.66-1.25) mg/dL Glucose 216 H (74-99) mg/dL POC Glucose (mg/dL) (75-99) mg/dL Calcium 7.7 L (8.4-10.2) mg/dL Ferritin (22.0-322.0) ng/mL Total Bilirubin 1.7 H (0.2-1.3) mg/dL AST 99 H (17-59) U/L ALT 347 H (4-49) U/L Lactate Dehydrogenase 1163 H (313-618) U/L LD Isoenzymes (120-250) U/L LD 1 (19-38) % LD 2 (30-43) % LD 4 (3-12) % LD 5 (3-14) % CK-MB (CK-2) 3.8 H (0.0-2.4) ng/mL Total Protein 5.4 L (6.3-8.2) g/dL Albumin 2.6 L (3.5-5.0) g/dL Assessment and Plan Plan: 1 Acute hypoxemic respiratory failure secondary to COVID 19 pneumonia, treated and completed Remdesivir and convalescent plasma. Requiring intubation and mechanical ventilatory support on 06/13/2020. He is currently on a mechanical ventilator. He was successful in weaning down his PEEP down to 5. His chest is still showing bilateral pulmonary infiltrates related to Covid 19 related pneumonia. Nevertheless there is also a concern of a gram-negative superinfection patient is still on IV cefepime. The patient is currently doing well. He is running episodic fever still. LDH is still elevated. CRP is lupe pped. He remains on steroids. 2 Recent admission to the hospital with acute community-acquired right lower lobe pneumonia. 3 Elevated d-dimer, currently on Lovenox at a dose of 60 mg subcu twice a day 4 Elevated elevated inflammatory markers secondary to above including an elevated d-dimer of 11, the CRP is improving 5 History of mild intermittent chronic bronchial asthma 6 History of hypertension 7 History of depression 8 Mild transaminitis secondary to above 9 soft hematoma of the left subclavian triple-lumen catheter, unchanged Plan: Continue vent support. I am in the process of cutting off the sedation assessing the patient's weaning parameters and assess his readiness to wean. I think is quite anxious. While off the sedation, the patient may become very much agitated and restless. I'm going to bridge him with some Precedex. We'll perform and the fentanyl be gradually weaned off. Hold the enteral feeding as the patient is undergoing a sedation holiday Continue IV Solu-Medrol Continue Lasix 40 mg IV on a daily basis He did receive convalescent plasma and completed Remdesivir The patient remains in a negative fluid balance. He is hemodynamically stable. Possible exhibition today and this will largely depend on his mental status and his ability to recover from sedation and cooperative with the We'll continue to follow Critically care evaluation, more than 30 minutes. Time with Patient: Greater than 30
[2020-06-22] MEDS: CLEVIDIPINE BUTYRATE 25 MG in EMPTY BAG 1 BAG IV SCH ×5 (08:50→19:50)
[2020-06-22] MEDS: CEFEPIME 2 GM in SODIUM CHLORIDE 0.9% 100 ML IVPB SCH (09:06)
[2020-06-22] MEDS: DEXMEDETOMIDINE/0.9% NACL(PMX) 400 MCG in EMPTY BAG 1 BAG IV SCH ×3 (09:06→19:51)
[2020-06-22 10:33] LABS: ABG Base Excess 14.9 mmol/L; ABG HCO3 38 mmol/L (21-25); ABG PCO2 50 mmHg (35-45); ABG PH 7.49 (7.35-7.45); ABG PO2 69 mmHg (83-108); ABG TCO2 40 mmol/L (19-24); Allen Test Performed? Yes
--- NOTE | 2020-06-22 11:56 | P.PN ---
Subjective Progress Note Date: 06/22/20 Dennis Beal, is a 49 year-old male, who presented to ER with of cough and shortness of breath, Covid 19 test was positive in ER . Patient was evaluated in the emergency room vital examination on presentation to emergency room revealed a temperature of 101.1 pulse 79 respiration 32 blood pressure 115/70 pulse ox 90% on BiPAP his white blood count on presentation was 10.9 C-reactive protein was elevated at 1128 patient was admitted to telemetry floor he was started on IV Decadron pulmonary consultation was requested. Patient was recently admitted with pneumonia at that time Covid 19 test was negative. He was treated with IV antibiotic he improved and he was discharged home. His past medical history is significant for history of kidney stones, history of previous episodes of pneumonia, history of asthma and COPD, and history of depression, history of hypertension. On review of system patient is alert and oriented 3 he is complaining of cough and shortness of breath with any activity otherwise he denies any complaints there is no fever or chills no headache or dizziness no chest pain no nausea or vomiting no abdominal pain no diarrhea no blood in the stools no burning with urination no frequency or urgency and no hematuria On 06/11/2020 patient was seen and examined on the medical floor he is alert and oriented 3 he is still complaining of shortness of breath he still maintained on BiPAP otherwise he denies any complaints he is maintained on IV Decadron and IV Remdesevir On 06/12/2020 patient was seen and examined on the medical floor he is alert and oriented 3 in no apparent distress he is still complaining of shortness of breath and cough he is maintained on high flow oxygen, he is still maintained on IV Decadron and IV REMDESEVIR, otherwise he denies any complaints there is no chest pain no dizziness no nausea or vomiting no abdominal pain no diarrhea and no blood in the stools no burning with urination no frequency or urgency and no hematuria On 06/13/2020 patient was seen and examined in the ICU, last night he developed tachycardia, tachypnea, and worsening shortness of breath. He was transferred to intensive care unit he was intubated sedated started on mechanical ventilation, currently patient was seen and examined in the ICU he is in the prone position maintained on mechanical ventilation. On 06/14/2020 patient was seen and examined in the ICU, he is intubated sedated maintained on mechanical ventilation, patient is maintained on IV heparin per pr otocol, he is receiving IV Solu-Medrol, he received Remdesevir, today is day #5, he also received convalesent plasma. His temperature is 98.1 pulse 97 respiration 24 blood pressure 133/68 white blood count 22.5 hemoglobin 15.5 platelet count 2:30 d-dimer more than 34 pH 7.23 pCO2 78 CO2 102 On 06/15/2020 patient was seen and examined in the ICU, he is intubated sedated maintained on mechanical ventilation, patient is maintained on IV heparin per protocol, he is receiving IV Solu-Medrol, he received Remdesevir, today is day #5, he also received convalesent plasma. His temperature is 98.1 pulse 88 respiration 24 blood pressure 120/75 white blood count 25.9 hemoglobin 15.5 platelet count 276 d-dimer 11.69 pH 7.22 pCO2 80 PO2 83 On 06/16/2020 patient was seen and examined in the ICU he is intubated sedated maintained on mechanical ventilation ABG is improving, plan today is to decrease PEEP from 20-15 and to decrease FiO2 to 50% otherwise continue with current management On 06/17/2020 patient was seen and examined in the ICU he is still intubated sedated maintained on mechanical ventilation, oxygen requirements are decreasing, PEEP is decreased today from 15-12 patient is not on any IV pressure support at this time On 06/18/2020 patient was seen and examined in the ICU he is intubated sedated maintained on mechanical ventilation, he is off Nimbex at this time he is still on assist control tidal volume 450 rate 34 PEEP of 15 chest x-ray reveals a new consolidation in the right lower lung area d-dimer is elevated and patient is maintained on Lovenox. On 06/19/2020 patient was seen and examined in the ICU he is intubated sedated maintained on mechanical ventilation, he is still on assist control tidal volume 450 rate 34 PEEP of 15 chest x-ray reveals a new consolidation in the right lower lung area ABG showed a pH of 7.49 with a pCO2 of 48 and pO2 of 84. d- dimer is elevated and patient is maintained on Lovenox. On 06/20/2020 patient was seen and examined in the ICU he is intubated sedated maintained on mechanical ventilation assist control rate of 34 FiO2 50% PEEP was dropped from 15-13 and patient is tolerating well his pulse ox is 97% he is off Nimbex and remains on propofol he is not on any pressure support he is still having episodes of high fever. On 06/21/2020 patient was seen and examined in the ICU he is intubated sedated maintained on mechanical ventilation, vital examination reveals a blood pressure of 118/61 pulse 57 respiration 28, temperature 100.1 pulse ox 96% he is maintained on assist control rate of 28 tidal 4 450 FiO2 50% and PEEP of 9 patient has Covid 19 pneumonia he completed a course of fremitus severe and received 1 unit of plasma, he is also maintained on IV antibiotic cefepime for superimposed bacterial pneumonia, he is also maintained on IV Solu-Medrol and subcu Lovenox On 06/22/2020 patient was seen and examined in the ICU he was extubated this morning he is alert responsive in no apparent distress maintained on BiPAP at this time, his temperature is 100.2 pulse 65 respiration 20 blood pressure 131/78 pulse ox is 92% on BiPAP his white blood count is 15.2 hemoglobin 10.6 platelet count 170 sodium 139 potassium 4.5 chloride 103 CO2 38 BUN 30 creatinine 0.54 Objective - Vital Signs Vital signs: Vital Signs Temp 98.8 F 06/22/20 04:00 Pulse 65 06/22/20 07:00 Resp 20 06/22/20 07:00 BP 132/73 06/21/20 13:00 Pulse Ox 92 L 06/22/20 07:00 Intake & Output 06/21/20 06/22/20 06/22/20 18:59 06:59 18:59 Intake Total 5698.597 0015.444 185.508 Output Total 2140 1480 75 Balance -686.677 -141.556 110.508 Weight 116.8 kg 113.7 kg Intake: IV 253 276 23 Sodium Chloride 0.9% 1, 220 240 20 000 ml @ 20 mls/hr IV . Q24H ER[facility] Rx#:[id number] pressure bag 33 36 3 Intake, IV Titration 738.323 774.444 138.508 Amount Cefepime 2 gm In Sodium 100 Chloride 0.9% 100 ml @ 25 mls/hr IVPB Q12HR ER[facility] Rx #:[id number] Clevidipine Butyrate 25 16 mg In Empty Bag 1 bag @ 1 MG/HR 2 mls/hr IV .Q24H REIN Rx#:[id number] fentaNYL (PF) 2,500 mcg 245.817 477.033 91.467 In Sodium Chloride 0.9% 200 ml @ Per Protocol IV .Q0M ERIN Rx#:[id number] propofoL 1,000 mg In 392.506 297.411 31.041 Empty Bag 1 bag @ Titrate IV .Q0M ERIN Rx#: [id number] Tube Feeding 312 288 24 Other 150 Output: Urine 2140 1480 75 Other: Voiding Method Indwelling Catheter Indwelling Catheter ABP, PAP, CO, CI - Last Documented Arterial Blood Pressure 142/76 - Exam In general patient was extubated this morning he is maintained on BiPAP he is alert responsive in no distress HEENT head normocephalic and atraumatic Neck is supple no JVD no goiter no lymphadenopathy Chest exam reveals fine crackles in both lung holden no wheezing Cardiac exam reveals regular heart sounds S1 and S2 no gallops no murmurs Abdomen is soft nontender no organomegaly with normal bowel sounds Extremity exam reveals minimal edema no cyanosis or clubbing Neurological examination reveals no gross focal neurological deficit - Labs CBC & Chem 7: 06/22/20 04:48 06/22/20 04:48 Labs: Abnormal Lab Results - Last 24 Hours (Table) 06/17/20 06/18/20 06/19/20 Range/Units 05:25 13:30 05:00 WBC (3.8-10.6) k/uL RBC (4.30-5.90) m/uL Hgb (13.0-17.5) gm/dL Hct (39.0-53.0) % Neutrophils # (1.3-7.7) k/uL Lymphocytes # (1.0-4.8) k/uL ABG pH (7.35-7.45) ABG pCO2 (35-45) mmHg ABG pO2 (83-108) mmHg ABG HCO3 (21-25) mmol/L ABG Total CO2 (19-24) mmol/L ABG O2 Saturation (94-97) % Carbon Dioxide (22-30) mmol/L BUN (9-20) mg/dL Creatinine (0.66-1.25) mg/dL Glucose (74-99) mg/dL POC Glucose (mg/dL) (75-99) mg/dL Calcium (8.4-10.2) mg/dL Total Bilirubin (0.2-1.3) mg/dL AST (17-59) U/L ALT (4-49) U/L Lactate Dehydrogenase (313-618) U/L LD Isoenzymes 430 H 590 H 633 H (120-250) U/L LD 1 8 L 7 L 8 L (19-38) % LD 2 22 L 17 L 17 L (30-43) % LD 4 13 H 13 H (3-12) % LD 5 40 H 46 H 46 H (3-14) % CK-MB (CK-2) (0.0-2.4) ng/mL Total Protein (6.3-8.2) g/dL Albumin (3.5-5.0) g/dL 06/21/20 06/21/20 06/21/20 Range/Units 11:16 11:43 17:45 WBC (3.8-10.6) k/uL RBC (4.30-5.90) m/uL Hgb (13.0-17.5) gm/dL Hct (39.0-53.0) % Neutrophils # (1.3-7.7) k/uL Lymphocytes # (1.0-4.8) k/uL ABG pH (7.35-7.45) ABG pCO2 62 H (35-45) mmHg ABG pO2 (83-108) mmHg ABG HCO3 38 H (21-25) mmol/L ABG Total CO2 40 H (19-24) mmol/L ABG O2 Saturation 98.3 H (94-97) % Carbon Dioxide (22-30) mmol/L BUN (9-20) mg/dL Creatinine (0.66-1.25) mg/dL Glucose (74-99) mg/dL POC Glucose (mg/dL) 230 H 194 H (75-99) mg/dL Calcium (8.4-10.2) mg/dL Total Bilirubin (0.2-1.3) mg/dL AST (17-59) U/L ALT (4-49) U/L Lactate Dehydrogenase (313-618) U/L LD Isoenzymes (120-250) U/L LD 1 (19-38) % LD 2 (30-43) % LD 4 (3-12) % LD 5 (3-14) % CK-MB (CK-2) (0.0-2.4) ng/mL Total Protein (6.3-8.2) g/dL Albumin (3.5-5.0) g/dL 06/21/20 06/22/20 06/22/20 Range/Units 23:45 04:48 04:48 WBC 15.2 H (3.8-10.6) k/uL RBC 3.60 L (4.30-5.90) m/uL Hgb 10.6 L (13.0-17.5) gm/dL Hct 33.4 L (39.0-53.0) % Neutrophils # 14.4 H (1.3-7.7) k/uL Lymphocytes # 0.3 L (1.0-4.8) k/uL ABG pH (7.35-7.45) ABG pCO2 (35-45) mmHg ABG pO2 (83-108) mmHg ABG HCO3 (21-25) mmol/L ABG Total CO2 (19-24) mmol/L ABG O2 Saturation (94-97) % Carbon Dioxide 38 H (22-30) mmol/L BUN 30 H (9-20) mg/dL Creatinine 0.54 L (0.66-1.25) mg/dL Glucose 216 H (74-99) mg/dL POC Glucose (mg/dL) 203 H (75-99) mg/dL Calcium 7.7 L (8.4-10.2) mg/dL Total Bilirubin 1.7 H (0.2-1.3) mg/dL AST 99 H (17-59) U/L ALT 347 H (4-49) U/L Lactate Dehydrogenase 1163 H (313-618) U/L LD Isoenzymes (120-250) U/L LD 1 (19-38) % LD 2 (30-43) % LD 4 (3-12) % LD 5 (3-14) % CK-MB (CK-2) (0.0-2.4) ng/mL Total Protein 5.4 L (6.3-8.2) g/dL Albumin 2.6 L (3.5-5.0) g/dL 06/22/20 06/22/20 06/22/20 Range/Units 04:48 05:25 10:26 WBC (3.8-10.6) k/uL RBC (4.30-5.90) m/uL Hgb (13.0-17.5) gm/dL Hct (39.0-53.0) % Neutrophils # (1.3-7.7) k/uL Lymphocytes # (1.0-4.8) k/uL ABG pH 7.49 H (7.35-7.45) ABG pCO2 55 H 50 H (35-45) mmHg ABG pO2 77 L 69 L (83-108) mmHg ABG HCO3 37 H 38 H (21-25) mmol/L ABG Total CO2 39 H 40 H (19-24) mmol/L ABG O2 Saturation (94-97) % Carbon Dioxide (22-30) mmol/L BUN (9-20) mg/dL Creatinine (0.66-1.25) mg/dL Glucose (74-99) mg/dL POC Glucose (mg/dL) (75-99) mg/dL Calcium (8.4-10.2) mg/dL Total Bilirubin (0.2-1.3) mg/dL AST (17-59) U/L ALT (4-49) U/L Lactate Dehydrogenase (313-618) U/L LD Isoenzymes (120-250) U/L LD 1 (19-38) % LD 2 (30-43) % LD 4 (3-12) % LD 5 (3-14) % CK-MB (CK-2) 3.8 H (0.0-2.4) ng/mL Total Protein (6.3-8.2) g/dL Albumin (3.5-5.0) g/dL Microbiology - Last 24 Hours (Table) 06/18/20 15:10 Gram Stain - Final Sputum Sputum Culture - Final Acinetobacter santhosh/haemol Assessment and Plan Plan: 1. COVID-19, Bilateral pneumonia, started on IV Decadron and IV Remdesevir, patient also received convalescent serum, he improved gradually he was extubated this morning 2. Acute on chronic hypoxic and hypercapnic respiratory failure 3. Hyponatremia, on IV normal saline 4. Elevated d-dimer, started on SQ Lovenox 5. underlying history of depression 6. Underlying history of asthma At this time patient is in ICU, pulmonary critical care following
[2020-06-22 12:15] LABS: Glucose,Whole Blood 229 mg/dL (75-99)
--- NOTE | 2020-06-22 12:44 | XR ---
EXAMINATION TYPE: XR chest 1V portable DATE OF EXAM: 06/22/2020 COMPARISON: 06/21/2020 INDICATION: Covid TECHNIQUE: Single frontal view of the chest is obtained. FINDINGS: The heart size is prominent. The pulmonary vasculature is normal. Patchy nonspecific infiltrates are bilaterally. Small left pleural effusion may be present. Endotracheal tube tip is above the anthony. Nasogastric tube tip is in the left upper quadrant of the abdomen. IMPRESSION: 1. Improving right lower lobe infiltrate. Bilateral nonspecific infiltrates remain present. 2. Lines and catheters discussed above
[2020-06-22 13:45] LABS: Ferritin 2885.8 ng/mL (22.0-322.0)
[2020-06-22] MEDS: CISATRACURIUM 200 MG in SODIUM CHLORIDE 0.9% 180 ML IV SCH (13:49)
[2020-06-22] MEDS: MEROPENEM 2 GM in SODIUM CHLORIDE 0.9% 100 ML IVPB SCH (17:15)
[2020-06-22] MEDS: SODIUM CHLORIDE 0.9% 1,000 ML IV SCH (17:16)
[2020-06-22 17:58] LABS: Glucose,Whole Blood 177 mg/dL (75-99)
[2020-06-22] MEDS: INSULIN DETEMIR (LEVEMIR) 100 UNIT/ML SYR SQ SCH (19:53)
[2020-06-23 00:32] LABS: Glucose,Whole Blood 188 mg/dL (75-99)
[2020-06-23] MEDS: ALBUTEROL HFA INHALER INHALATION SCH ×6 (00:32→20:54)
[2020-06-23] MEDS: INSULIN ASPART (NovoLOG) 100 UNIT/ML VIAL SQ SCH ×4 (00:43→17:52)
[2020-06-23] MEDS: methylPREDNISolone SOD SUCCI 125 MG/2 ML VIAL IV SCH ×4 (00:43→19:06)
[2020-06-23] MEDS: MEROPENEM 2 GM in SODIUM CHLORIDE 0.9% 100 ML IVPB SCH ×3 (00:43→15:18)
[2020-06-23 04:16] LABS: Basophils # (A) 0.2 k/uL (0-0.2); Basophils % (A) 1 %; Eosinophils % (A) 0 %; HCT 36.9 % (39.0-53.0); HGB 12.5 gm/dL (13.0-17.5); Lymphocytes # (A) 0.2 k/uL (1.0-4.8); Lymphocytes % (A) 1 %; MCH 30.2 pg (25.0-35.0); MCHC 33.8 g/dL (31.0-37.0); MCV 89.3 fL (80.0-100.0); Mean Platelet Volume 8.2; Monocytes # (A) 0.5 k/uL (0-1.0); Monocytes % (A) 3 %; Neutrophils # (A) 15.3 k/uL (1.3-7.7); Neutrophils % (A) 94 %; Platelet Count 160 k/uL (150-450); RBC 4.14 m/uL (4.30-5.90); RDW 13.3 % (11.5-15.5); WBC 16.3 k/uL (3.8-10.6)
[2020-06-23 04:24] LABS: ALT 344 U/L (4-49); AST 101 U/L (17-59); African American GFR (CKD) >90 (>60 ml/min/1.73 sqM); Albumin 3.1 g/dL (3.5-5.0); Alkaline Phosphatase 86 U/L (38-126); Anion Gap 3 mmol/L; Blood Urea Nitrogen 33 mg/dL (9-20); Calcium 8.1 mg/dL (8.4-10.2); Carbon Dioxide 34 mmol/L (22-30); Chloride 102 mmol/L (98-107); Glucose 208 mg/dL (74-99); Non-African American GFR(CKD) >90 (>60 ml/min/1.73 sqM); Potassium 4.2 mmol/L (3.5-5.1); Sodium 139 mmol/L (137-145); Total Bilirubin 2.5 mg/dL (0.2-1.3); Total Protein 6.3 g/dL (6.3-8.2)
[2020-06-23 04:46] LABS: C Reactive Protein 21.3 mg/L (<10.0)
[2020-06-23] MEDS: CLEVIDIPINE BUTYRATE 25 MG in EMPTY BAG 1 BAG IV SCH (04:48)
[2020-06-23] MEDS: DEXMEDETOMIDINE/0.9% NACL(PMX) 400 MCG in EMPTY BAG 1 BAG IV SCH (05:48)
--- NOTE | 2020-06-23 08:09 | XR ---
EXAMINATION TYPE: XR chest 1V portable DATE OF EXAM: 06/23/2020 COMPARISON: 06/22/2020 INDICATION: Covid TECHNIQUE: Single frontal view of the chest is obtained. FINDINGS: The heart size is normal. The pulmonary vasculature is normal. There are improving infiltrates present bilaterally. Patchy infiltrates remain at the lung bases. IMPRESSION: 1. Improving lung infiltrates with residual remaining at the lung bases. Continued follow-up is recom mended
[2020-06-23] MEDS: ENOXAPARIN 60 MG/0.6 ML SYRINGE SQ SCH ×2 (08:10→19:57)
[2020-06-23] MEDS: FUROSEMIDE 10 MG/ML 4 ML VIAL IV SCH (08:10)
[2020-06-23] MEDS: PANTOPRAZOLE 40 MG/10 ML VIAL IVP SCH (08:10)
[2020-06-23] MEDS: CHLORHEXIDINE GLUCONATE 15 ML CUP MUCOUS MEM SCH ×2 (08:11→19:35)
--- NOTE | 2020-06-23 09:15 | P.PN ---
Subjective Progress Note Date: 06/23/20 49-year-old male patient admitted on 06/09/2024 acute hypoxic respiratory failure secondary to COVID 19 pneumonia. The patient was treated with a combination ofsteroids and Remdesivir and convalescent plasma and despite that the patient developed worsening in a patient requiring intubation mechanical celestine tilation on 06/13/2020. The patient remains intubated on a mechanical ventilator. The patient is currently on assist control mode rate of 34 with a tidal volume of 450 and FiO2 of 50% with a PEEP of 15. Patient is currently sedated and paralyzed. Propofol is running at 75 g per KG per minute and the patient is also on Nimbex at 3 mcg/kg per minute. The patient on IV fluids with normal saline today to 120 mL an hour. The patient is receiving enteral feeding for nutritional support with vital high protein at the rate is 21cc an hour. The patient was being prone to episodically for oxygenation related issues and the patient's PEEP has been cut down to 15. The patient is currently on Cl eviprex for blood pressure control at more milligram an hour. He is on Levemir insulin 8 units along with a sliding scale coverage. Patient is currently off IV heparin as the patient developed a hematoma the triple-lumen insertion site.no signs of any acute bleeding and hemoglobin is stable for now. There was some drop in hemoglobin to 10.7 from 12.5. The chest x-ray from today showing infiltration of the lung bases right base more than the left. ET tube is in a good location. The patient has an NG tube which is in the stomach and no other acute abnormalities have been noted. The blood gases from today showed a pH of 7.44 with a pCO2 of 55 and pO2 of 80. The sodium level is up to 148 and a serum bicarb is 39. The patient is currently receiving IV fluids0.9 at 1 20 mL an hour.I noted that the patient's hematoma over the left subclavian triple-lumen catheter is soft and has not progressed. Patient d-dimer was quite elevated and a rather put him back on anticoagulation with half a dose of Lovenox half a milligram per KG twice a day. Monitor the hematoma and the hemoglobin for now. On today's evaluation of 06/18/2020, the patient remains sedated and paralyzed. Propofol is running at75 mcg/kg per minute and Nimbex is running at 3 mcg/kg per minute. The patient remains on a mechanical ventilator. I had to add sentinel as the patient was becoming hypertensive and I thought there was a component of pain ongoing with his symptoms. Meanwhile, the patient is an assist-control mode with a tidal volume of 450 with a rate of 34 and repeat currently is at 15 with a FiO2 of 50%. I attempted to The PEEP Yesterday and It Failed As the Patient Became more hypoxic. The patient for now based on a mechanical ventilator. Chest x-ray from today showing a new consolidation and effusion in the right lower lung area. A superinfection is to be considered at this point in time. The patient had an elevated d-dimer. He remains on a Lovenox that was started yesterday. I'm still monitoring the hematoma in his left triple- lumen catheter site and there is no interval worsening of the patient's hemoglobin is stable at 10.8. The patient currently is on Lovenox at a dose of 60 mg every 12 hours. No fever. He is receiving enteral feeding for nutritional support. Blood pressure is controlled and the patient is not taking any drips for now. He is receiving enteral feeding for nutritional support. He is in the form of vital high protein at the rate of 21 mL an hour.his sodium level is up to 150 and the patient is taking 0.9 at the rate of 1 20 mL an hour. on 2019 the patient is off paralytics and he is sedated with propofol at 55 g. the patient is also on fentanyl at 1 g per KG per minute.he is well sedated for now. Is very much interested the mechanical ventilator. We were successful in removing the paralytic up this patient. The patient is still on a mechanical ventilator. Active issue forepisodes of fever that his been having with a temperature of 102. We did a fever workup on him yesterday. We will check a pro-calcitonin. Came back at 0.16. The patient also had a sputum culture that is still pending. He was started on IV cefepime. He was given a dose of Lasix with a negative fluid balance of 1.2 L over the past 24 hours. The patient currently is on a mechanical ventilator. This morning he is an assist-control at the rate of 34 with a tidal volume of 450 and FiO2 of 50% with a PEEP of 15. The blood gases from today showed a pH of 7.49 with a pCO2 of 48 and pO2 of 84. His chest x-ray showing some improvement of the right lower lobe consolidation. His right hemidiaphragm is rather visualized. His white cell count is at 12.4 receiving enteral feeding for nutritional support in the form of vital high protein. She is IV fluid maintenance is at 20 mL an hour. 06/20/2020, the patient is still off paralytics. He is on propofol and this was being gradually weaned off and currently is on 15 mcg/kg per minute. Fentanyl is running at 2 mcg/kg/h. He has an adequate level of sedation. He remains on a mechanical ventilator. He is on assist-control at the rate of 34 with a tidal volume of 450 and FiO2 of 50% with a PEEP of 13. Pulse ox on the monitor is on 97%. he has been riding the vent over lung yesterday. The patient was placed on a lower respiratory rate of 28 and I also do not to PEEP down to 11. Follow- up blood gases to follow. Chest x-ray was done on this morning. This is to follow. Inflammatory markers are also pending from today. Meanwhile, his blood pressure is going on especially when the patient is being weaned off sedation. The patient will is on clevidipine drip for pressure control. There was a concern for a right lower lobe pneumonia. IT WAS NONELEVATED. I STARTED THE PATIENT IV CEFEPIME. HE IS STILL SPIKING TEMPERATURE and his most recent temperature was 102. He was offered scoring blankets and he was also given Tylenol. In terms of treatment, he remains on Lovenox 60 mg every 12 hours and the patient's left subclavian hematoma remains unchanged. He is on IV Solu- Medrol. He is on Lasix 40 mg on a daily basis. The neck fluid balance over the past 24 hours has been -2.0 L. the patient continues to receive enteral feeding without any major difficulties. He is on vital high protein at the rate of 30 mL an hour. IV fluids out 20 mL an hour. On 06/21/2020, the patient is on propofol running at 50 g and fentanyl running at 2 mcg/kg/h. He is very much synchronous with the mechanical ventilator. He is well sedated and is calm and comfortable. He is on a mechanical ventilator. He is an assist-control at the rate of 28 with a tidal volume 450 and FiO2 of 50% with a PEEP of 9. His left chest from today showed a pH of 7.45 episodes of this is a pO2 of 97. The patient has a supplement that he fractured the right lower lobe consistent with possible right lower lobe pneumonia. Note that he has also coronavirus/Covid 19 pneumonia. His sputum culture is showing gram- negative bacillus. He is currently on IV cefepime. He is still spiking epi sodic temperature of a low grade 100.1. He is on IV fluids at 20 mL an hour. He has adequate urine output. He is receiving enteral feeding for nutritional support. He is also on IV Solu-Medrol 60 mg every 6 hours. Completed Remdesivir On 2019 on seeing the patient for a follow-up. He is on some good progress. I was able to wean down the patient's PEEP and this morning the patient is still in a combination of propofol and fentanyl for sedation. Nevertheless, sinus mechanical ventilated is an assist-control mode rate of 40 with a tidal volume of 450 and FiO2 of 50% with a PEEP of 5. She is blood. This from today 7.43 with a pCO2 55 and a pO2 of 77. Chest x-ray is showing stable bilateral pulmonary infiltrates. The patient is hemodynamically stable. The patient is on no pressors. His or secretions of 15.2. He was attempted 0.6. His inflammatory markers shows a LDH of 1163. His C-reactive protein is down to 8.5. Otherwise, no other significant events. Is tolerating his enteral feeding for nutritional support. There was a concern of a right lower lobe pneumonia which has improved and the patient remains on IV cefepime. He is afebrile for now. Nevertheless, the patient spiked a temperature yesterday with a fever of 101. No other significant events overnight for now. He remains on IV Solu Medrol. He has completed Remdesivir On 06/23/2020 on seeing the patient for a follow-up. The patient remains on BiPAP at a pressure of 12/6 cm of water with an FiO2 of 50%. The patient was extubated yesterday and today he is post extubation day #1. He is awake. His communicating. He is confused. In terms of sedation, he is on a low dose of Precedex running at 0.3 mcg/kg/h. No agitation. No restlessness. No pressors. He is hemodynamically stable. He does have some increase his dose secretions. He is still IV Solu-Medrol 60 mg every 6 hours. The chest x-ray from today shows adequate lung expansion without any major infiltration. There may be some residual groundglass changes perihilar he and in the lower lobes. The patient patient was having a right lower lobe consolidation. The sputum sample shortness Enterobacter. I switched him to IV Merrem. The patient is still having low-grade fever 100.1.. The white cell count of 16.3. Inflammatory markers shows a CRP of 66.3. LDH has not been checked for today. Renal function stable. The patient is noted to be profoundly weak. He is unable to raise his arms against gravity. He is able to do some communication. He remains on Precedex which is running at 0.3 g per KG per hour and this will be gradually weaned off. Objective - Vital Signs Vital signs: Vital Signs Temp 100.1 F H 06/23/20 08:00 Pulse 73 06/23/20 08:00 Resp 17 06/23/20 08:00 BP 140/89 06/23/20 08:00 Pulse Ox 97 06/23/20 08:00 Intake & Output 06/22/20 06/23/20 06/23/20 18:59 06:59 18:59 Intake Total 805.683 503.288 143 Output Total 3670 1190 300 Balance -2864.317 -686.712 -157 Weight 112.9 kg Intake: IV 179 253 43 Sodium Chloride 0.9% 1, 140 220 40 000 ml @ 20 mls/hr IV . Q24H ERIN Rx#:[id number] pressure bag 39 33 3 Intake, IV Titration 512.683 250.288 100 Amount Cefepime 2 gm In Sodium 100 Chloride 0.9% 100 ml @ 25 mls/hr IVPB Q12HR ERIN Rx #:[id number] Clevidipine Butyrate 25 112.667 95.333 mg In Empty Bag 1 bag @ 1 MG/HR 2 mls/hr IV .Q24H ERIN Rx#:[id number] Dexmedetomidine/0.9% NaCl 77.508 154.955 (Pmx) 400 mcg In Empty Bag 1 bag @ Titrate IV . Q0M ERIN Rx#:[id number] Meropenem 2 gm In Sodium 100 100 Chloride 0.9% 100 ml @ 33 .3 mls/hr IVPB Q8HR ERIN Rx#:[id number] fentaNYL (PF) 2,500 mcg 91.467 In Sodium Chloride 0.9% 200 ml @ Per Protocol IV .Q0M ERIN Rx#:[id number] propofoL 1,000 mg In 31.041 Empty Bag 1 bag @ Titrate IV .Q0M ERIN Rx#: [id number] Tube Feeding 54 Other 60 Output: Urine 3670 1190 300 Other: Voiding Method Indwelling Catheter Indwelling Catheter Indwelling Catheter ABP, PAP, CO, CI - Last Documented Arterial Blood Pressure 138/84 - Exam GENERAL EXAM: Intubated, sedated, nonparalyzed 49-year-old gentleman currently on BiPAP., the patient awake, arousable and confused. HEAD: Normocephalic. EYES: Sluggish reaction of pupils, equal size. NOSE: Clear with pink turbinates. THROAT: Oral endotracheal and gastric tube secured in place. No erythema or exudates. NECK: No masses, no JVD.stable hematoma in the left subclavian area which is unchanged compared to yesterday. CHEST: No chest wall deformity. LUNGS: Equal air entry with bilateral scattered rhonchi. CVS: S1 and S2 normal with no audible murmur, regular rhythm. ABDOMEN: No hepatosplenomegaly, normal bowel sounds, no guarding or rigidity. SPINE: No scoliosis or deformity SKIN: No rashes CENTRAL NERVOUS SYSTEM: Tone is normal in all 4 extremities.the patient is seen to be arousable. He is opening his eyes spontaneously. Neurologic exam is nonfocal. The patient opens up his eyes spontaneously. Extreme motor weakness in all 4 extremities. EXTREMITIES: There is trace peripheral edema. No clubbing, no cyanosis. Peripheral pulses are intact. - Labs CBC & Chem 7: 06/23/20 04:12 06/23/20 04:12 Labs: Abnormal Lab Results - Last 24 Hours (Table) 06/22/20 06/22/20 06/22/20 Range/Units 04:48 10:26 12:12 WBC (3.8-10.6) k/uL RBC (4.30-5.90) m/uL Hgb (13.0-17.5) gm/dL Hct (39.0-53.0) % Neutrophils # (1.3-7.7) k/uL Lymphocytes # (1.0-4.8) k/uL ABG pH 7.49 H (7.35-7.45) ABG pCO2 50 H (35-45) mmHg ABG pO2 69 L (83-108) mmHg ABG HCO3 38 H (21-25) mmol/L ABG Total CO2 40 H (19-24) mmol/L Carbon Dioxide (22-30) mmol/L BUN (9-20) mg/dL Creatinine (0.66-1.25) mg/dL Glucose (74-99) mg/dL POC Glucose (mg/dL) 229 H (75-99) mg/dL Calcium (8.4-10.2) mg/dL Ferritin 2885.8 H (22.0-322.0) ng/mL Total Bilirubin (0.2-1.3) mg/dL AST (17-59) U/L ALT (4-49) U/L C-Reactive Protein (<10.0) mg/L Albumin (3.5-5.0) g/dL 06/22/20 06/23/20 06/23/20 Range/Units 17:54 00:30 04:12 WBC 16.3 H (3.8-10.6) k/uL RBC 4.14 L (4.30-5.90) m/uL Hgb 12.5 L (13.0-17.5) gm/dL Hct 36.9 L (39.0-53.0) % Neutrophils # 15.3 H (1.3-7.7) k/uL Lymphocytes # 0.2 L (1.0-4.8) k/uL ABG pH (7.35-7.45) ABG pCO2 (35-45) mmHg ABG pO2 (83-108) mmHg ABG HCO3 (21-25) mmol/L ABG Total CO2 (19-24) mmol/L Carbon Dioxide (22-30) mmol/L BUN (9-20) mg/dL Creatinine (0.66-1.25) mg/dL Glucose (74-99) mg/dL POC Glucose (mg/dL) 177 H 188 H (75-99) mg/dL Calcium (8.4-10.2) mg/dL Ferritin (22.0-322.0) ng/mL Total Bilirubin (0.2-1.3) mg/dL AST (17-59) U/L ALT (4-49) U/L C-Reactive Protein (<10.0) mg/L Albumin (3.5-5.0) g/dL 06/23/20 Range/Units 04:12 WBC (3.8-10.6) k/uL RBC (4.30-5.90) m/uL Hgb (13.0-17.5) gm/dL Hct (39.0-53.0) % Neutrophils # (1.3-7.7) k/uL Lymphocytes # (1.0-4.8) k/uL ABG pH (7.35-7.45) ABG pCO2 (35-45) mmHg ABG pO2 (83-108) mmHg ABG HCO3 (21-25) mmol/L ABG Total CO2 (19-24) mmol/L Carbon Dioxide 34 H (22-30) mmol/L BUN 33 H (9-20) mg/dL Creatinine 0.56 L (0.66-1.25) mg/dL Glucose 208 H (74-99) mg/dL POC Glucose (mg/dL) (75-99) mg/dL Calcium 8.1 L (8.4-10.2) mg/dL Ferritin (22.0-322.0) ng/mL Total Bilirubin 2.5 H (0.2-1.3) mg/dL AST 101 H (17-59) U/L ALT 344 H (4-49) U/L C-Reactive Protein 21.3 H (<10.0) mg/L Albumin 3.1 L (3.5-5.0) g/dL Microbiology - Last 24 Hours (Table) 06/18/20 15:10 Gram Stain - Final Sputum Sputum Culture - Final Acinetobacter santhosh/haemol Assessment and Plan Plan: 1 Acute hypoxemic respiratory failure secondary to COVID 19 pneumonia, treated and completed Remdesivir and convalescent plasma. Requiring intubation and mechanical ventilatory support on 06/13/2020. The patient was extubated yesterday and currently is on a BiPAP at a pressure of 12/6 cm of water. He is a bit confused. He was slightly restless and the patient was started on Precedex to control his agitation. He is still sick has with the respirator. Minute ventilation is high. Chest x-ray shows clearing of the previously described by the pulmonary infiltrates. He checked positive for Acinetobacter any sputum and the patient was placed on IV Merrem. He still having low-grade fever. He remains in the intensive care unit on a BiPAP for now. He is running episodic fever still. LDH is still elevated. CRP is dropped. He remains on steroids. 2 Recent admission to the hospital with acute community-acquired right lower lobe pneumonia. 3 Elevated d-dimer, currently on Lovenox at a dose of 60 mg subcu twice a day 4 Elevated elevated inflammatory markers secondary to above including an elevated d-dimer of 6.9, the CRP is improving 5 History of mild intermittent chronic bronchial asthma 6 History of hypertension 7 History of depression 8 Mild transaminitis secondary to above 9 soft hematoma of the left subclavian triple-lumen catheter, unchanged Plan: Continue BiPAP support at a pressure of 12/6 with an FiO2 of 50% Continue IV Solu-Medrol completed Remdesivir and convalescent plasma. Continue Lasix 40 mg IV on a daily basis The patient remains in a negative fluid balance. He is hemodynamically stable. Continue Precedex Profoundly weak and the patient will need aggressive physical therapy once he is slightly more recovered from his respiratory failure. He is awake and is follo wing some simple commands. He remains on off confused and agitated and for that reason the patient remains on a Precedex drip which will be continued for now and dose will be titrated. We'll continue to follow Critically care evaluation, more than 30 minutes. Time with Patient: Greater than 30
[2020-06-23 11:53] LABS: Glucose,Whole Blood 177 mg/dL (75-99)
[2020-06-23] MEDS: ASCORBIC ACID 500 MG TAB PO SCH (13:09)
[2020-06-23] MEDS: ZINC SULFATE 220 MG CAP PO SCH (13:10)
[2020-06-23] MEDS: CHOLECALCIFEROL 1,000 UNIT TAB PO SCH (13:10)
[2020-06-23] MEDS: FLUoxetine HCL 20 MG CAP PO SCH (13:10)
--- NOTE | 2020-06-23 13:19 | P.PN ---
Subjective Progress Note Date: 06/23/20 Dennis Beal, is a 49 year-old male, who presented to ER with of cough and shortness of breath, Covid 19 test was positive in ER . Patient was evaluated in the emergency room vital examination on presentation to emergency room revealed a temperature of 101.1 pulse 79 respiration 32 blood pressure 115/70 pulse ox 90% on BiPAP his white blood count on presentation was 10.9 C-reactive protein was elevated at 1128 patient was admitted to telemetry floor he was started on IV Decadron pulmonary consultation was requested. Patient was recently admitted with pneumonia at that time Covid 19 test was negative. He was treated with IV antibiotic he improved and he was discharged home. His past medical history is significant for history of kidney stones, history of previous episodes of pneumonia, history of asthma and COPD, and history of depression, history of hypertension. On review of system patient is alert and oriented 3 he is complaining of cough and shortness of breath with any activity otherwise he denies any complaints there is no fever or chills no headache or dizziness no chest pain no nausea or vomiting no abdominal pain no diarrhea no blood in the stools no burning with urination no frequency or urgency and no hematuria On 06/11/2020 patient was seen and examined on the medical floor he is alert and oriented 3 he is still complaining of shortness of breath he still maintained on BiPAP otherwise he denies any complaints he is maintained on IV Decadron and IV Remdesevir On 06/12/2020 patient was seen and examined on the medical floor he is alert and oriented 3 in no apparent distress he is still complaining of shortness of breath and cough he is maintained on high flow oxygen, he is still maintained on IV Decadron and IV REMDESEVIR, otherwise he denies any complaints there is no chest pain no dizziness no nausea or vomiting no abdominal pain no diarrhea and no blood in the stools no burning with urination no frequency or urgency and no hematuria On 06/13/2020 patient was seen and examined in the ICU, last night he developed tachycardia, tachypnea, and worsening shortness of breath. He was transferred to intensive care unit he was intubated sedated started on mechanical ventilation, currently patient was seen and examined in the ICU he is in the prone position maintained on mechanical ventilation. On 06/14/2020 patient was seen and examined in the ICU, he is intubated sedated maintained on mechanical ventilation, patient is maintained on IV heparin per pr otocol, he is receiving IV Solu-Medrol, he received Remdesevir, today is day #5, he also received convalesent plasma. His temperature is 98.1 pulse 97 respiration 24 blood pressure 133/68 white blood count 22.5 hemoglobin 15.5 platelet count 2:30 d-dimer more than 34 pH 7.23 pCO2 78 CO2 102 On 06/15/2020 patient was seen and examined in the ICU, he is intubated sedated maintained on mechanical ventilation, patient is maintained on IV heparin per protocol, he is receiving IV Solu-Medrol, he received Remdesevir, today is day #5, he also received convalesent plasma. His temperature is 98.1 pulse 88 respiration 24 blood pressure 120/75 white blood count 25.9 hemoglobin 15.5 platelet count 276 d-dimer 11.69 pH 7.22 pCO2 80 PO2 83 On 06/16/2020 patient was seen and examined in the ICU he is intubated sedated maintained on mechanical ventilation ABG is improving, plan today is to decrease PEEP from 20-15 and to decrease FiO2 to 50% otherwise continue with current management On 06/17/2020 patient was seen and examined in the ICU he is still intubated sedated maintained on mechanical ventilation, oxygen requirements are decreasing, PEEP is decreased today from 15-12 patient is not on any IV pressure support at this time On 06/18/2020 patient was seen and examined in the ICU he is intubated sedated maintained on mechanical ventilation, he is off Nimbex at this time he is still on assist control tidal volume 450 rate 34 PEEP of 15 chest x-ray reveals a new consolidation in the right lower lung area d-dimer is elevated and patient is maintained on Lovenox. On 06/19/2020 patient was seen and examined in the ICU he is intubated sedated maintained on mechanical ventilation, he is still on assist control tidal volume 450 rate 34 PEEP of 15 chest x-ray reveals a new consolidation in the right lower lung area ABG showed a pH of 7.49 with a pCO2 of 48 and pO2 of 84. d- dimer is elevated and patient is maintained on Lovenox. On 06/20/2020 patient was seen and examined in the ICU he is intubated sedated maintained on mechanical ventilation assist control rate of 34 FiO2 50% PEEP was dropped from 15-13 and patient is tolerating well his pulse ox is 97% he is off Nimbex and remains on propofol he is not on any pressure support he is still having episodes of high fever. On 06/21/2020 patient was seen and examined in the ICU he is intubated sedated maintained on mechanical ventilation, vital examination reveals a blood pressure of 118/61 pulse 57 respiration 28, temperature 100.1 pulse ox 96% he is maintained on assist control rate of 28 tidal 4 450 FiO2 50% and PEEP of 9 patient has Covid 19 pneumonia he completed a course of fremitus severe and received 1 unit of plasma, he is also maintained on IV antibiotic cefepime for superimposed bacterial pneumonia, he is also maintained on IV Solu-Medrol and subcu Lovenox On 06/22/2020 patient was seen and examined in the ICU he was extubated this morning he is alert responsive in no apparent distress maintained on BiPAP at this time, his temperature is 100.2 pulse 65 respiration 20 blood pressure 131/78 pulse ox is 92% on BiPAP his white blood count is 15.2 hemoglobin 10.6 platelet count 170 sodium 139 potassium 4.5 chloride 103 CO2 38 BUN 30 creatinine 0.54 On 06/23/2020 patient was seen and examined in the ICU he was extubated yesterday he is maintained on BiPAP he is alert nonverbal in no apparent distr ess, his vital examination reveals a temperature of 99.7 pulse 80 respiration 23 blood pressure 125/95 pulse ox 97% on BiPAP Objective - Vital Signs Vital signs: Vital Signs Temp 99.7 F H 06/23/20 12:00 Pulse 80 06/23/20 12:00 Resp 23 06/23/20 12:00 BP 125/95 06/23/20 12:00 Pulse Ox 97 06/23/20 12:00 Intake & Output 06/22/20 06/23/20 06/23/20 18:59 06:59 18:59 Intake Total 805.683 503.288 163 Output Total 3670 1190 1600 Balance -2864.317 -686.712 -1437 Weight 112.9 kg Intake: IV 179 253 63 Sodium Chloride 0.9% 1, 140 220 60 000 ml @ 20 mls/hr IV . Q24H [facility] Rx#:[id number] pressure bag 39 33 3 Intake, IV Titration 512.683 250.288 100 Amount Cefepime 2 gm In Sodium 100 Chloride 0.9% 100 ml @ 25 mls/hr IVPB Q12HR [facility] Rx #:[id number] Clevidipine Butyrate 25 112.667 95.333 mg In Empty Bag 1 bag @ 1 MG/HR 2 mls/hr IV .Q24H [facility] Rx#:[id number] Dexmedetomidine/0.9% NaCl 77.508 154.955 (Pmx) 400 mcg In Empty Bag 1 bag @ Titrate IV . Q0M [facility] Rx#:[id number] Meropenem 2 gm In Sodium 100 100 Chloride 0.9% 100 ml @ 33 .3 mls/hr IVPB Q8HR [facility] Rx#:[id number] fentaNYL (PF) 2,500 mcg 91.467 In Sodium Chloride 0.9% 200 ml @ Per Protocol IV .Q0M [facility] Rx#:[id number] propofoL 1,000 mg In 31.041 Empty Bag 1 bag @ Titrate IV .Q0M [facility] Rx#: [id number] Tube Feeding 54 Other 60 Output: Urine 3670 1190 1600 Other: Voiding Method Indwelling Catheter Indwelling Catheter Indwelling Catheter ABP, PAP, CO, CI - Last Documented Arterial Blood Pressure 138/84 - Exam In general patient was extubated this morning he is maintained on BiPAP he is alert responsive in no distress HEENT head normocephalic and atraumatic Neck is supple no JVD no goiter no lymphadenopathy Chest exam reveals fine crackles in both lung holden no wheezing Cardiac exam reveals regular heart sounds S1 and S2 no gallops no murmurs Abdomen is soft nontender no organomegaly with normal bowel sounds Extremity exam reveals minimal edema no cyanosis or clubbing Neurological examination reveals no gross focal neurological deficit - Labs CBC & Chem 7: 06/23/20 04:12 06/23/20 04:12 Labs: Abnormal Lab Results - Last 24 Hours (Table) 06/22/20 06/22/20 06/23/20 Range/Units 04:48 17:54 00:30 WBC (3.8-10.6) k/uL RBC (4.30-5.90) m/uL Hgb (13.0-17.5) gm/dL Hct (39.0-53.0) % Neutrophils # (1.3-7.7) k/uL Lymphocytes # (1.0-4.8) k/uL Carbon Dioxide (22-30) mmol/L BUN (9-20) mg/dL Creatinine (0.66-1.25) mg/dL Glucose (74-99) mg/dL POC Glucose (mg/dL) 177 H 188 H (75-99) mg/dL Calcium (8.4-10.2) mg/dL Ferritin 2885.8 H (22.0-322.0) ng/mL Total Bilirubin (0.2-1.3) mg/dL AST (17-59) U/L ALT (4-49) U/L C-Reactive Protein (<10.0) mg/L Albumin (3.5-5.0) g/dL 06/23/20 06/23/20 06/23/20 Range/Units 04:12 04:12 11:50 WBC 16.3 H (3.8-10.6) k/uL RBC 4.14 L (4.30-5.90) m/uL Hgb 12.5 L (13.0-17.5) gm/dL Hct 36.9 L (39.0-53.0) % Neutrophils # 15.3 H (1.3-7.7) k/uL Lymphocytes # 0.2 L (1.0-4.8) k/uL Carbon Dioxide 34 H (22-30) mmol/L BUN 33 H (9-20) mg/dL Creatinine 0.56 L (0.66-1.25) mg/dL Glucose 208 H (74-99) mg/dL POC Glucose (mg/dL) 177 H (75-99) mg/dL Calcium 8.1 L (8.4-10.2) mg/dL Ferritin (22.0-322.0) ng/mL Total Bilirubin 2.5 H (0.2-1.3) mg/dL AST 101 H (17-59) U/L ALT 344 H (4-49) U/L C-Reactive Protein 21.3 H (<10.0) mg/L Albumin 3.1 L (3.5-5.0) g/dL Microbiology - Last 24 Hours (Table) 06/18/20 15:10 Gram Stain - Final Sputum Sputum Culture - Final Acinetobacter santhosh/haemol Assessment and Plan Plan: 1. COVID-19, Bilateral pneumonia, started on IV Decadron and IV Remdesevir, patient also received convalescent serum, he improved gradually he was extubated yesterday he is maintained on BiPAP at this time 2. Acute on chronic hypoxic and hypercapnic respiratory failure 3. Hyponatremia, on IV normal saline 4. Elevated d-dimer, started on SQ Lovenox 5. underlying history of depression 6. Underlying history of asthma At this time patient is in ICU, pulmonary critical care following Patient improving gradually prognosis remains guarded
[2020-06-23 17:15] LABS: Ferritin 3192.5 ng/mL (22.0-322.0)
[2020-06-23 17:21] LABS: Glucose,Whole Blood 158 mg/dL (75-99)
[2020-06-23] MEDS: SODIUM CHLORIDE 0.9% 1,000 ML IV SCH (17:52)
[2020-06-23] MEDS: INSULIN DETEMIR (LEVEMIR) 100 UNIT/ML SYR SQ SCH (19:57)
[2020-06-24] MEDS: ALBUTEROL HFA INHALER INHALATION SCH ×6 (00:08→20:18)
[2020-06-24 00:32] LABS: Glucose,Whole Blood 163 mg/dL (75-99)
[2020-06-24] MEDS: methylPREDNISolone SOD SUCCI 125 MG/2 ML VIAL IV SCH ×5 (00:37→23:48)
[2020-06-24] MEDS: MEROPENEM 2 GM in SODIUM CHLORIDE 0.9% 100 ML IVPB SCH ×4 (00:37→23:48)
[2020-06-24] MEDS: INSULIN ASPART (NovoLOG) 100 UNIT/ML VIAL SQ SCH ×5 (00:37→21:14)
[2020-06-24 04:29] LABS: Basophils % (A) 0 %; Eosinophils # (A) 0.2 k/uL (0-0.7); Eosinophils % (A) 1 %; HCT 37.8 % (39.0-53.0); HGB 12.2 gm/dL (13.0-17.5); Lymphocytes # (A) 0.2 k/uL (1.0-4.8); Lymphocytes % (A) 1 %; MCHC 32.2 g/dL (31.0-37.0); MCV 90.1 fL (80.0-100.0); Monocytes # (A) 0.6 k/uL (0-1.0); Monocytes % (A) 4 %; Neutrophils # (A) 15.3 k/uL (1.3-7.7); Neutrophils % (A) 94 %; Platelet Count 160 k/uL (150-450); RBC 4.19 m/uL (4.30-5.90); WBC 16.3 k/uL (3.8-10.6)
[2020-06-24 04:50] LABS: ALT 313 U/L (4-49); AST 88 U/L (17-59); African American GFR (CKD) >90 (>60 ml/min/1.73 sqM); Albumin 3.1 g/dL (3.5-5.0); Alkaline Phosphatase 88 U/L (38-126); Anion Gap 2 mmol/L; Blood Urea Nitrogen 38 mg/dL (9-20); C Reactive Protein 15.3 mg/L (<10.0); Calcium 8.4 mg/dL (8.4-10.2); Carbon Dioxide 33 mmol/L (22-30); Chloride 105 mmol/L (98-107); Glucose 177 mg/dL (74-99); LDH 1117 U/L (313-618); Non-African American GFR(CKD) >90 (>60 ml/min/1.73 sqM); Potassium 4.1 mmol/L (3.5-5.1); Sodium 140 mmol/L (137-145); Total Bilirubin 2.5 mg/dL (0.2-1.3); Total Protein 6.3 g/dL (6.3-8.2)
[2020-06-24 06:41] LABS: Glucose,Whole Blood 161 mg/dL (75-99)
--- NOTE | 2020-06-24 07:29 | XR ---
EXAMINATION TYPE: XR chest 1V portable DATE OF EXAM: 06/24/2020 HISTORY: Shortness of breath. COMPARISON: 06/23/2020 TECHNIQUE: Single view of the chest is submitted. FINDINGS: Demonstrated are scattered senescent parenchymal change. The perihilar and basilar infiltrates persist although appear to be slightly improved. The heart is s table. Hilar and mediastinal structures are within normal limits. Degenerative changes are seen of the dorsal spine. IMPRESSION: 1. The perihilar and basilar infiltrates persist although appear to be slightly improved.
[2020-06-24] MEDS: ENOXAPARIN 60 MG/0.6 ML SYRINGE SQ SCH ×2 (08:15→20:43)
[2020-06-24] MEDS: PANTOPRAZOLE 40 MG/10 ML VIAL IVP SCH (08:16)
[2020-06-24] MEDS: FLUoxetine HCL 20 MG CAP PO SCH (08:16)
[2020-06-24] MEDS: ASCORBIC ACID 500 MG TAB PO SCH (08:16)
[2020-06-24] MEDS: ZINC SULFATE 220 MG CAP PO SCH (08:16)
[2020-06-24] MEDS: CHOLECALCIFEROL 1,000 UNIT TAB PO SCH (08:16)
[2020-06-24] MEDS: MORPHINE SULFATE 2 MG/ML SYRINGE IVP PRN ×4 (11:07→20:13)
[2020-06-24 12:00] LABS: Glucose,Whole Blood 194 mg/dL (75-99)
--- NOTE | 2020-06-24 12:21 | P.PN ---
Subjective Progress Note Date: 06/24/20 Principal diagnosis: COVID 19 pneumonitis 49-year-old male patient who was admitted to the hospital 06/09/2020 with the diagnoses of COVID 19 pneumonitis and acute hypoxemic respiratory failure. He came into the hospital for evaluation of worsening shortness of breath, and his pulse ox was a non-80s, he is currently on a BiPAP support, with pressures of 14/7 and FiO2 of 100%, his oxygenation slightly improved, his pulse ox is 92- 94%, hemodynamically he is stable, 1 a low-grade fever last night, he still has significant shortness of breath with any exertion and with conversation, at rest, tachypneic, but states his breathing may be slightly improved, we'll switch his steroids to high-dose IV Solu-Medrol 60 mg every 6 hours, he was started on Remdesivir today is day 3 of treatment, on anticoagulation in the form of Lovenox 40 mg daily On 04/24/2020 patient seen in follow-up in the intensive care unit, patient was successfully weaned and extubated from mechanical ventilator on 06/22/2020, remains on BiPAP support with pressures of 12/6 and FiO2 of 30%. He is kayley usable, he is oriented to name, but disoriented to time and the place, follows commands, his vitals have been stable, he is on Plaquenil sitting at a rate of 20 ML per hour, no other drips. Patient was found to be positive for Acinetobacter in his sputum and she is on meropenem for antibiotic coverage, patient has completed a Remdesivir, convalescent plasma 1 unit, and IV steroids, he is on Lovenox 60 mg every 12 hours. He is on a daily dose of IV Lasix at 40 mg daily, today's chest x-ray shows perihilar and basilar infiltrates appear to be slightly improved. Today's labs have been reviewed, showing white blood cell count 16.3, hemoglobin of 12.2, patient's lymphopenia, but lymphocyte count was 0.2, serum sodium of 140, potassium is 4.1, chloride is 105, CO2 33, BUN of 38 creatinine 0.67, LDH remains elevated, actually increased from yesterday, with CRP is trending down some, down to 15.3. No nausea vomiting or diarrhea. Patient is very weak, and he will need physical therapy evaluation Objective - Vital Signs Vital signs: Vital Signs Temp 98.2 F 06/24/20 08:00 Pulse 70 06/24/20 11:00 Resp 28 H 06/24/20 11:00 BP 123/79 06/24/20 11:00 Pulse Ox 94 L 06/24/20 11:00 Intake & Output 06/23/20 06/24/20 06/24/20 18:59 06:59 18:59 Intake Total 343 240 320 Output Total 1950 1185 1705 Balance -1607 -935 -1385 Weight 109.8 kg Intake: IV 143 240 100 Sodium Chloride 0.9% 1, 140 240 100 000 ml @ 20 mls/hr IV . Q24H [facility] Rx#:[id number] pressure bag 3 Intake, IV Titration 200 100 Amount Meropenem 2 gm In Sodium 200 100 Chloride 0.9% 100 ml @ 33 .3 mls/hr IVPB Q8HR [facility] Rx#:[id number] Oral 120 Output: Urine 1950 1185 1705 Other: Voiding Method Indwelling Catheter Indwelling Catheter Indwelling Catheter ABP, PAP, CO, CI - Last Documented Arterial Blood Pressure 138/84 - Exam GENERAL EXAM: Confused, drowsy, but arousable 49-year-old white male, on BiPAP with pressures of 12/6 and FiO2 of 30% comfortable in no apparent distress. HEAD: Normocephalic/atraumatic. EYES: Normal reaction of pupils, equal size. Conjunctiva pink, sclera white. NOSE: Clear with pink turbinates. THROAT: No erythema or exudates. NECK: No masses, no JVD, no thyroid enlargement, no adenopathy. CHEST: No chest wall deformity. Symmetrical expansion. LUNGS: Equal air entry with no crackles, wheeze, rhonchi or dullness. CVS: Regular rate and rhythm, normal S1 and S2, no gallops, no murmurs, no rubs ABDOMEN: Soft, nontender. No hepatosplenomegaly, normal bowel sounds, no gua rding or rigidity. EXTREMITIES: No clubbing, no edema, no cyanosis, 2+ pulses and upper and lower extremities. MUSCULOSKELETAL: Muscle strength and tone normal. SPINE: No scoliosis or deformity SKIN: No rashes CENTRAL NERVOUS SYSTEM: Confused, drowsy, but responsive to verbal stimuli, on BiPAP No focal deficits, tone is normal in all 4 extremities. - Labs CBC & Chem 7: 06/24/20 03:40 06/24/20 03:40 Labs: Abnormal Lab Results - Last 24 Hours (Table) 06/23/20 06/23/20 06/23/20 Range/Units 04:12 04:12 17:18 WBC (3.8-10.6) k/uL RBC (4.30-5.90) m/uL Hgb (13.0-17.5) gm/dL Hct (39.0-53.0) % Neutrophils # (1.3-7.7) k/uL Lymphocytes # (1.0-4.8) k/uL Carbon Dioxide (22-30) mmol/L BUN (9-20) mg/dL Glucose (74-99) mg/dL POC Glucose (mg/dL) 158 H (75-99) mg/dL Ferritin 3192.5 H (22.0-322.0) ng/mL Total Bilirubin (0.2-1.3) mg/dL AST (17-59) U/L ALT (4-49) U/L Lactate Dehydrogenase 447 H (120-246) U/L CK-MB (CK-2) (0.0-2.4) ng/mL C-Reactive Protein (<10.0) mg/L Albumin (3.5-5.0) g/dL 06/24/20 06/24/20 06/24/20 Range/Units 00:30 03:40 03:40 WBC 16.3 H (3.8-10.6) k/uL RBC 4.19 L (4.30-5.90) m/uL Hgb 12.2 L (13.0-17.5) gm/dL Hct 37.8 L (39.0-53.0) % Neutrophils # 15.3 H (1.3-7.7) k/uL Lymphocytes # 0.2 L (1.0-4.8) k/uL Carbon Dioxide 33 H (22-30) mmol/L BUN 38 H (9-20) mg/dL Glucose 177 H (74-99) mg/dL POC Glucose (mg/dL) 163 H (75-99) mg/dL Ferritin (22.0-322.0) ng/mL Total Bilirubin 2.5 H (0.2-1.3) mg/dL AST 88 H (17-59) U/L ALT 313 H (4-49) U/L Lactate Dehydrogenase 1117 H (120-246) U/L CK-MB (CK-2) (0.0-2.4) ng/mL C-Reactive Protein 15.3 H (<10.0) mg/L Albumin 3.1 L (3.5-5.0) g/dL 06/24/20 06/24/20 06/24/20 Range/Units 03:40 06:38 11:57 WBC (3.8-10.6) k/uL RBC (4.30-5.90) m/uL Hgb (13.0-17.5) gm/dL Hct (39.0-53.0) % Neutrophils # (1.3-7.7) k/uL Lymphocytes # (1.0-4.8) k/uL Carbon Dioxide (22-30) mmol/L BUN (9-20) mg/dL Glucose (74-99) mg/dL POC Glucose (mg/dL) 161 H 194 H (75-99) mg/dL Ferritin (22.0-322.0) ng/mL Total Bilirubin (0.2-1.3) mg/dL AST (17-59) U/L ALT (4-49) U/L Lactate Dehydrogenase (120-246) U/L CK-MB (CK-2) 5.1 H (0.0-2.4) ng/mL C-Reactive Protein (<10.0) mg/L Albumin (3.5-5.0) g/dL Microbiology - Last 24 Hours (Table) 06/18/20 15:10 Gram Stain - Final Sputum Sputum Culture - Final Acinetobacter santhosh/haemol Assessment and Plan Plan: Assessment: #1. Acute hypoxemic respiratory failure related to COVID 19 pneumonitis, started on Remdesivir on 06/10/2020, and patient transfused with 1 unit of convalescent plasma on 06/10/2020. Required intubation and placement on mechanical ventilator on 06/13/2020, patient was successfully weaned and extubated on 06/22/2020. Remains on BiPAP support currently with pressures of 12/6 and FiO2 of 30%, he is weak, he is very confused, at times she is restless, requiring Precedex which has been discontinued since then, chest x-ray still shows bilateral pulmonary infiltrates, he has evidence of a seen a doctor infection in his sputum, patient is covered with IV meropenem. His LDH still elevated, appendectomy is trending down, #2. Recent admission to the hospital with acute community-acquired right lower lung pneumonia #3. Hyponatremia, likely hypovolemic, continues on IV normal saline #4. Elevated d-dimer, #5. History of mild intermittent chronic bronchial asthma #6. History of hypertension #7. History of depression #8. Mild transaminitis secondary to acute viral infection secondary to Coumadin 19 #9. Soft hematoma of the left subclavian triple-lumen catheter site insertion, unchanged #10. Acute metabolic encephalopathy, related to severe hypoxic respiratory failure, ventilator support, a viral and bacterial pneumonia, we'll continue to monitor the patient, may consider brain CT if his mentation does not improve and may consider neuro neurologic evaluation Plan: Continue current medical treatment, continue current dose IV steroids, Lasix, continue antibiotics, continue current dose Lovenox, wean BiPAP support, try high flow oxygen, maintain aspiration precautions, patient is very weak, he is confused, may consider brain CT if his mentation does not improve. Maintain aspiration precautions, will continue to closely follow in the intensive care unit I performed a history & physical examination of the patient and discussed their management with my nurse practitioner, Flor Andrade. I reviewed the nurse pr actitioner's note and agree with the documented findings and plan of care. Lung sounds are positive for diminished breath sounds. The findings and the impression was discussed with the patient. I attest to the documentation by the nurse practitioner. Time with Patient: Greater than 30
[2020-06-24 17:18] LABS: Glucose,Whole Blood 197 mg/dL (75-99)
[2020-06-24] MEDS: SODIUM CHLORIDE 0.9% 1,000 ML IV SCH (17:21)
--- NOTE | 2020-06-24 18:18 | P.PN ---
Subjective Progress Note Date: 06/24/20 Dennis Beal, is a 49 year-old male, who presented to ER with of cough and shortness of breath, Covid 19 test was positive in ER . Patient was evaluated in the emergency room vital examination on presentation to emergency room revealed a temperature of 101.1 pulse 79 respiration 32 blood pressure 115/70 pulse ox 90% on BiPAP his white blood count on presentation was 10.9 C-reactive protein was elevated at 1128 patient was admitted to telemetry floor he was started on IV Decadron pulmonary consultation was requested. Patient was recently admitted with pneumonia at that time Covid 19 test was negative. He was treated with IV antibiotic he improved and he was discharged home. His past medical history is significant for history of kidney stones, history of previous episodes of pneumonia, history of asthma and COPD, and history of depression, history of hypertension. On review of system patient is alert and oriented 3 he is complaining of cough and shortness of breath with any activity otherwise he denies any complaints there is no fever or chills no headache or dizziness no chest pain no nausea or vomiting no abdominal pain no diarrhea no blood in the stools no burning with urination no frequency or urgency and no hematuria On 06/11/2020 patient was seen and examined on the medical floor he is alert and oriented 3 he is still complaining of shortness of breath he still maintained on BiPAP otherwise he denies any complaints he is maintained on IV Decadron and IV Remdesevir On 06/12/2020 patient was seen and examined on the medical floor he is alert and oriented 3 in no apparent distress he is still complaining of shortness of breath and cough he is maintained on high flow oxygen, he is still maintained on IV Decadron and IV REMDESEVIR, otherwise he denies any complaints there is no chest pain no dizziness no nausea or vomiting no abdominal pain no diarrhea and no blood in the stools no burning with urination no frequency or urgency and no hematuria On 06/13/2020 patient was seen and examined in the ICU, last night he developed tachycardia, tachypnea, and worsening shortness of breath. He was transferred to intensive care unit he was intubated sedated started on mechanical ventilation, currently patient was seen and examined in the ICU he is in the prone position maintained on mechanical ventilation. On 06/14/2020 patient was seen and examined in the ICU, he is intubated sedated maintained on mechanical ventilation, patient is maintained on IV heparin per pr otocol, he is receiving IV Solu-Medrol, he received Remdesevir, today is day #5, he also received convalesent plasma. His temperature is 98.1 pulse 97 respiration 24 blood pressure 133/68 white blood count 22.5 hemoglobin 15.5 platelet count 2:30 d-dimer more than 34 pH 7.23 pCO2 78 CO2 102 On 06/15/2020 patient was seen and examined in the ICU, he is intubated sedated maintained on mechanical ventilation, patient is maintained on IV heparin per protocol, he is receiving IV Solu-Medrol, he received Remdesevir, today is day #5, he also received convalesent plasma. His temperature is 98.1 pulse 88 respiration 24 blood pressure 120/75 white blood count 25.9 hemoglobin 15.5 platelet count 276 d-dimer 11.69 pH 7.22 pCO2 80 PO2 83 On 06/16/2020 patient was seen and examined in the ICU he is intubated sedated maintained on mechanical ventilation ABG is improving, plan today is to decrease PEEP from 20-15 and to decrease FiO2 to 50% otherwise continue with current management On 06/17/2020 patient was seen and examined in the ICU he is still intubated sedated maintained on mechanical ventilation, oxygen requirements are decreasing, PEEP is decreased today from 15-12 patient is not on any IV pressure support at this time On 06/18/2020 patient was seen and examined in the ICU he is intubated sedated maintained on mechanical ventilation, he is off Nimbex at this time he is still on assist control tidal volume 450 rate 34 PEEP of 15 chest x-ray reveals a new consolidation in the right lower lung area d-dimer is elevated and patient is maintained on Lovenox. On 06/19/2020 patient was seen and examined in the ICU he is intubated sedated maintained on mechanical ventilation, he is still on assist control tidal volume 450 rate 34 PEEP of 15 chest x-ray reveals a new consolidation in the right lower lung area ABG showed a pH of 7.49 with a pCO2 of 48 and pO2 of 84. d- dimer is elevated and patient is maintained on Lovenox. On 06/20/2020 patient was seen and examined in the ICU he is intubated sedated maintained on mechanical ventilation assist control rate of 34 FiO2 50% PEEP was dropped from 15-13 and patient is tolerating well his pulse ox is 97% he is off Nimbex and remains on propofol he is not on any pressure support he is still having episodes of high fever. On 06/21/2020 patient was seen and examined in the ICU he is intubated sedated maintained on mechanical ventilation, vital examination reveals a blood pressure of 118/61 pulse 57 respiration 28, temperature 100.1 pulse ox 96% he is maintained on assist control rate of 28 tidal 4 450 FiO2 50% and PEEP of 9 patient has Covid 19 pneumonia he completed a course of fremitus severe and received 1 unit of plasma, he is also maintained on IV antibiotic cefepime for superimposed bacterial pneumonia, he is also maintained on IV Solu-Medrol and subcu Lovenox On 06/22/2020 patient was seen and examined in the ICU he was extubated this morning he is alert responsive in no apparent distress maintained on BiPAP at this time, his temperature is 100.2 pulse 65 respiration 20 blood pressure 131/78 pulse ox is 92% on BiPAP his white blood count is 15.2 hemoglobin 10.6 platelet count 170 sodium 139 potassium 4.5 chloride 103 CO2 38 BUN 30 creatinine 0.54 On 06/23/2020 patient was seen and examined in the ICU he was extubated yesterday he is maintained on BiPAP he is alert nonverbal in no apparent distr ess, his vital examination reveals a temperature of 99.7 pulse 80 respiration 23 blood pressure 125/95 pulse ox 97% on BiPAP. On 06/24/2020 patient was seen and examined in ICU he is alert responsive in no apparent distress he is maintained on BiPAP temperature is 98.4 pulse 82 respiration 18 blood pressure 123/78 pulse ox 96% on BiPAP FiO2 30% patient is slightly confused white blood count is 16.3 hemoglobin 12.0 platelet count 160 glucose 163 Objective - Vital Signs Vital signs: Vital Signs Temp 98.2 F 06/24/20 12:00 Pulse 90 06/24/20 14:00 Resp 26 H 06/24/20 14:00 BP 124/85 06/24/20 14:00 Pulse Ox 95 06/24/20 14:00 Intake & Output 06/23/20 06/24/20 06/24/20 18:59 06:59 18:59 Intake Total 343 240 840 Output Total 1950 1185 1955 Balance -8470 -571 -2577 Weight 109.8 kg 109.8 kg Intake: IV 143 240 140 Sodium Chloride 0.9% 1, 140 240 140 000 ml @ 20 mls/hr IV . Q24H ERIN Rx#:[id number] pressure bag 3 Intake, IV Titration 200 100 Amount Meropenem 2 gm In Sodium 200 100 Chloride 0.9% 100 ml @ 33 .3 mls/hr IVPB Q8HR ERIN Rx#:[id number] Oral 600 Output: Urine 1949 1184 1954 Other: Voiding Method Indwelling Catheter Indwelling Catheter Indwelling Catheter ABP, PAP, CO, CI - Last Documented Arterial Blood Pressure 138/84 - Exam In general patient was extubated this morning he is maintained on BiPAP he is alert responsive in no distress HEENT head normocephalic and atraumatic Neck is supple no JVD no goiter no lymphadenopathy Chest exam reveals fine crackles in both lung holden no wheezing Cardiac exam reveals regular heart sounds S1 and S2 no gallops no murmurs Abdomen is soft nontender no organomegaly with normal bowel sounds Extremity exam reveals minimal edema no cyanosis or clubbing Neurological examination reveals no gross focal neurological deficit - Labs CBC & Chem 7: 06/24/20 03:40 06/24/20 03:40 Labs: Abnormal Lab Results - Last 24 Hours (Table) 06/23/20 06/23/20 06/23/20 Range/Units 04:12 04:12 17:18 WBC (3.8-10.6) k/uL RBC (4.30-5.90) m/uL Hgb (13.0-17.5) gm/dL Hct (39.0-53.0) % Neutrophils # (1.3-7.7) k/uL Lymphocytes # (1.0-4.8) k/uL Carbon Dioxide (22-30) mmol/L BUN (9-20) mg/dL Glucose (74-99) mg/dL POC Glucose (mg/dL) 158 H (75-99) mg/dL Ferritin 3192.5 H (22.0-322.0) ng/mL Total Bilirubin (0.2-1.3) mg/dL AST (17-59) U/L ALT (4-49) U/L Lactate Dehydrogenase 447 H (120-246) U/L CK-MB (CK-2) (0.0-2.4) ng/mL C-Reactive Protein (<10.0) mg/L Albumin (3.5-5.0) g/dL 06/24/20 06/24/20 06/24/20 Range/Units 00:30 03:40 03:40 WBC 16.3 H (3.8-10.6) k/uL RBC 4.19 L (4.30-5.90) m/uL Hgb 12.2 L (13.0-17.5) gm/dL Hct 37.8 L (39.0-53.0) % Neutrophils # 15.3 H (1.3-7.7) k/uL Lymphocytes # 0.2 L (1.0-4.8) k/uL Carbon Dioxide 33 H (22-30) mmol/L BUN 38 H (9-20) mg/dL Glucose 177 H (74-99) mg/dL POC Glucose (mg/dL) 163 H (75-99) mg/dL Ferritin (22.0-322.0) ng/mL Total Bilirubin 2.5 H (0.2-1.3) mg/dL AST 88 H (17-59) U/L ALT 313 H (4-49) U/L Lactate Dehydrogenase 1117 H (120-246) U/L CK-MB (CK-2) (0.0-2.4) ng/mL C-Reactive Protein 15.3 H (<10.0) mg/L Albumin 3.1 L (3.5-5.0) g/dL 06/24/20 06/24/20 06/24/20 Range/Units 03:40 06:38 11:57 WBC (3.8-10.6) k/uL RBC (4.30-5.90) m/uL Hgb (13.0-17.5) gm/dL Hct (39.0-53.0) % Neutrophils # (1.3-7.7) k/uL Lymphocytes # (1.0-4.8) k/uL Carbon Dioxide (22-30) mmol/L BUN (9-20) mg/dL Glucose (74-99) mg/dL POC Glucose (mg/dL) 161 H 194 H (75-99) mg/dL Ferritin (22.0-322.0) ng/mL Total Bilirubin (0.2-1.3) mg/dL AST (17-59) U/L ALT (4-49) U/L Lactate Dehydrogenase (120-246) U/L CK-MB (CK-2) 5.1 H (0.0-2.4) ng/mL C-Reactive Protein (<10.0) mg/L Albumin (3.5-5.0) g/dL Microbiology - Last 24 Hours (Table) 06/18/20 15:10 Gram Stain - Final Sputum Sputum Culture - Final Acinetobacter santhosh/haemol Assessment and Plan Plan: 1. COVID-19, Bilateral pneumonia, started on IV Decadron and IV Remdesevir, patient also received convalescent serum, he improved gradually he was extubated yesterday he is maintained on BiPAP at this time 2. Acute on chronic hypoxic and hypercapnic respiratory failure 3. Hyponatremia, on IV normal saline 4. Elevated d-dimer, started on SQ Lovenox 5. underlying history of depression 6. Underlying history of asthma At this time patient is in ICU, pulmonary critical care following Patient improving gradually prognosis remains guarded
[2020-06-24] MEDS: INSULIN DETEMIR (LEVEMIR) 100 UNIT/ML SYR SQ SCH (20:13)
[2020-06-24] MEDS: CHLORHEXIDINE GLUCONATE 15 ML CUP MUCOUS MEM SCH (20:23)
[2020-06-24 20:55] LABS: Glucose,Whole Blood 218 mg/dL (75-99)
[2020-06-24 21:10] LABS: Ferritin 3018.9 ng/mL (22.0-322.0)
[2020-06-25] MEDS: ALBUTEROL HFA INHALER INHALATION SCH ×6 (01:28→19:55)
[2020-06-25] MEDS: methylPREDNISolone SOD SUCCI 125 MG/2 ML VIAL IV SCH (05:15)
[2020-06-25 05:19] LABS: Basophils # (A) 0.2 k/uL (0-0.2); Basophils % (A) 1 %; Eosinophils # (A) 0.2 k/uL (0-0.7); Eosinophils % (A) 1 %; HGB 12.4 gm/dL (13.0-17.5); Lymphocytes # (A) 0.1 k/uL (1.0-4.8); Lymphocytes % (A) 0 %; MCH 30.9 pg (25.0-35.0); MCHC 34.4 g/dL (31.0-37.0); MCV 89.9 fL (80.0-100.0); Mean Platelet Volume 8.3; Monocytes # (A) 0.5 k/uL (0-1.0); Monocytes % (A) 3 %; Neutrophils % (A) 94 %; Platelet Count 175 k/uL (150-450); RDW 13.7 % (11.5-15.5); WBC 17.1 k/uL (3.8-10.6)
[2020-06-25 05:34] LABS: African American GFR (CKD) >90 (>60 ml/min/1.73 sqM); Anion Gap 4 mmol/L; Blood Urea Nitrogen 32 mg/dL (9-20); C Reactive Protein 38.9 mg/L (<10.0); Calcium 8.5 mg/dL (8.4-10.2); Carbon Dioxide 29 mmol/L (22-30); Chloride 102 mmol/L (98-107); Creatine Kinase 390 U/L (55-170); Glucose 183 mg/dL (74-99); LDH 1055 U/L (313-618); Non-African American GFR(CKD) >90 (>60 ml/min/1.73 sqM); Potassium 4.1 mmol/L (3.5-5.1); Sodium 135 mmol/L (137-145)
[2020-06-25 05:46] LABS: D-Dimer 5.88 mg/L FEU (<0.60)
[2020-06-25] MEDS: ASCORBIC ACID 500 MG TAB PO SCH (08:12)
[2020-06-25] MEDS: FLUoxetine HCL 20 MG CAP PO SCH ×2 (08:12→09:21)
[2020-06-25] MEDS: PANTOPRAZOLE 40 MG/10 ML VIAL IVP SCH (08:12)
[2020-06-25] MEDS: ZINC SULFATE 220 MG CAP PO SCH (08:13)
[2020-06-25] MEDS: CHOLECALCIFEROL 1,000 UNIT TAB PO SCH (08:13)
[2020-06-25 08:26] LABS: Glucose,Whole Blood 179 mg/dL (75-99)
[2020-06-25] MEDS: INSULIN ASPART (NovoLOG) 100 UNIT/ML VIAL SQ SCH ×4 (08:33→20:44)
[2020-06-25] MEDS: ENOXAPARIN 60 MG/0.6 ML SYRINGE SQ SCH ×2 (09:17→20:39)
[2020-06-25] MEDS: FUROSEMIDE 10 MG/ML 4 ML VIAL IV SCH (09:17)
[2020-06-25] MEDS: MEROPENEM 2 GM in SODIUM CHLORIDE 0.9% 100 ML IVPB SCH ×3 (09:52→23:32)
--- NOTE | 2020-06-25 10:16 | XR ---
EXAMINATION TYPE: XR chest 1V portable DATE OF EXAM: 06/25/2020 COMPARISON: 06/24/2020 INDICATION: Covid TECHNIQUE: Single frontal view of the chest is obtained. FINDINGS: The heart size is normal. The pulmonary vasculature is normal. Mild right lower lobe infiltrate is developing. Left basilar infiltrate appears similar. IMPRESSION: 1. Bibasilar infiltrates can be compatible with atypical pneumonia. Right base is worsening. Continue d follow-up is recommended.
[2020-06-25 11:32] LABS: Ferritin 3006.8 ng/mL (22.0-322.0)
[2020-06-25 11:43] LABS: Glucose,Whole Blood 229 mg/dL (75-99)
[2020-06-25] MEDS: ACETAMINOPHEN TAB 325 MG TAB PO PRN ×2 (14:07→19:28)
--- NOTE | 2020-06-25 14:49 | P.PN ---
Subjective Progress Note Date: 06/25/20 Principal diagnosis: Acute hypoxic respiratory failure secondary to covid 19 pneumonitis 49-year-old male patient who was admitted to the hospital 06/09/2020 with the diagnoses of COVID 19 pneumonitis and acute hypoxemic respiratory failure. He came into the hospital for evaluation of worsening shortness of breath, and his pulse ox was a non-80s, he is currently on a BiPAP support, with pressures of 14/7 and FiO2 of 100%, his oxygenation slightly improved, his pulse ox is 92- 94%, hemodynamically he is stable, 1 a low-grade fever last night, he still has significant shortness of breath with any exertion and with conversation, at rest, tachypneic, but states his breathing may be slightly improved, we'll switch his steroids to high-dose IV Solu-Medrol 60 mg every 6 hours, he was started on Remdesivir today is day 3 of treatment, on anticoagulation in the form of Lovenox 40 mg daily On 06/24/2020 patient seen in follow-up in the intensive care unit, patient was successfully weaned and extubated from mechanical ventilator on 06/22/2020, remains on BiPAP support with pressures of 12/6 and FiO2 of 30%. He is arousable, he is oriented to name, but disoriented to time and the place, follows commands, his vitals have been stable, he is on Plaquenil sitting at a rate of 20 ML per hour, no other drips. Patient was found to be positive for Acinetobacter in his sputum and she is on meropenem for antibiotic coverage, patient has completed a Remdesivir, convalescent plasma 1 unit, and IV steroids, he is on Lovenox 60 mg every 12 hours. He is on a daily dose of IV Lasix at 40 mg daily, today's chest x-ray shows perihilar and basilar infiltrates appear to be slightly improved. Today's labs have been reviewed, showing white blood cell count 16.3, hemoglobin of 12.2, patient's lymphopenia, but lymphocyte count was 0.2, serum sodium of 140, potassium is 4.1, chloride is 105, CO2 33, BUN of 38 creatinine 0.67, LDH remains elevated, actually increased from yesterday, with CRP is trending down some, down to 15.3. No nausea vomiting or diarrhea. Patient is very weak, and he will need physical therapy evaluation Reevaluated today on 06/25/20, patient remains in the ICU, he was successfully weaned and extubated from mechanical ventilation on 06/22. He is now on nasal cannula, basically on 2 L with O2 saturation in the mid 90s. His IV fluid is at KVO, patient is generally weak, he has what seems to be a proximal muscle weakness/proximal myopathy. 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 Patient is generally weak, and again the weakness is mostly in the upper extremities. Patient is alert, in no distress, chest x-ray continues to show by basilar infiltrates, and I plan to transfer the patient out of the ICU to a regular medical floor today. WBC count is 17 hemoglobin is 12.4. Lites are normal renal profile is normal d- dimer remains elevated at 5.88, LDH is just over 3006 and his C-reactive protein is 39 Objective - Vital Signs Vital signs: Vital Signs Temp 98.2 F 06/25/20 08:00 Pulse 80 06/25/20 14:00 Resp 18 06/25/20 08:00 BP 123/83 06/25/20 14:00 Pulse Ox 93 L 06/25/20 14:00 Intake & Output 06/24/20 06/25/20 06/25/20 18:59 06:59 18:59 Intake Total 1380 590 720 Output Total 2385 1090 1130 Balance -1005 -500 -410 Weight 109.8 kg 102.3 kg Intake: IV 240 240 140 Sodium Chloride 0.9% 1, 240 240 140 000 ml @ 20 mls/hr IV . Q24H ERIN Rx#:[id number] Intake, IV Titration 200 100 100 Amount Meropenem 2 gm In Sodium 200 100 100 Chloride 0.9% 100 ml @ 33 .3 mls/hr IVPB Q8HR ERIN Rx#:[id number] Oral 940 480 Other 250 Output: Urine 2385 1090 1130 Other: Voiding Method Indwelling Catheter Indwelling Catheter Indwelling Catheter # Bowel Movements 1 ABP, PAP, CO, CI - Last Documented Arterial Blood Pressure 138/84 - Exam GENERAL EXAM: Revealed a 49-year-old white male, awake, in no distress, on few liters nasal cannula. HEAD: Normocephalic/atraumatic. ENT: PERRLA, EOMI, no icterus, no neck masses, no JVD. CHEST: No chest wall deformity. Symmetrical expansion. LUNGS: Minimal fine crackles at the base. CVS: Regular rate and rhythm, normal S1 and S2, no gallops, no murmurs, no rubs ABDOMEN: Soft, nontender. No hepatosplenomegaly, normal bowel sounds, no guar ding or rigidity. EXTREMITIES: No clubbing, no edema, no cyanosis, 2+ pulses and upper and lower extremities. MUSCULOSKELETAL: Profound upper extremities weakness noted consistent with proximal myopathy. Some weakness noted in the lower extremities but not as severe as the upper extremities. SPINE: No scoliosis or deformity SKIN: No rashes CENTRAL NERVOUS SYSTEM: Awake, oriented 3, no gross focal deficit except for weakness in upper extremities more so than lower extremities - Labs CBC & Chem 7: 06/25/20 04:58 06/25/20 04:58 Labs: Abnormal Lab Results - Last 24 Hours (Table) 06/24/20 06/24/20 06/24/20 Range/Units 03:40 17:14 20:47 WBC (3.8-10.6) k/uL RBC (4.30-5.90) m/uL Hgb (13.0-17.5) gm/dL Hct (39.0-53.0) % Neutrophils # (1.3-7.7) k/uL Lymphocytes # (1.0-4.8) k/uL D-Dimer (<0.60) mg/L FEU Sodium (137-145) mmol/L BUN (9-20) mg/dL Creatinine (0.66-1.25) mg/dL Glucose (74-99) mg/dL POC Glucose (mg/dL) 197 H 218 H (75-99) mg/dL Ferritin 3018.9 H (22.0-322.0) ng/mL Lactate Dehydrogenase (313-618) U/L Creatine Kinase (55-170) U/L C-Reactive Protein (<10.0) mg/L 06/25/20 06/25/20 06/25/20 Range/Units 04:58 04:58 04:58 WBC 17.1 H (3.8-10.6) k/uL RBC 4.00 L (4.30-5.90) m/uL Hgb 12.4 L (13.0-17.5) gm/dL Hct 36.0 L (39.0-53.0) % Neutrophils # 16.0 H (1.3-7.7) k/uL Lymphocytes # 0.1 L (1.0-4.8) k/uL D-Dimer 5.88 H (<0.60) mg/L FEU Sodium 135 L (137-145) mmol/L BUN 32 H (9-20) mg/dL Creatinine 0.54 L (0.66-1.25) mg/dL Glucose 183 H (74-99) mg/dL POC Glucose (mg/dL) (75-99) mg/dL Ferritin 3006.8 H (22.0-322.0) ng/mL Lactate Dehydrogenase 1055 H (313-618) U/L Creatine Kinase 390 H (55-170) U/L C-Reactive Protein 38.9 H (<10.0) mg/L 06/25/20 06/25/20 Range/Units 08:25 11:31 WBC (3.8-10.6) k/uL RBC (4.30-5.90) m/uL Hgb (13.0-17.5) gm/dL Hct (39.0-53.0) % Neutrophils # (1.3-7.7) k/uL Lymphocytes # (1.0-4.8) k/uL D-Dimer (<0.60) mg/L FEU Sodium (137-145) mmol/L BUN (9-20) mg/dL Creatinine (0.66-1.25) mg/dL Glucose (74-99) mg/dL POC Glucose (mg/dL) 179 H 229 H (75-99) mg/dL Ferritin (22.0-322.0) ng/mL Lactate Dehydrogenase (313-618) U/L Creatine Kinase (55-170) U/L C-Reactive Protein (<10.0) mg/L Assessment and Plan Assessment: #1. Acute hypoxemic respiratory failure related to COVID 19 pneumonitis, started on Remdesivir on 06/10/2020, and patient transfused with 1 unit of convalescent plasma on 06/10/2020. Required intubation and placement on mechanical ventilator on 06/13/2020, patient was successfully weaned and extubated on 06/22/2020. 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 #3 history of mild intermittent asthma presently inactive. #4 elevated d-dimer. #5 history of depression #6 history of hypertension #7 small left subclavian hematoma. Unchanged. Recommendation: Continue present supportive care measures. Decrease Solu-Medrol dose and placed on prednisone orally instead. Continue antibiotics. Continue Lovenox. Titrate oxygen down as tolerated. Maintain aspiration precautions. Patient is generally weak, and he will definitely benefit from physical therapy. Will transfer out of the ICU to regular medical floor today.. We'll continue to follow. Time with Patient: Less than 30
[2020-06-25 17:19] LABS: Glucose,Whole Blood 198 mg/dL (75-99)
--- NOTE | 2020-06-25 19:03 | P.PN ---
Subjective Progress Note Date: 06/25/20 Dennis Beal, is a 49 year-old male, who presented to ER with of cough and shortness of breath, Covid 19 test was positive in ER . Patient was evaluated in the emergency room vital examination on presentation to emergency room revealed a temperature of 101.1 pulse 79 respiration 32 blood pressure 115/70 pulse ox 90% on BiPAP his white blood count on presentation was 10.9 C-reactive protein was elevated at 1128 patient was admitted to telemetry floor he was started on IV Decadron pulmonary consultation was requested. Patient was recently admitted with pneumonia at that time Covid 19 test was negative. He was treated with IV antibiotic he improved and he was discharged home. His past medical history is significant for history of kidney stones, history of previous episodes of pneumonia, history of asthma and COPD, and history of depression, history of hypertension. On review of system patient is alert and oriented 3 he is complaining of cough and shortness of breath with any activity otherwise he denies any complaints there is no fever or chills no headache or dizziness no chest pain no nausea or vomiting no abdominal pain no diarrhea no blood in the stools no burning with urination no frequency or urgency and no hematuria On 06/11/2020 patient was seen and examined on the medical floor he is alert and oriented 3 he is still complaining of shortness of breath he still maintained on BiPAP otherwise he denies any complaints he is maintained on IV Decadron and IV Remdesevir On 06/12/2020 patient was seen and examined on the medical floor he is alert and oriented 3 in no apparent distress he is still complaining of shortness of breath and cough he is maintained on high flow oxygen, he is still maintained on IV Decadron and IV REMDESEVIR, otherwise he denies any complaints there is no chest pain no dizziness no nausea or vomiting no abdominal pain no diarrhea and no blood in the stools no burning with urination no frequency or urgency and no hematuria On 06/13/2020 patient was seen and examined in the ICU, last night he developed tachycardia, tachypnea, and worsening shortness of breath. He was transferred to intensive care unit he was intubated sedated started on mechanical ventilation, currently patient was seen and examined in the ICU he is in the prone position maintained on mechanical ventilation. On 06/14/2020 patient was seen and examined in the ICU, he is intubated sedated maintained on mechanical ventilation, patient is maintained on IV heparin per pr otocol, he is receiving IV Solu-Medrol, he received Remdesevir, today is day #5, he also received convalesent plasma. His temperature is 98.1 pulse 97 respiration 24 blood pressure 133/68 white blood count 22.5 hemoglobin 15.5 platelet count 2:30 d-dimer more than 34 pH 7.23 pCO2 78 CO2 102 On 06/15/2020 patient was seen and examined in the ICU, he is intubated sedated maintained on mechanical ventilation, patient is maintained on IV heparin per protocol, he is receiving IV Solu-Medrol, he received Remdesevir, today is day #5, he also received convalesent plasma. His temperature is 98.1 pulse 88 respiration 24 blood pressure 120/75 white blood count 25.9 hemoglobin 15.5 platelet count 276 d-dimer 11.69 pH 7.22 pCO2 80 PO2 83 On 06/16/2020 patient was seen and examined in the ICU he is intubated sedated maintained on mechanical ventilation ABG is improving, plan today is to decrease PEEP from 20-15 and to decrease FiO2 to 50% otherwise continue with current management On 06/17/2020 patient was seen and examined in the ICU he is still intubated sedated maintained on mechanical ventilation, oxygen requirements are decreasing, PEEP is decreased today from 15-12 patient is not on any IV pressure support at this time On 06/18/2020 patient was seen and examined in the ICU he is intubated sedated maintained on mechanical ventilation, he is off Nimbex at this time he is still on assist control tidal volume 450 rate 34 PEEP of 15 chest x-ray reveals a new consolidation in the right lower lung area d-dimer is elevated and patient is maintained on Lovenox. On 06/19/2020 patient was seen and examined in the ICU he is intubated sedated maintained on mechanical ventilation, he is still on assist control tidal volume 450 rate 34 PEEP of 15 chest x-ray reveals a new consolidation in the right lower lung area ABG showed a pH of 7.49 with a pCO2 of 48 and pO2 of 84. d- dimer is elevated and patient is maintained on Lovenox. On 06/20/2020 patient was seen and examined in the ICU he is intubated sedated maintained on mechanical ventilation assist control rate of 34 FiO2 50% PEEP was dropped from 15-13 and patient is tolerating well his pulse ox is 97% he is off Nimbex and remains on propofol he is not on any pressure support he is still having episodes of high fever. On 06/21/2020 patient was seen and examined in the ICU he is intubated sedated maintained on mechanical ventilation, vital examination reveals a blood pressure of 118/61 pulse 57 respiration 28, temperature 100.1 pulse ox 96% he is maintained on assist control rate of 28 tidal 4 450 FiO2 50% and PEEP of 9 patient has Covid 19 pneumonia he completed a course of fremitus severe and received 1 unit of plasma, he is also maintained on IV antibiotic cefepime for superimposed bacterial pneumonia, he is also maintained on IV Solu-Medrol and subcu Lovenox On 06/22/2020 patient was seen and examined in the ICU he was extubated this morning he is alert responsive in no apparent distress maintained on BiPAP at this time, his temperature is 100.2 pulse 65 respiration 20 blood pressure 131/78 pulse ox is 92% on BiPAP his white blood count is 15.2 hemoglobin 10.6 platelet count 170 sodium 139 potassium 4.5 chloride 103 CO2 38 BUN 30 creatinine 0.54 On 06/23/2020 patient was seen and examined in the ICU he was extubated yesterday he is maintained on BiPAP he is alert nonverbal in no apparent distr ess, his vital examination reveals a temperature of 99.7 pulse 80 respiration 23 blood pressure 125/95 pulse ox 97% on BiPAP. On 06/24/2020 patient was seen and examined in ICU he is alert responsive in no apparent distress he is maintained on BiPAP temperature is 98.4 pulse 82 respiration 18 blood pressure 123/78 pulse ox 96% on BiPAP FiO2 30% patient is slightly confused white blood count is 16.3 hemoglobin 12.0 platelet count 160 glucose 163 On 06/25/2020 patient was seen and examined in the ICU he is alert and oriented 3 in no apparent distress, he is scheduled to be transferred to the medical floor today, there is no fever or chills no headache or dizziness no chest pain no shortness of breath no cough no nausea or vomiting no abdominal pain no diarrhea and no urinary symptoms he is maintained on oxygen via nasal cannula at 5 L/m of back pain and bilateral lower extremity pain there is evidence of foot drop and muscle contracture in both feet physical therapy consult requested Objective - Vital Signs Vital signs: Vital Signs Temp 98.2 F 06/25/20 17:00 Pulse 85 06/25/20 17:00 Resp 18 06/25/20 17:00 BP 126/79 06/25/20 17:00 Pulse Ox 94 L 06/25/20 17:00 Intake & Output 06/25/20 06/25/20 06/26/20 06:59 18:59 06:59 Intake Total 590 820 Output Total 1090 1130 Balance -500 -310 Weight 102.3 kg Intake: IV 240 140 Sodium Chloride 0.9% 1, 240 140 000 ml @ 20 mls/hr IV . Q24H ERIN Rx#:[id number] Intake, IV Titration 100 200 Amount Meropenem 2 gm In Sodium 100 200 Chloride 0.9% 100 ml @ 33 .3 mls/hr IVPB Q8HR ERIN Rx#:[id number] Oral 480 Other 250 Output: Urine 1090 1130 Other: Voiding Method Indwelling Catheter Indwelling Catheter # Bowel Movements 1 ABP, PAP, CO, CI - Last Documented Arterial Blood Pressure 138/84 - Exam In general patient was extubated this morning he is maintained on BiPAP he is alert responsive in no distress HEENT head normocephalic and atraumatic Neck is supple no JVD no goiter no lymphadenopathy Chest exam reveals fine crackles in both lung holden no wheezing Cardiac exam reveals regular heart sounds S1 and S2 no gallops no murmurs Abdomen is soft nontender no organomegaly with normal bowel sounds Extremity exam reveals minimal edema no cyanosis or clubbing Neurological examination reveals no gross focal neurological deficit - Labs CBC & Chem 7: 06/25/20 04:58 06/25/20 04:58 Labs: Abnormal Lab Results - Last 24 Hours (Table) 06/24/20 06/24/20 06/25/20 Range/Units 03:40 20:47 04:58 WBC (3.8-10.6) k/uL RBC (4.30-5.90) m/uL Hgb (13.0-17.5) gm/dL Hct (39.0-53.0) % Neutrophils # (1.3-7.7) k/uL Lymphocytes # (1.0-4.8) k/uL D-Dimer 5.88 H (<0.60) mg/L FEU Sodium (137-145) mmol/L BUN (9-20) mg/dL Creatinine (0.66-1.25) mg/dL Glucose (74-99) mg/dL POC Glucose (mg/dL) 218 H (75-99) mg/dL Ferritin 3018.9 H (22.0-322.0) ng/mL Lactate Dehydrogenase (313-618) U/L Creatine Kinase (55-170) U/L C-Reactive Protein (<10.0) mg/L 06/25/20 06/25/20 06/25/20 Range/Units 04:58 04:58 08:25 WBC 17.1 H (3.8-10.6) k/uL RBC 4.00 L (4.30-5.90) m/uL Hgb 12.4 L (13.0-17.5) gm/dL Hct 36.0 L (39.0-53.0) % Neutrophils # 16.0 H (1.3-7.7) k/uL Lymphocytes # 0.1 L (1.0-4.8) k/uL D-Dimer (<0.60) mg/L FEU Sodium 135 L (137-145) mmol/L BUN 32 H (9-20) mg/dL Creatinine 0.54 L (0.66-1.25) mg/dL Glucose 183 H (74-99) mg/dL POC Glucose (mg/dL) 179 H (75-99) mg/dL Ferritin 3006.8 H (22.0-322.0) ng/mL Lactate Dehydrogenase 1055 H (313-618) U/L Creatine Kinase 390 H (55-170) U/L C-Reactive Protein 38.9 H (<10.0) mg/L 06/25/20 06/25/20 Range/Units 11:31 17:14 WBC (3.8-10.6) k/uL RBC (4.30-5.90) m/uL Hgb (13.0-17.5) gm/dL Hct (39.0-53.0) % Neutrophils # (1.3-7.7) k/uL Lymphocytes # (1.0-4.8) k/uL D-Dimer (<0.60) mg/L FEU Sodium (137-145) mmol/L BUN (9-20) mg/dL Creatinine (0.66-1.25) mg/dL Glucose (74-99) mg/dL POC Glucose (mg/dL) 229 H 198 H (75-99) mg/dL Ferritin (22.0-322.0) ng/mL Lactate Dehydrogenase (313-618) U/L Creatine Kinase (55-170) U/L C-Reactive Protein (<10.0) mg/L Assessment and Plan Plan: 1. COVID-19, Bilateral pneumonia, started on IV Decadron and IV Remdesevir, patient also received convalescent serum, he improved gradually he was extubated yesterday he is maintained on BiPAP at this time 2. Acute on chronic hypoxic and hypercapnic respiratory failure 3. Hyponatremia, on IV normal saline 4. Elevated d-dimer, started on SQ Lovenox 5. underlying history of depression 6. Underlying history of asthma At this time patient is in ICU, pulmonary critical care following Patient improving gradually prognosis remains guarded
[2020-06-25 20:10] LABS: Glucose,Whole Blood 169 mg/dL (75-99)
[2020-06-25] MEDS: INSULIN DETEMIR (LEVEMIR) 100 UNIT/ML SYR SQ SCH (22:38)
[2020-06-25] MEDS: SODIUM CHLORIDE 0.9% 1,000 ML IV SCH (22:39)
[2020-06-25] MEDS: MORPHINE SULFATE 2 MG/ML SYRINGE IVP PRN (23:41)
[2020-06-26] MEDS: ACETAMINOPHEN TAB 325 MG TAB PO PRN (01:56)
[2020-06-26] MEDS: MORPHINE SULFATE 2 MG/ML SYRINGE IVP PRN ×5 (04:18→20:19)
[2020-06-26 07:02] LABS: Basophils # (A) 0.1 k/uL (0-0.2); Basophils % (A) 1 %; Eosinophils # (A) 0.2 k/uL (0-0.7); Eosinophils % (A) 2 %; HCT 37.9 % (39.0-53.0); HGB 12.6 gm/dL (13.0-17.5); Lymphocytes # (A) 0.7 k/uL (1.0-4.8); Lymphocytes % (A) 5 %; MCH 29.7 pg (25.0-35.0); MCHC 33.2 g/dL (31.0-37.0); MCV 89.5 fL (80.0-100.0); Monocytes # (A) 0.5 k/uL (0-1.0); Monocytes % (A) 4 %; Neutrophils # (A) 12.5 k/uL (1.3-7.7); Neutrophils % (A) 89 %; Platelet Count 176 k/uL (150-450); RBC 4.24 m/uL (4.30-5.90); RDW 14.1 % (11.5-15.5); WBC 14.1 k/uL (3.8-10.6)
[2020-06-26 07:06] LABS: Glucose,Whole Blood 146 mg/dL (75-99)
--- NOTE | 2020-06-26 08:07 | XR ---
EXAMINATION TYPE: XR chest 1V portable DATE OF EXAM: 06/26/2020 HISTORY: Shortness of breath. COMPARISON: 06/25/2020 TECHNIQUE: Single view of the chest is submitted. FINDINGS: Demonstrated are scattered senescent parenchymal change. Scattered infiltrates persist with improvement noted at the right lung base. The heart is stable. Hilar and mediastinal structures are within normal limits. Degenerative changes are seen of the dorsal spine. IMPRESSION: 1. Scattered infiltrates persist with improvement noted at the right lung base.
[2020-06-26] MEDS: PANTOPRAZOLE 40 MG/10 ML VIAL IVP SCH (08:08)
[2020-06-26] MEDS: FUROSEMIDE 10 MG/ML 4 ML VIAL IV SCH (08:08)
[2020-06-26] MEDS: ENOXAPARIN 60 MG/0.6 ML SYRINGE SQ SCH ×2 (08:08→21:58)
[2020-06-26] MEDS: FLUoxetine HCL 20 MG CAP PO SCH (08:09)
[2020-06-26] MEDS: CHOLECALCIFEROL 1,000 UNIT TAB PO SCH (08:09)
[2020-06-26] MEDS: ASCORBIC ACID 500 MG TAB PO SCH (08:09)
[2020-06-26] MEDS: ZINC SULFATE 220 MG CAP PO SCH (08:09)
[2020-06-26] MEDS: predniSONE 20 MG TAB PO SCH (08:09)
[2020-06-26] MEDS: INSULIN ASPART (NovoLOG) 100 UNIT/ML VIAL SQ SCH ×4 (08:09→21:58)
[2020-06-26] MEDS: MEROPENEM 2 GM in SODIUM CHLORIDE 0.9% 100 ML IVPB SCH ×2 (08:10→15:00)
[2020-06-26] MEDS: ALBUTEROL HFA INHALER INHALATION SCH ×4 (09:16→19:29)
[2020-06-26 11:20] LABS: African American GFR (CKD) 134.9 (60.0-200.0); Anion Gap 9.3 mmol/L (4.00-12.00); BUN/Creat Ratio 58.33 Ratio (12.00-20.00); C Reactive Protein 6.6 mg/dL (0.0-0.8); Calcium 8.5 mg/dL (8.7-10.3); Carbon Dioxide 27.7 mmol/L (21.6-31.8); Ferritin 3467.4 ng/mL (22.0-322.0); Non-African American GFR(CKD) 116.4 (60.0-200.0); Potassium 3.5 mmol/L (3.5-5.5)
[2020-06-26 11:57] LABS: ABG PO2 58 mmHg (83-108)
[2020-06-26 12:09] LABS: Glucose,Whole Blood 219 mg/dL (75-99)
--- NOTE | 2020-06-26 13:06 | PN ---
PROGRESS NOTE This is a patient who was admitted back on June 09, 2020. The patient had a previous admission for right middle lobe and right lower lobe pneumonia. I did a consultation on him on June 11. At that time he developed acute and hypoxemic respiratory failure and required intubation and mechanical ventilation and obvious transfer to the intensive care unit. The patient does carry with a diagnosis of both asthma and hypertension. Anyway, the patient was in the ICU quite sick for some period of time. The patient required long-term mechanical ventilation and did receive all the usual medications that we give for COVID-19 infection. In addition, the patient required proning to improve oxygenation. He was moved out of the ICU yesterday and now on the [place] [address] floor. The patient is currently on 2 L nasal cannula. Not receiving any IV fluids. He states his breathing "comes and goes. He is also complaining of head pain and back pain. All-in-all, doing much better. Apparently, the patient was successfully extubated from mechanical ventilation on June 22, 2020. Current vital signs include a temperature 98.3, heart rate 91, respiratory rate 24, blood pressure 116/71 mean 86, 2 L saturation 96%. Appears in no acute distress. HEENT: Examination is grossly unremarkable. Nasal O2 in place. NECK: Supple, full range of motion. No adenopathy. Neck veins are flat. CARDIOVASCULAR: Examination reveals regular rhythm and rate. Heart rate 91. S1, S2 normal. LUNGS: Reveal mostly clear breath sounds. A few scattered rhonchi. No wheezes or crackles. ABDOMEN: Soft, bowel sounds are heard. EXTREMITIES: Intact. No significant edema. SKIN: Without rash. NEUROLOGIC: Examination is nonfocal. LABS: Reviewed. White count 14.1, hemoglobin 12.6, hematocrit 37.9, platelet count 176,000. Fibrinogen 547. Sodium, potassium chloride, CO2 all normal, anion gap 9.3, BUN and creatinine were 35 and 0.6, calcium 8.5, ferritin 3467, LDH 319, CK 506 and C-reactive protein 6.6. Microbiology from June 18 shows evidence of Acinetobacter baumannii in the sputum from June 18. Chest x-ray from 06/26, today, shows minimal residual bilateral infiltrates. Chest x- ray certainly much improved. MEDICATIONS: Reviewed. He is on Tylenol, albuterol inhaler, vitamin C, vitamin D3, Lovenox, Prozac, Lasix, insulin, meropenem, morphine sulfate p.r.n., Zofran, Protonix, prednisone, saline IV at 20 mL an hour, and zinc. ASSESSMENT: 1. Acute hypoxemic respiratory failure secondary to COVID-19 pneumonitis, status post intubation on June 13 and successful extubation on June 22, 2020. 2. Diffuse muscle weakness, secondary to critical illness polyneuropathy. 3. History of asthma, relatively stable. 4. History of hypertension. 5. History of depression. 6. Small left subclavian hematoma. 7. Recent and prior admissions to hospital for right middle lobe and right lower lobe pneumonia. PLAN: Overall, the patient is doing well. I will review his medications and discontinue the unnecessary ones. Will also change anything that is IV to oral. No additional recommendations are made. Prognosis is guarded. Will continue to follow. He may need rehab. He does have significant muscle weakness from his stay on the mechanical ventilator and his need for heavy sedation and paralysis. MMODL / IJN: [id number] /
--- NOTE | 2020-06-26 17:08 | P.PN ---
Subjective Progress Note Date: 06/26/20 Dennis Beal, is a 49 year-old male, who presented to ER with of cough and shortness of breath, Covid 19 test was positive in ER . Patient was evaluated in the emergency room vital examination on presentation to emergency room revealed a temperature of 101.1 pulse 79 respiration 32 blood pressure 115/70 pulse ox 90% on BiPAP his white blood count on presentation was 10.9 C-reactive protein was elevated at 1128 patient was admitted to telemetry floor he was started on IV Decadron pulmonary consultation was requested. Patient was recently admitted with pneumonia at that time Covid 19 test was negative. He was treated with IV antibiotic he improved and he was discharged home. His past medical history is significant for history of kidney stones, history of previous episodes of pneumonia, history of asthma and COPD, and history of depression, history of hypertension. On review of system patient is alert and oriented 3 he is complaining of cough and shortness of breath with any activity otherwise he denies any complaints there is no fever or chills no headache or dizziness no chest pain no nausea or vomiting no abdominal pain no diarrhea no blood in the stools no burning with urination no frequency or urgency and no hematuria On 06/11/2020 patient was seen and examined on the medical floor he is alert and oriented 3 he is still complaining of shortness of breath he still maintained on BiPAP otherwise he denies any complaints he is maintained on IV Decadron and IV Remdesevir On 06/12/2020 patient was seen and examined on the medical floor he is alert and oriented 3 in no apparent distress he is still complaining of shortness of breath and cough he is maintained on high flow oxygen, he is still maintained on IV Decadron and IV REMDESEVIR, otherwise he denies any complaints there is no chest pain no dizziness no nausea or vomiting no abdominal pain no diarrhea and no blood in the stools no burning with urination no frequency or urgency and no hematuria On 06/13/2020 patient was seen and examined in the ICU, last night he developed tachycardia, tachypnea, and worsening shortness of breath. He was transferred to intensive care unit he was intubated sedated started on mechanical ventilation, currently patient was seen and examined in the ICU he is in the prone position maintained on mechanical ventilation. On 06/14/2020 patient was seen and examined in the ICU, he is intubated sedated maintained on mechanical ventilation, patient is maintained on IV heparin per pr otocol, he is receiving IV Solu-Medrol, he received Remdesevir, today is day #5, he also received convalesent plasma. His temperature is 98.1 pulse 97 respiration 24 blood pressure 133/68 white blood count 22.5 hemoglobin 15.5 platelet count 2:30 d-dimer more than 34 pH 7.23 pCO2 78 CO2 102 On 06/15/2020 patient was seen and examined in the ICU, he is intubated sedated maintained on mechanical ventilation, patient is maintained on IV heparin per protocol, he is receiving IV Solu-Medrol, he received Remdesevir, today is day #5, he also received convalesent plasma. His temperature is 98.1 pulse 88 respiration 24 blood pressure 120/75 white blood count 25.9 hemoglobin 15.5 platelet count 276 d-dimer 11.69 pH 7.22 pCO2 80 PO2 83 On 06/16/2020 patient was seen and examined in the ICU he is intubated sedated maintained on mechanical ventilation ABG is improving, plan today is to decrease PEEP from 20-15 and to decrease FiO2 to 50% otherwise continue with current management On 06/17/2020 patient was seen and examined in the ICU he is still intubated sedated maintained on mechanical ventilation, oxygen requirements are decreasing, PEEP is decreased today from 15-12 patient is not on any IV pressure support at this time On 06/18/2020 patient was seen and examined in the ICU he is intubated sedated maintained on mechanical ventilation, he is off Nimbex at this time he is still on assist control tidal volume 450 rate 34 PEEP of 15 chest x-ray reveals a new consolidation in the right lower lung area d-dimer is elevated and patient is maintained on Lovenox. On 06/19/2020 patient was seen and examined in the ICU he is intubated sedated maintained on mechanical ventilation, he is still on assist control tidal volume 450 rate 34 PEEP of 15 chest x-ray reveals a new consolidation in the right lower lung area ABG showed a pH of 7.49 with a pCO2 of 48 and pO2 of 84. d- dimer is elevated and patient is maintained on Lovenox. On 06/20/2020 patient was seen and examined in the ICU he is intubated sedated maintained on mechanical ventilation assist control rate of 34 FiO2 50% PEEP was dropped from 15-13 and patient is tolerating well his pulse ox is 97% he is off Nimbex and remains on propofol he is not on any pressure support he is still having episodes of high fever. On 06/21/2020 patient was seen and examined in the ICU he is intubated sedated maintained on mechanical ventilation, vital examination reveals a blood pressure of 118/61 pulse 57 respiration 28, temperature 100.1 pulse ox 96% he is maintained on assist control rate of 28 tidal 4 450 FiO2 50% and PEEP of 9 patient has Covid 19 pneumonia he completed a course of fremitus severe and received 1 unit of plasma, he is also maintained on IV antibiotic cefepime for superimposed bacterial pneumonia, he is also maintained on IV Solu-Medrol and subcu Lovenox On 06/22/2020 patient was seen and examined in the ICU he was extubated this morning he is alert responsive in no apparent distress maintained on BiPAP at this time, his temperature is 100.2 pulse 65 respiration 20 blood pressure 131/78 pulse ox is 92% on BiPAP his white blood count is 15.2 hemoglobin 10.6 platelet count 170 sodium 139 potassium 4.5 chloride 103 CO2 38 BUN 30 creatinine 0.54 On 06/23/2020 patient was seen and examined in the ICU he was extubated yesterday he is maintained on BiPAP he is alert nonverbal in no apparent distr ess, his vital examination reveals a temperature of 99.7 pulse 80 respiration 23 blood pressure 125/95 pulse ox 97% on BiPAP. On 06/24/2020 patient was seen and examined in ICU he is alert responsive in no apparent distress he is maintained on BiPAP temperature is 98.4 pulse 82 respiration 18 blood pressure 123/78 pulse ox 96% on BiPAP FiO2 30% patient is slightly confused white blood count is 16.3 hemoglobin 12.0 platelet count 160 glucose 163 On 06/25/2020 patient was seen and examined in the ICU he is alert and oriented 3 in no apparent distress, he is scheduled to be transferred to the medical floor today, there is no fever or chills no headache or dizziness no chest pain no shortness of breath no cough no nausea or vomiting no abdominal pain no diarrhea and no urinary symptoms he is maintained on oxygen via nasal cannula at 5 L/m of back pain and bilateral lower extremity pain there is evidence of foot drop and muscle contracture in both feet physical therapy consult requested. On 06/26/2020 patient was seen and examined on the medical floor he is alert and oriented 3 in no apparent distress he is complaining of headache he states that his shortness of breath is improving he is still complaining of cough he is complaining of bilateral lower extremity pain otherwise he denies any complaints there is no fever or chills no dizziness no chest pain no palpitation no nausea or vomiting no abdominal pain no diarrhea no blood in the stools no burning with urination no frequency or urgency and no hematuria Objective - Vital Signs Vital signs: Vital Signs Temp 98.3 F 06/26/20 05:00 Pulse 91 06/26/20 05:00 Resp 24 06/25/20 21:29 BP 116/71 06/26/20 05:00 Pulse Ox 96 06/26/20 05:00 Intake & Output 06/25/20 06/26/20 06/26/20 18:59 06:59 18:59 Intake Total 820 820 Output Total 1130 500 Balance -310 320 Weight 100 kg Intake: IV 140 240 Sodium Chloride 0.9% 1, 140 240 000 ml @ 20 mls/hr IV . Q24H ERIN Rx#:[id number] Intake, IV Titration 200 100 Amount Meropenem 2 gm In Sodium 200 100 Chloride 0.9% 100 ml @ 33 .3 mls/hr IVPB Q8HR ERIN Rx#:[id number] Oral 480 480 Output: Urine 1130 500 Other: Voiding Method Indwelling Catheter Indwelling Catheter ABP, PAP, CO, CI - Last Documented Arterial Blood Pressure 138/84 - Exam In general patient was extubated this morning he is maintained on BiPAP he is alert responsive in no distress HEENT head normocephalic and atraumatic Neck is supple no JVD no goiter no lymphadenopathy Chest exam reveals fine crackles in both lung holden no wheezing Cardiac exam reveals regular heart sounds S1 and S2 no gallops no murmurs Abdomen is soft nontender no organomegaly with normal bowel sounds Extremity exam reveals minimal edema no cyanosis or clubbing Neurological examination reveals no gross focal neurological deficit - Labs CBC & Chem 7: 06/26/20 06:40 06/26/20 06:40 Labs: Abnormal Lab Results - Last 24 Hours (Table) 06/25/20 06/25/20 06/25/20 Range/Units 04:58 08:25 11:31 WBC (3.8-10.6) k/uL RBC (4.30-5.90) m/uL Hgb (13.0-17.5) gm/dL Hct (39.0-53.0) % Neutrophils # (1.3-7.7) k/uL Lymphocytes # (1.0-4.8) k/uL Fibrinogen (200-500) mg/dL POC Glucose (mg/dL) 179 H 229 H (75-99) mg/dL Ferritin 3006.8 H (22.0-322.0) ng/mL 06/25/20 06/25/20 06/26/20 Range/Units 17:14 20:08 06:40 WBC 14.1 H (3.8-10.6) k/uL RBC 4.24 L (4.30-5.90) m/uL Hgb 12.6 L (13.0-17.5) gm/dL Hct 37.9 L (39.0-53.0) % Neutrophils # 12.5 H (1.3-7.7) k/uL Lymphocytes # 0.7 L (1.0-4.8) k/uL Fibrinogen (200-500) mg/dL POC Glucose (mg/dL) 198 H 169 H (75-99) mg/dL Ferritin (22.0-322.0) ng/mL 06/26/20 06/26/20 Range/Units 06:40 07:04 WBC (3.8-10.6) k/uL RBC (4.30-5.90) m/uL Hgb (13.0-17.5) gm/dL Hct (39.0-53.0) % Neutrophils # (1.3-7.7) k/uL Lymphocytes # (1.0-4.8) k/uL Fibrinogen 547 H (200-500) mg/dL POC Glucose (mg/dL) 146 H (75-99) mg/dL Ferritin (22.0-322.0) ng/mL Assessment and Plan Plan: 1. COVID-19, Bilateral pneumonia, started on IV Decadron and IV Remdesevir, patient also received convalescent serum, he improved gradually he was extubated yesterday he is maintained on BiPAP at this time 2. Acute on chronic hypoxic and hypercapnic respiratory failure 3. Hyponatremia, on IV normal saline 4. Elevated d-dimer, started on SQ Lovenox 5. underlying history of depression 6. Underlying history of asthma At this time patient is in ICU, pulmonary critical care following Patient improving gradually prognosis remains guarded
[2020-06-26] MEDS: PANTOPRAZOLE 40 MG TABLET PO SCH (17:09)
[2020-06-26 17:12] LABS: Glucose,Whole Blood 138 mg/dL (75-99)
[2020-06-26] MEDS: SODIUM CHLORIDE 0.9% 1,000 ML IV SCH (19:47)
[2020-06-26 20:41] LABS: Glucose,Whole Blood 182 mg/dL (75-99)
[2020-06-26] MEDS: polyethylene glycoL 3350 17 GM POWD.PACK PO SCH (21:57)
[2020-06-26] MEDS: ONDANSETRON 4 MG/2 ML VIAL IVP PRN (21:57)
[2020-06-26] MEDS: INSULIN DETEMIR (LEVEMIR) 100 UNIT/ML SYR SQ SCH (21:58)
[2020-06-27] MEDS: MEROPENEM 2 GM in SODIUM CHLORIDE 0.9% 100 ML IVPB SCH ×4 (00:13→23:30)
[2020-06-27] MEDS: MORPHINE SULFATE 2 MG/ML SYRINGE IVP PRN ×2 (00:14→11:49)
[2020-06-27] MEDS: ACETAMINOPHEN TAB 325 MG TAB PO PRN ×3 (01:56→23:28)
[2020-06-27 05:56] LABS: Basophils % (A) 0 %; Eosinophils # (A) 0.1 k/uL (0-0.7); Eosinophils % (A) 0 %; HCT 36.7 % (39.0-53.0); HGB 12.2 gm/dL (13.0-17.5); Lymphocytes # (A) 0.8 k/uL (1.0-4.8); Lymphocytes % (A) 5 %; MCHC 33.3 g/dL (31.0-37.0); MCV 90.1 fL (80.0-100.0); Mean Platelet Volume 8.1; Monocytes # (A) 0.6 k/uL (0-1.0); Monocytes % (A) 4 %; Neutrophils # (A) 14.3 k/uL (1.3-7.7); Neutrophils % (A) 90 %; Platelet Count 170 k/uL (150-450); RBC 4.07 m/uL (4.30-5.90); RDW 14.2 % (11.5-15.5); WBC 15.9 k/uL (3.8-10.6)
[2020-06-27 06:31] LABS: ALT 215 U/L (4-49); AST 75 U/L (17-59); African American GFR (CKD) >90 (>60 ml/min/1.73 sqM); Albumin/Globulin Ratio 0.9; Alkaline Phosphatase 110 U/L (38-126); Anion Gap 5 mmol/L; Blood Urea Nitrogen 23 mg/dL (9-20); C Reactive Protein 233.1 mg/L (<10.0); Calcium 8.2 mg/dL (8.4-10.2); Carbon Dioxide 28 mmol/L (22-30); Chloride 98 mmol/L (98-107); Creatine Kinase 412 U/L (55-170); Globulin 3.2 g/dL; Glucose 155 mg/dL (74-99); LDH 873 U/L (313-618); Non-African American GFR(CKD) >90 (>60 ml/min/1.73 sqM); Potassium 3.4 mmol/L (3.5-5.1); Sodium 131 mmol/L (137-145); Total Bilirubin 2.2 mg/dL (0.2-1.3); Total Protein 6.2 g/dL (6.3-8.2)
[2020-06-27 07:07] LABS: Glucose,Whole Blood 132 mg/dL (75-99)
--- NOTE | 2020-06-27 07:20 | XR ---
EXAMINATION TYPE: XR chest 1V portable DATE OF EXAM: 06/27/2020 CLINICAL HISTORY: Difficulty breathing progress study. TECHNIQUE: Single AP portable upright view of the chest is obtained. COMPARISON: Chest x-ray from one day earlier and older studies. FINDINGS: Stable left subclavian central venous catheter. Mild cardiomegaly on current study. Worsen ing bilateral mid to lower lung opacities. Upper lungs are clear without pneumothorax. Osseous struct ures are intact. IMPRESSION: Worsening bilateral mid to lower lung acute infiltrate and/or edema. Correlate clinically .
[2020-06-27] MEDS: ALBUTEROL HFA INHALER INHALATION SCH ×4 (08:01→19:22)
[2020-06-27] MEDS: CHOLECALCIFEROL 1,000 UNIT TAB PO SCH (09:02)
[2020-06-27] MEDS: ASCORBIC ACID 500 MG TAB PO SCH (09:02)
[2020-06-27] MEDS: ZINC SULFATE 220 MG CAP PO SCH (09:02)
[2020-06-27] MEDS: polyethylene glycoL 3350 17 GM POWD.PACK PO SCH (09:02)
[2020-06-27] MEDS: FLUoxetine HCL 20 MG CAP PO SCH (09:02)
[2020-06-27] MEDS: PANTOPRAZOLE 40 MG TABLET PO SCH ×2 (09:02→17:18)
[2020-06-27] MEDS: predniSONE 20 MG TAB PO SCH (09:02)
[2020-06-27] MEDS: INSULIN ASPART (NovoLOG) 100 UNIT/ML VIAL SQ SCH ×4 (09:03→20:11)
[2020-06-27] MEDS: ENOXAPARIN 60 MG/0.6 ML SYRINGE SQ SCH (09:03)
[2020-06-27 11:44] LABS: Glucose,Whole Blood 181 mg/dL (75-99)
[2020-06-27] MEDS: ONDANSETRON 4 MG/2 ML VIAL IVP PRN (13:04)
[2020-06-27] MEDS: SODIUM CHLORIDE 0.9% 1,000 ML IV SCH (13:54)
--- NOTE | 2020-06-27 15:34 | P.PN ---
Subjective Progress Note Date: 06/27/20 Principal diagnosis: Acute hypoxic respiratory failure secondary to CoVID 19 pneumonia Patient is seen today 06/27/2020 and follow-up on the regular medical floor. He is currently sitting up in bed. Awake and alert in no acute distress. He still remains profoundly weak and debilitated. Barely able to raise his arms off the bed. Barely able to raise his legs off the bed. He is working well with physical therapy. They did get him up with a lift into a chair this morning. He is down to 3 L nasal cannula and maintaining good O2 saturation the mid 90s. He is afebrile. Blood and sputum cultures reveal no growth. White count 15.9. Hemoglobin 12.2. Lymphocytes 0.8. Fibrinogen 6:30. D-dimer 6.26. Sodium 131. Potassium 3.4. Creatinine 0.53. LDH 873. C-reactive protein 233. He remains on Lovenox 60 mg every 12 hours. Oral prednisone. Antibiotics in the form of meropenem. Vitamin supplements. He continues with a left subclavian hematoma from previous left subclavian triple-lumen catheter site. The catheter be removed and cultured. Objective - Vital Signs Vital signs: Vital Signs Temp 98 F 06/27/20 11:00 Pulse 121 H 06/27/20 11:00 Resp 22 06/27/20 13:14 BP 124/87 06/27/20 11:00 Pulse Ox 96 06/27/20 11:00 Intake & Output 06/26/20 06/27/20 06/27/20 18:59 06:59 18:59 Intake Total 240 700 Output Total 1700 625 Balance -1460 75 Weight 102 kg Intake: IV 240 Sodium Chloride 0.9% 1, 240 000 ml @ 20 mls/hr IV . Q24H ERIN Rx#:[id number] Intake, IV Titration 100 Amount Meropenem 2 gm In Sodium 100 Chloride 0.9% 100 ml @ 33 .3 mls/hr IVPB Q8HR ERIN Rx#:[id number] Oral 600 Output: Urine 1700 625 Uretheral (Chang) 700 Other: Voiding Method Indwelling Catheter Indwelling Catheter Indwelling Catheter # Bowel Movements 0 ABP, PAP, CO, CI - Last Documented Arterial Blood Pressure 138/84 - Exam GENERAL EXAM: Awake, alert extremely weak 49-year-old gentleman, on 3 L nasal cannula.. HEAD: Normocephalic. EYES: Normal reaction of pupils, equal size. NOSE: Clear with pink turbinates. THROAT: No erythema or exudates. NECK: No masses, no JVD. CHEST: Subclavian hematoma. Left Bam vein catheter in place. LUNGS: Equal air entry with bilateral scattered rhonchi. CVS: S1 and S2 normal with no audible murmur, regular rhythm. ABDOMEN: No hepatosplenomegaly, normal bowel sounds, no guarding or rigidity. SPINE: No scoliosis or deformity SKIN: No rashes CENTRAL NERVOUS SYSTEM: Alert and oriented 3. Tone is normal in all 4 extremities. EXTREMITIES: There is trace peripheral edema. No clubbing, no cyanosis. Pe ripheral pulses are intact. - Labs CBC & Chem 7: 06/27/20 05:33 06/27/20 05:33 Labs: Abnormal Lab Results - Last 24 Hours (Table) 06/26/20 06/26/20 06/27/20 Range/Units 17:08 20:34 05:33 WBC 15.9 H (3.8-10.6) k/uL RBC 4.07 L (4.30-5.90) m/uL Hgb 12.2 L (13.0-17.5) gm/dL Hct 36.7 L (39.0-53.0) % Neutrophils # 14.3 H (1.3-7.7) k/uL Lymphocytes # 0.8 L (1.0-4.8) k/uL Fibrinogen (200-500) mg/dL D-Dimer (<0.60) mg/L FEU Sodium (137-145) mmol/L Potassium (3.5-5.1) mmol/L BUN (9-20) mg/dL Creatinine (0.66-1.25) mg/dL Glucose (74-99) mg/dL POC Glucose (mg/dL) 138 H 182 H (75-99) mg/dL Calcium (8.4-10.2) mg/dL Total Bilirubin (0.2-1.3) mg/dL AST (17-59) U/L ALT (4-49) U/L Lactate Dehydrogenase (313-618) U/L Creatine Kinase (55-170) U/L C-Reactive Protein (<10.0) mg/L Total Protein (6.3-8.2) g/dL Albumin (3.5-5.0) g/dL 06/27/20 06/27/20 06/27/20 Range/Units 05:33 05:33 07:06 WBC (3.8-10.6) k/uL RBC (4.30-5.90) m/uL Hgb (13.0-17.5) gm/dL Hct (39.0-53.0) % Neutrophils # (1.3-7.7) k/uL Lymphocytes # (1.0-4.8) k/uL Fibrinogen 630 H (200-500) mg/dL D-Dimer (<0.60) mg/L FEU Sodium 131 L (137-145) mmol/L Potassium 3.4 L (3.5-5.1) mmol/L BUN 23 H (9-20) mg/dL Creatinine 0.53 L (0.66-1.25) mg/dL Glucose 155 H (74-99) mg/dL POC Glucose (mg/dL) 132 H (75-99) mg/dL Calcium 8.2 L (8.4-10.2) mg/dL Total Bilirubin 2.2 H (0.2-1.3) mg/dL AST 75 H (17-59) U/L ALT 215 H (4-49) U/L Lactate Dehydrogenase 873 H (313-618) U/L Creatine Kinase 412 H (55-170) U/L C-Reactive Protein 233.1 H (<10.0) mg/L Total Protein 6.2 L (6.3-8.2) g/dL Albumin 3.0 L (3.5-5.0) g/dL 06/27/20 06/27/20 Range/Units 11:24 14:25 WBC (3.8-10.6) k/uL RBC (4.30-5.90) m/uL Hgb (13.0-17.5) gm/dL Hct (39.0-53.0) % Neutrophils # (1.3-7.7) k/uL Lymphocytes # (1.0-4.8) k/uL Fibrinogen (200-500) mg/dL D-Dimer 6.26 H (<0.60) mg/L FEU Sodium (137-145) mmol/L Potassium (3.5-5.1) mmol/L BUN (9-20) mg/dL Creatinine (0.66-1.25) mg/dL Glucose (74-99) mg/dL POC Glucose (mg/dL) 181 H (75-99) mg/dL Calcium (8.4-10.2) mg/dL Total Bilirubin (0.2-1.3) mg/dL AST (17-59) U/L ALT (4-49) U/L Lactate Dehydrogenase (313-618) U/L Creatine Kinase (55-170) U/L C-Reactive Protein (<10.0) mg/L Total Protein (6.3-8.2) g/dL Albumin (3.5-5.0) g/dL Assessment and Plan Assessment: 1 Acute hypoxemic respiratory failure secondary to CoVID 19 pneumonia, treated with Remdesivir and convalescent plasma. Requiring intubation and mechanical ventilatory support on 06/13/2020. Recovered, on 3 L nasal cannula. 2 Recent admission to the hospital with acute community-acquired right lower lobe pneumonia. 3 Elevated d-dimer, currently on Lovenox 4 Elevated elevated inflammatory markers secondary to above 5 History of mild intermittent chronic bronchial asthma 6 History of hypertension 7 History of depression 8 Critical illness polyneuropathy Plan: The patient was seen and evaluated by Dr. Muller The patient is improved and down to 3 L nasal cannula Remains extremely weak, working with physical therapy Probable discharge to [facility] for ongoing subacute rehabilitation We will continue to follow and make further recommendations based on his clinical status I, the cosigning physician, performed a history & physical examination of the patient. Lungs sounds with bilateral scattered rhonchi. Maintaining good O2 saturations in the 90s on 3 L/m per nasal cannula. I discussed the assessment and plan of care with my nurse practitioner, Karen Wiseman. I attest to the above note as dictated by her.
[2020-06-27 17:15] LABS: Glucose,Whole Blood 173 mg/dL (75-99)
[2020-06-27 19:41] LABS: LD Isoenzymes 1 17 % (19-38); LD Isoenzymes 2 27 % (30-43); LD Isoenzymes 3 18 % (16-26); LD Isoenzymes 4 12 % (3-12); LD Isoenzymes 5 26 % (3-14); Lactacte Dehydrogenase(LD) ISO 357 U/L (120-250)
[2020-06-27 20:03] LABS: Glucose,Whole Blood 154 mg/dL (75-99)
[2020-06-27] MEDS: INSULIN DETEMIR (LEVEMIR) 100 UNIT/ML SYR SQ SCH (20:10)
[2020-06-28] MEDS: ONDANSETRON 4 MG/2 ML VIAL IVP PRN ×2 (00:39→06:05)
[2020-06-28] MEDS: ACETAMINOPHEN TAB 325 MG TAB PO PRN ×2 (05:58→11:45)
[2020-06-28 07:12] LABS: Glucose,Whole Blood 120 mg/dL (75-99)
[2020-06-28] MEDS: INSULIN ASPART (NovoLOG) 100 UNIT/ML VIAL SQ SCH ×4 (07:17→20:52)
[2020-06-28 07:20] LABS: Basophils % (A) 0 %; Eosinophils # (A) 0.2 k/uL (0-0.7); Eosinophils % (A) 1 %; HGB 11.2 gm/dL (13.0-17.5); Lymphocytes # (A) 0.5 k/uL (1.0-4.8); Lymphocytes % (A) 4 %; MCH 30.3 pg (25.0-35.0); MCHC 33.9 g/dL (31.0-37.0); MCV 89.5 fL (80.0-100.0); Mean Platelet Volume 7.9; Monocytes # (A) 0.4 k/uL (0-1.0); Monocytes % (A) 3 %; Neutrophils # (A) 11.5 k/uL (1.3-7.7); Neutrophils % (A) 91 %; Platelet Count 142 k/uL (150-450); RBC 3.69 m/uL (4.30-5.90); RDW 14.3 % (11.5-15.5); WBC 12.7 k/uL (3.8-10.6)
[2020-06-28 07:57] LABS: ALT 155 U/L (4-49); AST 59 U/L (17-59); African American GFR (CKD) >90 (>60 ml/min/1.73 sqM); Albumin 2.7 g/dL (3.5-5.0); Albumin/Globulin Ratio 0.9; Alkaline Phosphatase 106 U/L (38-126); Anion Gap 2 mmol/L; Blood Urea Nitrogen 16 mg/dL (9-20); Calcium 8.1 mg/dL (8.4-10.2); Carbon Dioxide 30 mmol/L (22-30); Chloride 100 mmol/L (98-107); Globulin 3.1 g/dL; Glucose 128 mg/dL (74-99); Non-African American GFR(CKD) >90 (>60 ml/min/1.73 sqM); Potassium 3.8 mmol/L (3.5-5.1); Sodium 132 mmol/L (137-145); Total Bilirubin 1.6 mg/dL (0.2-1.3); Total Protein 5.8 g/dL (6.3-8.2)
[2020-06-28] MEDS: ENOXAPARIN 40 MG/0.4 ML SYRINGE SQ SCH (08:58)
[2020-06-28] MEDS: CHOLECALCIFEROL 1,000 UNIT TAB PO SCH (08:59)
[2020-06-28] MEDS: FLUoxetine HCL 20 MG CAP PO SCH (08:59)
[2020-06-28] MEDS: PANTOPRAZOLE 40 MG TABLET PO SCH ×2 (08:59→17:17)
[2020-06-28] MEDS: predniSONE 20 MG TAB PO SCH (08:59)
[2020-06-28] MEDS: ASCORBIC ACID 500 MG TAB PO SCH (08:59)
[2020-06-28] MEDS: ZINC SULFATE 220 MG CAP PO SCH (09:00)
[2020-06-28] MEDS: polyethylene glycoL 3350 17 GM POWD.PACK PO SCH (09:00)
[2020-06-28] MEDS: MEROPENEM 2 GM in SODIUM CHLORIDE 0.9% 100 ML IVPB SCH ×3 (09:18→23:30)
[2020-06-28] MEDS: MORPHINE SULFATE 2 MG/ML SYRINGE IVP PRN ×3 (09:18→19:20)
[2020-06-28] MEDS: ALBUTEROL HFA INHALER INHALATION SCH ×4 (09:31→20:13)
[2020-06-28 11:36] LABS: Glucose,Whole Blood 158 mg/dL (75-99)
[2020-06-28 13:02] VITALS: BMI 33.2
--- NOTE | 2020-06-28 14:00 | P.PN ---
Subjective Progress Note Date: 06/27/20 Dennis Beal, is a 49 year-old male, who presented to ER with of cough and shortness of breath, Covid 19 test was positive in ER . Patient was evaluated in the emergency room vital examination on presentation to emergency room revealed a temperature of 101.1 pulse 79 respiration 32 blood pressure 115/70 pulse ox 90% on BiPAP his white blood count on presentation was 10.9 C-reactive protein was elevated at 1128 patient was admitted to telemetry floor he was started on IV Decadron pulmonary consultation was requested. Patient was recently admitted with pneumonia at that time Covid 19 test was negative. He was treated with IV antibiotic he improved and he was discharged home. His past medical history is significant for history of kidney stones, history of previous episodes of pneumonia, history of asthma and COPD, and history of depression, history of hypertension. On review of system patient is alert and oriented 3 he is complaining of cough and shortness of breath with any activity otherwise he denies any complaints there is no fever or chills no headache or dizziness no chest pain no nausea or vomiting no abdominal pain no diarrhea no blood in the stools no burning with urination no frequency or urgency and no hematuria On 06/11/2020 patient was seen and examined on the medical floor he is alert and oriented 3 he is still complaining of shortness of breath he still maintained on BiPAP otherwise he denies any complaints he is maintained on IV Decadron and IV Remdesevir On 06/12/2020 patient was seen and examined on the medical floor he is alert and oriented 3 in no apparent distress he is still complaining of shortness of breath and cough he is maintained on high flow oxygen, he is still maintained on IV Decadron and IV REMDESEVIR, otherwise he denies any complaints there is no chest pain no dizziness no nausea or vomiting no abdominal pain no diarrhea and no blood in the stools no burning with urination no frequency or urgency and no hematuria On 06/13/2020 patient was seen and examined in the ICU, last night he developed tachycardia, tachypnea, and worsening shortness of breath. He was transferred to intensive care unit he was intubated sedated started on mechanical ventilation, currently patient was seen and examined in the ICU he is in the prone position maintained on mechanical ventilation. On 06/14/2020 patient was seen and examined in the ICU, he is intubated sedated maintained on mechanical ventilation, patient is maintained on IV heparin per pr otocol, he is receiving IV Solu-Medrol, he received Remdesevir, today is day #5, he also received convalesent plasma. His temperature is 98.1 pulse 97 respiration 24 blood pressure 133/68 white blood count 22.5 hemoglobin 15.5 platelet count 2:30 d-dimer more than 34 pH 7.23 pCO2 78 CO2 102 On 06/15/2020 patient was seen and examined in the ICU, he is intubated sedated maintained on mechanical ventilation, patient is maintained on IV heparin per protocol, he is receiving IV Solu-Medrol, he received Remdesevir, today is day #5, he also received convalesent plasma. His temperature is 98.1 pulse 88 respiration 24 blood pressure 120/75 white blood count 25.9 hemoglobin 15.5 platelet count 276 d-dimer 11.69 pH 7.22 pCO2 80 PO2 83 On 06/16/2020 patient was seen and examined in the ICU he is intubated sedated maintained on mechanical ventilation ABG is improving, plan today is to decrease PEEP from 20-15 and to decrease FiO2 to 50% otherwise continue with current management On 06/17/2020 patient was seen and examined in the ICU he is still intubated sedated maintained on mechanical ventilation, oxygen requirements are decreasing, PEEP is decreased today from 15-12 patient is not on any IV pressure support at this time On 06/18/2020 patient was seen and examined in the ICU he is intubated sedated maintained on mechanical ventilation, he is off Nimbex at this time he is still on assist control tidal volume 450 rate 34 PEEP of 15 chest x-ray reveals a new consolidation in the right lower lung area d-dimer is elevated and patient is maintained on Lovenox. On 06/19/2020 patient was seen and examined in the ICU he is intubated sedated maintained on mechanical ventilation, he is still on assist control tidal volume 450 rate 34 PEEP of 15 chest x-ray reveals a new consolidation in the right lower lung area ABG showed a pH of 7.49 with a pCO2 of 48 and pO2 of 84. d- dimer is elevated and patient is maintained on Lovenox. On 06/20/2020 patient was seen and examined in the ICU he is intubated sedated maintained on mechanical ventilation assist control rate of 34 FiO2 50% PEEP was dropped from 15-13 and patient is tolerating well his pulse ox is 97% he is off Nimbex and remains on propofol he is not on any pressure support he is still having episodes of high fever. On 06/21/2020 patient was seen and examined in the ICU he is intubated sedated maintained on mechanical ventilation, vital examination reveals a blood pressure of 118/61 pulse 57 respiration 28, temperature 100.1 pulse ox 96% he is maintained on assist control rate of 28 tidal 4 450 FiO2 50% and PEEP of 9 patient has Covid 19 pneumonia he completed a course of fremitus severe and received 1 unit of plasma, he is also maintained on IV antibiotic cefepime for superimposed bacterial pneumonia, he is also maintained on IV Solu-Medrol and subcu Lovenox On 06/22/2020 patient was seen and examined in the ICU he was extubated this morning he is alert responsive in no apparent distress maintained on BiPAP at this time, his temperature is 100.2 pulse 65 respiration 20 blood pressure 131/78 pulse ox is 92% on BiPAP his white blood count is 15.2 hemoglobin 10.6 platelet count 170 sodium 139 potassium 4.5 chloride 103 CO2 38 BUN 30 creatinine 0.54 On 06/23/2020 patient was seen and examined in the ICU he was extubated yesterday he is maintained on BiPAP he is alert nonverbal in no apparent distr ess, his vital examination reveals a temperature of 99.7 pulse 80 respiration 23 blood pressure 125/95 pulse ox 97% on BiPAP. On 06/24/2020 patient was seen and examined in ICU he is alert responsive in no apparent distress he is maintained on BiPAP temperature is 98.4 pulse 82 respiration 18 blood pressure 123/78 pulse ox 96% on BiPAP FiO2 30% patient is slightly confused white blood count is 16.3 hemoglobin 12.0 platelet count 160 glucose 163 On 06/25/2020 patient was seen and examined in the ICU he is alert and oriented 3 in no apparent distress, he is scheduled to be transferred to the medical floor today, there is no fever or chills no headache or dizziness no chest pain no shortness of breath no cough no nausea or vomiting no abdominal pain no diarrhea and no urinary symptoms he is maintained on oxygen via nasal cannula at 5 L/m of back pain and bilateral lower extremity pain there is evidence of foot drop and muscle contracture in both feet physical therapy consult requested. On 06/26/2020 patient was seen and examined on the medical floor he is alert and oriented 3 in no apparent distress he is complaining of headache he states that his shortness of breath is improving he is still complaining of cough he is complaining of bilateral lower extremity pain otherwise he denies any complaints there is no fever or chills no dizziness no chest pain no palpitation no nausea or vomiting no abdominal pain no diarrhea no blood in the stools no burning with urination no frequency or urgency and no hematuria On 06/27/2020 patient was seen and examined on the medical floor he is alert and oriented. He is feeling better and stronger today he is working with physical therapy , he is still complaining of headache and shortness of breath and cough he is complaining of bilateral lower extremity pain otherwise he denies any complaints there is no fever or chills no dizziness no chest pain no palpitation no nausea or vomiting no abdominal pain no diarrhea no blood in the stools no burning with urination no frequency or urgency and no hematuria Objective - Vital Signs Vital signs: Vital Signs Temp 97.8 F 06/27/20 04:10 Pulse 90 06/27/20 04:10 Resp 16 06/27/20 04:10 BP 118/77 06/27/20 04:10 Pulse Ox 94 L 06/27/20 04:10 Intake & Output 06/26/20 06/27/20 06/27/20 18:59 06:59 18:59 Intake Total 240 700 Output Total 1700 625 Balance -1460 75 Weight 102 kg Intake: IV 240 Sodium Chloride 0.9% 1, 240 000 ml @ 20 mls/hr IV . Q24H ERIN Rx#:[id number] Intake, IV Titration 100 Amount Meropenem 2 gm In Sodium 100 Chloride 0.9% 100 ml @ 33 .3 mls/hr IVPB Q8HR ERIN Rx#:[id number] Oral 600 Output: Urine 1700 625 Uretheral (Chang) 700 Other: Voiding Method Indwelling Catheter Indwelling Catheter # Bowel Movements 0 ABP, PAP, CO, CI - Last Documented Arterial Blood Pressure 138/84 - Exam In general patient was extubated this morning he is maintained on BiPAP he is alert responsive in no distress HEENT head normocephalic and atraumatic Neck is supple no JVD no goiter no lymphadenopathy Chest exam reveals fine crackles in both lung holden no wheezing Cardiac exam reveals regular heart sounds S1 and S2 no gallops no murmurs Abdomen is soft nontender no organomegaly with normal bowel sounds Extremity exam reveals minimal edema no cyanosis or clubbing Neurological examination reveals no gross focal neurological deficit - Labs CBC & Chem 7: 06/28/20 06:54 06/28/20 06:54 Labs: Abnormal Lab Results - Last 24 Hours (Table) 06/18/20 06/26/20 06/26/20 Range/Units 05:14 06:40 12:07 WBC (3.8-10.6) k/uL RBC (4.30-5.90) m/uL Hgb (13.0-17.5) gm/dL Hct (39.0-53.0) % Neutrophils # (1.3-7.7) k/uL Lymphocytes # (1.0-4.8) k/uL Fibrinogen (200-500) mg/dL ABG pO2 58 L* (83-108) mmHg Sodium (137-145) mmol/L Potassium (3.5-5.1) mmol/L BUN 35.0 H (9.0-27.0) mg/dL Creatinine (0.66-1.25) mg/dL BUN/Creatinine Ratio 58.33 H (12.00-20.00) Ratio Glucose 152 H (70-110) mg/dL POC Glucose (mg/dL) 219 H (75-99) mg/dL Calcium 8.5 L (8.7-10.3) mg/dL Ferritin 3467.4 H (22.0-322.0) ng/mL Total Bilirubin (0.2-1.3) mg/dL AST (17-59) U/L ALT (4-49) U/L Lactate Dehydrogenase 319 H (120-246) U/L Creatine Kinase 506 H (35-257) U/L C-Reactive Protein 6.6 H (0.0-0.8) mg/dL Total Protein (6.3-8.2) g/dL Albumin (3.5-5.0) g/dL 06/26/20 06/26/20 06/27/20 Range/Units 17:08 20:34 05:33 WBC 15.9 H (3.8-10.6) k/uL RBC 4.07 L (4.30-5.90) m/uL Hgb 12.2 L (13.0-17.5) gm/dL Hct 36.7 L (39.0-53.0) % Neutrophils # 14.3 H (1.3-7.7) k/uL Lymphocytes # 0.8 L (1.0-4.8) k/uL Fibrinogen (200-500) mg/dL ABG pO2 (83-108) mmHg Sodium (137-145) mmol/L Potassium (3.5-5.1) mmol/L BUN (9.0-27.0) mg/dL Creatinine (0.66-1.25) mg/dL BUN/Creatinine Ratio (12.00-20.00) Ratio Glucose (70-110) mg/dL POC Glucose (mg/dL) 138 H 182 H (75-99) mg/dL Calcium (8.7-10.3) mg/dL Ferritin (22.0-322.0) ng/mL Total Bilirubin (0.2-1.3) mg/dL AST (17-59) U/L ALT (4-49) U/L Lactate Dehydrogenase (120-246) U/L Creatine Kinase (35-257) U/L C-Reactive Protein (0.0-0.8) mg/dL Total Protein (6.3-8.2) g/dL Albumin (3.5-5.0) g/dL 06/27/20 06/27/20 06/27/20 Range/Units 05:33 05:33 07:06 WBC (3.8-10.6) k/uL RBC (4.30-5.90) m/uL Hgb (13.0-17.5) gm/dL Hct (39.0-53.0) % Neutrophils # (1.3-7.7) k/uL Lymphocytes # (1.0-4.8) k/uL Fibrinogen 630 H (200-500) mg/dL ABG pO2 (83-108) mmHg Sodium 131 L (137-145) mmol/L Potassium 3.4 L (3.5-5.1) mmol/L BUN 23 H (9.0-27.0) mg/dL Creatinine 0.53 L (0.66-1.25) mg/dL BUN/Creatinine Ratio (12.00-20.00) Ratio Glucose 155 H (70-110) mg/dL POC Glucose (mg/dL) 132 H (75-99) mg/dL Calcium 8.2 L (8.7-10.3) mg/dL Ferritin (22.0-322.0) ng/mL Total Bilirubin 2.2 H (0.2-1.3) mg/dL AST 75 H (17-59) U/L ALT 215 H (4-49) U/L Lactate Dehydrogenase 873 H (120-246) U/L Creatine Kinase 412 H (35-257) U/L C-Reactive Protein 233.1 H (0.0-0.8) mg/dL Total Protein 6.2 L (6.3-8.2) g/dL Albumin 3.0 L (3.5-5.0) g/dL Assessment and Plan Plan: 1. COVID-19, Bilateral pneumonia, started on IV Decadron and IV Remdesevir, patient also received convalescent serum, he improved gradually he was extubated yesterday he is maintained on BiPAP at this time 2. Acute on chronic hypoxic and hypercapnic respiratory failure 3. Hyponatremia, on IV normal saline 4. Elevated d-dimer, started on SQ Lovenox 5. underlying history of depression 6. Underlying history of asthma At this time patient is in ICU, pulmonary critical care following Patient improving gradually prognosis remains guarded
--- NOTE | 2020-06-28 14:12 | P.PN ---
Subjective Progress Note Date: 06/28/20 Principal diagnosis: Acute hypoxic respiratory failure secondary to CoVID 19 pneumonia Patient is seen today 06/27/2020 and follow-up on the regular medical floor. He is currently sitting up in bed. Awake and alert in no acute distress. He still remains profoundly weak and debilitated. Barely able to raise his arms off the bed. Barely able to raise his legs off the bed. He is working well with physical therapy. They did get him up with a lift into a chair this morning. He is down to 3 L nasal cannula and maintaining good O2 saturation the mid 90s. He is afebrile. Blood and sputum cultures reveal no growth. White count 15.9. Hemoglobin 12.2. Lymphocytes 0.8. Fibrinogen 6:30. D-dimer 6.26. Sodium 131. Potassium 3.4. Creatinine 0.53. LDH 873. C-reactive protein 233. He remains on Lovenox 60 mg every 12 hours. Oral prednisone. Antibiotics in the form of meropenem. Vitamin supplements. He continues with a left subclavian hematoma from previous left subclavian triple-lumen catheter site. The catheter be removed and cultured. The patient is seen today 06/28/2020 in follow-up on the regular medical floor. He is currently sitting up in a chair at the bedside. Awake and alert in no acute distress. He is continuing to work with physical therapy. He remains quite weak and debilitated. He denies any worsening shortness of breath, cough or congestion. Currently maintaining O2 saturations in the low 90s on 3 L/m per nasal cannula. He's been afebrile. Hemodynamically stable. White count 12.7. Hemoglobin 11.2. Lymphocytes 0.5. Sodium 132. Potassium 3.8. Creatinine 0.45. Objective - Vital Signs Vital signs: Vital Signs Temp 98.1 F 06/28/20 11:00 Pulse 99 06/28/20 11:00 Resp 22 06/28/20 11:00 BP 127/85 06/28/20 11:00 Pulse Ox 92 L 06/28/20 11:00 Intake & Output 06/27/20 06/28/20 06/28/20 18:59 06:59 18:59 Intake Total 1040 Output Total 700 850 Balance 340 -850 Weight 102 kg 102 kg Intake: IV 240 Sodium Chloride 0.9% 1, 240 000 ml @ 20 mls/hr IV . Q24H ERIN Rx#:[id number] Intake, IV Titration 200 Amount Meropenem 2 gm In Sodium 200 Chloride 0.9% 100 ml @ 33 .3 mls/hr IVPB Q8HR ERIN Rx#:[id number] Oral 600 Output: Urine 700 850 Uretheral (Chang) 700 Other: Voiding Method Indwelling Catheter Indwelling Catheter Indwelling Catheter # Bowel Movements 0 ABP, PAP, CO, CI - Last Documented Arterial Blood Pressure 138/84 - Exam GENERAL EXAM: Awake, alert, weak 49-year-old gentleman, on 3 L nasal cannula. Up in a chair at the bedside. HEAD: Normocephalic. EYES: Normal reaction of pupils, equal size. NOSE: Clear with pink turbinates. THROAT: No erythema or exudates. NECK: No masses, no JVD. CHEST: Subclavian hematoma. LUNGS: Equal air entry with bilateral scattered rhonchi. CVS: S1 and S2 normal with no audible murmur, regular rhythm. ABDOMEN: No hepatosplenomegaly, normal bowel sounds, no guarding or rigidity. SPINE: No scoliosis or deformity SKIN: No rashes CENTRAL NERVOUS SYSTEM: Alert and oriented 3. Tone is normal in all 4 extremities. EXTREMITIES: There is trace peripheral edema. No clubbing, no cyanosis. Peripheral pulses are intact. - Labs CBC & Chem 7: 06/28/20 06:54 06/28/20 06:54 Labs: Abnormal Lab Results - Last 24 Hours (Table) 06/25/20 06/27/20 06/27/20 Range/Units 04:58 05:33 14:25 WBC (3.8-10.6) k/uL RBC (4.30-5.90) m/uL Hgb (13.0-17.5) gm/dL Hct (39.0-53.0) % Plt Count (150-450) k/uL Neutrophils # (1.3-7.7) k/uL Lymphocytes # (1.0-4.8) k/uL D-Dimer 6.26 H (<0.60) mg/L FEU Sodium (137-145) mmol/L Creatinine (0.66-1.25) mg/dL Glucose (74-99) mg/dL POC Glucose (mg/dL) (75-99) mg/dL Calcium (8.4-10.2) mg/dL Ferritin 3847.0 H (22.0-322.0) ng/mL Total Bilirubin (0.2-1.3) mg/dL ALT (4-49) U/L LD Isoenzymes 357 H (120-250) U/L LD 1 17 L (19-38) % LD 2 27 L (30-43) % LD 5 26 H (3-14) % Total Protein (6.3-8.2) g/dL Albumin (3.5-5.0) g/dL 06/27/20 06/27/20 06/28/20 Range/Units 17:13 20:01 06:54 WBC 12.7 H (3.8-10.6) k/uL RBC 3.69 L (4.30-5.90) m/uL Hgb 11.2 L (13.0-17.5) gm/dL Hct 33.0 L (39.0-53.0) % Plt Count 142 L (150-450) k/uL Neutrophils # 11.5 H (1.3-7.7) k/uL Lymphocytes # 0.5 L (1.0-4.8) k/uL D-Dimer (<0.60) mg/L FEU Sodium (137-145) mmol/L Creatinine (0.66-1.25) mg/dL Glucose (74-99) mg/dL POC Glucose (mg/dL) 173 H 154 H (75-99) mg/dL Calcium (8.4-10.2) mg/dL Ferritin (22.0-322.0) ng/mL Total Bilirubin (0.2-1.3) mg/dL ALT (4-49) U/L LD Isoenzymes (120-250) U/L LD 1 (19-38) % LD 2 (30-43) % LD 5 (3-14) % Total Protein (6.3-8.2) g/dL Albumin (3.5-5.0) g/dL 06/28/20 06/28/20 06/28/20 Range/Units 06:54 07:10 11:21 WBC (3.8-10.6) k/uL RBC (4.30-5.90) m/uL Hgb (13.0-17.5) gm/dL Hct (39.0-53.0) % Plt Count (150-450) k/uL Neutrophils # (1.3-7.7) k/uL Lymphocytes # (1.0-4.8) k/uL D-Dimer (<0.60) mg/L FEU Sodium 132 L (137-145) mmol/L Creatinine 0.45 L (0.66-1.25) mg/dL Glucose 128 H (74-99) mg/dL POC Glucose (mg/dL) 120 H 158 H (75-99) mg/dL Calcium 8.1 L (8.4-10.2) mg/dL Ferritin (22.0-322.0) ng/mL Total Bilirubin 1.6 H (0.2-1.3) mg/dL ALT 155 H (4-49) U/L LD Isoenzymes (120-250) U/L LD 1 (19-38) % LD 2 (30-43) % LD 5 (3-14) % Total Protein 5.8 L (6.3-8.2) g/dL Albumin 2.7 L (3.5-5.0) g/dL Assessment and Plan Assessment: 1 Acute hypoxemic respiratory failure secondary to CoVID 19 pneumonia, treated with Remdesivir and convalescent plasma. Requiring intubation and mechanical ventilatory support on 06/13/2020. Recovered, on 3 L nasal cannula. 2 Recent admission to the hospital with acute community-acquired right lower lobe pneumonia. 3 Elevated d-dimer, currently on Lovenox 4 Elevated elevated inflammatory markers secondary to above 5 History of mild intermittent chronic bronchial asthma 6 History of hypertension 7 History of depression 8 Critical illness polyneuropathy Plan: The patient was seen and evaluated by Dr. Muller Continue the current treatment plan Remains extremely weak, working with physical therapy Probable discharge to [facility] for ongoing subacute rehabilitation tomorrow We will continue to follow and make further recommendations based on his clinical status I, the cosigning physician, performed a history & physical examination of the patient. Lungs sounds with bilateral scattered rhonchi. Maintaining good O2 saturations in the 90s on 3 L/m per nasal cannula. I discussed the assessment and plan of care with my nurse practitioner, Karen Wiseman. I attest to the above note as dictated by her.
--- NOTE | 2020-06-28 14:28 | P.PN ---
Subjective Progress Note Date: 06/28/20 Dennis Beal, is a 49 year-old male, who presented to ER with of cough and shortness of breath, Covid 19 test was positive in ER . Patient was evaluated in the emergency room vital examination on presentation to emergency room revealed a temperature of 101.1 pulse 79 respiration 32 blood pressure 115/70 pulse ox 90% on BiPAP his white blood count on presentation was 10.9 C-reactive protein was elevated at 1128 patient was admitted to telemetry floor he was started on IV Decadron pulmonary consultation was requested. Patient was recently admitted with pneumonia at that time Covid 19 test was negative. He was treated with IV antibiotic he improved and he was discharged home. His past medical history is significant for history of kidney stones, history of previous episodes of pneumonia, history of asthma and COPD, and history of depression, history of hypertension. On review of system patient is alert and oriented 3 he is complaining of cough and shortness of breath with any activity otherwise he denies any complaints there is no fever or chills no headache or dizziness no chest pain no nausea or vomiting no abdominal pain no diarrhea no blood in the stools no burning with urination no frequency or urgency and no hematuria On 06/11/2020 patient was seen and examined on the medical floor he is alert and oriented 3 he is still complaining of shortness of breath he still maintained on BiPAP otherwise he denies any complaints he is maintained on IV Decadron and IV Remdesevir On 06/12/2020 patient was seen and examined on the medical floor he is alert and oriented 3 in no apparent distress he is still complaining of shortness of breath and cough he is maintained on high flow oxygen, he is still maintained on IV Decadron and IV REMDESEVIR, otherwise he denies any complaints there is no chest pain no dizziness no nausea or vomiting no abdominal pain no diarrhea and no blood in the stools no burning with urination no frequency or urgency and no hematuria On 06/13/2020 patient was seen and examined in the ICU, last night he developed tachycardia, tachypnea, and worsening shortness of breath. He was transferred to intensive care unit he was intubated sedated started on mechanical ventilation, currently patient was seen and examined in the ICU he is in the prone position maintained on mechanical ventilation. On 06/14/2020 patient was seen and examined in the ICU, he is intubated sedated maintained on mechanical ventilation, patient is maintained on IV heparin per pr otocol, he is receiving IV Solu-Medrol, he received Remdesevir, today is day #5, he also received convalesent plasma. His temperature is 98.1 pulse 97 respiration 24 blood pressure 133/68 white blood count 22.5 hemoglobin 15.5 platelet count 2:30 d-dimer more than 34 pH 7.23 pCO2 78 CO2 102 On 06/15/2020 patient was seen and examined in the ICU, he is intubated sedated maintained on mechanical ventilation, patient is maintained on IV heparin per protocol, he is receiving IV Solu-Medrol, he received Remdesevir, today is day #5, he also received convalesent plasma. His temperature is 98.1 pulse 88 respiration 24 blood pressure 120/75 white blood count 25.9 hemoglobin 15.5 platelet count 276 d-dimer 11.69 pH 7.22 pCO2 80 PO2 83 On 06/16/2020 patient was seen and examined in the ICU he is intubated sedated maintained on mechanical ventilation ABG is improving, plan today is to decrease PEEP from 20-15 and to decrease FiO2 to 50% otherwise continue with current management On 06/17/2020 patient was seen and examined in the ICU he is still intubated sedated maintained on mechanical ventilation, oxygen requirements are decreasing, PEEP is decreased today from 15-12 patient is not on any IV pressure support at this time On 06/18/2020 patient was seen and examined in the ICU he is intubated sedated maintained on mechanical ventilation, he is off Nimbex at this time he is still on assist control tidal volume 450 rate 34 PEEP of 15 chest x-ray reveals a new consolidation in the right lower lung area d-dimer is elevated and patient is maintained on Lovenox. On 06/19/2020 patient was seen and examined in the ICU he is intubated sedated maintained on mechanical ventilation, he is still on assist control tidal volume 450 rate 34 PEEP of 15 chest x-ray reveals a new consolidation in the right lower lung area ABG showed a pH of 7.49 with a pCO2 of 48 and pO2 of 84. d- dimer is elevated and patient is maintained on Lovenox. On 06/20/2020 patient was seen and examined in the ICU he is intubated sedated maintained on mechanical ventilation assist control rate of 34 FiO2 50% PEEP was dropped from 15-13 and patient is tolerating well his pulse ox is 97% he is off Nimbex and remains on propofol he is not on any pressure support he is still having episodes of high fever. On 06/21/2020 patient was seen and examined in the ICU he is intubated sedated maintained on mechanical ventilation, vital examination reveals a blood pressure of 118/61 pulse 57 respiration 28, temperature 100.1 pulse ox 96% he is maintained on assist control rate of 28 tidal 4 450 FiO2 50% and PEEP of 9 patient has Covid 19 pneumonia he completed a course of fremitus severe and received 1 unit of plasma, he is also maintained on IV antibiotic cefepime for superimposed bacterial pneumonia, he is also maintained on IV Solu-Medrol and subcu Lovenox On 06/22/2020 patient was seen and examined in the ICU he was extubated this morning he is alert responsive in no apparent distress maintained on BiPAP at this time, his temperature is 100.2 pulse 65 respiration 20 blood pressure 131/78 pulse ox is 92% on BiPAP his white blood count is 15.2 hemoglobin 10.6 platelet count 170 sodium 139 potassium 4.5 chloride 103 CO2 38 BUN 30 creatinine 0.54 On 06/23/2020 patient was seen and examined in the ICU he was extubated yesterday he is maintained on BiPAP he is alert nonverbal in no apparent distr ess, his vital examination reveals a temperature of 99.7 pulse 80 respiration 23 blood pressure 125/95 pulse ox 97% on BiPAP. On 06/24/2020 patient was seen and examined in ICU he is alert responsive in no apparent distress he is maintained on BiPAP temperature is 98.4 pulse 82 respiration 18 blood pressure 123/78 pulse ox 96% on BiPAP FiO2 30% patient is slightly confused white blood count is 16.3 hemoglobin 12.0 platelet count 160 glucose 163 On 06/25/2020 patient was seen and examined in the ICU he is alert and oriented 3 in no apparent distress, he is scheduled to be transferred to the medical floor today, there is no fever or chills no headache or dizziness no chest pain no shortness of breath no cough no nausea or vomiting no abdominal pain no diarrhea and no urinary symptoms he is maintained on oxygen via nasal cannula at 5 L/m of back pain and bilateral lower extremity pain there is evidence of foot drop and muscle contracture in both feet physical therapy consult requested. On 06/26/2020 patient was seen and examined on the medical floor he is alert and oriented 3 in no apparent distress he is complaining of headache he states that his shortness of breath is improving he is still complaining of cough he is complaining of bilateral lower extremity pain otherwise he denies any complaints there is no fever or chills no dizziness no chest pain no palpitation no nausea or vomiting no abdominal pain no diarrhea no blood in the stools no burning with urination no frequency or urgency and no hematuria On 06/27/2020 patient was seen and examined on the medical floor he is alert and oriented. He is feeling better and stronger today he is working with physical therapy , he is still complaining of headache and shortness of breath and cough he is complaining of bilateral lower extremity pain otherwise he denies any complaints there is no fever or chills no dizziness no chest pain no palpitation no nausea or vomiting no abdominal pain no diarrhea no blood in the stools no burning with urination no frequency or urgency and no hematuria On 06/28/2020 patient was seen and examined on the medical floor he is alert and oriented 3 in no distress he is complaining of bilateral lower extremity pain he is complaining of difficulty walking he is complaining of generalized weakness otherwise he denies any complaints at this time, there is no fever or chills no headache or dizziness no chest pain no shortness of breath no cough no nausea or vomiting no abdominal pain no diarrhea no blood in the stools no burning with urination no frequency or urgency and no hematuria. Objective - Vital Signs Vital signs: Vital Signs Temp 98.1 F 06/28/20 11:00 Pulse 99 06/28/20 11:00 Resp 22 06/28/20 11:00 BP 127/85 06/28/20 11:00 Pulse Ox 92 L 06/28/20 11:00 Intake & Output 06/27/20 06/28/20 06/28/20 18:59 06:59 18:59 Intake Total 1040 Output Total 700 850 Balance 340 -850 Weight 102 kg 102 kg Intake: IV 240 Sodium Chloride 0.9% 1, 240 000 ml @ 20 mls/hr IV . Q24H [facility] Rx#:[id number] Intake, IV Titration 200 Amount Meropenem 2 gm In Sodium 200 Chloride 0.9% 100 ml @ 33 .3 mls/hr IVPB Q8HR [facility] Rx#:[id number] Oral 600 Output: Urine 700 850 Uretheral (Chang) 700 Other: Voiding Method Indwelling Catheter Indwelling Catheter Indwelling Catheter # Bowel Movements 0 ABP, PAP, CO, CI - Last Documented Arterial Blood Pressure 138/84 - Exam In general patient was extubated this morning he is maintained on BiPAP he is alert responsive in no distress HEENT head normocephalic and atraumatic Neck is supple no JVD no goiter no lymphadenopathy Chest exam reveals fine crackles in both lung holden no wheezing Cardiac exam reveals regular heart sounds S1 and S2 no gallops no murmurs Abdomen is soft nontender no organomegaly with normal bowel sounds Extremity exam reveals minimal edema no cyanosis or clubbing Neurological examination reveals no gross focal neurological deficit - Labs CBC & Chem 7: 06/28/20 06:54 06/28/20 06:54 Labs: Abnormal Lab Results - Last 24 Hours (Table) 06/25/20 06/27/20 06/27/20 Range/Units 04:58 05:33 14:25 WBC (3.8-10.6) k/uL RBC (4.30-5.90) m/uL Hgb (13.0-17.5) gm/dL Hct (39.0-53.0) % Plt Count (150-450) k/uL Neutrophils # (1.3-7.7) k/uL Lymphocytes # (1.0-4.8) k/uL D-Dimer 6.26 H (<0.60) mg/L FEU Sodium (137-145) mmol/L Creatinine (0.66-1.25) mg/dL Glucose (74-99) mg/dL POC Glucose (mg/dL) (75-99) mg/dL Calcium (8.4-10.2) mg/dL Ferritin 3847.0 H (22.0-322.0) ng/mL Total Bilirubin (0.2-1.3) mg/dL ALT (4-49) U/L LD Isoenzymes 357 H (120-250) U/L LD 1 17 L (19-38) % LD 2 27 L (30-43) % LD 5 26 H (3-14) % Total Protein (6.3-8.2) g/dL Albumin (3.5-5.0) g/dL 06/27/20 06/27/20 06/28/20 Range/Units 17:13 20:01 06:54 WBC 12.7 H (3.8-10.6) k/uL RBC 3.69 L (4.30-5.90) m/uL Hgb 11.2 L (13.0-17.5) gm/dL Hct 33.0 L (39.0-53.0) % Plt Count 142 L (150-450) k/uL Neutrophils # 11.5 H (1.3-7.7) k/uL Lymphocytes # 0.5 L (1.0-4.8) k/uL D-Dimer (<0.60) mg/L FEU Sodium (137-145) mmol/L Creatinine (0.66-1.25) mg/dL Glucose (74-99) mg/dL POC Glucose (mg/dL) 173 H 154 H (75-99) mg/dL Calcium (8.4-10.2) mg/dL Ferritin (22.0-322.0) ng/mL Total Bilirubin (0.2-1.3) mg/dL ALT (4-49) U/L LD Isoenzymes (120-250) U/L LD 1 (19-38) % LD 2 (30-43) % LD 5 (3-14) % Total Protein (6.3-8.2) g/dL Albumin (3.5-5.0) g/dL 06/28/20 06/28/20 06/28/20 Range/Units 06:54 07:10 11:21 WBC (3.8-10.6) k/uL RBC (4.30-5.90) m/uL Hgb (13.0-17.5) gm/dL Hct (39.0-53.0) % Plt Count (150-450) k/uL Neutrophils # (1.3-7.7) k/uL Lymphocytes # (1.0-4.8) k/uL D-Dimer (<0.60) mg/L FEU Sodium 132 L (137-145) mmol/L Creatinine 0.45 L (0.66-1.25) mg/dL Glucose 128 H (74-99) mg/dL POC Glucose (mg/dL) 120 H 158 H (75-99) mg/dL Calcium 8.1 L (8.4-10.2) mg/dL Ferritin (22.0-322.0) ng/mL Total Bilirubin 1.6 H (0.2-1.3) mg/dL ALT 155 H (4-49) U/L LD Isoenzymes (120-250) U/L LD 1 (19-38) % LD 2 (30-43) % LD 5 (3-14) % Total Protein 5.8 L (6.3-8.2) g/dL Albumin 2.7 L (3.5-5.0) g/dL Assessment and Plan Plan: 1. COVID-19, Bilateral pneumonia, started on IV Decadron and IV Remdesevir, patient also received convalescent serum, he improved gradually he was extubated yesterday he is maintained on BiPAP at this time 2. Acute on chronic hypoxic and hypercapnic respiratory failure 3. Hyponatremia, on IV normal saline 4. Elevated d-dimer, started on SQ Lovenox 5. underlying history of depression 6. Underlying history of asthma At this time patient is in ICU, pulmonary critical care following Patient improving gradually prognosis remains guarded
[2020-06-28 17:25] LABS: Glucose,Whole Blood 119 mg/dL (75-99)
[2020-06-28] MEDS: SODIUM CHLORIDE 0.9% 1,000 ML IV SCH (17:34)
[2020-06-28 20:16] LABS: Glucose,Whole Blood 177 mg/dL (75-99)
[2020-06-28] MEDS: INSULIN DETEMIR (LEVEMIR) 100 UNIT/ML SYR SQ SCH (20:52)
[2020-06-29] MEDS: ACETAMINOPHEN TAB 325 MG TAB PO PRN ×2 (00:03→19:36)
[2020-06-29] MEDS: MORPHINE SULFATE 2 MG/ML SYRINGE IVP PRN ×3 (03:18→15:48)
[2020-06-29] MEDS: ALBUTEROL HFA INHALER INHALATION SCH ×4 (06:21→20:18)
[2020-06-29 07:08] LABS: Glucose,Whole Blood 105 mg/dL (75-99)
[2020-06-29] MEDS: INSULIN ASPART (NovoLOG) 100 UNIT/ML VIAL SQ SCH ×4 (07:21→21:07)
[2020-06-29] MEDS: ZINC SULFATE 220 MG CAP PO SCH (08:25)
[2020-06-29] MEDS: CHOLECALCIFEROL 1,000 UNIT TAB PO SCH (08:25)
[2020-06-29] MEDS: predniSONE 20 MG TAB PO SCH (08:25)
[2020-06-29] MEDS: PANTOPRAZOLE 40 MG TABLET PO SCH ×2 (08:25→18:38)
[2020-06-29] MEDS: ASCORBIC ACID 500 MG TAB PO SCH (08:25)
[2020-06-29] MEDS: FLUoxetine HCL 20 MG CAP PO SCH (08:26)
[2020-06-29] MEDS: ENOXAPARIN 40 MG/0.4 ML SYRINGE SQ SCH (08:26)
[2020-06-29] MEDS: polyethylene glycoL 3350 17 GM POWD.PACK PO SCH (08:57)
[2020-06-29] MEDS: MEROPENEM 2 GM in SODIUM CHLORIDE 0.9% 100 ML IVPB SCH ×2 (11:45→15:47)
--- NOTE | 2020-06-29 12:07 | P.PN ---
Subjective Progress Note Date: 06/29/20 Dennis Beal, is a 49 year-old male, who presented to ER with of cough and shortness of breath, Covid 19 test was positive in ER . Patient was evaluated in the emergency room vital examination on presentation to emergency room revealed a temperature of 101.1 pulse 79 respiration 32 blood pressure 115/70 pulse ox 90% on BiPAP his white blood count on presentation was 10.9 C-reactive protein was elevated at 1128 patient was admitted to telemetry floor he was started on IV Decadron pulmonary consultation was requested. Patient was recently admitted with pneumonia at that time Covid 19 test was negative. He was treated with IV antibiotic he improved and he was discharged home. His past medical history is significant for history of kidney stones, history of previous episodes of pneumonia, history of asthma and COPD, and history of depression, history of hypertension. On review of system patient is alert and oriented 3 he is complaining of cough and shortness of breath with any activity otherwise he denies any complaints there is no fever or chills no headache or dizziness no chest pain no nausea or vomiting no abdominal pain no diarrhea no blood in the stools no burning with urination no frequency or urgency and no hematuria On 06/11/2020 patient was seen and examined on the medical floor he is alert and oriented 3 he is still complaining of shortness of breath he still maintained on BiPAP otherwise he denies any complaints he is maintained on IV Decadron and IV Remdesevir On 06/12/2020 patient was seen and examined on the medical floor he is alert and oriented 3 in no apparent distress he is still complaining of shortness of breath and cough he is maintained on high flow oxygen, he is still maintained on IV Decadron and IV REMDESEVIR, otherwise he denies any complaints there is no chest pain no dizziness no nausea or vomiting no abdominal pain no diarrhea and no blood in the stools no burning with urination no frequency or urgency and no hematuria On 06/13/2020 patient was seen and examined in the ICU, last night he developed tachycardia, tachypnea, and worsening shortness of breath. He was transferred to intensive care unit he was intubated sedated started on mechanical ventilation, currently patient was seen and examined in the ICU he is in the prone position maintained on mechanical ventilation. On 06/14/2020 patient was seen and examined in the ICU, he is intubated sedated maintained on mechanical ventilation, patient is maintained on IV heparin per pr otocol, he is receiving IV Solu-Medrol, he received Remdesevir, today is day #5, he also received convalesent plasma. His temperature is 98.1 pulse 97 respiration 24 blood pressure 133/68 white blood count 22.5 hemoglobin 15.5 platelet count 2:30 d-dimer more than 34 pH 7.23 pCO2 78 CO2 102 On 06/15/2020 patient was seen and examined in the ICU, he is intubated sedated maintained on mechanical ventilation, patient is maintained on IV heparin per protocol, he is receiving IV Solu-Medrol, he received Remdesevir, today is day #5, he also received convalesent plasma. His temperature is 98.1 pulse 88 respiration 24 blood pressure 120/75 white blood count 25.9 hemoglobin 15.5 platelet count 276 d-dimer 11.69 pH 7.22 pCO2 80 PO2 83 On 06/16/2020 patient was seen and examined in the ICU he is intubated sedated maintained on mechanical ventilation ABG is improving, plan today is to decrease PEEP from 20-15 and to decrease FiO2 to 50% otherwise continue with current management On 06/17/2020 patient was seen and examined in the ICU he is still intubated sedated maintained on mechanical ventilation, oxygen requirements are decreasing, PEEP is decreased today from 15-12 patient is not on any IV pressure support at this time On 06/18/2020 patient was seen and examined in the ICU he is intubated sedated maintained on mechanical ventilation, he is off Nimbex at this time he is still on assist control tidal volume 450 rate 34 PEEP of 15 chest x-ray reveals a new consolidation in the right lower lung area d-dimer is elevated and patient is maintained on Lovenox. On 06/19/2020 patient was seen and examined in the ICU he is intubated sedated maintained on mechanical ventilation, he is still on assist control tidal volume 450 rate 34 PEEP of 15 chest x-ray reveals a new consolidation in the right lower lung area ABG showed a pH of 7.49 with a pCO2 of 48 and pO2 of 84. d- dimer is elevated and patient is maintained on Lovenox. On 06/20/2020 patient was seen and examined in the ICU he is intubated sedated maintained on mechanical ventilation assist control rate of 34 FiO2 50% PEEP was dropped from 15-13 and patient is tolerating well his pulse ox is 97% he is off Nimbex and remains on propofol he is not on any pressure support he is still having episodes of high fever. On 06/21/2020 patient was seen and examined in the ICU he is intubated sedated maintained on mechanical ventilation, vital examination reveals a blood pressure of 118/61 pulse 57 respiration 28, temperature 100.1 pulse ox 96% he is maintained on assist control rate of 28 tidal 4 450 FiO2 50% and PEEP of 9 patient has Covid 19 pneumonia he completed a course of fremitus severe and received 1 unit of plasma, he is also maintained on IV antibiotic cefepime for superimposed bacterial pneumonia, he is also maintained on IV Solu-Medrol and subcu Lovenox On 06/22/2020 patient was seen and examined in the ICU he was extubated this morning he is alert responsive in no apparent distress maintained on BiPAP at this time, his temperature is 100.2 pulse 65 respiration 20 blood pressure 131/78 pulse ox is 92% on BiPAP his white blood count is 15.2 hemoglobin 10.6 platelet count 170 sodium 139 potassium 4.5 chloride 103 CO2 38 BUN 30 creatinine 0.54 On 06/23/2020 patient was seen and examined in the ICU he was extubated yesterday he is maintained on BiPAP he is alert nonverbal in no apparent distr ess, his vital examination reveals a temperature of 99.7 pulse 80 respiration 23 blood pressure 125/95 pulse ox 97% on BiPAP. On 06/24/2020 patient was seen and examined in ICU he is alert responsive in no apparent distress he is maintained on BiPAP temperature is 98.4 pulse 82 respiration 18 blood pressure 123/78 pulse ox 96% on BiPAP FiO2 30% patient is slightly confused white blood count is 16.3 hemoglobin 12.0 platelet count 160 glucose 163 On 06/25/2020 patient was seen and examined in the ICU he is alert and oriented 3 in no apparent distress, he is scheduled to be transferred to the medical floor today, there is no fever or chills no headache or dizziness no chest pain no shortness of breath no cough no nausea or vomiting no abdominal pain no diarrhea and no urinary symptoms he is maintained on oxygen via nasal cannula at 5 L/m of back pain and bilateral lower extremity pain there is evidence of foot drop and muscle contracture in both feet physical therapy consult requested. On 06/26/2020 patient was seen and examined on the medical floor he is alert and oriented 3 in no apparent distress he is complaining of headache he states that his shortness of breath is improving he is still complaining of cough he is complaining of bilateral lower extremity pain otherwise he denies any complaints there is no fever or chills no dizziness no chest pain no palpitation no nausea or vomiting no abdominal pain no diarrhea no blood in the stools no burning with urination no frequency or urgency and no hematuria On 06/27/2020 patient was seen and examined on the medical floor he is alert and oriented. He is feeling better and stronger today he is working with physical therapy , he is still complaining of headache and shortness of breath and cough he is complaining of bilateral lower extremity pain otherwise he denies any complaints there is no fever or chills no dizziness no chest pain no palpitation no nausea or vomiting no abdominal pain no diarrhea no blood in the stools no burning with urination no frequency or urgency and no hematuria On 06/28/2020 patient was seen and examined on the medical floor he is alert and oriented 3 in no distress he is complaining of bilateral lower extremity pain he is complaining of difficulty walking he is complaining of generalized weakness otherwise he denies any complaints at this time, there is no fever or chills no headache or dizziness no chest pain no shortness of breath no cough no nausea or vomiting no abdominal pain no diarrhea no blood in the stools no burning with urination no frequency or urgency and no hematuria. On 06/29/2020 patient was seen and examined on the medical floor he is alert and oriented 3 in no distress he is complaining of low back pain and bilateral lower extremity pain he is complaining of difficulty walking he is complaining of generalized weakness otherwise he denies any complaints at this time, there is no fever or chills no headache or dizziness no chest pain no shortness of breath no cough no nausea or vomiting no abdominal pain no diarrhea no blood in the stools no burning with urination no frequency or urgency and no hematuria. Objective - Vital Signs Vital signs: Vital Signs Temp 97.3 F L 06/29/20 04:30 Pulse 82 06/29/20 04:30 Resp 18 06/29/20 04:30 BP 122/76 06/29/20 04:30 Pulse Ox 95 06/29/20 04:30 Intake & Output 06/28/20 06/29/20 06/29/20 18:59 06:59 18:59 Intake Total 600 Output Total 1340 1600 Balance -1340 -1000 Weight 102 kg 102.5 kg Intake: Intake, IV Titration 100 Amount Meropenem 2 gm In Sodium 100 Chloride 0.9% 100 ml @ 33 .3 mls/hr IVPB Q8HR [facility] Rx#:[id number] Oral 500 Output: Urine 1340 1600 Uretheral (Chang) 700 800 Other: Voiding Method Indwelling Catheter Indwelling Catheter Indwelling Catheter ABP, PAP, CO, CI - Last Documented Arterial Blood Pressure 138/84 - Exam In general patient was extubated this morning he is maintained on BiPAP he is alert responsive in no distress HEENT head normocephalic and atraumatic Neck is supple no JVD no goiter no lymphadenopathy Chest exam reveals fine crackles in both lung holden no wheezing Cardiac exam reveals regular heart sounds S1 and S2 no gallops no murmurs Abdomen is soft nontender no organomegaly with normal bowel sounds Extremity exam reveals minimal edema no cyanosis or clubbing Neurological examination reveals no gross focal neurological deficit - Labs CBC & Chem 7: 06/28/20 06:54 06/28/20 06:54 Labs: Abnormal Lab Results - Last 24 Hours (Table) 06/28/20 06/28/20 06/29/20 Range/Units 17:23 20:14 07:07 POC Glucose (mg/dL) 119 H 177 H 105 H (75-99) mg/dL Assessment and Plan Plan: 1. COVID-19, Bilateral pneumonia, started on IV Decadron and IV Remdesevir, patient also received convalescent serum, he improved gradually he was extubated yesterday he is maintained on BiPAP at this time 2. Acute on chronic hypoxic and hypercapnic respiratory failure 3. Hyponatremia, on IV normal saline 4. Elevated d-dimer, started on SQ Lovenox 5. underlying history of depression 6. Underlying history of asthma At this time patient is in ICU, pulmonary critical care following Patient improving gradually prognosis remains guarded
[2020-06-29 12:24] LABS: Glucose,Whole Blood 124 mg/dL (75-99)
[2020-06-29 17:11] LABS: Glucose,Whole Blood 168 mg/dL (75-99)
[2020-06-29 20:19] LABS: Glucose,Whole Blood 155 mg/dL (75-99)
[2020-06-29] MEDS: SODIUM CHLORIDE 0.9% 1,000 ML IV SCH (20:50)
[2020-06-29] MEDS: INSULIN DETEMIR (LEVEMIR) 100 UNIT/ML SYR SQ SCH (21:06)
[2020-06-30] MEDS: ACETAMINOPHEN TAB 325 MG TAB PO PRN ×3 (01:10→22:26)
[2020-06-30 07:27] LABS: Glucose,Whole Blood 99 mg/dL (75-99)
[2020-06-30] MEDS: ALBUTEROL HFA INHALER INHALATION SCH ×4 (07:58→20:16)
[2020-06-30] MEDS: INSULIN ASPART (NovoLOG) 100 UNIT/ML VIAL SQ SCH ×4 (08:35→22:17)
[2020-06-30] MEDS: ZINC SULFATE 220 MG CAP PO SCH (09:44)
[2020-06-30] MEDS: polyethylene glycoL 3350 17 GM POWD.PACK PO SCH (09:44)
[2020-06-30] MEDS: PANTOPRAZOLE 40 MG TABLET PO SCH ×2 (09:44→17:48)
[2020-06-30] MEDS: predniSONE 20 MG TAB PO SCH (09:45)
[2020-06-30] MEDS: CHOLECALCIFEROL 1,000 UNIT TAB PO SCH (09:45)
[2020-06-30] MEDS: FLUoxetine HCL 20 MG CAP PO SCH (09:45)
[2020-06-30] MEDS: ASCORBIC ACID 500 MG TAB PO SCH (09:45)
[2020-06-30] MEDS: ENOXAPARIN 40 MG/0.4 ML SYRINGE SQ SCH (09:45)
[2020-06-30 11:23] LABS: Glucose,Whole Blood 150 mg/dL (75-99)
[2020-06-30 13:11] LABS: Basophils % (A) 0 %; Eosinophils # (A) 0.2 k/uL (0-0.7); Eosinophils % (A) 2 %; HGB 11.4 gm/dL (13.0-17.5); Lymphocytes # (A) 0.5 k/uL (1.0-4.8); Lymphocytes % (A) 5 %; MCH 30.3 pg (25.0-35.0); MCHC 33.7 g/dL (31.0-37.0); MCV 90.1 fL (80.0-100.0); Mean Platelet Volume 7.2; Monocytes # (A) 0.4 k/uL (0-1.0); Monocytes % (A) 3 %; Neutrophils # (A) 9.3 k/uL (1.3-7.7); Neutrophils % (A) 89 %; Platelet Count 218 k/uL (150-450); RBC 3.78 m/uL (4.30-5.90); RDW 14.5 % (11.5-15.5); WBC 10.4 k/uL (3.8-10.6)
[2020-06-30 13:40] LABS: ALT 177 U/L (4-49); AST 88 U/L (17-59); African American GFR (CKD) >90 (>60 ml/min/1.73 sqM); Albumin 2.7 g/dL (3.5-5.0); Albumin/Globulin Ratio 0.8; Alkaline Phosphatase 129 U/L (38-126); Anion Gap 6 mmol/L; Blood Urea Nitrogen 14 mg/dL (9-20); Carbon Dioxide 27 mmol/L (22-30); Chloride 99 mmol/L (98-107); Globulin 3.5 g/dL; Glucose 127 mg/dL (74-99); Non-African American GFR(CKD) >90 (>60 ml/min/1.73 sqM); Potassium 4.4 mmol/L (3.5-5.1); Sodium 132 mmol/L (137-145); Total Bilirubin 1.2 mg/dL (0.2-1.3); Total Protein 6.2 g/dL (6.3-8.2)
--- NOTE | 2020-06-30 13:52 | P.PN ---
Subjective Progress Note Date: 06/30/20 Dennis Beal, is a 49 year-old male, who presented to ER with of cough and shortness of breath, Covid 19 test was positive in ER . Patient was evaluated in the emergency room vital examination on presentation to emergency room revealed a temperature of 101.1 pulse 79 respiration 32 blood pressure 115/70 pulse ox 90% on BiPAP his white blood count on presentation was 10.9 C-reactive protein was elevated at 1128 patient was admitted to telemetry floor he was started on IV Decadron pulmonary consultation was requested. Patient was recently admitted with pneumonia at that time Covid 19 test was negative. He was treated with IV antibiotic he improved and he was discharged home. His past medical history is significant for history of kidney stones, history of previous episodes of pneumonia, history of asthma and COPD, and history of depression, history of hypertension. On review of system patient is alert and oriented 3 he is complaining of cough and shortness of breath with any activity otherwise he denies any complaints there is no fever or chills no headache or dizziness no chest pain no nausea or vomiting no abdominal pain no diarrhea no blood in the stools no burning with urination no frequency or urgency and no hematuria On 06/11/2020 patient was seen and examined on the medical floor he is alert and oriented 3 he is still complaining of shortness of breath he still maintained on BiPAP otherwise he denies any complaints he is maintained on IV Decadron and IV Remdesevir On 06/12/2020 patient was seen and examined on the medical floor he is alert and oriented 3 in no apparent distress he is still complaining of shortness of breath and cough he is maintained on high flow oxygen, he is still maintained on IV Decadron and IV REMDESEVIR, otherwise he denies any complaints there is no chest pain no dizziness no nausea or vomiting no abdominal pain no diarrhea and no blood in the stools no burning with urination no frequency or urgency and no hematuria On 06/13/2020 patient was seen and examined in the ICU, last night he developed tachycardia, tachypnea, and worsening shortness of breath. He was transferred to intensive care unit he was intubated sedated started on mechanical ventilation, currently patient was seen and examined in the ICU he is in the prone position maintained on mechanical ventilation. On 06/14/2020 patient was seen and examined in the ICU, he is intubated sedated maintained on mechanical ventilation, patient is maintained on IV heparin per pr otocol, he is receiving IV Solu-Medrol, he received Remdesevir, today is day #5, he also received convalesent plasma. His temperature is 98.1 pulse 97 respiration 24 blood pressure 133/68 white blood count 22.5 hemoglobin 15.5 platelet count 2:30 d-dimer more than 34 pH 7.23 pCO2 78 CO2 102 On 06/15/2020 patient was seen and examined in the ICU, he is intubated sedated maintained on mechanical ventilation, patient is maintained on IV heparin per protocol, he is receiving IV Solu-Medrol, he received Remdesevir, today is day #5, he also received convalesent plasma. His temperature is 98.1 pulse 88 respiration 24 blood pressure 120/75 white blood count 25.9 hemoglobin 15.5 platelet count 276 d-dimer 11.69 pH 7.22 pCO2 80 PO2 83 On 06/16/2020 patient was seen and examined in the ICU he is intubated sedated maintained on mechanical ventilation ABG is improving, plan today is to decrease PEEP from 20-15 and to decrease FiO2 to 50% otherwise continue with current management On 06/17/2020 patient was seen and examined in the ICU he is still intubated sedated maintained on mechanical ventilation, oxygen requirements are decreasing, PEEP is decreased today from 15-12 patient is not on any IV pressure support at this time On 06/18/2020 patient was seen and examined in the ICU he is intubated sedated maintained on mechanical ventilation, he is off Nimbex at this time he is still on assist control tidal volume 450 rate 34 PEEP of 15 chest x-ray reveals a new consolidation in the right lower lung area d-dimer is elevated and patient is maintained on Lovenox. On 06/19/2020 patient was seen and examined in the ICU he is intubated sedated maintained on mechanical ventilation, he is still on assist control tidal volume 450 rate 34 PEEP of 15 chest x-ray reveals a new consolidation in the right lower lung area ABG showed a pH of 7.49 with a pCO2 of 48 and pO2 of 84. d- dimer is elevated and patient is maintained on Lovenox. On 06/20/2020 patient was seen and examined in the ICU he is intubated sedated maintained on mechanical ventilation assist control rate of 34 FiO2 50% PEEP was dropped from 15-13 and patient is tolerating well his pulse ox is 97% he is off Nimbex and remains on propofol he is not on any pressure support he is still having episodes of high fever. On 06/21/2020 patient was seen and examined in the ICU he is intubated sedated maintained on mechanical ventilation, vital examination reveals a blood pressure of 118/61 pulse 57 respiration 28, temperature 100.1 pulse ox 96% he is maintained on assist control rate of 28 tidal 4 450 FiO2 50% and PEEP of 9 patient has Covid 19 pneumonia he completed a course of fremitus severe and received 1 unit of plasma, he is also maintained on IV antibiotic cefepime for superimposed bacterial pneumonia, he is also maintained on IV Solu-Medrol and subcu Lovenox On 06/22/2020 patient was seen and examined in the ICU he was extubated this morning he is alert responsive in no apparent distress maintained on BiPAP at this time, his temperature is 100.2 pulse 65 respiration 20 blood pressure 131/78 pulse ox is 92% on BiPAP his white blood count is 15.2 hemoglobin 10.6 platelet count 170 sodium 139 potassium 4.5 chloride 103 CO2 38 BUN 30 creatinine 0.54 On 06/23/2020 patient was seen and examined in the ICU he was extubated yesterday he is maintained on BiPAP he is alert nonverbal in no apparent distr ess, his vital examination reveals a temperature of 99.7 pulse 80 respiration 23 blood pressure 125/95 pulse ox 97% on BiPAP. On 06/24/2020 patient was seen and examined in ICU he is alert responsive in no apparent distress he is maintained on BiPAP temperature is 98.4 pulse 82 respiration 18 blood pressure 123/78 pulse ox 96% on BiPAP FiO2 30% patient is slightly confused white blood count is 16.3 hemoglobin 12.0 platelet count 160 glucose 163 On 06/25/2020 patient was seen and examined in the ICU he is alert and oriented 3 in no apparent distress, he is scheduled to be transferred to the medical floor today, there is no fever or chills no headache or dizziness no chest pain no shortness of breath no cough no nausea or vomiting no abdominal pain no diarrhea and no urinary symptoms he is maintained on oxygen via nasal cannula at 5 L/m of back pain and bilateral lower extremity pain there is evidence of foot drop and muscle contracture in both feet physical therapy consult requested. On 06/26/2020 patient was seen and examined on the medical floor he is alert and oriented 3 in no apparent distress he is complaining of headache he states that his shortness of breath is improving he is still complaining of cough he is complaining of bilateral lower extremity pain otherwise he denies any complaints there is no fever or chills no dizziness no chest pain no palpitation no nausea or vomiting no abdominal pain no diarrhea no blood in the stools no burning with urination no frequency or urgency and no hematuria On 06/27/2020 patient was seen and examined on the medical floor he is alert and oriented. He is feeling better and stronger today he is working with physical therapy , he is still complaining of headache and shortness of breath and cough he is complaining of bilateral lower extremity pain otherwise he denies any complaints there is no fever or chills no dizziness no chest pain no palpitation no nausea or vomiting no abdominal pain no diarrhea no blood in the stools no burning with urination no frequency or urgency and no hematuria On 06/28/2020 patient was seen and examined on the medical floor he is alert and oriented 3 in no distress he is complaining of bilateral lower extremity pain he is complaining of difficulty walking he is complaining of generalized weakness otherwise he denies any complaints at this time, there is no fever or chills no headache or dizziness no chest pain no shortness of breath no cough no nausea or vomiting no abdominal pain no diarrhea no blood in the stools no burning with urination no frequency or urgency and no hematuria. On 06/29/2020 patient was seen and examined on the medical floor he is alert and oriented 3 in no distress he is complaining of low back pain and bilateral lower extremity pain he is complaining of difficulty walking he is complaining of generalized weakness otherwise he denies any complaints at this time, there is no fever or chills no headache or dizziness no chest pain no shortness of breath no cough no nausea or vomiting no abdominal pain no diarrhea no blood in the stools no burning with urination no frequency or urgency and no hematuria. On 06/30/2020 patient was seen and examined on the medical floor he is complaining of low back pain and bilateral lower extremity pain he is complaining of difficulty walking he is complaining of generalized weakness otherwise he denies any complaints at this time, there is no fever or chills no headache or dizziness no chest pain no shortness of breath no cough no nausea or vomiting no abdominal pain no diarrhea no blood in the stools no burning with urination no frequency or urgency and no hematuria. Plan is for discharge to [facility] tomorrow for rehabilitation Objective - Vital Signs Vital signs: Vital Signs Temp 97.5 F L 06/30/20 04:36 Pulse 79 06/30/20 04:36 Resp 18 06/30/20 04:36 BP 129/87 06/30/20 04:36 Pulse Ox 95 06/30/20 04:36 Intake & Output 06/29/20 06/30/20 06/30/20 18:59 06:59 18:59 Intake Total 500 840 Output Total 1000 1800 Balance -500 -960 Weight 101.5 kg Intake: IV 240 Sodium Chloride 0.9% 1, 240 000 ml @ 20 mls/hr IV . Q24H ERIN Rx#:[id number] Intake, IV Titration 100 Amount Meropenem 2 gm In Sodium 100 Chloride 0.9% 100 ml @ 33 .3 mls/hr IVPB Q8HR ERIN Rx#:[id number] Oral 400 600 Output: Urine 1000 1800 Uretheral (Chang) 1000 1000 Other: Voiding Method Indwelling Catheter Indwelling Catheter ABP, PAP, CO, CI - Last Documented Arterial Blood Pressure 138/84 - Exam In general patient was extubated this morning he is maintained on BiPAP he is alert responsive in no distress HEENT head normocephalic and atraumatic Neck is supple no JVD no goiter no lymphadenopathy Chest exam reveals fine crackles in both lung holden no wheezing Cardiac exam reveals regular heart sounds S1 and S2 no gallops no murmurs Abdomen is soft nontender no organomegaly with normal bowel sounds Extremity exam reveals minimal edema no cyanosis or clubbing Neurological examination reveals no gross focal neurological deficit - Labs CBC & Chem 7: 06/30/20 12:44 06/30/20 12:44 Labs: Abnormal Lab Results - Last 24 Hours (Table) 06/29/20 06/29/20 06/29/20 Range/Units 12:23 17:10 20:18 POC Glucose (mg/dL) 124 H 168 H 155 H (75-99) mg/dL Assessment and Plan Plan: 1. COVID-19, Bilateral pneumonia, started on IV Decadron and IV Remdesevir, patient also received convalescent serum, he improved gradually he was extubated yesterday he is maintained on BiPAP at this time 2. Acute on chronic hypoxic and hypercapnic respiratory failure 3. Hyponatremia, on IV normal saline 4. Elevated d-dimer, started on SQ Lovenox 5. underlying history of depression 6. Underlying history of asthma At this time patient is in ICU, pulmonary critical care following Patient improving gradually prognosis remains guarded
[2020-06-30] MEDS: MORPHINE SULFATE 2 MG/ML SYRINGE IVP PRN ×3 (15:05→22:27)
[2020-06-30] MEDS: SODIUM CHLORIDE 0.9% 1,000 ML IV SCH (17:03)
[2020-06-30 17:15] LABS: Glucose,Whole Blood 169 mg/dL (75-99)
[2020-06-30 21:07] LABS: Glucose,Whole Blood 179 mg/dL (75-99)
[2020-06-30] MEDS ORDERED: MELATONIN 5 MG TABLET PO SCH (21:30)
[2020-06-30] MEDS: INSULIN DETEMIR (LEVEMIR) 100 UNIT/ML SYR SQ SCH (22:17)
[2020-07-01] MEDS: ACETAMINOPHEN TAB 325 MG TAB PO PRN ×2 (03:55→13:06)
[2020-07-01 06:46] LABS: Basophils # (A) 0.1 k/uL (0-0.2); Basophils % (A) 1 %; Eosinophils # (A) 0.2 k/uL (0-0.7); Eosinophils % (A) 2 %; HGB 11.1 gm/dL (13.0-17.5); Lymphocytes # (A) 0.8 k/uL (1.0-4.8); Lymphocytes % (A) 8 %; MCH 29.7 pg (25.0-35.0); MCHC 32.6 g/dL (31.0-37.0); Monocytes # (A) 0.3 k/uL (0-1.0); Monocytes % (A) 3 %; Neutrophils # (A) 8.3 k/uL (1.3-7.7); Neutrophils % (A) 85 %; Platelet Count 214 k/uL (150-450); RBC 3.73 m/uL (4.30-5.90); RDW 14.4 % (11.5-15.5); WBC 9.8 k/uL (3.8-10.6)
[2020-07-01 07:18] LABS: Glucose,Whole Blood 105 mg/dL (75-99)
[2020-07-01] MEDS: INSULIN ASPART (NovoLOG) 100 UNIT/ML VIAL SQ SCH ×2 (07:21→13:02)
[2020-07-01] MEDS: PANTOPRAZOLE 40 MG TABLET PO SCH (07:59)
[2020-07-01] MEDS: ASCORBIC ACID 500 MG TAB PO SCH (07:59)
[2020-07-01] MEDS: predniSONE 20 MG TAB PO SCH (07:59)
[2020-07-01] MEDS: ZINC SULFATE 220 MG CAP PO SCH (07:59)
[2020-07-01] MEDS: CHOLECALCIFEROL 1,000 UNIT TAB PO SCH (07:59)
[2020-07-01] MEDS: ENOXAPARIN 40 MG/0.4 ML SYRINGE SQ SCH (07:59)
[2020-07-01] MEDS: FLUoxetine HCL 20 MG CAP PO SCH (07:59)
[2020-07-01] MEDS: polyethylene glycoL 3350 17 GM POWD.PACK PO SCH (07:59)
[2020-07-01] MEDS: ALBUTEROL HFA INHALER INHALATION SCH ×2 (09:02→12:03)
[2020-07-01] MEDS: MORPHINE SULFATE 2 MG/ML SYRINGE IVP PRN ×2 (10:24→13:30)
[2020-07-01 10:52] LABS: African American GFR (CKD) 159.4 (60.0-200.0); Albumin/Globulin Ratio 1.2 (1.60-3.17); Anion Gap 5.9 mmol/L (4.00-12.00); Calcium 8.3 mg/dL (8.7-10.3); Carbon Dioxide 30.1 mmol/L (21.6-31.8); Globulin 2.5 g/dL (1.6-3.3); Non-African American GFR(CKD) 137.5 (60.0-200.0); Total Protein 5.5 g/dL (6.2-8.2)
[2020-07-01 11:22] VITALS: BP 124/85; PULSE 98; RESP 22; TEMP 97.9
[2020-07-01 11:34] LABS: Glucose,Whole Blood 192 mg/dL (75-99)
--- NOTE | 2020-07-01 13:01 | P.DS ---
Providers Date of admission: 06/09/20 13:20 Expected date of discharge: 07/01/20 Attending physician: Placido Huizar Consults: 06/09/20 13:20 Consult Physician Routine Consulting Provider: Ghazal Muller Consult Reason/Comments: Bilateral pneumonia,Covid positive Do you want consulting provider notified?: Yes Primary care physician: [facility] Course: Diagnoses on discharge: 1. COVID-19, Bilateral pneumonia, started on IV Decadron and IV Remdesevir, patient also received convalescent serum, he improved gradually he was extubated yesterday he is maintained on BiPAP at this time 2. Acute on chronic hypoxic and hypercapnic respiratory failure 3. Hyponatremia, on IV normal saline 4. Elevated d-dimer, started on SQ Lovenox 5. underlying history of depression 6. Underlying history of asthma Hospital Course: Dennis Beal, is a 49 year-old male, who presented to ER with of cough and shortness of breath, Covid 19 test was positive in ER . Patient was evaluated in the emergency room vital examination on presentation to emergency room revealed a temperature of 101.1 pulse 79 respiration 32 blood pressure 115/70 pulse ox 90% on BiPAP his white blood count on presentation was 10.9 C-reactive protein was elevated at 1128 patient was admitted to telemetry floor he was started on IV Decadron pulmonary consultation was requested. Patient was recently admitted with pneumonia at that time Covid 19 test was negative. He was treated with IV antibiotic he improved and he was discharged home. His past medical history is significant for history of kidney stones, history of previous episodes of pneumonia, history of asthma and COPD, and history of depression, history of hypertension. On review of system patient is alert and oriented 3 he is complaining of cough and shortness of breath with any activity otherwise he denies any complaints there is no fever or chills no headache or dizziness no chest pain no nausea or vomiting no abdominal pain no diarrhea no blood in the stools no burning with urination no frequency or urgency and no hematuria On 06/11/2020 patient was seen and examined on the medical floor he is alert and oriented 3 he is still complaining of shortness of breath he still maintained on BiPAP otherwise he denies any complaints he is maintained on IV Decadron and IV Remdesevir On 06/12/2020 patient was seen and examined on the medical floor he is alert and oriented 3 in no apparent distress he is still complaining of shortness of breath and cough he is maintained on high flow oxygen, he is still maintained on IV Decadron and IV REMDESEVIR, otherwise he denies any complaints there is no chest pain no dizziness no nausea or vomiting no abdominal pain no diarrhea and no blood in the stools no burning with urination no frequency or urgency and no hematuria On 06/13/2020 patient was seen and examined in the ICU, last night he developed tachycardia, tachypnea, and worsening shortness of breath. He was transferred to intensive care unit he was intubated sedated started on mechanical ventilation, currently patient was seen and examined in the ICU he is in the prone position maintained on mechanical ventilation. On 06/14/2020 patient was seen and examined in the ICU, he is intubated sedated maintained on mechanical ventilation, patient is maintained on IV heparin per protocol, he is receiving IV Solu-Medrol, he received Remdesevir, today is day #5, he also received convalesent plasma. His temperature is 98.1 pulse 97 respiration 24 blood pressure 133/68 white blood count 22.5 hemoglobin 15.5 platelet count 2:30 d-dimer more than 34 pH 7.23 pCO2 78 CO2 102 On 06/15/2020 patient was seen and examined in the ICU, he is intubated sedated maintained on mechanical ventilation, patient is maintained on IV heparin per protocol, he is receiving IV Solu-Medrol, he received Remdesevir, today is day #5, he also received convalesent plasma. His temperature is 98.1 pulse 88 respiration 24 blood pressure 120/75 white blood count 25.9 hemoglobin 15.5 platelet count 276 d-dimer 11.69 pH 7.22 pCO2 80 PO2 83 On 06/16/2020 patient was seen and examined in the ICU he is intubated sedated maintained on mechanical ventilation ABG is improving, plan today is to decrease PEEP from 20-15 and to decrease FiO2 to 50% otherwise continue with current management On 06/17/2020 patient was seen and examined in the ICU he is still intubated sedated maintained on mechanical ventilation, oxygen requirements are decreasing, PEEP is decreased today from 15-12 patient is not on any IV pressure support at this time On 06/18/2020 patient was seen and examined in the ICU he is intubated sedated maintained on mechanical ventilation, he is off Nimbex at this time he is still on assist control tidal volume 450 rate 34 PEEP of 15 chest x-ray reveals a new consolidation in the right lower lung area d-dimer is elevated and patient is maintained on Lovenox. On 06/19/2020 patient was seen and examined in the ICU he is intubated sedated maintained on mechanical ventilation, he is still on assist control tidal volume 450 rate 34 PEEP of 15 chest x-ray reveals a new consolidation in the right lower lung area ABG showed a pH of 7.49 with a pCO2 of 48 and pO2 of 84. d- dimer is elevated and patient is maintained on Lovenox. On 06/20/2020 patient was seen and examined in the ICU he is intubated sedated maintained on mechanical ventilation assist control rate of 34 FiO2 50% PEEP was dropped from 15-13 and patient is tolerating well his pulse ox is 97% he is off Nimbex and remains on propofol he is not on any pressure support he is still having episodes of high fever. On 06/21/2020 patient was seen and examined in the ICU he is intubated sedated maintained on mechanical ventilation, vital examination reveals a blood pressure of 118/61 pulse 57 respiration 28, temperature 100.1 pulse ox 96% he is maintained on assist control rate of 28 tidal 4 450 FiO2 50% and PEEP of 9 patient has Covid 19 pneumonia he completed a course of fremitus severe and received 1 unit of plasma, he is also maintained on IV antibiotic cefepime for superimposed bacterial pneumonia, he is also maintained on IV Solu-Medrol and subcu Lovenox On 06/22/2020 patient was seen and examined in the ICU he was extubated this morning he is alert responsive in no apparent distress maintained on BiPAP at this time, his temperature is 100.2 pulse 65 respiration 20 blood pressure 131/78 pulse ox is 92% on BiPAP his white blood count is 15.2 hemoglobin 10.6 platelet count 170 sodium 139 potassium 4.5 chloride 103 CO2 38 BUN 30 creatinine 0.54 On 06/23/2020 patient was seen and examined in the ICU he was extubated yesterday he is maintained on BiPAP he is alert nonverbal in no apparent distress, his vital examination reveals a temperature of 99.7 pulse 80 respiration 23 blood pressure 125/95 pulse ox 97% on BiPAP. On 06/24/2020 patient was seen and examined in ICU he is alert responsive in no apparent distress he is maintained on BiPAP temperature is 98.4 pulse 82 respiration 18 blood pressure 123/78 pulse ox 96% on BiPAP FiO2 30% patient is slightly confused white blood count is 16.3 hemoglobin 12.0 platelet count 160 glucose 163 On 06/25/2020 patient was seen and examined in the ICU he is alert and oriented 3 in no apparent distress, he is scheduled to be transferred to the medical floor today, there is no fever or chills no headache or dizziness no chest pain no shortness of breath no cough no nausea or vomiting no abdominal pain no diarrhea and no urinary symptoms he is maintained on oxygen via nasal cannula at 5 L/m of back pain and bilateral lower extremity pain there is evidence of foot drop and muscle contracture in both feet physical therapy consult requested. On 06/26/2020 patient was seen and examined on the medical floor he is alert and oriented 3 in no apparent distress he is complaining of headache he states that his shortness of breath is improving he is still complaining of cough he is complaining of bilateral lower extremity pain otherwise he denies any complaints there is no fever or chills no dizziness no chest pain no palpitation no nausea or vomiting no abdominal pain no diarrhea no blood in the stools no burning with urination no frequency or urgency and no hematuria On 06/27/2020 patient was seen and examined on the medical floor he is alert and oriented. He is feeling better and stronger today he is working with physical therapy , he is still complaining of headache and shortness of breath and cough he is complaining of bilateral lower extremity pain otherwise he denies any complaints there is no fever or chills no dizziness no chest pain no palpitation no nausea or vomiting no abdominal pain no diarrhea no blood in the stools no burning with urination no frequency or urgency and no hematuria On 06/28/2020 patient was seen and examined on the medical floor he is alert and oriented 3 in no distress he is complaining of bilateral lower extremity pain he is complaining of difficulty walking he is complaining of generalized weakness otherwise he denies any complaints at this time, there is no fever or chills no headache or dizziness no chest pain no shortness of breath no cough no nausea or vomiting no abdominal pain no diarrhea no blood in the stools no burning with urination no frequency or urgency and no hematuria. On 06/29/2020 patient was seen and examined on the medical floor he is alert and oriented 3 in no distress he is complaining of low back pain and bilateral lower extremity pain he is complaining of difficulty walking he is complaining of generalized weakness otherwise he denies any complaints at this time, there is no fever or chills no headache or dizziness no chest pain no shortness of breath no cough no nausea or vomiting no abdominal pain no diarrhea no blood in the stools no burning with urination no frequency or urgency and no hematuria. On 06/30/2020 patient was seen and examined on the medical floor he is complaining of low back pain and bilateral lower extremity pain he is complaining of difficulty walking he is complaining of generalized weakness otherwise he denies any complaints at this time, there is no fever or chills no headache or dizziness no chest pain no shortness of breath no cough no nausea or vomiting no abdominal pain no diarrhea no blood in the stools no burning with urination no frequency or urgency and no hematuria. [facility] for [facility]. On 07/01/2020 patient was seen and examined on the medical floor he is alert and oriented 3 he is still complaining of lower back pain and bilateral lower extremity pain, he is complaining of shortness of breath with activity and occasional cough, otherwise he denies any complaints, there is no fever or chills no headache or dizziness no chest pain no palpitation no nausea or vomiting no abdominal pain no diarrhea no blood in the stools no burning with urination no frequency or urgency and no hematuria. At this time will proceed with discharging patient to [facility] for rehabilitation, patient still has significant gait disturbance and foot drop and will need physical therapy and occupational therapy. Will follow at [facility] for further treatment. Patient Condition at Discharge: Fair Plan - Discharge Summary Discharge Rx Participant: Yes New Discharge Prescriptions: New Insulin Detemir (Levemir) [Levemir] 12 unit SQ HS syr Melatonin 10 mg PO HS tablet polyethylene glycoL 3350 [Miralax] 17 gm PO DAILY powd.pack INSULIN ASPART (NovoLOG) [NovoLOG (formulary)] 0 unit SQ ACHS vial Pantoprazole [Protonix] 40 mg PO AC-BID tablet. Acetaminophen Tab [Tylenol] 650 mg PO Q6HR PRN tab PRN Reason: Fever And/ Or Pain Albuterol Inhaler [Ventolin Hfa Inhaler] 2 puff INHALATION RT-QID puff Ascorbic Acid [Vitamin C] 1,000 mg PO DAILY tab Cholecalciferol [Vitamin D3 (25 Mcg = 1000 Iu)] 1,000 unit PO DAILY tab Continue FLUoxetine HCL [PROzac] 40 mg PO DAILY atenoloL [Tenormin] 50 mg PO DAILY predniSONE See Taper PO DIRECTED Ipratropium-Albuterol Nebulize [Duoneb 0.5 mg-3 mg/3 ml Soln] 3 ml INHALATION RT-QID PRN PRN Reason: Shortness Of Breath Discontinued Levofloxacin [Levaquin] 750 mg PO DAILY tab Discharge Medication List FLUoxetine HCL [PROzac] 40 mg PO DAILY 05/06/19 [History] atenoloL [Tenormin] 50 mg PO DAILY 05/06/19 [History] Ipratropium-Albuterol Nebulize [Duoneb 0.5 mg-3 mg/3 ml Soln] 3 ml INHALATION RT-QID PRN 06/09/20 [History] predniSONE See Taper PO DIRECTED 06/09/20 [History] Acetaminophen Tab [Tylenol] 650 mg PO Q6HR PRN tab 07/01/20 [Rx] Albuterol Inhaler [Ventolin Hfa Inhaler] 2 puff INHALATION RT-QID puff 07/01/20 [Rx] Ascorbic Acid [Vitamin C] 1,000 mg PO DAILY tab 07/01/20 [Rx] Cholecalciferol [Vitamin D3 (25 Mcg = 1000 Iu)] 1,000 unit PO DAILY tab 07/01/20 [Rx] INSULIN ASPART (NovoLOG) [NovoLOG (formulary)] 0 unit SQ ACHS vial 07/01/20 [R x] Insulin Detemir (Levemir) [Levemir] 12 unit SQ HS syr 07/01/20 [Rx] Melatonin 10 mg PO HS tablet 07/01/20 [Rx] Pantoprazole [Protonix] 40 mg PO AC-BID tablet.dr 07/01/20 [Rx] polyethylene glycoL 3350 [Miralax] 17 gm PO DAILY powd.pack 07/01/20 [Rx] Follow up Appointment(s)/Referral(s): Bina Underwood MD [STAFF PHYSICIAN] - 1-2 days
[2020-07-02 16:35] LABS: LD Isoenzymes 1 19 % (19-38); LD Isoenzymes 2 28 % (30-43); LD Isoenzymes 3 18 % (16-26); LD Isoenzymes 4 11 % (3-12); LD Isoenzymes 5 24 % (3-14); Lactacte Dehydrogenase(LD) ISO 314 U/L (120-250)
[2020-07-02 16:35] LABS: LD Isoenzymes 1 16 % (19-38); LD Isoenzymes 2 26 % (30-43); LD Isoenzymes 3 18 % (16-26); LD Isoenzymes 4 12 % (3-12); LD Isoenzymes 5 28 % (3-14); Lactacte Dehydrogenase(LD) ISO 311 U/L (120-250)
== END 2020-07-01 15:44 | DRG 207 ==
LOC: EC 10:53 → 3SCARD 13:20 → 2SICU 06-13 12:02 → 6NMEDSUR 06-25 15:48
PROVIDERS: ADMIT Internal Medicine; ATTEND Internal Medicine
PROC: 5A09557 Assistance with Respiratory Ventilation, Greater than 96 Consecutive Hours, Continuous Positive Airway Pressure (ICD-10-PCS; 2020-06-09)
PROC: XW033E5 Introduction of Remdesivir Anti-infective into Peripheral Vein, Percutaneous Approach, New Technology Group 5 (ICD-10-PCS; 2020-06-10)
PROC: XW13325 Transfusion of Convalescent Plasma (Nonautologous) into Peripheral Vein, Percutaneous Approach, New Technology Group 5 (ICD-10-PCS; 2020-06-10)
PROC: 03HY32Z Insertion of Monitoring Device into Upper Artery, Percutaneous Approach (ICD-10-PCS; principal; 2020-06-13)
PROC: 4A133B1 Monitoring of Arterial Pressure, Peripheral, Percutaneous Approach (ICD-10-PCS; principal; 2020-06-13)
PROC: 0BH17EZ Insertion of Endotracheal Airway into Trachea, Via Natural or Artificial Opening (ICD-10-PCS; principal; 2020-06-13)
PROC: 5A1955Z Respiratory Ventilation, Greater than 96 Consecutive Hours (ICD-10-PCS; principal; 2020-06-13)
PROC: 0D9670Z Drainage of Stomach with Drainage Device, Via Natural or Artificial Opening (ICD-10-PCS; principal; 2020-06-13)
PROC: 4A133J1 Monitoring of Arterial Pulse, Peripheral, Percutaneous Approach (ICD-10-PCS; principal; 2020-06-13)
PROC: 02HV33Z Insertion of Infusion Device into Superior Vena Cava, Percutaneous Approach (ICD-10-PCS; principal; 2020-06-13)
PROC: 3E043XZ Introduction of Vasopressor into Central Vein, Percutaneous Approach (ICD-10-PCS; 2020-06-13)
PROC: 3E0G76Z Introduction of Nutritional Substance into Upper GI, Via Natural or Artificial Opening (ICD-10-PCS; 2020-06-13)
PROC: 5A09457 Assistance with Respiratory Ventilation, 24-96 Consecutive Hours, Continuous Positive Airway Pressure (ICD-10-PCS; 2020-06-22)
PROC: 05HB33Z Insertion of Infusion Device into Right Basilic Vein, Percutaneous Approach (ICD-10-PCS; 2020-06-27)
DX: U07.1 COVID-19 (principal); J12.89 Other viral pneumonia; J15.9 Unspecified bacterial pneumonia; G93.41 Metabolic encephalopathy; J96.21 Acute and chronic respiratory failure with hypoxia; J96.22 Acute and chronic respiratory failure with hypercapnia; G62.81 Critical illness polyneuropathy; E87.1 Hypo-osmolality and hyponatremia; J44.0 Chronic obstructive pulmonary disease with (acute) lower respiratory infection; E87.0 Hyperosmolality and hypernatremia; J98.2 Interstitial emphysema; E87.8 Other disorders of electrolyte and fluid balance, not elsewhere classified; D72.810 Lymphocytopenia; E86.1 Hypovolemia; J45.20 Mild intermittent asthma, uncomplicated; M21.379 Foot drop, unspecified foot; I10 Essential (primary) hypertension; F32.9 Major depressive disorder, single episode, unspecified; E66.9 Obesity, unspecified; Z68.38 Body mass index [BMI] 38.0-38.9, adult; M54.5 Low back pain; R26.2 Difficulty in walking, not elsewhere classified; R74.01 Elevation of levels of liver transaminase levels; Z79.899 Other long term (current) drug therapy; Z87.442 Personal history of urinary calculi; Z87.01 Personal history of pneumonia (recurrent); Z71.3 Dietary counseling and surveillance; Z88.5 Allergy status to narcotic agent; Z88.0 Allergy status to penicillin; Z82.49 Family history of ischemic heart disease and other diseases of the circulatory system
CPT/HCPCS: 36410; 36415; 36600; 71045; 71275; 76937; 80048; 80053; 81001; 82550; 82553; 82728; 82805; 83036; 83605; 83615; 83625; 83735; 84145; 84484; 85025; 85379; 85384; 85610; 85730; 86140; 86850; 86900; 86901; 87040; 87070; 87077; 87186; 87205; 93005; 94002; 94003; 94640; 94660; 94760; 96361; 96372; 96374; 96375; 96376; 99285

== ENCOUNTER 2023-12-13 11:35 | Emergency (ER) | payer BC ==
--- NOTE | 2023-12-13 12:31 | ED ---
Eye Problem HPI - General Chief complaint: Eye Problems Stated complaint: Demarcus eye issue Time Seen by Provider: 12/13/23 11:52 Source: patient, old records reviewed Mode of arrival: ambulatory Limitations: no limitations - History of Present Illness Initial comments: 53-year-old male presents emergency department with chief complaint of bilateral eye irritation. Patient states started for several days ago. Patient states it is worsening he has no visual disturbance states it is constant tearing of his eyes denies any trauma his had similar symptoms that started 2 weeks ago and is unclear what started this. Patient's stated that steroids rolling that seemed to help. She is on antibiotics and does not seem to be improving her symptoms. Patient has tried some of her eyedrops but no relief. Patient denies any fever chills night sweats no neck pain no trauma denies any contact lens wearing patient offers no other complaints. - Related Data Home Medications Medication Instructions Recorded Confirmed FLUoxetine HCL [PROzac] 40 mg PO DAILY 05/06/19 06/09/20 atenoloL [Tenormin] 50 mg PO DAILY 05/06/19 06/09/20 Ipratropium-Albuterol Nebulize 3 ml INHALATION RT-QID PRN 06/09/20 06/09/20 [Duoneb 0.5 mg-3 mg/3 ml Soln] predniSONE See Taper PO DIRECTED 06/09/20 06/09/20 Previous Rx's Medication Instructions Recorded Acetaminophen Tab [Tylenol] 650 mg PO Q6HR PRN tab 07/01/20 Albuterol Inhaler [Ventolin Hfa 2 puff INHALATION RT-QID puff 07/01/20 Inhaler] Ascorbic Acid [Vitamin C] 1,000 mg PO DAILY tab 07/01/20 Cholecalciferol [Vitamin D3 (25 1,000 unit PO DAILY tab 07/01/20 Mcg = 1000 Iu)] INSULIN ASPART (NovoLOG) [NovoLOG 0 unit SQ ACHS vial 07/01/20 (formulary)] Insulin Detemir (Levemir) [Levemir] 12 unit SQ HS syr 07/01/20 Melatonin 10 mg PO HS tablet 07/01/20 Pantoprazole [Protonix] 40 mg PO AC-BID tablet. 07/01/20 polyethylene glycoL 3350 [Miralax] 17 gm PO DAILY powd.pack 07/01/20 Sulfamethox-Tmp 800-160Mg [Bactrim 1 each PO Q12HR #20 tab 12/13/23 Ds] Tobra-Dexamet 0.3-0.1% Eye Oin 1 applic BOTH EYES BID #3.5 gm 12/13/23 [Tobradex Ophth Oint] predniSONE 50 mg PO DAILY #5 tab 12/13/23 Allergies Allergy/AdvReac Type Severity Reaction Status Date / Time codeine Allergy Swelling Verified 12/13/23 11:48 Penicillins Allergy Swelling Verified 12/13/23 11:48 Review of Systems ROS Statement: Those systems with pertinent positive or pertinent negative responses have been documented in the HPI. ROS Other: All systems not noted in ROS Statement are negative. Past Medical History Past Medical History: Asthma, Pneumonia History of Any Multi-Drug Resistant Organisms: Acinetobacter (MDRO) Date of last positivie culture/infection: 06/18/20 MDRO Source:: MDRO ACINETOBACTER SPUTUM Past Surgical History: Orthopedic Surgery Additional Past Surgical History / Comment(s): knee surgery and ankle surgery Past Anesthesia/Blood Transfusion Reactions: No Reported Reaction Past Psychological History: No Psychological Hx Reported, Depression Smoking Status: Never smoker Past Alcohol Use History: Rare Past Drug Use History: None Reported - Past Family History Brother(s) Family Medical History: Chest Pain / Angina, Myocardial Infarction ([place]) Additional Family Medical History / Comment(s): brother recently had a heart attack General Exam Limitations: no limitations General appearance: alert, in no apparent distress Head exam: Present: atraumatic, normocephalic, normal inspection Eye exam: Present: PERRL, EOMI (No pain with ocular movements), conjunctival injection (Bilateral with chemosis noted), periorbital swelling (Minimal bilaterally). Absent: normal appearance, scleral icterus, periorbital tenderness ENT exam: Present: normal exam, normal oropharynx, mucous membranes moist Neck exam: Present: normal inspection, full ROM. Absent: tenderness, meningismus, lymphadenopathy Respiratory exam: Present: normal lung sounds bilaterally. Absent: respiratory distress, wheezes, rales, rhonchi, stridor Cardiovascular Exam: Present: regular rate, normal rhythm, normal heart sounds. Absent: systolic murmur, diastolic murmur, rubs, gallop, clicks Course Vital Signs 12/13/23 11:45 Temperature 98.7 F Pulse Rate 65 Respiratory 18 Rate Blood Pressure 156/94 O2 Sat by Pulse 95 Oximetry Medical Decision Making - Medical Decision Making Was pt. sent in by a medical professional or institution (ROSSY Luna, OPTICAL LABORATORY MECHANIC, urgent care, hospital, or [facility]...) When possible be specific @ -No Did you speak to anyone other than the patient for history (EMS, parent, family, police, friend...)? What history was obtained from this source @ -No Did you review nursing and triage notes (agree or disagree)? Why? @ -I reviewed and agree with nursing and triage notes Were old charts reviewed (outside hosp., previous admission, EMS record, old EKG, old radiological studies, urgent care reports/EKG's, [facility] records)? Report findings @ -No old charts were reviewed Differential Diagnosis (chest pain, altered mental status, abdominal pain women, abdominal pain men, vaginal bleeding, weakness, fever, dyspnea, syncope, headache, dizziness, GI bleed, back pain, seizure, CVA, palpatations, mental health, musculoskeletal)? @ -Conjunctivitis viral versus bacterial versus allergic, chemosis, periorbital cellulitis EKG interpreted by me (3pts min.). @ -None X-rays interpreted by me (1pt min.). @ -None done CT interpreted by me (1pt min.). @ -None done U/S interpreted by me (1pt. min.). @ -None done What testing was considered but not performed or refused? (CT, X-rays, U/S, labs)? Why? @ -None What meds were considered but not given or refused? Why? @ -None Did you discuss the management of the patient with other professionals (professionals i.e. ROSSY Luna, [employer]ICAL LABORATORY MECHANIC, lab, RT, psych nurse, social media sr strategy manager, data center engineer, teacher, tactical debriefer officer, transplant case manager)? Give summary @ -No Was smoking cessation discussed for >3mins.? @ -No Was critical care preformed (if so, how long)? @ -No Were there social determinants of health that impacted care today? How? (Homelessness, low income, unemployed, alcoholism, drug addiction, transportation, low edu. Level, literacy, decrease access to med. care, longterm, rehab)? @ -No Was there de-escalation of care discussed even if they declined (Discuss DNR or withdrawal of care, Hospice)? DNR status @ -No What co-morbidities impacted this encounter? (DM, HTN, Smoking, COPD, CAD, Cancer, CVA, ARF, Chemo, Hep., AIDS, mental health diagnosis, sleep apnea, morbid obesity)? @ -None Was patient admitted / discharged? Hospital course, mention meds given and route, prescriptions, significant lab abnormalities, going to OR and other pertinent info. @ -Discharged patient has bilateral conjunctivitis appears to be more viral versus allergic in nature felt less likely bacterial though concerns as patient's is on current antibiotics we placed on oral antibiotics steroids eyedrops and follow-up tomorrow. Undiagnosed new problem with uncertain prognosis? @ -No Drug Therapy requiring intensive monitoring for toxicity (Heparin, Nitro, Insulin, Cardizem)? @ -No Were any procedures done? @ -No Diagnosis/symptom? @ -Conjunctivitis Acute, or Chronic, or Acute on Chronic? @ -Acute Uncomplicated (without systemic symptoms) or Complicated (systemic symptoms)? @ -Complicated Side effects of treatment? @ -No Exacerbation, Progression, or Severe Exacerbation? @ -No Poses a threat to life or bodily function? How? (Chest pain, [place], [place], pneumonia, PE, COPD, DKA, ARF, appy, cholecystitis, CVA, Diverticulitis, Homicidal, Suicidal, threat to staff... and all critical care pts) @ -No Disposition Clinical Impression: Bilateral conjunctivitis, Periorbital cellulitis Disposition: HOME SELF-CARE Condition: Stable Instructions (If sedation given, give patient instructions): Conjunctivitis (ED) Additional Instructions: Please return to the Emergency Department if symptoms worsen or any other concerns. Prescriptions: Sulfamethox-Tmp 800-160Mg [Bactrim Ds] 1 each PO Q12HR #20 tab predniSONE 50 mg PO DAILY #5 tab Tobra-Dexamet 0.3-0.1% Eye Oin [Tobradex Ophth Oint] 1 applic BOTH EYES BID #3.5 gm Is patient prescribed a controlled substance at d/c from ED?: No Referrals: Joe Santiago DO [Primary Care Provider] - 1-2 days Valeri Bennett MD [STAFF PHYSICIAN] - 1-2 days Time of Disposition: 12:31
[2023-12-13 13:29] VITALS: RESP 18
[2023-12-13] MEDS: ARTIFICIAL TEARS OINTMENT 3.5 GM TUBE BOTH EYES STA (13:39)
[2023-12-13] MEDS: DEXAMETHASONE SOD PHOSPHATE 10 MG/ML 1 ML VIAL IM STA (13:39)
[2023-12-13 13:47] VITALS: BP 148/81; PULSE 64; TEMP 98.2
== END 2023-12-13 13:45 | disposition home or self-care (01) ==
LOC: EC 11:35
DX: H10.9 Unspecified conjunctivitis (principal); L03.213 Periorbital cellulitis; Z88.0 Allergy status to penicillin; Z88.5 Allergy status to narcotic agent
CPT/HCPCS: 99283; 96372; J1100

== ENCOUNTER → 2023-12-16 | Outpatient (CLI) | payer BC ==
[2023-12-16 19:52] LABS: Basophils # (A) 0.05 X 10*3/uL (0.00-0.10); Basophils % (A) 0.7 %; Eosinophils # (A) 0 X 10*3/uL (0.04-0.35); Eosinophils % (A) 0 %; HCT 47.9 % (39.6-50.0); HGB 16.5 g/dL (13.0-17.0); Lymphocytes # (A) 1.24 X 10*3/uL (0.90-5.00); Lymphocytes % (A) 16.2 %; MCH 29.7 pg (27.0-32.0); MCHC 34.4 g/dL (32.0-37.0); MCV 86.3 FL (80.0-97.0); Mean Platelet Volume 9.8 FL (9.5-12.2); Monocytes # (A) 0.17 X 10*3/uL (0.20-1.00); Monocytes % (A) 2.2 %; NRBC Per 100 WBC 0 X 10*3/uL (0.00-0.01); Neutrophils # (A) 6.05 X 10*3/uL (1.80-7.70); Neutrophils % (A) 79.1 %; Platelet Count 264 X 10*3/uL (140-440); RBC 5.55 X 10*6/uL (4.40-5.60); RDW 12.9 % (11.5-14.5); WBC 7.65 X 10*3/uL (4.50-10.00)
[2023-12-17 08:08] LABS: Angiotensin-1 Converting Enz. 32 U/L (8-52)
== END | disposition home or self-care (01) ==
LOC: LABWHC1 14:19
DX: H10.89 Other conjunctivitis (principal)
CPT/HCPCS: 36415; 82164; 85025; 86611; 86618; 86780

== ENCOUNTER → 2023-12-16 | Outpatient (CLI) | payer BC ==
--- NOTE | 2023-12-16 15:46 | XR ---
EXAMINATION TYPE: XR chest 2V DATE OF EXAM: 12/16/2023 COMPARISON: 06/27/2020 HISTORY: 53-year-old male H10.89, other conjunctivitis. Parinaud oculoglandular conjunctivitis, hx a sthama TECHNIQUE: Frontal and lateral views FINDINGS: Heart normal size. Aorta and pulmonary vasculature within normal limits. Hazy densities relating to o verlying soft tissue. No consolidation or pleural effusion seen. IMPRESSION: No acute cardiopulmonary process.
== END | disposition home or self-care (01) ==
LOC: RADXRMAIN 15:11
DX: H10.89 Other conjunctivitis (principal)
CPT/HCPCS: 71046

== ENCOUNTER 2025-01-01 11:10 | Day surgery (SDC) | payer BC ==
[~2025-01-01 11:10] MED LIST: fentaNYL (PF) 50 MCG/ML 2 ML AMP IV PRN
[2025-01-01 11:51] LABS: Glucose,Whole Blood 319 mg/dL (70-110)
[2025-01-01] MEDS: LACTATED RINGERS 1,000 ML IV SCH (11:51)
[2025-01-01] MEDS: ACETAMINOPHEN TAB 500 MG TAB PO PRN (12:21)
[2025-01-01] MEDS: ONDANSETRON 4 MG/2 ML VIAL IVP ONE (12:21)
[2025-01-01] MEDS: INSULIN LISPRO (HumaLOG) 100 UNIT/ML 10 mL VL SQ ONE (12:32)
[2025-01-01] MEDS: MIDAZOLAM 2 MG/2 ML VIAL IV ONE (12:36)
[2025-01-01] MEDS: HEPARIN SODIUM,PORCINE 5,000 UNIT/ML 1 ML VIAL SQ PRN (12:48)
[2025-01-01] MEDS ORDERED: MIDAZOLAM 2 MG/2 ML VIAL ONE (12:52)
[2025-01-01] MEDS ORDERED: ROPIVACAINE 5 MG/ML 30 ML VIAL ONE (12:52)
[2025-01-01] MEDS ORDERED: GLYCOPYRROLATE 0.2 MG/ML 2 ML VIAL ONE (12:52)
[2025-01-01] MEDS ORDERED: ROCURONIUM 10 MG/ML (5 ML VIAL) IV ONE (12:52)
[2025-01-01] MEDS ORDERED: fentaNYL (PF) 50 MCG/ML 2 ML AMP ONE (12:52)
[2025-01-01] MEDS ORDERED: PROPOFOL 10 MG/ML 20 ML VIAL IV ONE (12:52)
[2025-01-01] MEDS ORDERED: SUCCINYLCHOLINE CHLORIDE 200 MG/10 ML VIAL IV ONE (12:52)
[2025-01-01] MEDS ORDERED: NEOSTIGMINE 1 MG/ML 10 ML VIAL ONE (12:52)
[2025-01-01] MEDS ORDERED: LIDOCAINE 1% INJ 10MG/ML (20 ML MDV) ONE (12:52)
[2025-01-01] MEDS: IV FLUID CONTINUATION 1,000 ML IV ONE (12:56)
[2025-01-01] MEDS: ceFAZolin 2 GM in DEXTROSE 5% IN WATER 50 ML IVPB PRN (12:57)
[2025-01-01] MEDS: BUPIVACAINE (PF) 0.25% 30 ML VIAL SQ ONE (13:15)
[2025-01-01 14:17] LABS: Glucose,Whole Blood 269 mg/dL (70-110)
[2025-01-01 14:20] VITALS: TEMP 97
[2025-01-01] MEDS ORDERED: traMADol 50 MG TAB PO STA (14:33)
--- NOTE | 2025-01-01 14:39 | P.OP ---
Date of Procedure: 01/01/25 Procedure(s) Performed: PREOPERATIVE DIAGNOSIS: Incarcerated ventral hernia POSTOPERATIVE DIAGNOSIS: Same PROCEDURE: Open repair incarcerated ventral hernia with mesh, partial omentectomy SURGEON: Dr. Barroso ANESTHESIA: General EBL: 20 cc OPERATIVE PROCEDURE DETAILS: Patient placed on the operating table in the supine position. Abdomen was prepped and draped in usual sterile fashion. The patient's hernia was in the supraumbilical location. A vertical incision was made at that site. Dissection through the subcutaneous tissues took place using electrocautery. A moderate-sized incarcerated ventral hernia was identified. The hernia sac was carefully dissected down to the level of the fascia where it was excised. The patient's fascial defect was oval in shape and oriented horizontally. 3.5 cm in width and 1.5 cm in height. The preperitoneal space was fully dissected using blunt dissection and electrocautery. Once I had adequate space for a 8 cm Ventralex mesh the peritoneum itself was closed using a running locking 2-0 Vicryl stitch. The mesh was then placed beneath the fascia and sutured in place using transfascial 0 Ethibond sutures. The fascia was then reapproximated horizontally using a vest over pants interrupted horizontal mattress 0 Ethibond suture. This closed the defect nicely. The subcutaneous tissues were reapproximated using interrupted 2-0 and 3-0 Vicryl sutures. The skin was closed using 4-0 Monocryl subcuticular stitch. Skin glue and sterile dressings were applied. HERNIA CHARACTERISTICS: Length: 1.5 cm Width: 3.5 cm Type: Incarcerated ventral TYPE OF MESH USED: Ventralex 8 cm LOCATION OF MESH: Sublay extraperitoneal FIXATION: 0 Ethibond PREOPERATIVE DISCUSSION ON SMOKING CESSASTION: Yes PREOPERATIVE DISCUSSION ON MORBID OBESITY: Yes PREOPERATIVE DISCUSSION ON APPROPRIATE USE OF NARCOTIC USE: Yes PREOPERATIVE EDUCATION: Multi Modal, Smoking Cessation and Weight Loss with BMI over 35. DISPOSITION: Stable to recovery room
[2025-01-01 16:43] VITALS: PULSE 67
[2025-01-01 17:14] VITALS: BP 127/74; RESP 16
[2025-01-01] MEDS ORDERED: ACETAMINOPHEN TAB 325 MG TAB PO SCH (18:00)
[2025-01-01] MEDS ORDERED: IBUPROFEN 600 MG TAB PO SCH (21:00)
--- NOTE | 2025-01-02 13:34 | P.ANPRN ---
Procedure Note - Anesthesia - Nerve Block Performed Bilateral Rectus Abdominis Single Time Out Performed: Yes Date of Procedure: 01/01/25 Procedure Start Time: 12:35 Procedure Stop Time: 12:42 Location of Patient: PreOp Indication: Acute Post-Operative Pain, Requested by Surgeon Sedation Type: Sedate with meaningful contact maintained Preparation: Sterile Prep Position: Supine Needle Types: Pajunk Needle Gauge: 21 Ultrasound used to visualize needle placement: Yes Ultrasound used to observe medication spread: Yes Blood Aspirated: No Pain Paresthesia on Injection Noted: No Resistance on Injection: Normal Image Stored and Saved: Yes Events: Uneventful and Well Tolerated (Ropivacaine 0.5% 20 cc plus dexamethasone 4 mg given bilaterally)
== END 2025-01-01 17:37 | disposition home or self-care (01) ==
LOC: OR 11:10
PROVIDERS: ATTEND Surgery
DX: K43.6 Other and unspecified ventral hernia with obstruction, without gangrene (principal); G89.18 Other acute postprocedural pain; I10 Essential (primary) hypertension; E11.9 Type 2 diabetes mellitus without complications; F32.A Depression, unspecified; Z79.899 Other long term (current) drug therapy; Z88.5 Allergy status to narcotic agent; Z88.0 Allergy status to penicillin
CPT/HCPCS: 49594; 64488; 88305; C1781; J2250; J0330; J1644; J2710; J0690; J2405; J2003; J3010; J2795; J2704; J0665; J1596